=== PATIENT | female | born 1955 | race Caucasian/White ===

== ENCOUNTER → 2017-04-18 13:26 | Outpatient (CLI) | payer OTHER, SELFPAY ==
[2017-04-18 15:29] LABS: Absolute Lymphocyte Count 1.12 X10^3/ul (0.83-4.51); Absolute Neutrophil Count 2.8 X10^3/uL (2.0-7.7); Basophil# 0.03 X10^3/uL; Basophil% 0.6 % (0-1); Eosinophils% 2.1 % (0-5); Hemoglobin 12.8 g/dl (12.0-15.0); Lymphocyte # 1.12 X10^3/ul (4.0); Lymphocyte % 23.8 % (19-41); Mean Corp Hgb Conc 32.8 g/gl (32-36); Mean Corpuscular Hgb 31.9 pg (27.0-32.0); Mean Corpuscular Volume 97.3 fL (81-99); Mean Platelet Vol. 11.3 fl (6.2-12.0); Monocyte# 0.62 X10^3/uL; Monocyte% 13.2 % (0-10); Neutrophil # 2.83 X10^3/uL (2.7-7.7); Neutrophil % 60.3 % (47-70); Platelet Count 248 K/mm3 (150-450); RBC Distribution Width SD 47.1 fl (35.1-43.9); Red Blood Count 4.01 M/mm3 (4.2-5.4); White Blood Count 4.7 K/mm3 (4.4-11.0)
[2017-04-18 15:33] LABS: POSITIVE COUNT NO; POSITIVE DIFFERENTIAL NO; POSITIVE MORPHOLOGY NO
[2017-04-18 15:44] LABS: ALB/GLOB Ratio 1.2 RATIO (0.9-2.4); AST(SGOT) 26 U/L (15-37); Alanine Aminotransfer ALT/SGPT 39 U/L (13-56); Albumin, Serum 3.5 g/dL (3.2-5.0); Alkaline Phosphatase 62 U/L (45-117); Anion Gap 7 (5-15); BUN 19 mg/dL (7-18); BUN/Creat Ratio 22.4 RATIO (10-20); Calcium,Total 8.4 mg/dL (8.5-10.1); Chloride 105 mmol/L (98-107); Creatinine, Serum 0.85 mg/dL (0.55-1.02); EST Glomerular Filtration Rate 72 mL/min (>60); Est Glom Filt Rate - Afr Amer 87 mL/min (>60); Glucose 81 mg/dL (74-106); Potassium 3.8 mmol/L (3.5-5.1); Protein, Total 6.5 g/dL (6.4-8.2); Sodium Level 141 mmol/L (136-145)
== END ==
PROVIDERS: Family Provider Family Medicine; PCP Family Medicine; Visit Provider Internal Medicine Rheumatology
DX: M06.4 Inflammatory polyarthropathy (principal); M79.7 Fibromyalgia; M35.00 Sjogren syndrome, unspecified; K58.9 Irritable bowel syndrome, unspecified; I34.1 Nonrheumatic mitral (valve) prolapse; E78.5 Hyperlipidemia, unspecified; F32.89 Other specified depressive episodes; Z79.899 Other long term (current) drug therapy
CPT/HCPCS: 36415; 80053; 85025

== ENCOUNTER → 2017-07-11 11:00 | Outpatient (CLI) | payer OTHER, SELFPAY ==
[2017-07-11 12:54] LABS: ALB/GLOB Ratio 1.2 RATIO (0.9-2.4); AST(SGOT) 31 U/L (15-37); Alanine Aminotransfer ALT/SGPT 36 U/L (13-56); Alkaline Phosphatase 66 U/L (45-117); Anion Gap 7 (5-15); BUN 19 mg/dL (7-18); BUN/Creat Ratio 19.7 RATIO (10-20); Calcium,Total 9.3 mg/dL (8.5-10.1); Chloride 103 mmol/L (98-107); Creatinine, Serum 0.96 mg/dL (0.55-1.02); EST Glomerular Filtration Rate 62 mL/min (>60); Est Glom Filt Rate - Afr Amer 75 mL/min (>60); Globulin 3.3 g/dL (2.2-4.2); Glucose 88 mg/dL (74-106); Potassium 4.8 mmol/L (3.5-5.1); Protein, Total 7.3 g/dL (6.4-8.2); Sodium Level 138 mmol/L (136-145)
[2017-07-11 13:06] LABS: Absolute Lymphocyte Count 1.02 X10^3/ul (0.83-4.51); Basophil# 0.02 X10^3/uL; Basophil% 0.4 % (0-1); Eosinophil# 0.29 X10^3/uL; Eosinophils% 6.3 % (0-5); Hematocrit 46.5 % (37-47); Hemoglobin 15.7 g/dl (12.0-15.0); Lymphocyte # 1.02 X10^3/ul (4.0); Mean Corp Hgb Conc 33.8 g/gl (32-36); Mean Corpuscular Hgb 30.7 pg (27.0-32.0); Mean Corpuscular Volume 90.8 fL (81-99); Mean Platelet Vol. 10.7 fl (6.2-12.0); Monocyte# 0.34 X10^3/uL; Monocyte% 7.3 % (0-10); Neutrophil # 2.96 X10^3/uL (2.7-7.7); Neutrophil % 63.8 % (47-70); Platelet Count 178 K/mm3 (150-450); RBC Distribution Width CV 12.9 % (11.6-14.6); RBC Distribution Width SD 42.9 fl (35.1-43.9); Red Blood Count 5.12 M/mm3 (4.2-5.4); White Blood Count 4.6 K/mm3 (4.4-11.0)
[2017-07-11 13:16] LABS: POSITIVE COUNT NO; POSITIVE DIFFERENTIAL NO; POSITIVE MORPHOLOGY NO
== END ==
PROVIDERS: Family Provider Family Medicine; PCP Family Medicine; Visit Provider Internal Medicine Rheumatology
DX: M06.4 Inflammatory polyarthropathy (principal); M79.7 Fibromyalgia; M35.00 Sjogren syndrome, unspecified; K58.9 Irritable bowel syndrome, unspecified; F32.89 Other specified depressive episodes; I34.1 Nonrheumatic mitral (valve) prolapse; E78.5 Hyperlipidemia, unspecified; Z79.899 Other long term (current) drug therapy
CPT/HCPCS: 36415; 80053; 85025

== ENCOUNTER → 2017-09-20 13:44 | Outpatient (CLI) | payer OTHER, SELFPAY ==
[2017-09-20 15:28] LABS: Absolute Lymphocyte Count 1.16 X10^3/ul (0.83-4.51); Absolute Neutrophil Count 3.7 X10^3/uL (2.0-7.7); Basophil# 0.02 X10^3/uL; Basophil% 0.4 % (0-1); Eosinophil# 0.11 X10^3/uL; Eosinophils% 1.9 % (0-5); Hematocrit 41.1 % (37-47); Hemoglobin 13.3 g/dl (12.0-15.0); Lymphocyte # 1.16 X10^3/ul (4.0); Lymphocyte % 20.5 % (19-41); Mean Corp Hgb Conc 32.4 g/gl (32-36); Mean Corpuscular Hgb 31.8 pg (27.0-32.0); Mean Corpuscular Volume 98.3 fL (81-99); Mean Platelet Vol. 10.8 fl (6.2-12.0); Monocyte# 0.67 X10^3/uL; Monocyte% 11.9 % (0-10); Neutrophil # 3.69 X10^3/uL (2.7-7.7); Neutrophil % 65.3 % (47-70); Platelet Count 261 K/mm3 (150-450); RBC Distribution Width CV 14.6 % (11.6-14.6); RBC Distribution Width SD 50.4 fl (35.1-43.9); Red Blood Count 4.18 M/mm3 (4.2-5.4); White Blood Count 5.7 K/mm3 (4.4-11.0)
[2017-09-20 15:39] LABS: POSITIVE COUNT NO; POSITIVE DIFFERENTIAL NO; POSITIVE MORPHOLOGY NO
[2017-09-20 15:51] LABS: ALB/GLOB Ratio 1.3 RATIO (0.9-2.4); AST(SGOT) 31 U/L (15-37); Alanine Aminotransfer ALT/SGPT 40 U/L (13-56); Albumin, Serum 3.9 g/dL (3.2-5.0); Alkaline Phosphatase 60 U/L (45-117); Anion Gap 6 (5-15); BUN 19 mg/dL (7-18); BUN/Creat Ratio 18.4 RATIO (10-20); Calcium,Total 8.8 mg/dL (8.5-10.1); Chloride 105 mmol/L (98-107); Creatinine, Serum 1.03 mg/dL (0.55-1.02); EST Glomerular Filtration Rate 57 mL/min (>60); Est Glom Filt Rate - Afr Amer 69 mL/min (>60); Globulin 3.1 g/dL (2.2-4.2); Glucose 81 mg/dL (74-106); Potassium 4.1 mmol/L (3.5-5.1); Sodium Level 142 mmol/L (136-145)
== END ==
PROVIDERS: Family Provider Family Medicine; PCP Family Medicine; Visit Provider Internal Medicine Rheumatology
DX: M06.4 Inflammatory polyarthropathy (principal); M35.00 Sjogren syndrome, unspecified; K58.9 Irritable bowel syndrome, unspecified; M79.7 Fibromyalgia; I34.1 Nonrheumatic mitral (valve) prolapse; E78.5 Hyperlipidemia, unspecified; G47.33 Obstructive sleep apnea (adult) (pediatric); F32.89 Other specified depressive episodes; Z79.899 Other long term (current) drug therapy
CPT/HCPCS: 36415; 80053; 85025

== ENCOUNTER → 2017-12-14 15:24 | Outpatient (CLI) | payer OTHER, SELFPAY ==
[2017-12-14 17:48] LABS: ALB/GLOB Ratio 1.2 RATIO (0.9-2.4); AST(SGOT) 44 U/L (15-37); Alanine Aminotransfer ALT/SGPT 59 U/L (13-56); Albumin, Serum 3.8 g/dL (3.2-5.0); Alkaline Phosphatase 67 U/L (45-117); Anion Gap 7 (5-15); BUN 17 mg/dL (7-18); BUN/Creat Ratio 17.6 RATIO (10-20); Chloride 104 mmol/L (98-107); Creatinine, Serum 0.96 mg/dL (0.55-1.02); EST Glomerular Filtration Rate 62 mL/min (>60); Est Glom Filt Rate - Afr Amer 75 mL/min (>60); Globulin 3.1 g/dL (2.2-4.2); Glucose 129 mg/dL (74-106); Potassium 3.6 mmol/L (3.5-5.1); Protein, Total 6.9 g/dL (6.4-8.2); Sodium Level 139 mmol/L (136-145)
[2017-12-14 17:53] LABS: Absolute Lymphocyte Count 1.39 X10^3/ul (0.83-4.51); Absolute Neutrophil Count 3.8 X10^3/uL (2.0-7.7); Basophil# 0.03 X10^3/uL; Basophil% 0.5 % (0-1); Eosinophil# 0.06 X10^3/uL; Hematocrit 40.8 % (37-47); Hemoglobin 13.3 g/dl (12.0-15.0); Lymphocyte # 1.39 X10^3/ul (4.0); Mean Corp Hgb Conc 32.6 g/gl (32-36); Mean Corpuscular Hgb 31.2 pg (27.0-32.0); Mean Corpuscular Volume 95.8 fL (81-99); Mean Platelet Vol. 10.8 fl (6.2-12.0); Monocyte% 8.6 % (0-10); Neutrophil # 3.81 X10^3/uL (2.7-7.7); Neutrophil % 65.7 % (47-70); POSITIVE COUNT NO; POSITIVE DIFFERENTIAL NO; POSITIVE MORPHOLOGY NO; Platelet Count 290 K/mm3 (150-450); RBC Distribution Width CV 14.7 % (11.6-14.6); RBC Distribution Width SD 49.4 fl (35.1-43.9); Red Blood Count 4.26 M/mm3 (4.2-5.4); White Blood Count 5.8 K/mm3 (4.4-11.0)
== END ==
PROVIDERS: Family Provider Family Medicine; PCP Family Medicine; Visit Provider Internal Medicine Rheumatology
DX: M06.4 Inflammatory polyarthropathy (principal); M79.7 Fibromyalgia; M35.00 Sjogren syndrome, unspecified; K58.9 Irritable bowel syndrome, unspecified; I34.1 Nonrheumatic mitral (valve) prolapse; E78.5 Hyperlipidemia, unspecified; G47.33 Obstructive sleep apnea (adult) (pediatric); F32.89 Other specified depressive episodes; Z79.899 Other long term (current) drug therapy
CPT/HCPCS: 36415; 80053; 85025

== ENCOUNTER → 2018-03-20 16:36 | Outpatient (CLI) | payer OTHER, SELFPAY ==
[2018-03-20 18:01] LABS: ALB/GLOB Ratio 1.1 RATIO (0.9-2.4); AST(SGOT) 28 U/L (15-37); Alanine Aminotransfer ALT/SGPT 41 U/L (13-56); Albumin, Serum 3.9 g/dL (3.2-5.0); Alkaline Phosphatase 71 U/L (45-117); Anion Gap 10 (5-15); BUN 21 mg/dL (7-18); BUN/Creat Ratio 23.1 RATIO (10-20); Calcium,Total 9.5 mg/dL (8.5-10.1); Chloride 102 mmol/L (98-107); Creatinine, Serum 0.91 mg/dL (0.55-1.02); EST Glomerular Filtration Rate 66 mL/min (>60); Est Glom Filt Rate - Afr Amer 80 mL/min (>60); Globulin 3.4 g/dL (2.2-4.2); Glucose 73 mg/dL (74-106); Protein, Total 7.3 g/dL (6.4-8.2); Sodium Level 141 mmol/L (136-145)
[2018-03-20 18:02] LABS: Absolute Lymphocyte Count 1.25 X10^3/ul (0.83-4.51); Absolute Neutrophil Count 3.5 X10^3/uL (2.0-7.7); Basophil# 0.03 X10^3/uL; Basophil% 0.5 % (0-1); Eosinophil# 0.09 X10^3/uL; Eosinophils% 1.6 % (0-5); Hematocrit 42.4 % (37-47); Hemoglobin 14.1 g/dl (12.0-15.0); Lymphocyte # 1.25 X10^3/ul (4.0); Lymphocyte % 22.7 % (19-41); Mean Corp Hgb Conc 33.3 g/gl (32-36); Mean Corpuscular Hgb 31.9 pg (27.0-32.0); Mean Corpuscular Volume 95.9 fL (81-99); Monocyte# 0.62 X10^3/uL; Monocyte% 11.3 % (0-10); Neutrophil % 63.7 % (47-70); Platelet Count 352 K/mm3 (150-450); RBC Distribution Width CV 13.9 % (11.6-14.6); RBC Distribution Width SD 47.1 fl (35.1-43.9); Red Blood Count 4.42 M/mm3 (4.2-5.4); White Blood Count 5.5 K/mm3 (4.4-11.0)
[2018-03-20 18:21] LABS: POSITIVE COUNT NO; POSITIVE DIFFERENTIAL NO; POSITIVE MORPHOLOGY NO
== END ==
PROVIDERS: Family Provider Family Medicine; PCP Family Medicine; Referring Provider Internal Medicine Rheumatology; Visit Provider Internal Medicine Rheumatology
DX: M06.4 Inflammatory polyarthropathy (principal); M18.0 Bilateral primary osteoarthritis of first carpometacarpal joints; M79.7 Fibromyalgia; M35.00 Sjogren syndrome, unspecified; Z79.899 Other long term (current) drug therapy
CPT/HCPCS: 36415; 80053; 85025

== ENCOUNTER → 2018-06-19 13:40 | Outpatient (CLI) | payer OTHER, SELFPAY ==
[2018-06-19 15:44] LABS: Absolute Lymphocyte Count 1.24 X10^3/ul (0.83-4.51); Absolute Neutrophil Count 3.9 X10^3/uL (2.0-7.7); Basophil# 0.02 X10^3/uL; Basophil% 0.3 % (0-1); Eosinophil# 0.07 X10^3/uL; Eosinophils% 1.2 % (0-5); Hematocrit 40.5 % (37-47); Hemoglobin 13.3 g/dl (12.0-15.0); Lymphocyte # 1.24 X10^3/ul (4.0); Mean Corp Hgb Conc 32.8 g/gl (32-36); Mean Corpuscular Hgb 30.9 pg (27.0-32.0); Mean Platelet Vol. 11.5 fl (6.2-12.0); Monocyte# 0.64 X10^3/uL; Monocyte% 10.8 % (0-10); Neutrophil # 3.93 X10^3/uL (2.7-7.7); Neutrophil % 66.5 % (47-70); POSITIVE COUNT NO; POSITIVE DIFFERENTIAL NO; POSITIVE MORPHOLOGY NO; Platelet Count 236 K/mm3 (150-450); RBC Distribution Width CV 14.5 % (11.6-14.6); RBC Distribution Width SD 47.8 fl (35.1-43.9); Red Blood Count 4.31 M/mm3 (4.2-5.4); White Blood Count 5.9 K/mm3 (4.4-11.0)
[2018-06-19 15:51] LABS: ALB/GLOB Ratio 1.2 RATIO (0.9-2.4); AST(SGOT) 35 U/L (15-37); Alanine Aminotransfer ALT/SGPT 46 U/L (13-56); Albumin, Serum 3.7 g/dL (3.2-5.0); Alkaline Phosphatase 62 U/L (45-117); Anion Gap 5 (5-15); BUN 24 mg/dL (7-18); BUN/Creat Ratio 24.8 RATIO (10-20); Chloride 104 mmol/L (98-107); Creatinine, Serum 0.97 mg/dL (0.55-1.02); EST Glomerular Filtration Rate 62 mL/min (>60); Est Glom Filt Rate - Afr Amer 75 mL/min (>60); Globulin 3.1 g/dL (2.2-4.2); Glucose 84 mg/dL (74-106); Potassium 3.8 mmol/L (3.5-5.1); Protein, Total 6.8 g/dL (6.4-8.2); Sodium Level 140 mmol/L (136-145)
== END ==
PROVIDERS: Family Provider Family Medicine; PCP Family Medicine; Referring Provider Internal Medicine Rheumatology; Visit Provider Internal Medicine Rheumatology
DX: M06.4 Inflammatory polyarthropathy (principal); M18.0 Bilateral primary osteoarthritis of first carpometacarpal joints; M79.7 Fibromyalgia; M35.00 Sjogren syndrome, unspecified; Z79.899 Other long term (current) drug therapy
CPT/HCPCS: 36415; 80053; 85025

== ENCOUNTER → 2018-09-11 16:01 | Outpatient (CLI) | payer OTHER, SELFPAY ==
[2018-09-11 17:24] LABS: Absolute Lymphocyte Count 1.41 X10^3/ul (0.83-4.51); Absolute Neutrophil Count 3.2 X10^3/uL (2.0-7.7); Basophil# 0.03 X10^3/uL; Basophil% 0.6 % (0-1); Eosinophil# 0.09 X10^3/uL; Eosinophils% 1.7 % (0-5); Hematocrit 40.6 % (37-47); Hemoglobin 13.1 g/dl (12.0-15.0); Lymphocyte # 1.41 X10^3/ul (4.0); Lymphocyte % 26.8 % (19-41); Mean Corp Hgb Conc 32.3 g/gl (32-36); Mean Corpuscular Hgb 30.5 pg (27.0-32.0); Mean Corpuscular Volume 94.4 fL (81-99); Mean Platelet Vol. 11.6 fl (6.2-12.0); Monocyte# 0.57 X10^3/uL; Monocyte% 10.8 % (0-10); Neutrophil # 3.16 X10^3/uL (2.7-7.7); Neutrophil % 59.9 % (47-70); Platelet Count 257 K/mm3 (150-450); White Blood Count 5.3 K/mm3 (4.4-11.0)
[2018-09-11 17:32] LABS: POSITIVE COUNT NO; POSITIVE DIFFERENTIAL NO; POSITIVE MORPHOLOGY NO
[2018-09-11 17:35] LABS: ALB/GLOB Ratio 1.1 RATIO (0.9-2.4); AST(SGOT) 29 U/L (15-37); Alanine Aminotransfer ALT/SGPT 40 U/L (13-56); Albumin, Serum 3.6 g/dL (3.2-5.0); Alkaline Phosphatase 71 U/L (45-117); Anion Gap 7 (5-15); BUN 21 mg/dL (7-18); BUN/Creat Ratio 22.2 RATIO (10-20); Chloride 106 mmol/L (98-107); Creatinine, Serum 0.94 mg/dL (0.55-1.02); EST Glomerular Filtration Rate 63 mL/min (>60); Est Glom Filt Rate - Afr Amer 76 mL/min (>60); Globulin 3.3 g/dL (2.2-4.2); Glucose 72 mg/dL (74-106); Potassium 4.1 mmol/L (3.5-5.1); Protein, Total 6.9 g/dL (6.4-8.2); Sodium Level 143 mmol/L (136-145)
== END ==
PROVIDERS: Family Provider Family Medicine; PCP Family Medicine; Referring Provider Internal Medicine Rheumatology; Visit Provider Internal Medicine Rheumatology
DX: M06.4 Inflammatory polyarthropathy (principal); M79.7 Fibromyalgia; M35.00 Sjogren syndrome, unspecified; M18.0 Bilateral primary osteoarthritis of first carpometacarpal joints; K58.9 Irritable bowel syndrome, unspecified; F32.89 Other specified depressive episodes; I34.1 Nonrheumatic mitral (valve) prolapse; E78.5 Hyperlipidemia, unspecified; G47.33 Obstructive sleep apnea (adult) (pediatric); Z79.899 Other long term (current) drug therapy
CPT/HCPCS: 36415; 80053; 85025

== ENCOUNTER → 2018-12-04 11:39 | Outpatient (CLI) | payer MEDICARE, SELFPAY ==
[2018-12-04 13:58] LABS: Absolute Lymphocyte Count 0.94 X10^3/uL (0.83-4.51); Absolute Neutrophil Count 2.8 X10^3/uL (2.0-7.7); Basophil# 0.04 X10^3/uL; Basophil% 0.8 % (0-1); Eosinophils% 10.6 % (0-5); Hematocrit 42.4 % (37-47); Hemoglobin 13.7 g/dL (12.0-15.0); Lymphocyte # 0.94 X10^3/ul (4.0); Lymphocyte % 19.9 % (19-41); Mean Corp Hgb Conc 32.3 g/dL (32-36); Mean Corpuscular Hgb 31.4 pg (27.0-32.0); Mean Platelet Vol. 10.7 fl (6.2-12.0); Monocyte% 8.5 % (0-10); NRBC Flagged by Analyzer 0 % (0-5); Neutrophil # 2.84 X10^3/uL (2.7-7.7); Platelet Count 268 K/mm3 (150-450); RBC Distribution Width CV 14.2 % (11.6-14.6); RBC Distribution Width SD 50.3 fl (35.1-43.9); Red Blood Count 4.37 M/mm3 (4.2-5.4); White Blood Count 4.7 K/mm3 (4.4-11.0)
[2018-12-04 14:32] LABS: ALB/GLOB Ratio 1.1 RATIO (0.9-2.4); AST(SGOT) 26 U/L (15-37); Alanine Aminotransfer ALT/SGPT 35 U/L (13-56); Albumin, Serum 3.7 g/dL (3.2-5.0); Alkaline Phosphatase 74 U/L (45-117); Anion Gap 5 (5-15); BUN 17 mg/dL (7-18); BUN/Creat Ratio 18.4 RATIO (10-20); Calcium,Total 9.1 mg/dL (8.5-10.1); Chloride 104 mmol/L (98-107); Creatinine, Serum 0.92 mg/dL (0.55-1.02); EST Glomerular Filtration Rate 65 mL/min (>60); Est Glom Filt Rate - Afr Amer 79 mL/min (>60); Globulin 3.5 g/dL (2.2-4.2); Glucose 74 mg/dL (74-106); Potassium 4.1 mmol/L (3.5-5.1); Protein, Total 7.2 g/dL (6.4-8.2); Sodium Level 139 mmol/L (136-145)
== END ==
PROVIDERS: Family Provider Family Medicine; PCP Family Medicine; Referring Provider Internal Medicine Rheumatology; Visit Provider Internal Medicine Rheumatology
DX: M06.4 Inflammatory polyarthropathy (principal); M79.7 Fibromyalgia; M35.00 Sjogren syndrome, unspecified; M18.0 Bilateral primary osteoarthritis of first carpometacarpal joints; K58.9 Irritable bowel syndrome, unspecified; I34.1 Nonrheumatic mitral (valve) prolapse; E78.5 Hyperlipidemia, unspecified; G47.33 Obstructive sleep apnea (adult) (pediatric); F32.89 Other specified depressive episodes; Z79.899 Other long term (current) drug therapy
CPT/HCPCS: 36415; 80053; 85025

== ENCOUNTER → 2018-12-27 11:35 | Outpatient (CLI) | payer MEDICARE, SELFPAY ==
[2018-12-28 16:08] LABS: Red Blood Cell Count Test/G6PD 4.41 x10E6/uL (3.77-5.28)
[2018-12-28 16:47] LABS: G6PD Quant Test 325 (146-376)
== END ==
PROVIDERS: Family Provider Family Medicine; PCP Family Medicine; Referring Provider Internal Medicine Rheumatology; Visit Provider Internal Medicine Rheumatology
DX: M06.4 Inflammatory polyarthropathy (principal); M35.00 Sjogren syndrome, unspecified; M18.0 Bilateral primary osteoarthritis of first carpometacarpal joints; M79.7 Fibromyalgia; Z79.899 Other long term (current) drug therapy
CPT/HCPCS: 36415; 82955

== ENCOUNTER → 2019-02-14 13:53 | Outpatient (CLI) | payer MEDICARE, SELFPAY ==
[2019-02-14 16:15] LABS: Absolute Lymphocyte Count 1.24 X10^3/uL (0.83-4.51); Absolute Neutrophil Count 3.8 X10^3/uL (2.0-7.7); Basophil# 0.03 X10^3/uL; Basophil% 0.5 % (0-1); Eosinophil# 0.02 X10^3/uL; Eosinophils% 0.4 % (0-5); Hematocrit 44.6 % (37-47); Hemoglobin 14.5 g/dL (12.0-15.0); Lymphocyte # 1.24 X10^3/ul (4.0); Lymphocyte % 22.3 % (19-41); Mean Corp Hgb Conc 32.5 g/dL (32-36); Mean Corpuscular Hgb 31.5 pg (27.0-32.0); Mean Platelet Vol. 11.3 fl (6.2-12.0); Monocyte# 0.44 X10^3/uL; Monocyte% 7.9 % (0-10); NRBC Flagged by Analyzer 0 % (0-5); Neutrophil # 3.78 X10^3/uL (2.7-7.7); Neutrophil % 68.2 % (47-70); Platelet Count 319 K/mm3 (150-450); RBC Distribution Width CV 15.3 % (11.6-14.6); RBC Distribution Width SD 53.8 fl (35.1-43.9); White Blood Count 5.6 K/mm3 (4.4-11.0)
[2019-02-14 16:31] LABS: ALB/GLOB Ratio 1.1 RATIO (0.9-2.4); AST(SGOT) 27 U/L (15-37); Alanine Aminotransfer ALT/SGPT 38 U/L (13-56); Albumin, Serum 3.7 g/dL (3.2-5.0); Alkaline Phosphatase 67 U/L (45-117); Anion Gap 4 (5-15); BUN 19 mg/dL (7-18); BUN/Creat Ratio 21.7 RATIO (10-20); Calcium,Total 9.5 mg/dL (8.5-10.1); Chloride 104 mmol/L (98-107); Creatinine, Serum 0.87 mg/dL (0.55-1.02); EST Glomerular Filtration Rate 69 mL/min (>60); Est Glom Filt Rate - Afr Amer 84 mL/min (>60); Globulin 3.4 g/dL (2.2-4.2); Glucose 83 mg/dL (74-106); Potassium 3.6 mmol/L (3.5-5.1); Protein, Total 7.1 g/dL (6.4-8.2); Sodium Level 138 mmol/L (136-145)
== END ==
PROVIDERS: Family Provider Family Medicine; PCP Family Medicine; Referring Provider Internal Medicine Rheumatology; Visit Provider Internal Medicine Rheumatology
DX: M06.4 Inflammatory polyarthropathy (principal); M35.00 Sjogren syndrome, unspecified; M18.0 Bilateral primary osteoarthritis of first carpometacarpal joints; M79.7 Fibromyalgia; Z79.899 Other long term (current) drug therapy
CPT/HCPCS: 36415; 80053; 85025

== ENCOUNTER → 2019-05-21 07:05 | Outpatient (CLI) | payer MEDICARE, SELFPAY ==
[2019-05-21 10:10] LABS: Absolute Lymphocyte Count 1.33 X10^3/uL (0.83-4.51); Absolute Neutrophil Count 2.4 X10^3/uL (2.0-7.7); Basophil# 0.04 X10^3/uL; Basophil% 0.9 % (0-1); Eosinophil# 0.09 X10^3/uL; Hematocrit 42.2 % (37-47); Hemoglobin 13.6 g/dL (12.0-15.0); Lymphocyte # 1.33 X10^3/ul (4.0); Lymphocyte % 30.2 % (19-41); Mean Corp Hgb Conc 32.2 g/dL (32-36); Mean Corpuscular Hgb 31.3 pg (27.0-32.0); Mean Corpuscular Volume 97.2 fL (81-99); Mean Platelet Vol. 10.2 fl (6.2-12.0); Monocyte# 0.57 X10^3/uL; Monocyte% 12.9 % (0-10); NRBC Flagged by Analyzer 0 % (0-5); Neutrophil # 2.36 X10^3/uL (2.7-7.7); Neutrophil % 53.5 % (47-70); Platelet Count 241 K/mm3 (150-450); RBC Distribution Width CV 13.6 % (11.6-14.6); RBC Distribution Width SD 47.8 fl (35.1-43.9); Red Blood Count 4.34 M/mm3 (4.2-5.4); White Blood Count 4.4 K/mm3 (4.4-11.0)
[2019-05-21 10:22] LABS: ALB/GLOB Ratio 1.2 RATIO (0.9-2.4); AST(SGOT) 23 U/L (15-37); Alanine Aminotransfer ALT/SGPT 28 U/L (13-56); Albumin, Serum 3.6 g/dL (3.2-5.0); Alkaline Phosphatase 54 U/L (45-117); Anion Gap 4 (5-15); BUN 14 mg/dL (7-18); BUN/Creat Ratio 13.9 RATIO (10-20); Calcium,Total 9.1 mg/dL (8.5-10.1); Chloride 107 mmol/L (98-107); Creatinine, Serum 1.01 mg/dL (0.55-1.02); EST Glomerular Filtration Rate 58 mL/min (>60); Est Glom Filt Rate - Afr Amer 71 mL/min (>60); Glucose 72 mg/dL (74-106); Potassium 3.8 mmol/L (3.5-5.1); Protein, Total 6.6 g/dL (6.4-8.2); Sodium Level 140 mmol/L (136-145)
== END ==
PROVIDERS: PCP Family Medicine; Referring Provider Internal Medicine Rheumatology; Visit Provider Internal Medicine Rheumatology
DX: M06.4 Inflammatory polyarthropathy (principal); M18.0 Bilateral primary osteoarthritis of first carpometacarpal joints; M25.511 Pain in right shoulder; M79.7 Fibromyalgia; M35.00 Sjogren syndrome, unspecified; K58.9 Irritable bowel syndrome, unspecified; I34.1 Nonrheumatic mitral (valve) prolapse; E78.5 Hyperlipidemia, unspecified; G47.33 Obstructive sleep apnea (adult) (pediatric); F32.89 Other specified depressive episodes; Z79.899 Other long term (current) drug therapy
CPT/HCPCS: 36415; 80053; 85025

== ENCOUNTER → 2019-07-18 10:31 | Outpatient (CLI) | payer MEDICARE, SELFPAY ==
[2019-07-18 12:04] LABS: Absolute Lymphocyte Count 0.83 X10^3/uL (0.83-4.51); Absolute Neutrophil Count 2.4 X10^3/uL (2.0-7.7); Basophil# 0.03 X10^3/uL; Basophil% 0.8 % (0-1); Eosinophil# 0.03 X10^3/uL; Eosinophils% 0.8 % (0-5); Hematocrit 39.8 % (37-47); Lymphocyte # 0.83 X10^3/ul (4.0); Lymphocyte % 22.1 % (19-41); Mean Corp Hgb Conc 32.7 g/dL (32-36); Mean Corpuscular Hgb 32.3 pg (27.0-32.0); Mean Corpuscular Volume 98.8 fL (81-99); Mean Platelet Vol. 10.5 fl (6.2-12.0); Monocyte# 0.44 X10^3/uL; Monocyte% 11.7 % (0-10); NRBC Flagged by Analyzer 0 % (0-5); Neutrophil % 63.8 % (47-70); Platelet Count 263 K/mm3 (150-450); RBC Distribution Width CV 13.7 % (11.6-14.6); RBC Distribution Width SD 49.4 fl (35.1-43.9); Red Blood Count 4.03 M/mm3 (4.2-5.4); White Blood Count 3.8 K/mm3 (4.4-11.0)
[2019-07-18 12:20] LABS: ALB/GLOB Ratio 1.2 RATIO (0.9-2.4); AST(SGOT) 26 U/L (15-37); Alanine Aminotransfer ALT/SGPT 40 U/L (13-56); Albumin, Serum 3.7 g/dL (3.2-5.0); Alkaline Phosphatase 54 U/L (45-117); Anion Gap 5 (5-15); BUN 18 mg/dL (7-18); BUN/Creat Ratio 19.1 RATIO (10-20); Chloride 104 mmol/L (98-107); Creatinine, Serum 0.94 mg/dL (0.55-1.02); EST Glomerular Filtration Rate 63 mL/min (>60); Est Glom Filt Rate - Afr Amer 76 mL/min (>60); Globulin 3.2 g/dL (2.2-4.2); Glucose 52 mg/dL (74-106); Protein, Total 6.9 g/dL (6.4-8.2); Sodium Level 138 mmol/L (136-145)
== END ==
PROVIDERS: PCP Family Medicine; Referring Provider Internal Medicine Rheumatology; Visit Provider Internal Medicine Rheumatology
DX: M06.4 Inflammatory polyarthropathy (principal); M79.7 Fibromyalgia; M35.00 Sjogren syndrome, unspecified; M18.0 Bilateral primary osteoarthritis of first carpometacarpal joints; K58.9 Irritable bowel syndrome, unspecified; F32.89 Other specified depressive episodes; I34.1 Nonrheumatic mitral (valve) prolapse; E78.5 Hyperlipidemia, unspecified; G47.33 Obstructive sleep apnea (adult) (pediatric); Z79.899 Other long term (current) drug therapy
CPT/HCPCS: 36415; 80053; 85025

== ENCOUNTER → 2019-10-25 10:17 | Outpatient (CLI) | payer MEDICARE, SELFPAY ==
[2019-10-25 12:30] LABS: Absolute Lymphocyte Count 1.22 X10^3/uL (0.83-4.51); Absolute Neutrophil Count 1.9 X10^3/uL (2.0-7.7); Basophil# 0.06 X10^3/uL; Basophil% 1.5 % (0-1); Eosinophil# 0.41 X10^3/uL; Eosinophils% 10.1 % (0-5); Hematocrit 39.5 % (37-47); Hemoglobin 12.8 g/dL (12.0-15.0); Lymphocyte # 1.22 X10^3/ul (4.0); Lymphocyte % 30.1 % (19-41); Mean Corp Hgb Conc 32.4 g/dL (32-36); Mean Corpuscular Hgb 32.6 pg (27.0-32.0); Mean Corpuscular Volume 100.5 fL (81-99); Mean Platelet Vol. 10.5 fl (6.2-12.0); Monocyte# 0.45 X10^3/uL; Monocyte% 11.1 % (0-10); NRBC Flagged by Analyzer 0 % (0-5); Neutrophil # 1.91 X10^3/uL (2.7-7.7); Neutrophil % 47.2 % (47-70); Platelet Count 267 K/mm3 (150-450); RBC Distribution Width CV 13.7 % (11.6-14.6); RBC Distribution Width SD 50.4 fl (35.1-43.9); Red Blood Count 3.93 M/mm3 (4.2-5.4); White Blood Count 4.1 K/mm3 (4.4-11.0)
[2019-10-25 12:44] LABS: ALB/GLOB Ratio 1.2 RATIO (0.9-2.4); AST(SGOT) 24 U/L (15-37); Alanine Aminotransfer ALT/SGPT 34 U/L (13-56); Albumin, Serum 3.7 g/dL (3.2-5.0); Alkaline Phosphatase 55 U/L (45-117); Anion Gap 3 (5-15); BUN 17 mg/dL (7-18); BUN/Creat Ratio 17.5 RATIO (10-20); Calcium,Total 8.9 mg/dL (8.5-10.1); Chloride 102 mmol/L (98-107); Creatinine, Serum 0.97 mg/dL (0.55-1.02); EST Glomerular Filtration Rate 61 mL/min (>60); Est Glom Filt Rate - Afr Amer 74 mL/min (>60); Globulin 3.1 g/dL (2.2-4.2); Glucose 78 mg/dL (74-106); Potassium 4.1 mmol/L (3.5-5.1); Protein, Total 6.8 g/dL (6.4-8.2); Sodium Level 138 mmol/L (136-145)
== END ==
PROVIDERS: PCP Family Medicine; Referring Provider Internal Medicine Rheumatology; Visit Provider Internal Medicine Rheumatology
DX: M06.4 Inflammatory polyarthropathy (principal); M79.7 Fibromyalgia; M35.00 Sjogren syndrome, unspecified; M18.0 Bilateral primary osteoarthritis of first carpometacarpal joints; K58.9 Irritable bowel syndrome, unspecified; F32.89 Other specified depressive episodes; I34.1 Nonrheumatic mitral (valve) prolapse; E78.5 Hyperlipidemia, unspecified; G47.33 Obstructive sleep apnea (adult) (pediatric); Z79.899 Other long term (current) drug therapy
CPT/HCPCS: 36415; 80053; 85025

== ENCOUNTER → 2020-01-01 10:05 | Outpatient (CLI) | payer MEDICARE, SELFPAY ==
[2020-01-01 11:58] LABS: Absolute Lymphocyte Count 1.12 X10^3/uL (0.83-4.51); Absolute Neutrophil Count 1.5 X10^3/uL (2.0-7.7); Basophil# 0.06 X10^3/uL; Basophil% 1.8 % (0-1); Eosinophil# 0.34 X10^3/uL; Eosinophils% 10.1 % (0-5); Hematocrit 39.6 % (37-47); Hemoglobin 12.7 g/dL (12.0-15.0); Lymphocyte # 1.12 X10^3/ul (4.0); Lymphocyte % 33.2 % (19-41); Mean Corp Hgb Conc 32.1 g/dL (32-36); Mean Corpuscular Volume 99.7 fL (81-99); Mean Platelet Vol. 9.7 fl (6.2-12.0); Monocyte# 0.38 X10^3/uL; Monocyte% 11.3 % (0-10); NRBC Flagged by Analyzer 0 % (0-5); Neutrophil # 1.46 X10^3/uL (2.7-7.7); Neutrophil % 43.3 % (47-70); Platelet Count 257 K/mm3 (150-450); RBC Distribution Width CV 13.8 % (11.6-14.6); RBC Distribution Width SD 49.7 fl (35.1-43.9); Red Blood Count 3.97 M/mm3 (4.2-5.4); White Blood Count 3.4 K/mm3 (4.4-11.0)
[2020-01-01 12:19] LABS: ALB/GLOB Ratio 1.2 RATIO (0.9-2.4); AST(SGOT) 28 U/L (15-37); Alanine Aminotransfer ALT/SGPT 36 U/L (13-56); Albumin, Serum 3.8 g/dL (3.2-5.0); Alkaline Phosphatase 56 U/L (45-117); Anion Gap 4 (5-15); BUN 13 mg/dL (7-18); BUN/Creat Ratio 14.2 RATIO (10-20); Calcium,Total 8.9 mg/dL (8.5-10.1); Chloride 104 mmol/L (98-107); Cholesterol 192 mg/dL (200); Creatinine, Serum 0.92 mg/dL (0.55-1.02); EST Glomerular Filtration Rate 65 mL/min (>60); Est Glom Filt Rate - Afr Amer 79 mL/min (>60); Globulin 3.1 g/dL (2.2-4.2); Glucose 78 mg/dL (74-106); High Density Lipoprotein 72 mg/dL; Potassium 3.9 mmol/L (3.5-5.1); Protein, Total 6.9 g/dL (6.4-8.2); Sodium Level 139 mmol/L (136-145); Triglycerides 81 mg/dL; Very Low Density Lipoprotein 16 mg/dL (5-40)
== END ==
PROVIDERS: PCP Family Medicine; Referring Provider Internal Medicine Rheumatology; Visit Provider Internal Medicine Rheumatology
DX: M06.4 Inflammatory polyarthropathy (principal); M79.7 Fibromyalgia; M35.00 Sjogren syndrome, unspecified; E78.5 Hyperlipidemia, unspecified; M25.511 Pain in right shoulder; M18.0 Bilateral primary osteoarthritis of first carpometacarpal joints; K58.9 Irritable bowel syndrome, unspecified; F32.89 Other specified depressive episodes; I34.1 Nonrheumatic mitral (valve) prolapse; G47.33 Obstructive sleep apnea (adult) (pediatric); Z79.899 Other long term (current) drug therapy
CPT/HCPCS: 36415; 80053; 80061; 85025

== ENCOUNTER → 2020-02-26 12:46 | Outpatient (CLI) | payer MEDICARE, SELFPAY ==
[2020-02-26 15:26] LABS: Absolute Lymphocyte Count 1.11 X10^3/uL (0.83-4.51); Absolute Neutrophil Count 1.7 X10^3/uL (2.0-7.7); Basophil# 0.05 X10^3/uL; Basophil% 1.3 % (0-1); Eosinophil# 0.52 X10^3/uL; Eosinophils% 13.7 % (0-5); Hematocrit 40.4 % (37-47); Hemoglobin 13.2 g/dL (12.0-15.0); Lymphocyte # 1.11 X10^3/ul (4.0); Lymphocyte % 29.2 % (19-41); Mean Corp Hgb Conc 32.7 g/dL (32-36); Mean Corpuscular Volume 98.1 fL (81-99); Mean Platelet Vol. 10.2 fl (6.2-12.0); Monocyte# 0.42 X10^3/uL; Monocyte% 11.1 % (0-10); NRBC Flagged by Analyzer 0 % (0-5); Neutrophil # 1.69 X10^3/uL (2.7-7.7); Neutrophil % 44.4 % (47-70); Platelet Count 265 K/mm3 (150-450); RBC Distribution Width CV 13.2 % (11.6-14.6); RBC Distribution Width SD 47.8 fl (35.1-43.9); Red Blood Count 4.12 M/mm3 (4.2-5.4); White Blood Count 3.8 K/mm3 (4.4-11.0)
[2020-02-26 15:47] LABS: ALB/GLOB Ratio 1.3 RATIO (0.9-2.4); AST(SGOT) 25 U/L (15-37); Alanine Aminotransfer ALT/SGPT 32 U/L (13-56); Albumin, Serum 3.9 g/dL (3.2-5.0); Alkaline Phosphatase 58 U/L (45-117); Anion Gap 3 (5-15); BUN 12 mg/dL (7-18); BUN/Creat Ratio 14.3 RATIO (10-20); Calcium,Total 8.9 mg/dL (8.5-10.1); Chloride 102 mmol/L (98-107); Creatinine, Serum 0.84 mg/dL (0.55-1.02); EST Glomerular Filtration Rate 72 mL/min (>60); Est Glom Filt Rate - Afr Amer 87 mL/min (>60); Glucose 78 mg/dL (74-106); Potassium 4.1 mmol/L (3.5-5.1); Protein, Total 6.9 g/dL (6.4-8.2); Sodium Level 138 mmol/L (136-145)
== END ==
PROVIDERS: PCP Family Medicine; Referring Provider Internal Medicine Rheumatology; Visit Provider Internal Medicine Rheumatology
DX: M06.4 Inflammatory polyarthropathy (principal); M79.7 Fibromyalgia; M35.00 Sjogren syndrome, unspecified; M25.511 Pain in right shoulder; M18.0 Bilateral primary osteoarthritis of first carpometacarpal joints; K58.9 Irritable bowel syndrome, unspecified; F32.89 Other specified depressive episodes; I34.1 Nonrheumatic mitral (valve) prolapse; E78.5 Hyperlipidemia, unspecified; G47.33 Obstructive sleep apnea (adult) (pediatric); Z79.899 Other long term (current) drug therapy
CPT/HCPCS: 36415; 80053; 85025

== ENCOUNTER → 2020-03-04 15:42 | Outpatient (CLI) | payer MEDICARE, SELFPAY ==
--- NOTE | 2020-03-04 15:45 | RAD_ITS ---
STUDY: X-RAY CHEST REASON FOR EXAM: Female, 64 years old. Baseline study for starting new medication. No symptoms. TECHNIQUE: PA and lateral COMPARISON: CT chest 11/11/2016. FINDINGS: No apparent pneumothorax, pneumonia, pleural effusion, or edema. Cardiac silhouette, kenia and mediastinal contours are within normal limits. No acute osseous abnormality. Mild degenerative changes thoracic spine. No evidence of free air under the diaphragm. RAD/Chest PA and Lateral IMPRESSION: Negative chest radiograph. Electronically Signed: Erick Stewart, at 8:16 EST Tel , Service support ,
[2020-03-09 16:07] LABS: QNTFERON TB Mitogen Value > 10.00 IU/mL (.); QNTFERON TB Nil Value 0.04 IU/mL (.); QNTFERON TB1+ Ag Value 0.04 IU/mL (.); QNTFERON TB2+ Ag Value 0.05 IU/mL (.)
[2020-03-10 09:42] LABS: QNTIFERON TB Positive Criteria Negative (Negative)
== END ==
PROVIDERS: PCP Family Medicine; Referring Provider Internal Medicine Rheumatology; Visit Provider Internal Medicine Rheumatology
DX: M06.4 Inflammatory polyarthropathy (principal); M79.7 Fibromyalgia; M35.00 Sjogren syndrome, unspecified; M25.511 Pain in right shoulder; M18.0 Bilateral primary osteoarthritis of first carpometacarpal joints; K58.9 Irritable bowel syndrome, unspecified; F32.89 Other specified depressive episodes; I34.1 Nonrheumatic mitral (valve) prolapse; E78.5 Hyperlipidemia, unspecified; G47.33 Obstructive sleep apnea (adult) (pediatric); Z79.899 Other long term (current) drug therapy
CPT/HCPCS: 36415; 71046; 86480

== ENCOUNTER → 2020-04-08 10:09 | Outpatient (CLI) | payer MEDICARE, SELFPAY ==
[2020-04-08 12:10] LABS: Absolute Lymphocyte Count 1.15 X10^3/uL (0.83-4.51); Absolute Neutrophil Count 1.6 X10^3/uL (2.0-7.7); Basophil# 0.07 X10^3/uL; Basophil% 1.9 % (0-1); Eosinophils% 13.3 % (0-5); Hematocrit 40.8 % (37-47); Hemoglobin 13.2 g/dL (12.0-15.0); Lymphocyte # 1.15 X10^3/ul (4.0); Lymphocyte % 30.6 % (19-41); Mean Corp Hgb Conc 32.4 g/dL (32-36); Mean Corpuscular Hgb 31.6 pg (27.0-32.0); Mean Corpuscular Volume 97.6 fL (81-99); Mean Platelet Vol. 10.9 fl (6.2-12.0); Monocyte# 0.49 X10^3/uL; NRBC Flagged by Analyzer 0 % (0-5); Neutrophil # 1.55 X10^3/uL (2.7-7.7); Neutrophil % 41.2 % (47-70); Platelet Count 261 K/mm3 (150-450); RBC Distribution Width CV 13.5 % (11.6-14.6); RBC Distribution Width SD 48.5 fl (35.1-43.9); Red Blood Count 4.18 M/mm3 (4.2-5.4); White Blood Count 3.8 K/mm3 (4.4-11.0)
[2020-04-08 12:32] LABS: ALB/GLOB Ratio 1.3 RATIO (0.9-2.4); AST(SGOT) 25 U/L (15-37); Alanine Aminotransfer ALT/SGPT 31 U/L (13-56); Albumin, Serum 3.9 g/dL (3.2-5.0); Alkaline Phosphatase 59 U/L (45-117); Anion Gap 6 (5-15); BUN 10 mg/dL (7-18); BUN/Creat Ratio 11.7 RATIO (10-20); Calcium,Total 8.7 mg/dL (8.5-10.1); Chloride 101 mmol/L (98-107); Creatinine, Serum 0.86 mg/dL (0.55-1.02); EST Glomerular Filtration Rate 71 mL/min (>60); Est Glom Filt Rate - Afr Amer 85 mL/min (>60); Glucose 71 mg/dL (74-106); Protein, Total 6.9 g/dL (6.4-8.2); Sodium Level 137 mmol/L (136-145)
== END ==
PROVIDERS: PCP Family Medicine; Referring Provider Internal Medicine Rheumatology; Visit Provider Internal Medicine Rheumatology
DX: M06.4 Inflammatory polyarthropathy (principal); M79.7 Fibromyalgia; M35.00 Sjogren syndrome, unspecified; M25.511 Pain in right shoulder; M18.0 Bilateral primary osteoarthritis of first carpometacarpal joints; K58.9 Irritable bowel syndrome, unspecified; F32.89 Other specified depressive episodes; I34.1 Nonrheumatic mitral (valve) prolapse; E78.5 Hyperlipidemia, unspecified; G47.33 Obstructive sleep apnea (adult) (pediatric); Z79.899 Other long term (current) drug therapy
CPT/HCPCS: 36415; 80053; 85025

== ENCOUNTER → 2020-05-13 08:34 | Outpatient (CLI) | payer MEDICARE, SELFPAY ==
--- NOTE | 2020-05-13 08:39 | BD_ITS ---
STUDY: DUAL ENERGY X-RAY ABSORPTIOMETRY / DXA REASON FOR EXAM: Female, 64 years old. OSTEOPOROSIS TECHNIQUE: Bone Mineral Density (BMD) measurements of lumbar spine and bilateral hips were obtained. COMPARISON: Comparison is made with prior study dated 01/30/2014. FINDINGS: Lumbar Spine (L1-L4): g/cm2 (0.966) / T-score (-1.8) / Z-score (-0.2) Findings are suggestive of osteopenia with a moderate fracture risk. Left Femur Total: g/cm2 (0.899) / T-score (-0.9) / Z-score (0.4) Left Femoral Neck: g/cm2 (0.940) / T-score (-0.7) / Z-score (0.8) Right Femur Total: g/cm2 (0.787) / T-score (-1.8) / Z-score (-0.5) Right Femoral Neck: g/cm2 (0.794) / T-score (-1.8) / Z-score (-0.2) The T-Scores on the most recent prior examination were: Lumbar Spine (L1-L4): There has been improvement of bone density since the previous examination. Left Femur Total: which represents an improvement of 5.8%. Right Femur Total: which represents a worsening of 4.6%. BD/Dexa Bone Density Study IMPRESSION: The patient is considered osteopenic as outlined below according to World Angel Organization (WHO) criteria with a moderate fracture risk. There has been improvement of bone density since the previous examination. Reference Information: The T-score is the number of standard deviations above or below the standard which is normal for young adults at their peak bone mineral density. The World Health Organization (WHO) interprets the T-scores as follows: Above -1 Normal bone density Between -1 and -2.5 Osteopenia Equal to / or below -2.5 Osteoporosis As a practical clinical guideline, osteopenia may be graded as follows: Mild -1 through -1.5 Moderate -1.6 through -2.0 Severe -2.1 through -2.4 The Z-score is the number of standard deviations above or below age-matched controls. A Z-score of less than -1.5 would be considered abnormal. References: 1. NIH Osteoporosis and Related Bone Diseases www osteo.org 2. International Society for Clinical Densitometry www iscd.org 3. National Osteoporosis Foundation www nof.org Electronically Signed: Taiwo Guerrero MD at 10:08 EST , Service support ,
== END ==
PROVIDERS: PCP Internal Medicine; Referring Provider Internal Medicine; Visit Provider Internal Medicine
DX: M81.0 Age-related osteoporosis without current pathological fracture (principal)
CPT/HCPCS: 77080

== ENCOUNTER → 2020-07-11 11:50 | Outpatient (CLI) | payer MEDICARE, SELFPAY ==
[2020-07-11 15:28] LABS: Absolute Neutrophil Count 1.8 X10^3/uL (2.0-7.7); Basophil# 0.04 X10^3/uL; Basophil% 1.1 % (0-1); Eosinophil# 0.23 X10^3/uL; Eosinophils% 6.5 % (0-5); Hemoglobin 12.4 g/dL (12.0-15.0); Lymphocyte % 34.1 % (19-41); Mean Corpuscular Hgb 30.8 pg (27.0-32.0); Mean Corpuscular Volume 99.3 fL (81-99); Mean Platelet Vol. 10.6 fl (6.2-12.0); Monocyte# 0.24 X10^3/uL; Monocyte% 6.8 % (0-10); NRBC Flagged by Analyzer 0 % (0-5); Neutrophil % 51.2 % (47-70); Platelet Count 255 K/mm3 (150-450); RBC Distribution Width CV 13.4 % (11.6-14.6); RBC Distribution Width SD 48.6 fl (35.1-43.9); Red Blood Count 4.03 M/mm3 (4.2-5.4); White Blood Count 3.5 K/mm3 (4.4-11.0)
[2020-07-11 15:50] LABS: ALB/GLOB Ratio 1.3 RATIO (0.9-2.4); AST(SGOT) 22 U/L (15-37); Alanine Aminotransfer ALT/SGPT 31 U/L (13-56); Albumin, Serum 3.8 g/dL (3.2-5.0); Alkaline Phosphatase 55 U/L (45-117); Anion Gap 3 (5-15); BUN 17 mg/dL (7-18); BUN/Creat Ratio 19.7 RATIO (10-20); Calcium,Total 8.9 mg/dL (8.5-10.1); Chloride 104 mmol/L (98-107); Creatinine, Serum 0.86 mg/dL (0.55-1.02); EST Glomerular Filtration Rate 70 mL/min (>60); Est Glom Filt Rate - Afr Amer 85 mL/min (>60); Globulin 2.9 g/dL (2.2-4.2); Glucose 76 mg/dL (74-106); Potassium 4.3 mmol/L (3.5-5.1); Protein, Total 6.7 g/dL (6.4-8.2); Sodium Level 139 mmol/L (136-145)
== END ==
PROVIDERS: PCP Internal Medicine; Referring Provider Internal Medicine Rheumatology; Visit Provider Internal Medicine Rheumatology
DX: M06.09 Rheumatoid arthritis without rheumatoid factor, multiple sites (principal); M79.7 Fibromyalgia; M35.00 Sjogren syndrome, unspecified; M18.0 Bilateral primary osteoarthritis of first carpometacarpal joints; K58.9 Irritable bowel syndrome, unspecified; F32.89 Other specified depressive episodes; I34.1 Nonrheumatic mitral (valve) prolapse; E78.5 Hyperlipidemia, unspecified; G47.33 Obstructive sleep apnea (adult) (pediatric); Z79.899 Other long term (current) drug therapy
CPT/HCPCS: 36415; 80053; 85025

== ENCOUNTER → 2020-09-30 11:25 | Outpatient (CLI) | payer MEDICARE, SELFPAY ==
[2020-09-30 15:20] LABS: Absolute Lymphocyte Count 1.48 X10^3/uL (0.83-4.51); Absolute Neutrophil Count 1.6 X10^3/uL (2.0-7.7); Basophil# 0.05 X10^3/uL; Basophil% 1.3 % (0-1); Eosinophil# 0.23 X10^3/uL; Eosinophils% 5.9 % (0-5); Hematocrit 38.9 % (37-47); Hemoglobin 12.5 g/dL (12.0-15.0); Lymphocyte # 1.48 X10^3/ul (0.83-4.51); Lymphocyte % 37.9 % (19-41); Mean Corp Hgb Conc 32.1 g/dL (32-36); Mean Corpuscular Hgb 31.9 pg (27.0-32.0); Mean Corpuscular Volume 99.2 fL (81-99); Monocyte# 0.52 X10^3/uL; Monocyte% 13.3 % (0-10); NRBC Flagged by Analyzer 0 % (0-5); Neutrophil # 1.62 X10^3/uL (2.7-7.7); Neutrophil % 41.6 % (47-70); Platelet Count 243 K/mm3 (150-450); RBC Distribution Width CV 13.7 % (11.6-14.6); RBC Distribution Width SD 49.1 fl (35.1-43.9); Red Blood Count 3.92 M/mm3 (4.2-5.4); White Blood Count 3.9 K/mm3 (4.4-11.0)
[2020-09-30 15:37] LABS: ALB/GLOB Ratio 1.3 RATIO (0.9-2.4); AST(SGOT) 26 U/L (15-37); Alanine Aminotransfer ALT/SGPT 47 U/L (13-56); Albumin, Serum 3.7 g/dL (3.2-5.0); Alkaline Phosphatase 52 U/L (45-117); Anion Gap 5 (5-15); BUN 18 mg/dL (7-18); BUN/Creat Ratio 21.1 RATIO (10-20); Chloride 101 mmol/L (98-107); Creatinine, Serum 0.86 mg/dL (0.55-1.02); EST Glomerular Filtration Rate 70 mL/min (>60); Est Glom Filt Rate - Afr Amer 85 mL/min (>60); Globulin 2.9 g/dL (2.2-4.2); Glucose 66 mg/dL (74-106); Potassium 4.3 mmol/L (3.5-5.1); Protein, Total 6.6 g/dL (6.4-8.2); Sodium Level 138 mmol/L (136-145)
== END ==
PROVIDERS: PCP Internal Medicine; Referring Provider Internal Medicine Rheumatology; Visit Provider Internal Medicine Rheumatology
DX: M06.09 Rheumatoid arthritis without rheumatoid factor, multiple sites (principal); M79.7 Fibromyalgia; M35.00 Sjogren syndrome, unspecified; M18.0 Bilateral primary osteoarthritis of first carpometacarpal joints; K58.9 Irritable bowel syndrome, unspecified; I34.1 Nonrheumatic mitral (valve) prolapse; E78.5 Hyperlipidemia, unspecified; L40.9 Psoriasis, unspecified; G47.33 Obstructive sleep apnea (adult) (pediatric); F32.89 Other specified depressive episodes; Z79.899 Other long term (current) drug therapy
CPT/HCPCS: 36415; 80053; 85025

== ENCOUNTER 2020-11-03 12:38 | Day surgery (SDC) | payer MEDICARE, SELFPAY ==
--- NOTE | 2020-11-03 12:39 | PCM.OPRPT ---
Problems Associated Problem List Diagnoses (1) Other urethral stricture, female: (2) Urgency of urination: (3) Frequency of urination: Report of Operation Date of Procedure: 11/03/20 Pre-Operative Diagnosis: Urethral stricture female, urinary urgency, urinary frequency Post-Operative Diagnosis: Same Surgery/Procedure Performed:: Urethral dilation, cystoscopy Surgeon: Toshia Portillo Type of Anesthesia: MAC Description of Procedure: The patient is a 65-year-old female with urinary urgency and frequency who underwent urodynamics in the office and on evaluation with cystoscopy, a urethral stricture was identified. Informed consent was obtained and the patient now presents for urethral dilation and cystoscopy under anesthesia. The patient was taken to the operating room and placed on the operating room table. Anesthesia monitored the head, neck, airway, IV access and vital signs throughout the case. Once anesthesia was appropriate ministered the patient was placed into dorsal lithotomy position was prepped and draped in usual sterile fashion. At this time the 12 [place] urethral sound was inserted through the urethra. Subsequent sounds were then introduced in systematic fashion all the way to 26 [place]. The patient's urethral mucosa was mildly cracked. At this time the cystoscope was inserted through the urethra under direct visualization into the urinary bladder. The bladder mucosa was visualized in its entirety. The ureteral orifices were located in the correct anatomic position in the area of the trigone. There were no masses, lesions, areas of erythema, ulceration or foreign body identified. At this time the patient's bladder was emptied and the case was terminated. The patient was awakened and taken to the recovery room in good condition. There were no complications during this procedure. Grafts/Implants Used: None Complications None Admit VTE Documentation VTE Present on Admission: Yes VTE Mechan Device Prophylaxis: SCD's VTE Pharm Prophylaxis ordered?: No Reason prophylaxis not ordered:: Treatment Not Indicated
--- NOTE | 2020-11-03 12:42 | PCM.DC ---
Discharge Instructions Diet Discharge Diet: No restrictions Activity Discharge Activity: Return to Normal Activity May resume sexual activity in: 1 week Dressing / Incision Call your doctor if your incision/area has: Continuous Slow Oozing, Sudden Increased Bleeding and Increased Pain/ Swelling Call your doctor if you observe: Fever of 101 or Higher, Inability to urinate, Inability to have a bowel movement and Uncontrolled pain Follow Up Care Please Follow Up With: Toshia Portillo MD When: in the office in 2 weeks, call for appt Test Results: Test results from this visit will be discussed in further detail at your follow-up appointment, if applicable. Discharge Plan Admission Attending Provider: Toshia Portillo Primary Care Provider: Elizabet Ahn Discharge Orders/Prescriptions Prescriptions: New oxycodone-acetaminophen [oxycodone-acetaminophen] 1 TABLET tablet 2 tab PO Q8H PRN PRN (Reason: Pain) 7 Days Qty: 10 RF: 0 cephalexin [cephalexin] 500 MG capsule 500 mg PO Q12 3 Days Qty: 6 RF: 0 phenazopyridine [Pyridium] 200 MG tablet 200 mg PO TID PRN PRN (Reason: Bladder Spasms) 7 Days Qty: 30 RF: 0 Continued pravastatin 10 MG tablet 20 mg PO DAILY RF: 0 chlordiazepoxide-clidinium [Librax (with clidinium)] 1 EACH capsule 1 ea PO PRN PRN (Reason: IBS) RF: 0 bupropion HCl 150 MG tablet extended release 24 hr 450 mg PO DAILY RF: 0 multivitamin with folic acid [Thera] 1 TABLET tablet 1 tab PO DAILY RF: 0 Bio-Identical Hormones 1 dose OTHER .TWICE WEEKLY RF: 0 trazodone 50 mg tablet 50 mg PO QHS RF: 0 biotin 5 mg Capsule 5 mg PO DAILY RF: 0 methotrexate sodium 25 mg/mL solution 0.7 mg IM QWEEK RF: 0 zinc 15 mg Tablet 15 mg PO DAILY RF: 0 calcium 500 mg Tablet 500 mg PO DAILY RF: 0 leucovorin calcium 15 mg tablet 30 mg PO QWEEK RF: 0 folic acid 800 mcg Tablet 1.6 mg PO DAILY RF: 0 cholecalciferol (vitamin D3) [Vitamin D3] 25 mcg (1,000 unit) Tablet,Chewable 25 mcg PO DAILY RF: 0 vitamin K14-umjhx acid 1,000-400 mcg Tablet, Sublingual 2 tab sublingual DAILY RF: 0 Referrals / Follow Up: Elizabet Ahn DO [Primary Care Provider] - Disposition Disposition (needs filled in before D/C Order can be placed): Home, Self Care
[2020-11-03 13:11] VITALS: BP 105/71; PULSE 78; RESP 16; TEMP 36.1; O2SAT 100; BMI 20.5
[2020-11-03] MEDS: Lactated Ringers 1,000 ML 100 ML IV (13:16)
[2020-11-03 13:25] LABS: Hematocrit 39.3 % (37-47); Hemoglobin 13.1 g/dL (12.0-15.0); Mean Corp Hgb Conc 33.3 g/dL (32-36); Mean Corpuscular Volume 96.1 fL (81-99); Mean Platelet Vol. 9.5 fl (6.2-12.0); Platelet Count 256 K/mm3 (150-450); RBC Distribution Width CV 13.6 % (11.6-14.6); Red Blood Count 4.09 M/mm3 (4.2-5.4); White Blood Count 4.6 K/mm3 (4.4-11.0)
[2020-11-03 13:30] LABS: Anion Gap 3 (5-15); BUN 12 mg/dL (7-18); BUN/Creat Ratio 13.7 RATIO (10-20); Chloride 103 mmol/L (98-107); Creatinine, Serum 0.88 mg/dL (0.55-1.02); EST Glomerular Filtration Rate 68 mL/min (>60); Est Glom Filt Rate - Afr Amer 83 mL/min (>60); Estimated Creatinine Clearance 56.41 ml/min; Glucose 72 mg/dL (74-106); Potassium 3.9 mmol/L (3.5-5.1); Sodium Level 137 mmol/L (136-145)
[2020-11-03] MEDS: Cefazolin 2 GM in 0.9% Normal Saline 100 ML IV (13:39)
[2020-11-03] MEDS: Lubricating Jelly 60 GM Tube 30 GM TOPICAL (13:47)
[2020-11-03 14:00] VITALS: BP 105/71; BP 113/68; PULSE 81; RESP 16; TEMP 36.4; O2SAT 95
[2020-11-03 14:05] VITALS: BP 105/71; BP 111/74; PULSE 80; RESP 16; O2SAT 97
[2020-11-03 14:10] VITALS: BP 104/73; BP 105/71; PULSE 76; RESP 16; O2SAT 96
[2020-11-03 14:15] VITALS: BP 101/72; BP 105/71; PULSE 66; RESP 16; TEMP 36.6; O2SAT 96
[2020-11-03 15:03] VITALS: BP 103/71; BP 105/71; PULSE 72; RESP 16; TEMP 36.4; O2SAT 95
== END 2020-11-03 15:10 | disposition home or self-care (01) ==
LOC: SDC 12:39 → AC 12:41
PROVIDERS: PCP Internal Medicine; Referring Provider Urology; Visit Provider Urology
PROC: (CPT 52281; principal; 2020-11-03 14:00)
DX: N35.82 Other urethral stricture, female (principal); R39.15 Urgency of urination; R35.0 Frequency of micturition; R35.1 Nocturia; N95.2 Postmenopausal atrophic vaginitis; M06.9 Rheumatoid arthritis, unspecified; I34.1 Nonrheumatic mitral (valve) prolapse; M35.00 Sjogren syndrome, unspecified; E78.5 Hyperlipidemia, unspecified; K58.9 Irritable bowel syndrome, unspecified; G47.30 Sleep apnea, unspecified; M79.7 Fibromyalgia; L40.9 Psoriasis, unspecified; F32.89 Other specified depressive episodes; Z79.899 Other long term (current) drug therapy
CPT/HCPCS: 52281; 80048; 85027; J7120; J2405

== ENCOUNTER → 2021-01-09 15:41 | Outpatient (CLI) | payer MEDICARE, SELFPAY ==
[2021-01-09 17:33] LABS: Absolute Lymphocyte Count 2.03 X10^3/uL (0.83-4.51); Absolute Neutrophil Count 3.9 X10^3/uL (2.0-7.7); Basophil# 0.08 X10^3/uL; Basophil% 1.2 % (0-1); Eosinophils% 4.4 % (0-5); Hematocrit 41.6 % (37-47); Hemoglobin 13.3 g/dL (12.0-15.0); Lymphocyte # 2.03 X10^3/ul (0.83-4.51); Lymphocyte % 29.7 % (19-41); Mean Corpuscular Hgb 31.4 pg (27.0-32.0); Mean Corpuscular Volume 98.3 fL (81-99); Mean Platelet Vol. 10.3 fl (6.2-12.0); Monocyte# 0.52 X10^3/uL; Monocyte% 7.6 % (0-10); NRBC Flagged by Analyzer 0 % (0-5); Neutrophil # 3.89 X10^3/uL (2.7-7.7); Neutrophil % 56.8 % (47-70); Platelet Count 262 K/mm3 (150-450); RBC Distribution Width CV 13.6 % (11.6-14.6); Red Blood Count 4.23 M/mm3 (4.2-5.4); White Blood Count 6.8 K/mm3 (4.4-11.0)
[2021-01-09 18:05] LABS: ALB/GLOB Ratio 1.2 RATIO (0.9-2.4); AST(SGOT) 24 U/L (15-37); Alanine Aminotransfer ALT/SGPT 34 U/L (13-56); Albumin, Serum 3.7 g/dL (3.2-5.0); Alkaline Phosphatase 52 U/L (45-117); Anion Gap 4 (5-15); BUN 18 mg/dL (7-18); BUN/Creat Ratio 19.6 RATIO (10-20); Calcium,Total 9.4 mg/dL (8.5-10.1); Chloride 102 mmol/L (98-107); Creatinine, Serum 0.92 mg/dL (0.55-1.02); EST Glomerular Filtration Rate 65 mL/min (>60); Est Glom Filt Rate - Afr Amer 78 mL/min (>60); Globulin 3.2 g/dL (2.2-4.2); Glucose 78 mg/dL (74-106); Potassium 4.2 mmol/L (3.5-5.1); Protein, Total 6.9 g/dL (6.4-8.2); Sodium Level 138 mmol/L (136-145)
== END ==
PROVIDERS: PCP Internal Medicine; Referring Provider Internal Medicine Rheumatology; Visit Provider Internal Medicine Rheumatology
DX: M06.09 Rheumatoid arthritis without rheumatoid factor, multiple sites (principal); L40.9 Psoriasis, unspecified; M79.7 Fibromyalgia; M35.00 Sjogren syndrome, unspecified; M18.12 Unilateral primary osteoarthritis of first carpometacarpal joint, left hand; K58.9 Irritable bowel syndrome, unspecified; F32.89 Other specified depressive episodes; I34.1 Nonrheumatic mitral (valve) prolapse; E78.5 Hyperlipidemia, unspecified; G47.33 Obstructive sleep apnea (adult) (pediatric); Z79.899 Other long term (current) drug therapy
CPT/HCPCS: 36415; 80053; 85025

== ENCOUNTER 2021-03-17 11:36 | Outpatient (CLI) | payer MEDICARE, SELFPAY ==
[2021-03-17 11:57] VITALS: BP 108/67; PULSE 74; RESP 16; TEMP 36.9; O2SAT 100; BMI 21.7
[2021-03-17] MEDS: 0.9% Saline Lock 10 ML Syringe IV (11:58)
[2021-03-17 12:47] VITALS: BP 120/68; PULSE 72; RESP 16; TEMP 37.2; O2SAT 99
[2021-03-17 13:43] VITALS: BP 104/67; PULSE 75; RESP 18; TEMP 37.3; O2SAT 98
== END 2021-03-17 23:59 | disposition home or self-care (01) ==
LOC: MS3OUT 11:36 → MS3 11:37
PROVIDERS: PCP Internal Medicine; Referring Provider Nurse Practitioner Adult Health; Visit Provider Nurse Practitioner Adult Health
DX: Z23 Encounter for immunization (principal); U07.1 COVID-19
CPT/HCPCS: J7050; M0243; A4216; Q0240

== ENCOUNTER 2021-04-02 13:01 | Outpatient (CLI) | payer MEDICARE, SELFPAY ==
[2021-04-02 15:14] LABS: Absolute Lymphocyte Count 1.79 X10^3/uL (0.83-4.51); Absolute Neutrophil Count 2.4 X10^3/uL (2.0-7.7); Basophil# 0.09 X10^3/uL; Basophil% 1.9 % (0-1); Eosinophils% 4.2 % (0-5); Hematocrit 39.7 % (37-47); Hemoglobin 12.9 g/dL (12.0-15.0); Lymphocyte # 1.79 X10^3/ul (0.83-4.51); Lymphocyte % 37.4 % (19-41); Mean Corp Hgb Conc 32.5 g/dL (32-36); Mean Corpuscular Hgb 31.8 pg (27.0-32.0); Mean Corpuscular Volume 97.8 fL (81-99); Mean Platelet Vol. 10.4 fl (6.2-12.0); Monocyte% 6.3 % (0-10); NRBC Flagged by Analyzer 0 % (0-5); Neutrophil # 2.39 X10^3/uL (2.7-7.7); Platelet Count 263 K/mm3 (150-450); RBC Distribution Width CV 13.5 % (11.6-14.6); RBC Distribution Width SD 48.7 fl (35.1-43.9); Red Blood Count 4.06 M/mm3 (4.2-5.4); White Blood Count 4.8 K/mm3 (4.4-11.0)
[2021-04-02 15:57] LABS: ALB/GLOB Ratio 1.1 RATIO (0.9-2.4); AST(SGOT) 25 U/L (15-37); Alanine Aminotransfer ALT/SGPT 40 U/L (13-56); Albumin, Serum 3.5 g/dL (3.2-5.0); Alkaline Phosphatase 57 U/L (45-117); Anion Gap 4 (5-15); BUN 23 mg/dL (7-18); BUN/Creat Ratio 24.5 RATIO (10-20); Chloride 104 mmol/L (98-107); Creatinine, Serum 0.94 mg/dL (0.55-1.02); EST Glomerular Filtration Rate 63 mL/min (>60); Est Glom Filt Rate - Afr Amer 77 mL/min (>60); Globulin 3.3 g/dL (2.2-4.2); Glucose 64 mg/dL (74-106); Potassium 4.1 mmol/L (3.5-5.1); Protein, Total 6.8 g/dL (6.4-8.2); Sodium Level 140 mmol/L (136-145)
== END 2021-04-02 23:59 | disposition short-term general hospital (02) ==
LOC: MTLAB 13:03
PROVIDERS: PCP Internal Medicine; Referring Provider Internal Medicine Rheumatology; Visit Provider Internal Medicine Rheumatology
DX: M06.09 Rheumatoid arthritis without rheumatoid factor, multiple sites (principal); M35.00 Sjogren syndrome, unspecified; M79.7 Fibromyalgia; M18.12 Unilateral primary osteoarthritis of first carpometacarpal joint, left hand; K58.9 Irritable bowel syndrome, unspecified; F32.89 Other specified depressive episodes; I34.1 Nonrheumatic mitral (valve) prolapse; E78.5 Hyperlipidemia, unspecified; G47.33 Obstructive sleep apnea (adult) (pediatric); Z79.899 Other long term (current) drug therapy
CPT/HCPCS: 36415; 80053; 85025

== ENCOUNTER 2021-07-01 11:31 | Outpatient (CLI) | payer MEDICARE, SELFPAY ==
[2021-07-01 15:16] LABS: Absolute Lymphocyte Count 1.42 X10^3/uL (0.83-4.51); Absolute Neutrophil Count 2.3 X10^3/uL (2.0-7.7); Basophil# 0.05 X10^3/uL; Basophil% 1.1 % (0-1); Eosinophil# 0.18 X10^3/uL; Eosinophils% 4.1 % (0-5); Hemoglobin 13.3 g/dL (12.0-15.0); Lymphocyte # 1.42 X10^3/ul (0.83-4.51); Lymphocyte % 32.4 % (19-41); Mean Corp Hgb Conc 32.4 g/dL (32-36); Mean Corpuscular Volume 98.6 fL (81-99); Mean Platelet Vol. 10.4 fl (6.2-12.0); Monocyte# 0.41 X10^3/uL; Monocyte% 9.4 % (0-10); NRBC Flagged by Analyzer 0 % (0-5); Neutrophil # 2.31 X10^3/uL (2.7-7.7); Neutrophil % 52.8 % (47-70); Platelet Count 252 K/mm3 (150-450); RBC Distribution Width CV 13.2 % (11.6-14.6); RBC Distribution Width SD 47.5 fl (35.1-43.9); Red Blood Count 4.16 M/mm3 (4.2-5.4); White Blood Count 4.4 K/mm3 (4.4-11.0)
[2021-07-01 15:34] LABS: ALB/GLOB Ratio 1.2 RATIO (0.9-2.4); AST(SGOT) 28 U/L (15-37); Alanine Aminotransfer ALT/SGPT 41 U/L (13-56); Albumin, Serum 3.7 g/dL (3.2-5.0); Alkaline Phosphatase 51 U/L (45-117); Anion Gap 5 (5-15); BUN 21 mg/dL (7-18); BUN/Creat Ratio 25.2 RATIO (10-20); Calcium,Total 9.1 mg/dL (8.5-10.1); Chloride 104 mmol/L (98-107); Creatinine, Serum 0.83 mg/dL (0.55-1.02); EST Glomerular Filtration Rate 72 mL/min (>60); Est Glom Filt Rate - Afr Amer 88 mL/min (>60); Globulin 3.2 g/dL (2.2-4.2); Glucose 72 mg/dL (74-106); Potassium 4.1 mmol/L (3.5-5.1); Protein, Total 6.9 g/dL (6.4-8.2); Sodium Level 140 mmol/L (136-145)
== END 2021-07-01 23:59 | disposition home or self-care (01) ==
LOC: MTLAB 11:33
PROVIDERS: PCP Internal Medicine; Referring Provider Internal Medicine Rheumatology; Visit Provider Internal Medicine Rheumatology
DX: M06.00 Rheumatoid arthritis without rheumatoid factor, unspecified site (principal); M35.00 Sjogren syndrome, unspecified; M79.7 Fibromyalgia; M18.12 Unilateral primary osteoarthritis of first carpometacarpal joint, left hand; K58.9 Irritable bowel syndrome, unspecified; F32.89 Other specified depressive episodes; I34.1 Nonrheumatic mitral (valve) prolapse; E78.5 Hyperlipidemia, unspecified; G47.33 Obstructive sleep apnea (adult) (pediatric); Z79.899 Other long term (current) drug therapy
CPT/HCPCS: 36415; 80053; 85025

== ENCOUNTER → 2021-09-29 | Outpatient (CLI) | payer MEDICARE, SELFPAY ==
[2021-09-29 15:23] LABS: Absolute Lymphocyte Count 1.34 X10^3/uL (0.83-4.51); Absolute Neutrophil Count 1.8 X10^3/uL (2.0-7.7); Basophil# 0.05 X10^3/uL; Basophil% 1.3 % (0-1); Eosinophil# 0.08 X10^3/uL; Eosinophils% 2.1 % (0-5); Hematocrit 39.4 % (37-47); Hemoglobin 12.8 g/dL (12.0-15.0); Lymphocyte # 1.34 X10^3/ul (0.83-4.51); Lymphocyte % 34.4 % (19-41); Mean Corp Hgb Conc 32.5 g/dL (32-36); Mean Corpuscular Hgb 31.6 pg (27.0-32.0); Mean Corpuscular Volume 97.3 fL (81-99); Mean Platelet Vol. 10.5 fl (6.2-12.0); Monocyte# 0.59 X10^3/uL; Monocyte% 15.2 % (0-10); NRBC Flagged by Analyzer 0 % (0-5); Neutrophil # 1.83 X10^3/uL (2.7-7.7); Platelet Count 250 K/mm3 (150-450); RBC Distribution Width CV 13.6 % (11.6-14.6); RBC Distribution Width SD 48.6 fl (35.1-43.9); Red Blood Count 4.05 M/mm3 (4.2-5.4); White Blood Count 3.9 K/mm3 (4.4-11.0)
[2021-09-29 16:14] LABS: ALB/GLOB Ratio 1.1 RATIO (0.9-2.4); AST(SGOT) 38 U/L (15-37); Alanine Aminotransfer ALT/SGPT 48 U/L (13-56); Albumin, Serum 3.6 g/dL (3.2-5.0); Alkaline Phosphatase 48 U/L (45-117); Anion Gap 5 (5-15); BUN 19 mg/dL (7-18); BUN/Creat Ratio 20.6 RATIO (10-20); Calcium,Total 9.1 mg/dL (8.5-10.1); Chloride 104 mmol/L (98-107); Creatinine, Serum 0.92 mg/dL (0.55-1.02); EST Glomerular Filtration Rate 64 mL/min (>60); Est Glom Filt Rate - Afr Amer 78 mL/min (>60); Globulin 3.2 g/dL (2.2-4.2); Glucose 84 mg/dL (74-106); Potassium 4.2 mmol/L (3.5-5.1); Protein, Total 6.8 g/dL (6.4-8.2); Sodium Level 139 mmol/L (136-145)
== END | disposition home or self-care (01) ==
LOC: MTLAB 13:05
PROVIDERS: PCP Internal Medicine; Referring Provider Internal Medicine Rheumatology; Visit Provider Internal Medicine Rheumatology
DX: M06.00 Rheumatoid arthritis without rheumatoid factor, unspecified site (principal); M35.00 Sjogren syndrome, unspecified; M79.7 Fibromyalgia; M18.0 Bilateral primary osteoarthritis of first carpometacarpal joints; K58.9 Irritable bowel syndrome, unspecified; F32.89 Other specified depressive episodes; I34.1 Nonrheumatic mitral (valve) prolapse; E78.5 Hyperlipidemia, unspecified; G47.33 Obstructive sleep apnea (adult) (pediatric); Z79.899 Other long term (current) drug therapy
CPT/HCPCS: 36415; 80053; 85025

== ENCOUNTER → 2021-12-24 | Outpatient (CLI) | payer MEDICARE, SELFPAY ==
[2021-12-24 12:23] LABS: Absolute Lymphocyte Count 1.21 X10^3/uL (0.83-4.51); Absolute Neutrophil Count 2.9 X10^3/uL (2.0-7.7); Basophil# 0.04 X10^3/uL; Basophil% 0.8 % (0-1); Eosinophil# 0.12 X10^3/uL; Eosinophils% 2.5 % (0-5); Hematocrit 40.8 % (37-47); Hemoglobin 12.9 g/dL (12.0-15.0); Lymphocyte # 1.21 X10^3/ul (0.83-4.51); Lymphocyte % 25.6 % (19-41); Mean Corp Hgb Conc 31.6 g/dL (32-36); Mean Corpuscular Hgb 31.9 pg (27.0-32.0); Mean Corpuscular Volume 100.7 fL (81-99); Mean Platelet Vol. 11.2 fl (6.2-12.0); Monocyte# 0.46 X10^3/uL; Monocyte% 9.7 % (0-10); NRBC Flagged by Analyzer 0 % (0-5); Neutrophil # 2.89 X10^3/uL (2.7-7.7); Neutrophil % 61.2 % (47-70); Platelet Count 209 K/mm3 (150-450); RBC Distribution Width CV 14.3 % (11.6-14.6); RBC Distribution Width SD 51.4 fl (35.1-43.9); Red Blood Count 4.05 M/mm3 (4.2-5.4); White Blood Count 4.7 K/mm3 (4.4-11.0)
[2021-12-24 12:40] LABS: AST(SGOT) 30 U/L (15-37); Alanine Aminotransfer ALT/SGPT 40 U/L (13-56); Albumin, Serum 3.6 g/dL (3.2-5.0); Alkaline Phosphatase 59 U/L (45-117); Anion Gap 5 (5-15); BUN 16 mg/dL (7-18); BUN/Creat Ratio 15.8 RATIO (10-20); Calcium,Total 9.4 mg/dL (8.5-10.1); Chloride 104 mmol/L (98-107); Creatinine, Serum 1.01 mg/dL (0.55-1.02); EST Glomerular Filtration Rate 58 mL/min (>60); Est Glom Filt Rate - Afr Amer 70 mL/min (>60); Globulin 3.6 g/dL (2.2-4.2); Glucose 51 mg/dL (74-106); Potassium 3.9 mmol/L (3.5-5.1); Protein, Total 7.2 g/dL (6.4-8.2); Sodium Level 140 mmol/L (136-145)
== END | disposition home or self-care (01) ==
LOC: MTLAB 09:41
PROVIDERS: PCP Internal Medicine; Referring Provider Internal Medicine Rheumatology; Visit Provider Internal Medicine Rheumatology
DX: M06.00 Rheumatoid arthritis without rheumatoid factor, unspecified site (principal); M35.00 Sjogren syndrome, unspecified; M79.7 Fibromyalgia; M18.11 Unilateral primary osteoarthritis of first carpometacarpal joint, right hand; K58.9 Irritable bowel syndrome, unspecified; F32.89 Other specified depressive episodes; I34.1 Nonrheumatic mitral (valve) prolapse; E78.5 Hyperlipidemia, unspecified; G47.33 Obstructive sleep apnea (adult) (pediatric); Z79.899 Other long term (current) drug therapy
CPT/HCPCS: 36415; 80053; 85025

== ENCOUNTER → 2022-03-23 | Outpatient (CLI) | payer MEDICARE, SELFPAY ==
[2022-03-23 15:39] LABS: Absolute Lymphocyte Count 1.67 X10^3/uL (0.83-4.51); Absolute Neutrophil Count 2.6 X10^3/uL (2.0-7.7); Basophil# 0.04 X10^3/uL; Basophil% 0.8 % (0-1); Eosinophil# 0.09 X10^3/uL; Eosinophils% 1.8 % (0-5); Hematocrit 41.3 % (37-47); Hemoglobin 13.2 g/dL (12.0-15.0); Lymphocyte # 1.67 X10^3/ul (0.83-4.51); Lymphocyte % 33.2 % (19-41); Mean Corpuscular Hgb 31.2 pg (27.0-32.0); Mean Corpuscular Volume 97.6 fL (81-99); Mean Platelet Vol. 10.3 fl (6.2-12.0); Monocyte# 0.59 X10^3/uL; Monocyte% 11.7 % (0-10); NRBC Flagged by Analyzer 0 % (0-5); Neutrophil # 2.63 X10^3/uL (2.7-7.7); Neutrophil % 52.3 % (47-70); Platelet Count 282 K/mm3 (150-450); RBC Distribution Width CV 13.2 % (11.6-14.6); RBC Distribution Width SD 46.6 fl (35.1-43.9); Red Blood Count 4.23 M/mm3 (4.2-5.4)
[2022-03-23 15:55] LABS: ALB/GLOB Ratio 1.3 RATIO (0.9-2.4); AST(SGOT) 21 U/L (15-37); Alanine Aminotransfer ALT/SGPT 35 U/L (13-56); Albumin, Serum 3.8 g/dL (3.2-5.0); Alkaline Phosphatase 54 U/L (45-117); Anion Gap 6 (5-15); BUN 22 mg/dL (7-18); BUN/Creat Ratio 25.4 RATIO (10-20); Calcium,Total 9.3 mg/dL (8.5-10.1); Chloride 101 mmol/L (98-107); Creatinine, Serum 0.87 mg/dL (0.55-1.02); EST Glomerular Filtration Rate 69 mL/min (>60); Est Glom Filt Rate - Afr Amer 84 mL/min (>60); Globulin 2.9 g/dL (2.2-4.2); Glucose 76 mg/dL (74-106); Potassium 4.3 mmol/L (3.5-5.1); Protein, Total 6.7 g/dL (6.4-8.2); Sodium Level 140 mmol/L (136-145)
== END | disposition home or self-care (01) ==
LOC: MTLAB 14:34
PROVIDERS: PCP Internal Medicine; Referring Provider Internal Medicine Rheumatology; Visit Provider Internal Medicine Rheumatology
DX: M06.00 Rheumatoid arthritis without rheumatoid factor, unspecified site (principal); M35.00 Sjogren syndrome, unspecified; M79.7 Fibromyalgia; M18.11 Unilateral primary osteoarthritis of first carpometacarpal joint, right hand; K58.9 Irritable bowel syndrome, unspecified; F32.89 Other specified depressive episodes; I34.1 Nonrheumatic mitral (valve) prolapse; E78.5 Hyperlipidemia, unspecified; G47.33 Obstructive sleep apnea (adult) (pediatric); Z79.899 Other long term (current) drug therapy
CPT/HCPCS: 36415; 80053; 85025

== ENCOUNTER → 2022-06-11 | Outpatient (CLI) | payer MEDICARE, SELFPAY ==
[2022-06-11 15:15] LABS: Absolute Lymphocyte Count 1.38 X10^3/uL (0.83-4.51); Absolute Neutrophil Count 2.3 X10^3/uL (2.0-7.7); Basophil# 0.04 X10^3/uL; Eosinophil# 0.09 X10^3/uL; Eosinophils% 2.2 % (0-5); Hematocrit 41.1 % (37-47); Hemoglobin 13.4 g/dL (12.0-15.0); Lymphocyte # 1.38 X10^3/ul (0.83-4.51); Lymphocyte % 33.6 % (19-41); Mean Corp Hgb Conc 32.6 g/dL (32-36); Mean Corpuscular Hgb 32.1 pg (27.0-32.0); Mean Corpuscular Volume 98.3 fL (81-99); Mean Platelet Vol. 10.2 fl (6.2-12.0); Monocyte# 0.33 X10^3/uL; NRBC Flagged by Analyzer 0 % (0-5); Neutrophil # 2.26 X10^3/uL (2.7-7.7); Platelet Count 268 K/mm3 (150-450); RBC Distribution Width CV 13.6 % (11.6-14.6); RBC Distribution Width SD 49.4 fl (35.1-43.9); Red Blood Count 4.18 M/mm3 (4.2-5.4); White Blood Count 4.1 K/mm3 (4.4-11.0)
[2022-06-11 15:46] LABS: ALB/GLOB Ratio 1.1 RATIO (0.9-2.4); AST(SGOT) 25 U/L (15-37); Alanine Aminotransfer ALT/SGPT 26 U/L (13-56); Albumin, Serum 3.6 g/dL (3.2-5.0); Alkaline Phosphatase 53 U/L (45-117); Anion Gap 3 (5-15); BUN 13 mg/dL (7-18); BUN/Creat Ratio 14.3 RATIO (10-20); Calcium,Total 8.9 mg/dL (8.5-10.1); Chloride 103 mmol/L (98-107); Creatinine, Serum 0.91 mg/dL (0.55-1.02); EST Glomerular Filtration Rate 65 mL/min (>60); Est Glom Filt Rate - Afr Amer 79 mL/min (>60); Globulin 3.2 g/dL (2.2-4.2); Glucose 93 mg/dL (74-106); Potassium 3.7 mmol/L (3.5-5.1); Protein, Total 6.8 g/dL (6.4-8.2); Sodium Level 136 mmol/L (136-145); T4 Free Direct 0.86 ng/dL (0.76-1.46); Thyroid Stim Hormone (TSH) 0.91 uIU/mL (0.358-3.74)
== END | disposition home or self-care (01) ==
LOC: MTLAB 12:54
PROVIDERS: PCP Internal Medicine; Referring Provider Internal Medicine Rheumatology; Visit Provider Internal Medicine Rheumatology
DX: M06.00 Rheumatoid arthritis without rheumatoid factor, unspecified site (principal); M79.7 Fibromyalgia; Z79.899 Other long term (current) drug therapy
CPT/HCPCS: 36415; 80053; 84439; 84443; 85025

== ENCOUNTER → 2022-09-08 | Outpatient (CLI) | payer MEDICARE, SELFPAY ==
[2022-09-08 15:42] LABS: Absolute Lymphocyte Count 1.76 X10^3/uL (0.83-4.51); Absolute Neutrophil Count 3.5 X10^3/uL (2.0-7.7); Basophil# 0.04 X10^3/uL; Basophil% 0.7 % (0-1); Eosinophil# 0.13 X10^3/uL; Eosinophils% 2.1 % (0-5); Hematocrit 38.5 % (37-47); Hemoglobin 12.6 g/dL (12.0-15.0); Lymphocyte # 1.76 X10^3/ul (0.83-4.51); Mean Corp Hgb Conc 32.7 g/dL (32-36); Mean Corpuscular Hgb 32.1 pg (27.0-32.0); Mean Platelet Vol. 9.7 fl (6.2-12.0); Monocyte# 0.59 X10^3/uL; Monocyte% 9.7 % (0-10); NRBC Flagged by Analyzer 0 % (0-5); Neutrophil # 3.54 X10^3/uL (2.7-7.7); Neutrophil % 58.3 % (47-70); Platelet Count 335 K/mm3 (150-450); RBC Distribution Width CV 13.6 % (11.6-14.6); RBC Distribution Width SD 48.2 fl (35.1-43.9); Red Blood Count 3.93 M/mm3 (4.2-5.4); White Blood Count 6.1 K/mm3 (4.4-11.0)
[2022-09-08 16:47] LABS: ALB/GLOB Ratio 1.1 RATIO (0.9-2.4); AST(SGOT) 26 U/L (15-37); Alanine Aminotransfer ALT/SGPT 28 U/L (13-56); Albumin, Serum 3.4 g/dL (3.2-5.0); Alkaline Phosphatase 54 U/L (45-117); Anion Gap 4 (5-15); BUN 14 mg/dL (7-18); BUN/Creat Ratio 15.5 RATIO (10-20); Calcium,Total 8.8 mg/dL (8.5-10.1); Chloride 105 mmol/L (98-107); EST Glomerular Filtration Rate 66 mL/min (>60); Est Glom Filt Rate - Afr Amer 80 mL/min (>60); Globulin 3.2 g/dL (2.2-4.2); Glucose 87 mg/dL (74-106); Protein, Total 6.6 g/dL (6.4-8.2); Sodium Level 137 mmol/L (136-145); T4 Free Direct 0.94 ng/dL (0.76-1.46)
== END | disposition home or self-care (01) ==
LOC: MTLAB 13:07
PROVIDERS: PCP Internal Medicine; Referring Provider Internal Medicine Rheumatology; Visit Provider Internal Medicine Rheumatology
DX: M06.00 Rheumatoid arthritis without rheumatoid factor, unspecified site (principal); M79.7 Fibromyalgia; Z79.899 Other long term (current) drug therapy
CPT/HCPCS: 36415; 80053; 84439; 84443; 85025

== ENCOUNTER → 2022-12-14 | Outpatient (CLI) | payer MEDICARE, SELFPAY ==
[2022-12-14 15:34] LABS: Absolute Lymphocyte Count 1.39 X10^3/uL (0.83-4.51); Absolute Neutrophil Count 2.6 X10^3/uL (2.0-7.7); Basophil# 0.04 X10^3/uL; Basophil% 0.8 % (0-1); Eosinophil# 0.09 X10^3/uL; Eosinophils% 1.9 % (0-5); Hematocrit 38.7 % (37-47); Hemoglobin 12.4 g/dL (12.0-15.0); Lymphocyte # 1.39 X10^3/ul (0.83-4.51); Lymphocyte % 29.5 % (19-41); Mean Corpuscular Hgb 31.7 pg (27.0-32.0); Mean Platelet Vol. 10.6 fl (6.2-12.0); Monocyte# 0.57 X10^3/uL; Monocyte% 12.1 % (0-10); NRBC Flagged by Analyzer 0 % (0-5); Neutrophil % 55.3 % (47-70); Platelet Count 282 K/mm3 (150-450); RBC Distribution Width CV 14.5 % (11.6-14.6); Red Blood Count 3.91 M/mm3 (4.2-5.4); White Blood Count 4.7 K/mm3 (4.4-11.0)
[2022-12-14 15:59] LABS: ALB/GLOB Ratio 1.1 RATIO (0.9-2.4); AST(SGOT) 20 U/L (15-37); Alanine Aminotransfer ALT/SGPT 27 U/L (13-56); Albumin, Serum 3.6 g/dL (3.2-5.0); Alkaline Phosphatase 53 U/L (45-117); Anion Gap 5 (5-15); BUN 17 mg/dL (7-18); Calcium,Total 8.8 mg/dL (8.5-10.1); Chloride 107 mmol/L (98-107); EST Glomerular Filtration Rate 58 mL/min (>60); Est Glom Filt Rate - Afr Amer 71 mL/min (>60); Globulin 3.2 g/dL (2.2-4.2); Glucose 87 mg/dL (74-106); Potassium 3.9 mmol/L (3.5-5.1); Protein, Total 6.8 g/dL (6.4-8.2); Sodium Level 140 mmol/L (136-145); T4 Free Direct 0.93 ng/dL (0.76-1.46); Thyroid Stim Hormone (TSH) 0.64 uIU/mL (0.358-3.74)
== END | disposition home or self-care (01) ==
LOC: MTLAB 12:33
PROVIDERS: PCP Internal Medicine; Referring Provider Internal Medicine Rheumatology; Visit Provider Internal Medicine Rheumatology
DX: M06.00 Rheumatoid arthritis without rheumatoid factor, unspecified site (principal); M35.00 Sjogren syndrome, unspecified; K58.9 Irritable bowel syndrome, unspecified; Z79.899 Other long term (current) drug therapy
CPT/HCPCS: 36415; 80053; 84439; 84443; 85025

== ENCOUNTER 2023-01-01 10:54 | Emergency (ER) | payer MEDICARE, SELFPAY ==
[2023-01-01 10:54] VITALS: BP 119/65; PULSE 73; RESP 16; TEMP 35.9; O2SAT 100; BMI 22.6
--- NOTE | 2023-01-01 11:06 | RAD_ITS ---
EXAM: XR LEFT KNEE COMPLETE, 4 OR MORE VIEWS CLINICAL INDICATION: Fall injury. TECHNIQUE: Four or more views of the left knee. COMPARISON: No relevant prior studies available. FINDINGS: BONES/JOINTS: Unremarkable. No acute fracture. No subluxation. Normal alignment. Preservation of the joint space. No sclerotic or destructive changes observed. SOFT TISSUES: Unremarkable. No soft tissue swelling or gas. No radiopaque foreign body. RAD/Knee 4 or More Views IMPRESSION: Negative left knee x-rays. Electronically Signed: Ish York MD at 11:44 EDT ,
--- NOTE | 2023-01-01 11:08 | EDS_ITS ---
<Statement entered by Michele Shanks MD - 01/01/23 13:39> I have personally performed a face to face assessment of the patient and have reviewed the CAMACHO Note. HPI History of Present Illness Chief Complaint: Fall Narrative Narrative: Presenting today due to a mechanical fall that occurred yesterday afternoon. She reports that she was going down the steps when she missed the second to last step and fell onto her bottom with the medial portion of her left knee hitting the ground. She did not hit her head, there was no loss of consciousness, she is not on any blood thinners. She also reports pain to her buttocks. She denies any other injury. She is able to ambulate. [facility] Medical History Anxiety Arthritis Cancer CPAP (continuous positive airway pressure) dependence Depression Former smoker Frequency of urination High cholesterol History of echocardiogram History of IBS History of irregular heartbeat History of steroid therapy History of stress test Leg cramps Other urethral stricture, female Rheumatoid arthritis Sleep apnea Stress headache Urgency of urination Wears glasses Home Medications Bio-Identical Hormones 1 dose OTHER .TWICE WEEKLY 09/19/13 [History Last Taken Unknown] bupropion HCl 150 mg 24 hr tablet, extended release 450 mg PO DAILY 09/19/13 [History Last Taken Unknown] chlordiazepoxide-clidinium 5 mg-2.5 mg capsule (Librax (with clidinium)) 1 ea PO PRN PRN IBS 09/19/13 [History Last Taken Unknown] multivitamin with folic acid 400 mcg tablet (Thera) 1 tab PO DAILY 09/19/13 [History Last Taken Unknown] pravastatin 10 mg tablet 20 mg PO DAILY 09/19/13 [History Last Taken Unknown] biotin 5 mg capsule 5 mg PO DAILY 10/31/20 [History Last Taken Unknown] calcium 500 mg tablet 500 mg PO DAILY 10/31/20 [History Last Taken Unknown] cholecalciferol (vitamin D3) 25 mcg (1,000 unit) chewable tablet (Vitamin D3) 25 mcg PO DAILY 10/31/20 [History Last Taken Unknown] folic acid 800 mcg tablet 1.6 mg PO DAILY 10/31/20 [History Last Taken Unknown] leucovorin calcium 15 mg tablet 30 mg PO QWEEK 10/31/20 [History Last Taken Unknown] methotrexate sodium 25 mg/mL injection solution 0.7 mg IM SA RA 10/31/20 [History Last Taken Unknown] trazodone 50 mg tablet 50 mg PO QHS 10/31/20 [History Last Taken Unknown] vitamin B12 1,000 mcg-folic acid 400 mcg sublingual tablet 2 tab sublingual DAILY 10/31/20 [History Last Taken Unknown] zinc 15 mg tablet 15 mg PO DAILY 10/31/20 [History Last Taken Unknown] gabapentin 600 mg tablet 600 mg PO BID 03/17/21 [History Last Taken Unknown] tramadol 50 mg tablet 50 mg PO TID PRN Pain 03/17/21 [History Last Taken Unknown] Allergy/AdvReac Type Severity Reaction Status Date / Time No Known Allergies Allergy Verified 01/01/23 10:54 Surgical History History of cardiac catheterization Hx of breast biopsy Hx of foot surgery Hx of hysterectomy Hx of tonsillectomy Social History Smoking Status: Former smoker ROS ROS ED Constitutional Constitutional ED: Denies chills or fever(s) Cardiovascular Cardiovascular: Denies chest pain Respiratory/Chest Respiratory/Chest: Denies cough or dyspnea Gastrointestinal Gastrointestinal: Denies abdominal pain, nausea or vomiting Musculoskeletal Musculoskeletal: Reports arthralgias and myalgias; Denies back pain or neck pain Integumentary Denies Abrasions Neurologic Neurologic: Denies paresthesias or weakness EXAM Physical Exam Const Vital Signs: 01/01/23 10:54 Temperature 96.7 F L Temperature Source Temporal Pulse Rate 73 Respiratory Rate 16 Blood Pressure 119/65 Blood Pressure Mean 83 Pulse Ox 100 Oxygen Delivery Method Room Air Positive well nourished, well developed and no apparent distress General Appearance ED: well developed HEENT Reports normocephalic and head/scalp atraumatic Mouth ED: Yes moist mucous membranes normal Eyes PERRL and EOMs intact bilaterally Neck full ROM and supple Chest Wall inspection of chest normal Resp normal respiratory effort and clear to auscultation bilaterally Cardio regular rate and regular rhythm GI soft to palpation, non-tender, non-distended and no masses Back/Spine normal ROM and normal to inspection Back/Spine Narrative: No thoracic, lumbar, or sacral midline tenderness. Extremity normal to inspection and full ROM Extremity Narrative: Full range of motion to the left knee, pain palpation to the medial aspect of the left knee, no laxity or pain with varus/valgus stress, negative anterior and posterior drawer test. Neuro oriented x3, CN's II-XII intact bilaterally, moves all extremities, no focal motor deficits and no sensory deficits noted Sensorium / Orientation: awake and alert Psych mental status grossly normal and thought process normal Skin no rashes or lesions noted and no wounds MDM MDM MDM Narrative Medical decision making narrative: Patient presenting today due to a mechanical fall that occurred yesterday afternoon. She did not hit her head. She reports pain to her left knee and bilateral buttocks. She does not have any bruising to her buttocks, no midline back tenderness to her lumbar or sacral spine. No pain to her hips. Left knee has full range of motion, negative anterior and posterior drawer test, no laxity or pain with varus/valgus stress. X-ray of the left knee will be obtained and patient will be given Tylenol for pain. X-ray is unremarkable. Although she is able to ambulate, she does report a lot of pain with this. She will be given crutches and an orthopedic referral. She has been given RICE instructions and is to take Tylenol at home for pain as needed. She will be discharged home in stable condition and is comfortable with plan Radiography X-Ray: Read by ED Physician and Read by Radiologist Diagnostic Testing: Clinical Impression(s) from Imaging Studies Knee X-Ray 01/01/23 11:06 IMPRESSION: Negative left knee x-rays. Electronically Signed: Ish York MD at 11:44 EDT Reading Location ID and State: [address] [place] [address] , Service support , Discharge Plan Triage Chief Complaint: Fall ED Midlevel Provider: Carmen Moses ED Provider: Michele Shanks Dx/Rx/DC Orders Clinical Impression: Left knee sprain, Contusion, buttock, Fall Instructions: ED Knee Sprain Prescriptions: No Action pravastatin 10 MG tablet 20 mg PO DAILY chlordiazepoxide-clidinium [Librax (with clidinium)] 1 EACH capsule 1 ea PO PRN PRN (Reason: IBS) bupropion HCl 150 MG tablet extended release 24 hr 450 mg PO DAILY multivitamin with folic acid [Thera] 1 TABLET tablet 1 tab PO DAILY Bio-Identical Hormones 1 dose OTHER .TWICE WEEKLY Patient Comments: VAGINALLY trazodone 50 mg tablet 50 mg PO QHS Patient Comments: TAKE 1 TABLET BY MOUTH EVERYDAY AT BEDTIME biotin 5 mg Capsule 5 mg PO DAILY methotrexate sodium 25 mg/mL solution 0.7 mg IM SA zinc 15 mg Tablet 15 mg PO DAILY calcium 500 mg Tablet 500 mg PO DAILY leucovorin calcium 15 mg tablet 30 mg PO QWEEK folic acid 800 mcg Tablet 1.6 mg PO DAILY cholecalciferol (vitamin D3) [Vitamin D3] 25 mcg (1,000 unit) Tablet,Chewable 25 mcg PO DAILY vitamin [id number] acid 1,000-400 mcg Tablet, Sublingual 2 tab sublingual DAILY gabapentin 600 mg tablet 600 mg PO BID tramadol 50 mg tablet 50 mg PO TID PRN (Reason: Pain) Patient Comments: TAKE 1 TAB BY MOUTH 3 TIMES DAILY NEEDED Primary Care Provider: Elizabet Ahn Referrals: Elizabet Ahn DO [Primary Care Provider] - 5-7 Days Meliton Lee DO [Med Staff - Active Staff] - 1 Week if not improving Activity Restrictions/Additional Instructions: Ice your knee several times a day for the next few days, take Tylenol for your pain, and follow-up with your PCP. Disposition Disposition: Home, Self Care
[2023-01-01] MEDS: Acetaminophen 500 MG Tablet 1000 MG PO (11:11)
== END 2023-01-01 12:28 | disposition home or self-care (01) ==
PROVIDERS: Emergency Provider Emergency Medicine; PCP Internal Medicine; Visit Provider Emergency Medicine
DX: S83.92XA Sprain of unspecified site of left knee, initial encounter (principal); S30.0XXA Contusion of lower back and pelvis, initial encounter; W10.9XXA Fall (on) (from) unspecified stairs and steps, initial encounter; E78.00 Pure hypercholesterolemia, unspecified; Z87.891 Personal history of nicotine dependence
CPT/HCPCS: 73564; 99283

== ENCOUNTER → 2023-01-27 | Outpatient (CLI) | payer MEDICARE, SELFPAY ==
--- NOTE | 2023-01-27 10:57 | BD_ITS ---
STUDY: DUAL ENERGY X-RAY ABSORPTIOMETRY / DXA REASON FOR EXAM: Female, 67 years old. 733.00OsteoporosisBONE DENSITY REASON FOR EXAM TECHNIQUE: Bone Mineral Density (BMD) measurements of lumbar spine and bilateral hips were obtained. COMPARISON: Comparison is made with prior study May 13, 2020. FINDINGS: Lumbar Spine (L1-L4): g/cm2 (0.859) / T-score (-1.7) / Z-score (0.3) Findings are suggestive of osteopenia with a moderate fracture risk. Left Femur Total: g/cm2 (0.747) / T-score (-1.6) / Z-score (-0.1) Left Femoral Neck: g/cm2 (0.656) / T-score (-1.7) / Z-score (0.0) Right Femur Total: g/cm2 (0.756) / T-score (-1.5) / Z-score (-0.1) Right Femoral Neck: g/cm2 (0.853) / T-score (0.0) / Z-score (1.8) The T-Scores on the most recent prior examination were: Lumbar Spine (L1-L4): There has been improvement of bone density since the previous examination. Left Femur Total: which represents a worsening of 10.7%. Right Femur Total: which represents an improvement of 4%. BD/Dexa Bone Density Study IMPRESSION: The patient is considered osteopenic as outlined below according to World Angel Organization (WHO) criteria with a moderate fracture risk. There has been improvement of bone density since the previous examination. Reference Information: The T-score is the number of standard deviations above or below the standard which is normal for young adults at their peak bone mineral density. The World Health Organization (WHO) interprets the T-scores as follows: Above -1 Normal bone density Between -1 and -2.5 Osteopenia Equal to / or below -2.5 Osteoporosis As a practical clinical guideline, osteopenia may be graded as follows: Mild -1 through -1.5 Moderate -1.6 through -2.0 Severe -2.1 through -2.4 The Z-score is the number of standard deviations above or below age-matched controls. A Z-score of less than -1.5 would be considered abnormal. References: 1. NIH Osteoporosis and Related Bone Diseases www osteo.org 2. International Society for Clinical Densitometry www iscd.org 3. National Osteoporosis Foundation www nof.org Electronically Signed: Taiwo Guerrero MD at 13:59 EST ,
== END | disposition home or self-care (01) ==
LOC: OPBD 10:51
PROVIDERS: PCP Internal Medicine; Referring Provider Internal Medicine; Visit Provider Internal Medicine
DX: M81.0 Age-related osteoporosis without current pathological fracture (principal)
CPT/HCPCS: 77080

== ENCOUNTER → 2023-03-01 | Outpatient (CLI) | payer MEDICARE, SELFPAY ==
[2023-03-01 15:13] LABS: Absolute Neutrophil Count 2.9 X10^3/uL (2.0-7.7); Basophil# 0.04 X10^3/uL; Basophil% 0.8 % (0-1); Eosinophils% 1.9 % (0-5); Hematocrit 39.9 % (37-47); Hemoglobin 12.9 g/dL (12.0-15.0); Lymphocyte % 34.1 % (19-41); Mean Corp Hgb Conc 32.3 g/dL (32-36); Mean Corpuscular Hgb 32.2 pg (27.0-32.0); Mean Corpuscular Volume 99.5 fL (81-99); Monocyte# 0.42 X10^3/uL; NRBC Flagged by Analyzer 0 % (0-5); Neutrophil # 2.91 X10^3/uL (2.7-7.7); Platelet Count 303 K/mm3 (150-450); RBC Distribution Width SD 50.7 fl (35.1-43.9); Red Blood Count 4.01 M/mm3 (4.2-5.4); White Blood Count 5.3 K/mm3 (4.4-11.0)
[2023-03-01 15:47] LABS: ALB/GLOB Ratio 1.2 RATIO (0.9-2.4); AST(SGOT) 25 U/L (15-37); Alanine Aminotransfer ALT/SGPT 33 U/L (13-56); Albumin, Serum 3.7 g/dL (3.2-5.0); Alkaline Phosphatase 58 U/L (45-117); Anion Gap 4 (5-15); BUN 15 mg/dL (7-18); BUN/Creat Ratio 16.7 RATIO (10-20); Calcium,Total 8.9 mg/dL (8.5-10.1); Chloride 106 mmol/L (98-107); EST Glomerular Filtration Rate 66 mL/min (>60); Est Glom Filt Rate - Afr Amer 80 mL/min (>60); Globulin 3.1 g/dL (2.2-4.2); Glucose 90 mg/dL (74-106); Potassium 4.1 mmol/L (3.5-5.1); Protein, Total 6.8 g/dL (6.4-8.2); Sodium Level 142 mmol/L (136-145)
== END | disposition home or self-care (01) ==
LOC: MTLAB 13:21
PROVIDERS: PCP Internal Medicine; Referring Provider Internal Medicine Rheumatology; Visit Provider Internal Medicine Rheumatology
DX: M06.00 Rheumatoid arthritis without rheumatoid factor, unspecified site (principal); M79.7 Fibromyalgia; Z79.899 Other long term (current) drug therapy
CPT/HCPCS: 36415; 80053; 85025

== ENCOUNTER → 2023-06-07 | Outpatient (CLI) | payer MEDICARE, SELFPAY ==
[2023-06-07 12:32] LABS: Absolute Neutrophil Count 2.2 X10^3/uL (2.0-7.7); Basophil# 0.04 X10^3/uL; Eosinophil# 0.09 X10^3/uL; Eosinophils% 2.2 % (0-5); Hematocrit 40.9 % (37-47); Lymphocyte % 33.9 % (19-41); Mean Corp Hgb Conc 31.8 g/dL (32-36); Mean Corpuscular Volume 97.6 fL (81-99); Mean Platelet Vol. 10.2 fl (6.2-12.0); Monocyte# 0.43 X10^3/uL; Monocyte% 10.4 % (0-10); NRBC Flagged by Analyzer 0 % (0-5); Neutrophil # 2.16 X10^3/uL (2.7-7.7); Neutrophil % 52.3 % (47-70); Platelet Count 269 K/mm3 (150-450); RBC Distribution Width CV 13.2 % (11.6-14.6); RBC Distribution Width SD 46.7 fl (35.1-43.9); Red Blood Count 4.19 M/mm3 (4.2-5.4); White Blood Count 4.1 K/mm3 (4.4-11.0)
[2023-06-07 13:06] LABS: ALB/GLOB Ratio 1.2 RATIO (0.9-2.4); AST(SGOT) 19 U/L (15-37); Alanine Aminotransfer ALT/SGPT 22 U/L (13-56); Albumin, Serum 3.7 g/dL (3.2-5.0); Alkaline Phosphatase 56 U/L (45-117); Anion Gap 6 (5-15); BUN 9 mg/dL (7-18); BUN/Creat Ratio 9.6 RATIO (10-20); Calcium,Total 9.5 mg/dL (8.5-10.1); Chloride 104 mmol/L (98-107); Creatinine, Serum 0.94 mg/dL (0.55-1.02); EST Glomerular Filtration Rate 63 mL/min (>60); Est Glom Filt Rate - Afr Amer 76 mL/min (>60); Globulin 3.2 g/dL (2.2-4.2); Glucose 75 mg/dL (74-106); Protein, Total 6.9 g/dL (6.4-8.2); Sodium Level 139 mmol/L (136-145)
== END | disposition home or self-care (01) ==
LOC: MTLAB 09:34
PROVIDERS: PCP Internal Medicine; Referring Provider Internal Medicine Rheumatology; Visit Provider Internal Medicine Rheumatology
DX: M06.00 Rheumatoid arthritis without rheumatoid factor, unspecified site (principal); Z79.899 Other long term (current) drug therapy; M79.7 Fibromyalgia; M35.00 Sjogren syndrome, unspecified; M18.11 Unilateral primary osteoarthritis of first carpometacarpal joint, right hand; K58.9 Irritable bowel syndrome, unspecified; F32.89 Other specified depressive episodes; I34.1 Nonrheumatic mitral (valve) prolapse; E78.5 Hyperlipidemia, unspecified; G47.33 Obstructive sleep apnea (adult) (pediatric)
CPT/HCPCS: 36415; 80053; 85025

== ENCOUNTER 2023-06-20 09:30 | Outpatient (RCR) | payer MEDICARE, SELFPAY ==
--- NOTE | 2023-05-06 10:48 | HP.OTEVAL ---
Patient's Visit Information Visit Information Visit Information: ROSI CASTELLON is a 67 year old F, referred to Occupational Therapy by DIANA BROWN, with a diagnosis of left unilateral primary osteoarthritis of 1st carpometacarpal joint. Date of Evaluation: 05/03/23 Occupational Therapist: Monse Gibbons, NOEL/Zainab, CHT Subjective Subjective: This 67 year old female was seen for OT eval with dx left unilateral primary osteoarthritis of first carpometacarpal joint. Pt states she has had pain for years in her thumb. States pain was limiting her with her daily tasks. Pt opted to have sx. DOS: 04/13/22 pt arrives 1 week and 6 days following a left Carpometacarpal interpositional arthroplasty with ligament reconstruction and flexor carpi radialis tendon transfer left thumb- with Partial trapezoid resection. pt arrives with left thumb orthosis on- denies need for adj. pt states achy at times but feeling good. pt states she is ready to use her left hand some as her right hand is starting to hurt more that she is mainly using it for ADLs. ADLs Dressing: Pants, Socks and Shoes Fasteners: Buttons, Zippers and Snaps Comments: pt reports is helping her with all daily tasks that require bilateral hands- Pain left hand: Current Pain Intensity: 2 Pain Intensity Range: 5 ROM Forearm: right/left WNL Wrist: right 65/55 left 15/40 CMC: right 20 left 15 MP: right 50 left 30 IP: right 45 left 25 Radial Abduction: right 40 left NT Opposition: Kapandji opposition scale right 10 left 3 Strength River Expedition Guide: right 40# left NT Lateral Pinch: right 8# left NT Tripod Pinch: right 8# left NT Strength Comments: will test left strength at later date Sensation Sensation Comments: denies Quick DASH-Disab of Arm,Shoulder& Hand Quick DASH Score: 37.5000 Goals Goal:100% adherence to protocol: Yes Comment: Dr. JAMES Taylor Goal:Daily scar massage when approriate: Yes Goal:ROM equal to unaffected hand: Yes Goal:[place] Expedition Guide/Pinch strength at least 75% of unaffected hand: Yes Goal:No pain with affected hand use: Yes Goal:Full use of affected hand in daily activities including work: Yes Other Goal: demo understanding of orthosis use and precautions by end of 1st session Rehabilitation General Assessment: pt arrives 1 week and 6 days s/p from a left CMC interpositional arthroplasty with ligament reconstruction of the FCR tendon transfer left thumb- and partial trapezoid resection. DOS: 04/13/23. pt demo with newly healing structures that limits pts ind. with ADLs and IADls. pt would benefit from OT services 1-2x week for 8 weeks to return pt to a PLOF. Today therapist ed. pt on Dr. Brown's CMC arthroplasty Protocol. reviewed tendon glides, scar mtg, edema control as well as ed. on orthosis use and skin care. Therapist ed, pt on short arch wrist ROM and supported CMC IP and MP ROM. Pt was given handouts and demo understanding. pt demo understanding of POC and agree to POC. Rehabilitation Potential: Good Anticipated Interventions Anticipated Interventions: A/AAROM/PROM, Strengthening, Scar Care, Triggerpoint Release, Modalities, Orthoses, Joint Protection/Energy Conservation, Ergonomic Education, Education re Diagnosis and Home Program Visit Plan Frequency: 1-2x /Week Duration: 2 Months TEXT: Thank you for the opportunity to evaluate your patient. For Medicare and Medicare HMO plans, please review the plan of care and approve it. It will need to be FAXED BACK to us at [phone] for Medicare purposes. Please let me know if there are questions or concerns regarding this plan of care. Physician Signature: Date:
--- NOTE | 2023-05-23 09:49 | HP.OTREVAL ---
Re-Evaluation Intro: DIANA BROWN, It has been my pleasure to treat ROSI CASTELLON over the last 4 visits for left unilateral primary osteoarthritis of 1st carpometacarpal joint. Please see the progress note below for an update on the occupational therapy plan of care! Subjective Subjective: Pt arrives to session. pt is 5 weeks s/p from a cmc arthroplasty. pt states she is very happy with her results at this time. Objective Objective/Function: left wrist ROM 65/60 increase from 60/35 (pt continues to have wrist stiffness with flexion, but after ex. she does gain ROM. left MP 40 left IP 55 increase from 45 pt demo opposition to LF pt is demo ROM WFL following her CMC arthroplasty pain min 0/10 pt states she is doing well with her ROM and using her hand for light activities with bathing/dressing tasks. Pt is driving. will hold progress with strengthening until further guidance from . Plan Plan Frequency: 1-2x /Week Duration: 2 Months Plan: cont with Dr. Taylor's protocol. Goals Goals Patient Goals: Decrease Pain, Use Hand/Wrist/Arm Normally Again and Be More Independent in ADLS Goal:100% adherence to protocol: Yes Goal:Daily scar massage when approriate: Yes Goal:ROM equal to unaffected hand: Yes Goal:Chemical Dependency Attendant/Pinch strength at least 75% of unaffected hand: Yes Goal:No pain with affected hand use: Yes Goal:Full use of affected hand in daily activities including work: Yes Other Goal: demo understanding of orthosis use and precautions by end of 1st session Anticipated Interventions Anticipated Interventions Anticipated Interventions: A/AAROM/PROM, Strengthening, Scar Care, Triggerpoint Release, Modalities, Orthoses, Joint Protection/Energy Conservation, Ergonomic Education, Education re Diagnosis and Home Program Re-Evaluation Ending Re-evaluation ending: Please do not hesitate to contact me at [phone] by phone or if you have questions or concerns regarding this new plan of care! Sincerely, Monse Gibbons OTR/L, CHT
--- NOTE | 2023-06-20 15:36 | HP.OTDCSUM ---
Discharge Summary D/C Summary: It has been my pleasure to treat ROSI CASTELLON under orders from DIANA BROWN, for the diagnosis of left unilateral primary osteoarthritis of 1st carpometacarpal joint for a total of 6 visit(s). Please see the following information for a summary of their discharge status. Overall Improvement % Improvement: 85 Objective Objective/Function: left carbon accountant strength 47# increase from 35# left lateral pinch 6# left tripod pinch 4# Goals Patient Goals: Decrease Pain, Use Hand/Wrist/Arm Normally Again and Be More Independent in ADLS Goal:100% adherence to protocol: Yes Goal:Daily scar massage when approriate: Yes Goal:ROM equal to unaffected hand: Yes Goal:Cafeteria Helper/Pinch strength at least 75% of unaffected hand: Yes Goal:No pain with affected hand use: Yes Goal:Full use of affected hand in daily activities including work: Yes Other Goal: demo understanding of orthosis use and precautions by end of 1st session Plan Plan: DC D/C Information Discharge Comments: pt has been seen 6 OT sessions following a left CMC arthroplasty- pt has made great gains and has returned to her Bathing/dressing tasks without pain. Pt is very happy with her sx. pt has met OT goals Therapist advised her in cont. to perform her thumb stabilization ex. and to avoid thumb mp hyper ext. pt demo understanding pt agrees with D/C at this time. d/c sentence: If there are questions or concerns regarding this patient's occupational therapy, please fell free to call me at [phone]. Thank you for the referral of this patient. Sincerely, Monse Gibbons, OTR/L, CHT
== END 2023-06-20 19:00 | disposition home or self-care (01) ==
LOC: OT 09:30
PROVIDERS: PCP Internal Medicine
DX: M18.12 Unilateral primary osteoarthritis of first carpometacarpal joint, left hand (principal)
CPT/HCPCS: 97110; 97140; 97166; 97530

== ENCOUNTER 2023-07-21 10:28 | Day surgery (SDC) | payer MEDICARE, SELFPAY ==
--- NOTE | 2023-07-21 10:32 | H&P.OPEN ---
HPI - General General Date of Service: 07/21/23 HPI Narrative ROSI CASTELLON, is a 67 F who presents for screening colonoscopy. Pt did take extra dulcolax x 2 but is still having brown liquid and states she feels constipated. Patient had a colonoscopy by Dr. Montoya about 3 years ago had a polyp at that time-recommended to f/u in 3 years-pt states she has a tortuous colon. Patient has bowel movements about every 4 days denies any blood. Patient denies any chronic abdominal pain/nausea/vomiting/reflux. Patient denies any family history of colon cancer. FORMERLY [facility], [facility] Medical History (Updated 07/21/23 @ 10:[address] Lexie Eli MD) Anxiety Arthritis Bipolar disorder Cancer CPAP (continuous positive airway pressure) dependence Depression Former smoker Frequency of urination Heartburn High cholesterol History of echocardiogram History of IBS History of irregular heartbeat History of steroid therapy History of stress test Leg cramps Mitral valve prolapse Other urethral stricture, female Rheumatoid arthritis Sleep apnea Stress headache Urgency of urination Wears glasses Home Medications bupropion HCl 150 mg 24 hr tablet, extended release 450 mg PO DAILY 09/19/13 [History Last Taken Unknown] multivitamin with folic acid 400 mcg tablet (Thera) 1 tab PO DAILY 09/19/13 [History Last Taken Unknown] pravastatin 10 mg tablet 20 mg PO DAILY 09/19/13 [History Last Taken Unknown] biotin 5 mg capsule 5 mg PO DAILY 10/31/20 [History Last Taken Unknown] calcium 500 mg tablet 500 mg PO DAILY 10/31/20 [History Last Taken Unknown] cholecalciferol (vitamin D3) 25 mcg (1,000 unit) chewable tablet (Vitamin D3) 25 mcg PO DAILY 10/31/20 [History Last Taken Unknown] folic acid 800 mcg tablet 1.6 mg PO DAILY 10/31/20 [History Last Taken Unknown] leucovorin calcium 15 mg tablet 30 mg PO QWEEK 10/31/20 [History Last Taken Unknown] methotrexate sodium 25 mg/mL injection solution 0.7 mg IM SA RA 10/31/20 [History Last Taken Unknown] trazodone 50 mg tablet 50 mg PO QHS 10/31/20 [History Last Taken Unknown] vitamin B12 1,000 mcg-folic acid 400 mcg sublingual tablet 2 tab sublingual DAILY 10/31/20 [History Last Taken Unknown] gabapentin 600 mg tablet 600 mg PO BID 03/17/21 [History Last Taken Unknown] tramadol 50 mg tablet 50 mg PO TID PRN Pain 03/17/21 [History Last Taken Unknown] fluticasone propionate 50 mcg/actuation nasal spray,suspension (Allergy Relief (fluticasone)) 1 spray intranasal DAILY 03/23/23 [History Last Taken Unknown] golimumab 50 mg/0.5 mL subcutaneous pen injector (Simponi) 50 mg subcut Q8W 03/23/23 [History Last Taken Unknown] lurasidone 20 mg tablet (Latuda) 20 mg PO DAILY 03/23/23 [History Last Taken Unknown] hyoscyamine sulfate 0.125 mg tablet 0.125 mg PO BID-QID PRN IBS 06/24/23 [History Last Taken Unknown] Allergy/AdvReac Type Severity Reaction Status Date / Time No Known Allergies Allergy Verified 07/20/23 11:39 Surgical History (Updated 07/20/23 @ 11:49 by Cherie King) History of cardiac catheterization History of thumb surgery Hx of breast biopsy Hx of colonoscopy with polypectomy Hx of foot surgery Hx of hysterectomy Hx of tonsillectomy Social History (Updated 03/23/23 @ 12:15 by Caitlyn Piedra) household members: spouse current occupational status: employed current occupation: Teacher Smoking Status: Former smoker alcohol intake: former substance use type: does not use Past Medical/Surgical History Planned Operation Planned Operative Procedure/s: CSCOPE Previous Hospitalizations/Surgeries HX Hospitalizations: No HX of Surgeries: RA hysterectomy foot surgery Any Problems With Anesthesia: Yes (NAUSEA) You/Your Family Experience Fever (Hyperthermia) With Anes: No Cholinesterase deficiency: No Cardiovascular Hx Heart Attack: No Hx Hypertension: No Respiratory Hx Chronic Obstructive Pulmonary Disease (COPD): No Hx Asthma: No Hx Emphysema: No Hx Sleep Apnea: Yes CPAP: Yes BIPAP: No Hx Respiratory Tract Infection/Cold (presently): No Result (for STOP score): Positive Smoking Status: Former smoker Neurological Hx Seizures: No Does patient have nerve stimulator: No Genitourinary Hx Renal Disease: No Endocrine Hx Diabetes: No Miscellaneous Hx Cancer: Yes (skin cancer) Recent Exposure to Contagious Disease: No Allergies No Known Allergies Allergy (Verified 07/20/23 11:39) Discharge Is Pt Admitted From a [facility], or a Penitentiary: No After D/C, Where Do you Plan to Go: Return Home From the PAT History Number of Risk Factors: 1 Physical Exam Const alert, oriented x3 and no apparent distress HEENT normocephalic and head/scalp atraumatic Resp normal respiratory effort Cardio regular rate GI soft to palpation and non-tender; Negative for non-distended Palpation: Negative for guarding Extremity no clubbing, cyanosis or edema Skin no rashes or lesions noted Neuro CN's II-XII intact bilaterally Psych mental status grossly normal Assessment & Plan Assessment/Plan (1) Hx of colonic polyp: PLAN: Plan will give tap water enema in AC. Pt will need 2 day prep next time if she doesn't have BM every 2 days or less. Surgery Risks - Colonoscopy I discussed with the patient the risks of the procedure: Yes Risks Include but are not Limited To: Risks include but are not limited to: Bleeding, perforation requiring further surgery, inability to complete colonoscopy requiring barium enema.
[2023-07-21] MEDS: Lactated Ringers 1,000 ML 15 ML IV (10:45)
[2023-07-21 11:32] VITALS: BP 119/79; PULSE 66; RESP 16; TEMP 36.2; O2SAT 100; BMI 23.1
--- NOTE | 2023-07-21 12:15 | COLBX_PTH ---
PATIENT: ROSI CASTELLON LOC: EN U#:[id number] AGE/SX: 67/F ROOM: RE07/21/[address]: Dr. Lexie Eli MD : 1955 BED: DIS: 07/21/2023 SPEC #: [id number] RECD: 07/21/23 14:59 STATUS: KENNA HUBERTAbdiaziz #: [id number] JAMES: 07/21/23 12:[address]: Lexie Eli DEPT: SURGICAL PATHOLOGY RECD BY: Malvin Cook ENTERED: 07/22/23 07:08 SP TYPE: COLON BX EDISON DR: Dr. Elizabet Ahn, DO Tissues: Rectum, NOS Procedures: Surgery Specimen Level IV HEADER OPERATION: Colonoscopy biopsy PRE-OP DIAGNOSIS: History of colonic polyp TISSUE SUBMITTED: Rectal polyp biopsy MICROSCOPIC DIAGNOSIS Rectal polyp, biopsy: Fragments of hyperplastic polyp. AM/mr 07/25/23 MICROSCOPIC DESCRIPTION Slides are reviewed. GROSS DESCRIPTION Received in fixative is one container labeled with the patient's name and designated rectal polyp biopsy. The specimen consists of one irregular fragment of light montoya soft tissue that measures 0.4 x 0.3 x 0.1 cm. The specimen is totally submitted in one cassette. ZACHERY/ 07/22/2023 TC:5 CPT:18329
[2023-07-21 12:58] VITALS: BP 101/67; BP 119/79; PULSE 68; RESP 16; TEMP 36.4; O2SAT 97
[2023-07-21 13:00] VITALS: BP 113/100; BP 119/79; PULSE 70; RESP 16; O2SAT 100
--- NOTE | 2023-07-21 13:03 | OP.COLON_ITS ---
Patient Name: Dahiana Bartlett Procedure Date: 07/21/2023 12:28 PM Date of : 1955 Age: 67 Procedure: Colonoscopy Indications: High risk colon cancer surveillance: Personal history of colonic polyps Providers: Lexie Eli MD Referring MD: Elizabet Ahn Medicines: Monitored Anesthesia Care Patient Profile: This is a 67 year old female. Last Colonoscopy: 3 years ago. Complications: No immediate complications. Procedure: Pre-Anesthesia Assessment: - Prior to the procedure, a History and Physical was performed, and patient medications and allergies were reviewed. The patient's tolerance of previous anesthesia was also reviewed. The risks and benefits of the procedure and the sedation options and risks were discussed with the patient. All questions were answered, and informed consent was obtained. Prior Anticoagulants: The patient has taken no anticoagulant or antiplatelet agents. ASA Grade Assessment: Per anesthesia. After reviewing the risks and benefits, the patient was deemed in satisfactory condition to undergo the procedure. After I obtained informed consent, the scope was passed under direct vision. Throughout the procedure, the patient's blood pressure, pulse, and oxygen saturations were monitored continuously. The Colonoscope was introduced through the anus and advanced to the cecum, identified by the appendiceal orifice, ileocecal valve and palpation. The colonoscopy was somewhat difficult due to a tortuous colon. The patient tolerated the procedure well. The quality of the bowel preparation was good. Scope In: 12:35:03 PM Scope Withdrawal Time 0 hours 9 minutes 53 seconds Scope Out: 12:53:45 PM Total Procedure Duration Time 0 hours 18 minutes 42 seconds Findings: The perianal and digital rectal examinations were normal. A less than 5 mm polyp was found in the rectum. The polyp was sessile. The polyp was removed with a cold biopsy forceps. Resection and retrieval were complete. The exam was otherwise without abnormality. Impression: - One less than 5 mm polyp in the rectum, removed with a cold biopsy forceps. Resected and retrieved. - The examination was otherwise normal. Recommendation: - Discharge patient to home. - Resume previous diet. - Continue present medications. - Await pathology results. - Repeat colonoscopy in 5-10 years for surveillance based on pathology results. Procedure Code(s): --- Professional --- 13917, PT, Colonoscopy, flexible; with biopsy, single or multiple Diagnosis Code(s): --- Professional --- Z86.010, Personal history of colonic polyps D12.8, Benign neoplasm of rectum CPT copyright 2021 [employer]. All rights reserved. The codes documented in this report are preliminary and upon learning and development director review may be revised to meet current compliance requirements. MD Lexie Mcpherson MD 07/21/2023 1:02:48 PM This report has been signed electronically. Number of Addenda: 0 Note Initiated On: 07/21/2023 12:28 PM
--- NOTE | 2023-07-21 13:03 | OP.CCLET_ITS ---
07/21/2023 Elizabet Ahn [address] [place] [address] Re : Colonoscopy procedure for Dahiana Bartlett Dear Dr. Ahn This procedure was performed on July. My impressions and recommendations are as follows: Impressions : - One less than 5 mm polyp in the rectum, removed with a cold biopsy forceps. Resected and retrieved. - The examination was otherwise normal. Recommendations : - Discharge patient to home. - Resume previous diet. - Continue present medications. - Await pathology results. - Repeat colonoscopy in 5-10 years for surveillance based on pathology results. My findings are described in the full procedure note, which is enclosed. If I can be of further assistance, please feel free to contact me at Doctor phone number(s): , Work: . Sincerely, MD Lexie Mcpherson MD 07/21/2023 1:02:48 PM This report has been signed electronically.
[2023-07-21 13:05] VITALS: BP 108/72; BP 119/79; PULSE 70; RESP 16; O2SAT 96
[2023-07-21 13:09] VITALS: BP 112/66; BP 119/79; PULSE 70; RESP 16; TEMP 36.3; O2SAT 99
[2023-07-21 13:15] VITALS: BP 119/79
== END 2023-07-21 13:47 | disposition home or self-care (01) ==
LOC: EN 10:28 → AC 10:29
PROVIDERS: PCP Internal Medicine; Referring Provider Internal Medicine; Visit Provider Surgery
PROC: 0DJD8ZZ Inspection of Lower Intestinal Tract, Via Natural or Artificial Opening Endoscopic (ICD-10-PCS; CPT 45378; principal; 2023-07-21 12:10)
DX: Z12.11 Encounter for screening for malignant neoplasm of colon (principal); F31.9 Bipolar disorder, unspecified; Z86.010 Personal history of colon polyps; K62.1 Rectal polyp; Z87.891 Personal history of nicotine dependence; E78.00 Pure hypercholesterolemia, unspecified; Z79.899 Other long term (current) drug therapy; Z87.19 Personal history of other diseases of the digestive system; K21.9 Gastro-esophageal reflux disease without esophagitis
CPT/HCPCS: 45380; 88305; J7120; J2405

== ENCOUNTER → 2023-08-31 | Outpatient (CLI) | payer MEDICARE, SELFPAY ==
[2023-08-31 12:22] LABS: Absolute Lymphocyte Count 1.57 X10^3/uL (0.83-4.51); Absolute Neutrophil Count 4.5 X10^3/uL (2.0-7.7); Basophil# 0.02 X10^3/uL; Basophil% 0.3 % (0-1); Eosinophil# 0.08 X10^3/uL; Eosinophils% 1.1 % (0-5); Hematocrit 39.7 % (37-47); Hemoglobin 12.8 g/dL (12.0-15.0); Lymphocyte # 1.57 X10^3/ul (0.83-4.51); Lymphocyte % 22.2 % (19-41); Mean Corp Hgb Conc 32.2 g/dL (32-36); Mean Corpuscular Hgb 31.1 pg (27.0-32.0); Mean Corpuscular Volume 96.4 fL (81-99); Mean Platelet Vol. 9.8 fl (6.2-12.0); Monocyte# 0.85 X10^3/uL; NRBC Flagged by Analyzer 0 % (0-5); Neutrophil # 4.52 X10^3/uL (2.7-7.7); Neutrophil % 63.8 % (47-70); Platelet Count 348 K/mm3 (150-450); RBC Distribution Width CV 14.5 % (11.6-14.6); RBC Distribution Width SD 50.2 fl (35.1-43.9); Red Blood Count 4.12 M/mm3 (4.2-5.4); White Blood Count 7.1 K/mm3 (4.4-11.0)
[2023-08-31 13:08] LABS: ALB/GLOB Ratio 1.2 RATIO (0.9-2.4); AST(SGOT) 19 U/L (15-37); Alanine Aminotransfer ALT/SGPT 27 U/L (13-56); Albumin, Serum 3.8 g/dL (3.2-5.0); Alkaline Phosphatase 49 U/L (45-117); Anion Gap 6 (5-15); BUN 21 mg/dL (7-18); BUN/Creat Ratio 21.8 RATIO (10-20); Calcium,Total 9.3 mg/dL (8.5-10.1); Chloride 103 mmol/L (98-107); Creatinine, Serum 0.96 mg/dL (0.55-1.02); EST Glomerular Filtration Rate 61 mL/min (>60); Est Glom Filt Rate - Afr Amer 74 mL/min (>60); Globulin 3.2 g/dL (2.2-4.2); Glucose 91 mg/dL (74-106); Potassium 3.9 mmol/L (3.5-5.1); Sodium Level 137 mmol/L (136-145)
== END | disposition home or self-care (01) ==
LOC: MTLAB 10:22
PROVIDERS: PCP Internal Medicine; Referring Provider Internal Medicine Rheumatology; Visit Provider Internal Medicine Rheumatology
DX: M06.00 Rheumatoid arthritis without rheumatoid factor, unspecified site (principal); Z79.899 Other long term (current) drug therapy; M79.7 Fibromyalgia; M35.00 Sjogren syndrome, unspecified; M18.11 Unilateral primary osteoarthritis of first carpometacarpal joint, right hand; K58.9 Irritable bowel syndrome, unspecified; F32.89 Other specified depressive episodes; I34.1 Nonrheumatic mitral (valve) prolapse; E78.5 Hyperlipidemia, unspecified; G47.33 Obstructive sleep apnea (adult) (pediatric)
CPT/HCPCS: 36415; 80053; 85025

== ENCOUNTER → 2023-11-24 | Outpatient (CLI) | payer MEDICARE, SELFPAY ==
[2023-11-24 15:25] LABS: Absolute Lymphocyte Count 1.72 X10^3/uL (0.83-4.51); Absolute Neutrophil Count 2.8 X10^3/uL (2.0-7.7); Basophil# 0.03 X10^3/uL; Basophil% 0.6 % (0-1); Eosinophil# 0.16 X10^3/uL; Eosinophils% 3.1 % (0-5); Hematocrit 39.1 % (37-47); Hemoglobin 12.3 g/dL (12.0-15.0); Lymphocyte # 1.72 X10^3/ul (0.83-4.51); Lymphocyte % 33.1 % (19-41); Mean Corp Hgb Conc 31.5 g/dL (32-36); Mean Corpuscular Hgb 30.8 pg (27.0-32.0); Mean Corpuscular Volume 97.8 fL (81-99); Mean Platelet Vol. 10.8 fl (6.2-12.0); Monocyte# 0.46 X10^3/uL; Monocyte% 8.8 % (0-10); NRBC Flagged by Analyzer 0 % (0-5); Neutrophil % 53.8 % (47-70); Platelet Count 306 K/mm3 (150-450); RBC Distribution Width CV 13.6 % (11.6-14.6); RBC Distribution Width SD 48.2 fl (35.1-43.9); White Blood Count 5.2 K/mm3 (4.4-11.0)
[2023-11-24 16:02] LABS: ALB/GLOB Ratio 1.1 RATIO (0.9-2.4); AST(SGOT) 25 U/L (15-37); Alanine Aminotransfer ALT/SGPT 35 U/L (13-56); Albumin, Serum 3.6 g/dL (3.2-5.0); Alkaline Phosphatase 61 U/L (45-117); Anion Gap 7 (5-15); BUN 20 mg/dL (7-18); BUN/Creat Ratio 22.8 RATIO (10-20); Calcium,Total 9.6 mg/dL (8.5-10.1); Chloride 103 mmol/L (98-107); Creatinine, Serum 0.88 mg/dL (0.55-1.02); EST Glomerular Filtration Rate 68 mL/min (>60); Est Glom Filt Rate - Afr Amer 82 mL/min (>60); Globulin 3.2 g/dL (2.2-4.2); Glucose 83 mg/dL (74-106); Potassium 3.9 mmol/L (3.5-5.1); Protein, Total 6.8 g/dL (6.4-8.2); Sodium Level 138 mmol/L (136-145)
== END | disposition home or self-care (01) ==
PROVIDERS: PCP Internal Medicine; Referring Provider Internal Medicine Rheumatology; Visit Provider Internal Medicine Rheumatology
DX: M06.00 Rheumatoid arthritis without rheumatoid factor, unspecified site (principal); M79.7 Fibromyalgia; Z79.899 Other long term (current) drug therapy
CPT/HCPCS: 36415; 80053; 85025

== ENCOUNTER → 2024-01-06 | Outpatient (CLI) | payer MEDICARE, SELFPAY ==
--- NOTE | 2024-01-06 10:50 | ECHOD_ITS ---
Reason For Study: NON-RHEUMATIC MVP Procedure This was a 2D Doppler, Color Flow transthoracic echocardiogram. Exam performed in department. Left Ventricle Normal LV size. The left ventricular ejection fraction is 55 %. Stage 1 diastolic dysfunction. No regional wall motion abnormalities noted. Right Ventricle Normal RV size. Normal systolic function. Atria Normal left atrium. Normal right atrium. Mitral Valve Normal mitral valve. Mild (1+) mitral valve insufficiency. Tricuspid Valve Normal tricuspid valve. Mild tricuspid valve insufficiency. Aortic Valve Trisinus/trileaflet aortic valve. Trivial aortic valve insufficiency. Pulmonic Valve Normal pulmonic valve. Mild (1+) pulmonic valve insufficiency. Great Vessels Normal aortic root. The pulmonary artery is normal size. Inferior vena cava collapse with respiration. Pericardium/Pleural No pericardial effusion. MMode/2D Measurements & Calculations LVIDd: 4.4 cm IVSd: 0.85 cm Ao root diam: 3.2 cm LVIDs: 3.0 cm LVPWd: 0.87 cm RVDd: 2.7 cm FS: 32.8 % LAV(MOD-bp): 32.8 ml LVAd ap4: 23.0 cm2 LVAd ap2: 21.5 cm2 LAV(MOD-bp) Indexed: 19.2 ml/m2 LVLd ap4: 7.8 cm LVLd ap2: 7.9 cm LAV(MOD-sp2): 31.2 ml EDV(MOD-sp4): 55.4 ml EDV(MOD-sp2): 47.9 ml LAV(MOD-sp4): 30.6 ml EDV(sp4-el): 57.2 ml EDV(sp2-el): 49.8 ml LVAs ap4: 14.1 cm2 LVAs ap2: 12.6 cm2 LVLs ap4: 6.9 cm LVLs ap2: 6.6 cm ESV(MOD-sp4): 24.8 ml ESV(MOD-sp2): 21.2 ml ESV(sp4-el): 24.4 ml ESV(sp2-el): 20.4 ml EF(MOD-sp4): 55.3 % EF(MOD-sp2): 55.7 % EF(sp4-el): 57.3 % SV(MOD-sp4): 30.6 ml SV(MOD-sp2): 26.7 ml SV(sp4-el): 32.8 ml LA dimension(2D): 3.1 cm LA A4 area: 12.3 cm2 RA A4 area: 11.7 cm2 TAPSE: 1.8 cm Time Measurements MV dec time: 0.16 sec Doppler Measurements & Calculations MV E max edilberto: 58.7 cm/sec Lat Peak E' Edilberto: 9.0 cm/sec Med Peak E' Edilberto: 7.0 cm/sec MV A max edilberto: 81.0 cm/sec E/E' lat: 6.6 E/E' med: 8.4 MV E/A: 0.72 MV V2 max: 86.7 cm/sec MV P1/2t max edilberto: 68.9 cm/sec Ao V2 max: 125.3 cm/sec MV max P.0 mmHg MV P1/2t: 68.2 msec Ao max P.3 mmHg MV V2 mean: 56.0 cm/sec MV dec slope: 295.6 cm/sec2 Ao V2 mean: 95.5 cm/sec MV mean P.3 mmHg Ao mean P.9 mmHg MV V2 VTI: 20.0 cm MVA(P1/2t): 3.2 cm2 Ao V2 VTI: 24.7 cm AV (velocity ratio): 0.65 AI max edilberto: 367.3 cm/sec LV V1 max: 87.5 cm/sec PA V2 max: 88.3 cm/sec AI max P.0 mmHg LV V1 max P.1 mmHg PA V2 mean: 61.7 cm/sec AI dec slope: 234.9 cm/sec2 LV V1 mean P.6 mmHg AI P1/2t: 457.9 msec LV V1 mean: 60.4 cm/sec LV V1 VTI: 16.0 cm PI dec slope: 187.7 cm/sec2 TR max edilberto: 216.4 cm/sec TR max P.7 mmHg ECHO/Echo Complete Interpretation Summary Normal LV size. The left ventricular ejection fraction is 55 %. Stage 1 diastolic dysfunction. Hepatic cyst noted. Ordering Physician: Elizabet Ahn Referring Physician: Elizabet Ahn Performed By: Azeb Coyne, KAROLINE, RVT
== END | disposition home or self-care (01) ==
LOC: CVS 10:47
PROVIDERS: PCP Internal Medicine; Referring Provider Internal Medicine; Visit Provider Internal Medicine
DX: I34.1 Nonrheumatic mitral (valve) prolapse (principal)
CPT/HCPCS: 93306

== ENCOUNTER 2024-01-31 10:30 | Outpatient (RCR) | payer MEDICARE, SELFPAY ==
--- NOTE | 2023-12-26 15:12 | HP.OTEVAL ---
Patient's Visit Information Visit Information Visit Information: ROSI CASTELLON is a 68 year old F, referred to Occupational Therapy by DIANA BROWN, with a diagnosis of right 1st carpometacapral OA.. Date of Evaluation: 12/26/23 Occupational Therapist: Monse Gibbons, OTR/Zainab, CHT Subjective Subjective: This 68 year old female was seen for OT eval with dx of right cmc OA. Pt has struggled for years with pain of right thumb and IF DIP. conservative methods were not helpful. Pt states she was bone on bone and was difficulty to perform daily tasks. sx was on 12/06/24 for a right CMC arthroplasty and IF DIP fusion. 2 weeks and 5 days s/p from a right cmc arthroplasty and DIP of IF fusion. pt arrives with orthosis on- denies need for any adj. states she was out of her orthosis today and felt more discomfort. pt states she then put it back on. pt has not taken off to shower- states she is sleeping in it. pt states she is limited with all ADLS and IADLs at this time. Pain right hand: Current Pain Intensity: 3 Pain Intensity Range: 2 and 4 ROM Wrist: right 50/30 left 65/50 CMC: right 10 left 15 MP: right 50 left 50 IP: right 35 left 55 ROM Comments: pt demo with limited right ROM Strength Electro Tech: right NT left 40# Lateral Pinch: right NT left 6# Quick DASH-Disab of Arm,Shoulder& Hand Quick DASH Score: 45.4525 Goals Comment: Dr. Interiano CMC Arthropathy guidelines Goal:Daily scar massage when approriate: Yes Goal:ROM equal to unaffected hand: Yes Goal:Electro Tech/Pinch strength at least 75% of unaffected hand: Yes Goal:No pain with affected hand use: Yes Goal:Full use of affected hand in daily activities including work: Yes Goal:Decrease scar hypersensitivity: Yes Rehabilitation General Assessment: Pt arrives 2 weeks and 5 days s/p from a right CMC arthroplasty and IF DIP fusion. Pt demo with newly healing structures, limited ROM and weakness following her reconstruction. Pt demo need for skilled OT services 1x week for 6-8 weeks to return pt to her PLOF. Today therapist reviewed with pt Dr. Brown's CMC arthroplasty guidelines. Pt demo understanding and agree to POC. Rehabilitation Potential: Good Anticipated Interventions Anticipated Interventions: A/AAROM/PROM, Strengthening, Scar Care, Triggerpoint Release, Modalities, Orthoses, Joint Protection/Energy Conservation, Ergonomic Education, Education re assistive Equipment, Education re Diagnosis and Home Program Visit Plan Frequency: 1-2x /Week Duration: 6 Weeks General Plan: 10-12 days s/p Thermoplastic thumb spica orthosis with CMC ext, MP flex, IP free Wrist ROM MP flexion of thumb with the CMC supported 5-6 weeks s/p ROM CMC JT 6 weeks s/p Jason Pee orthosis 10 weeks Strengthening unless approves otherwise TJR states that he may vary protocol as he sees fit TEXT: Thank you for the opportunity to evaluate your patient. For Medicare and Medicare HMO plans, please review the plan of care and approve it. It will need to be FAXED BACK to us at [phone] for Medicare purposes. Please let me know if there are questions or concerns regarding this plan of care. Physician Signature: Date:
--- NOTE | 2024-05-23 13:23 | HP.OTDCSUM_ITS ---
Discharge Summary D/C Summary: It has been my pleasure to treat ROSI CASTELLON under orders from DIANA BROWN, for the diagnosis of right 1st carpometacapral OA. for a total of 6 visit(s). Please see the following information for a summary of their discharge status. Overall Improvement % Improvement: 80 Objective Objective/Function: wrist ROM 40/30 IP flexion 30 cmc ROM 10 Goals Patient Goals: Regain Mobility, Use Hand/Wrist/Arm Normally Again and Be More Independent in ADLS Goal:Daily scar massage when approriate: Yes Goal Progress: Progressing Goal:ROM equal to unaffected hand: Yes Goal Progress: Progressing Goal:Pesticide Chemist/Pinch strength at least 75% of unaffected hand: Yes Goal Progress: Progressing Goal:No pain with affected hand use: Yes Goal Progress: Progressing Goal:Full use of affected hand in daily activities including work: Yes Goal Progress: Goal Met Goal:Decrease scar hypersensitivity: Yes Goal Progress: Goal Met Plan Plan: cont Dr. Interiano's guidelines for CMC arthroplasty D/C Information Discharge Comments: pt was seen for 6 OT sessions. pt progressed well. pt has met goals and no further apts are scheduled. Pt d/c with HEP d/c sentence: If there are questions or concerns regarding this patient's occupational therapy, please fell free to call me at [phone]. Thank you for the referral of this patient. Sincerely, Monse Gibbons, OTR/L, CHT
== END 2024-01-31 19:00 | disposition home or self-care (01) ==
LOC: OT 10:30
PROVIDERS: PCP Internal Medicine
DX: M18.11 Unilateral primary osteoarthritis of first carpometacarpal joint, right hand (principal)
CPT/HCPCS: 97035; 97110; 97140; 97166

== ENCOUNTER → 2024-02-14 | Outpatient (CLI) | payer MEDICARE, SELFPAY ==
[2024-02-14 18:06] LABS: Absolute Lymphocyte Count 1.98 X10^3/uL (0.83-4.51); Absolute Neutrophil Count 2.3 X10^3/uL (2.0-7.7); Basophil# 0.06 X10^3/uL; Basophil% 1.2 % (0-1); Eosinophil# 0.22 X10^3/uL; Eosinophils% 4.4 % (0-5); Hematocrit 41.8 % (37-47); Hemoglobin 13.3 g/dL (12.0-15.0); Lymphocyte # 1.98 X10^3/ul (0.83-4.51); Lymphocyte % 39.9 % (19-41); Mean Corp Hgb Conc 31.8 g/dL (32-36); Mean Corpuscular Hgb 30.9 pg (27.0-32.0); Mean Platelet Vol. 10.2 fl (6.2-12.0); Monocyte# 0.41 X10^3/uL; Monocyte% 8.3 % (0-10); NRBC Flagged by Analyzer 0 % (0-5); Neutrophil # 2.28 X10^3/uL (2.7-7.7); Platelet Count 314 K/mm3 (150-450); RBC Distribution Width CV 13.8 % (11.6-14.6); RBC Distribution Width SD 49.5 fl (35.1-43.9); Red Blood Count 4.31 M/mm3 (4.2-5.4)
[2024-02-14 18:44] LABS: ALB/GLOB Ratio 1.2 RATIO (0.9-2.4); AST(SGOT) 28 U/L (15-37); Alanine Aminotransfer ALT/SGPT 35 U/L (13-56); Albumin, Serum 3.9 g/dL (3.2-5.0); Alkaline Phosphatase 54 U/L (45-117); Anion Gap 5 (5-15); BUN 17 mg/dL (7-18); BUN/Creat Ratio 19.5 RATIO (10-20); Calcium,Total 9.3 mg/dL (8.5-10.1); Chloride 103 mmol/L (98-107); Creatinine, Serum 0.87 mg/dL (0.55-1.02); EST Glomerular Filtration Rate 68 mL/min (>60); Est Glom Filt Rate - Afr Amer 83 mL/min (>60); Globulin 3.3 g/dL (2.2-4.2); Glucose 82 mg/dL (74-106); Potassium 4.2 mmol/L (3.5-5.1); Protein, Total 7.2 g/dL (6.4-8.2); Sodium Level 137 mmol/L (136-145)
== END | disposition home or self-care (01) ==
LOC: MTLAB 15:35
PROVIDERS: PCP Internal Medicine; Referring Provider Internal Medicine Rheumatology; Visit Provider Internal Medicine Rheumatology
DX: M06.00 Rheumatoid arthritis without rheumatoid factor, unspecified site (principal); M35.00 Sjogren syndrome, unspecified
CPT/HCPCS: 36415; 80053; 85025

== ENCOUNTER → 2024-05-14 | Outpatient (CLI) | payer MEDICARE, SELFPAY ==
[2024-05-14 15:42] LABS: Absolute Lymphocyte Count 2.22 X10^3/uL (0.83-4.51); Absolute Neutrophil Count 2.2 X10^3/uL (2.0-7.7); Basophil# 0.06 X10^3/uL; Basophil% 1.1 % (0-1); Eosinophil# 0.18 X10^3/uL; Eosinophils% 3.4 % (0-5); Hematocrit 39.9 % (37-47); Hemoglobin 13.3 g/dL (12.0-15.0); Lymphocyte # 2.22 X10^3/ul (0.83-4.51); Mean Corp Hgb Conc 33.3 g/dL (32-36); Mean Corpuscular Hgb 31.8 pg (27.0-32.0); Mean Corpuscular Volume 95.5 fL (81-99); Mean Platelet Vol. 10.4 fl (6.2-12.0); Monocyte% 11.3 % (0-10); NRBC Flagged by Analyzer 0 % (0-5); Neutrophil # 2.22 X10^3/uL (2.7-7.7); Platelet Count 272 K/mm3 (150-450); RBC Distribution Width CV 13.6 % (11.6-14.6); RBC Distribution Width SD 47.4 fl (35.1-43.9); Red Blood Count 4.18 M/mm3 (4.2-5.4); White Blood Count 5.3 K/mm3 (4.4-11.0)
[2024-05-14 21:24] LABS: ALB/GLOB Ratio 1.6 RATIO (0.9-2.4); AST(SGOT) 27 U/L (<=31); Alanine Aminotransfer ALT/SGPT 20 U/L (<=34); Albumin, Serum 4.3 g/dL (3.4-4.8); Alkaline Phosphatase 60 U/L (35-104); Anion Gap 11 (5-15); BUN 15 mg/dL (4-19); BUN/Creat Ratio 15.1 RATIO (10-20); Calcium 9.7 mg/dL (7.6-11.0); Carbon Dioxide 24.9 mmol/L (22.0-29.0); Chloride 103 mmol/L (96-108); Creatinine, Serum 1.01 mg/dL (0.70-1.20); EST Glomerular Filtration Rate 60 (>60); Globulin 2.7 g/dL (2.2-4.2); Glucose 94 mg/dL (70-99); Potassium 3.9 mmol/L (3.3-5.1); Sodium Level 139 mmol/L (133-145); Total Bilirubin 0.26 mg/dL (0.00-1.30)
== END | disposition home or self-care (01) ==
LOC: MTLAB 13:23
PROVIDERS: PCP Internal Medicine; Referring Provider Internal Medicine Rheumatology; Visit Provider Internal Medicine Rheumatology
DX: M06.00 Rheumatoid arthritis without rheumatoid factor, unspecified site (principal); M79.7 Fibromyalgia; M35.00 Sjogren syndrome, unspecified; Z79.899 Other long term (current) drug therapy
CPT/HCPCS: 36415; 80053; 85025

== ENCOUNTER → 2024-08-03 | Outpatient (CLI) | payer MEDICARE, SELFPAY | END | disposition home or self-care (01) | LOC: PSN 08:40 | PROVIDERS: PCP Internal Medicine; Referring Provider Internal Medicine; Visit Provider Internal Medicine | DX: E78.00 Pure hypercholesterolemia, unspecified (principal); R00.0 Tachycardia, unspecified | CPT/HCPCS: 93225; 93226 ==

== ENCOUNTER → 2024-08-20 | Outpatient (CLI) | payer MEDICARE, SELFPAY ==
--- NOTE | 2024-08-20 14:40 | RAD_ITS ---
PROCEDURE: L/S SPINE BENDING FLEX/EXT 08/20/2024 REASON FOR EXAM: BACK PAIN TECHNIQUE: 6 view(s) of the thoracic and lumbar spine. COMPARISON: None. FINDINGS: Grade 1 anterolisthesis of L5 on S1. No evidence of instability on flexion/extension images. Mild reverse S shaped scoliosis. There are diffuse spondylotic changes. Findings are demonstrated to by diffuse disc space narrowing, osteophyte formation and degenerative endplate sclerosis. There is diffuse facet joint arthropathy with secondary bilateral neural foramina narrowing. No fracture or dislocation is seen. No aggressive lytic or blastic bony lesion is noted. RAD/L/S Spine Bending Flex/Ext IMPRESSION: Spondylosis. Reading Location: [facility]
[2024-08-20 18:03] LABS: Absolute Lymphocyte Count 1.77 X10^3/uL (0.83-4.51); Absolute Neutrophil Count 2.9 X10^3/uL (2.0-7.7); Basophil# 0.06 X10^3/uL; Basophil% 1.1 % (0-1); Eosinophil# 0.26 X10^3/uL; Eosinophils% 4.8 % (0-5); Hematocrit 38.9 % (37-47); Lymphocyte # 1.77 X10^3/ul (0.83-4.51); Lymphocyte % 32.4 % (19-41); Mean Corp Hgb Conc 33.4 g/dL (32-36); Mean Corpuscular Hgb 32.1 pg (27.0-32.0); Mean Platelet Vol. 10.6 fl (6.2-12.0); Monocyte# 0.47 X10^3/uL; Monocyte% 8.6 % (0-10); NRBC Flagged by Analyzer 0 % (0-5); Neutrophil % 52.9 % (47-70); POSITIVE MORPHOLOGY YES; Platelet Count 288 K/mm3 (150-450); RBC Distribution Width SD 48.2 fl (35.1-43.9); Red Blood Count 4.05 M/mm3 (4.2-5.4); White Blood Count 5.5 K/mm3 (4.4-11.0)
[2024-08-20 18:59] LABS: ALB/GLOB Ratio 1.7 RATIO (0.9-2.4); AST(SGOT) 35 U/L (<=31); Alanine Aminotransfer ALT/SGPT 22 U/L (<=34); Albumin, Serum 4.3 g/dL (3.4-4.8); Alkaline Phosphatase 60 U/L (35-104); Anion Gap 13 (5-15); BUN 19 mg/dL (4-19); BUN/Creat Ratio 20.8 RATIO (10-20); Calcium,Total 9.7 mg/dL (7.6-11.0); Carbon Dioxide 24.3 mmol/L (21.0-32.0); Chloride 102 mmol/L (98-108); Creatinine, Serum 0.92 mg/dL (0.70-1.20); EST Glomerular Filtration Rate 67 (>60); Globulin 2.5 g/dL (2.2-4.2); Glucose 84 mg/dL (70-99); Potassium 4.2 mmol/L (3.3-5.1); Protein, Total 6.8 g/dL (5.9-8.4); Sodium Level 140 mmol/L (133-145); Total Bilirubin 0.29 mg/dL (0.00-1.30)
[2024-08-20 19:26] LABS: Differential Indicated SCAN CRITERIA MET
[2024-08-20 19:27] LABS: Differential Comment SCANNED; Platelet Estimate ADEQUATE (ADEQ)
--- OUTSIDE RECORDS SUMMARY | 2024-08-20 23:47 | XMS RPT_ITS | CCD ---
Author Organization [facility] Care Team Providers Care Stretch Machine Operator Name Role Phone Jj Mariano Primary Care Provider Elizabet Walden Unavailable Gravius, Catina Unavailable Unavailable Ally Rodriguez Unavailable Unavailable Unavailable Unavailable Jj Mariano Primary Care Provider Jj Mariano Primary Care Provider PROVIDER, UNKNOWN Attending Unavailable PROVIDER, UNKNOWN Admitting Unavailable PATTI HOPPER Referring Unavailable Elizabet Walden DO Unavailable Eliane Herzog LPN Unavailable Unavailable Ally Rodriguez RN Unavailable Unavailable Unavailable Unavailable Gloria Decker MA Unavailable Unavailable Gravius BUSINESS SOLUTIONS CONSULTANT, Catina Unavailable Unavailable Unavailable Primary Care Provider Unavailbria Mariano MD, Jj Gray Primary Care Provider Jay Estrella Unavailable [phone] Yoanna DRISCOLL, [place] Unavailable Elizabet Walden DO Primary Care Provider Anabelle MARR Elizabet Unavailable Elizabet Walden Primary Care Provider [phone] Adelia Wolf Attending Unavailable Anabelle Elizabet Primary Care Unavailable Anabelle Elizabet Referring Unavailable LucianoTiffanyur Attending Unavailable Anabelle Elizabet Primary Care Unavailable Anabelle Elizabet Referring Unavailable Luciano Adelia Attending Unavailable Anabelle Elizabet Primary Care Unavailable Anabelle Elizabet Referring Unavailable Unavailable Primary Care Provider UnavailCHYNA Rowe LPN Unavailable Unavailable RobotLexie negrete Unavailable Malathi SOUZA, Adithya Unavailable Unavailable Aleshia Knox MA Unavailable Unavailable Unavailable Unavailable ELIZABET WALDEN Primary Care Unavailab ELIZABET Garcia Primary Care Unavailab Elizabet Garcia DO Primary Care Provider Dr. Elizabet Walden Primary Care Provider Caitlyn Piedra Attending Provider Unavailable Dr. Elizabet Walden Referring Provider Dr. Lexie Eli Attending Provider Dr. Lexie Eli Other Provider MARINA MEAD DO Admitting Unavailable MARINA MEAD DO Attending Unavailable MARINA MEAD DO Primary Care Unavailable ELIZABET WALDEN DO Consulting Unavailable ELIZABET WALDEN DO Referring Unavailable PROVIDER, UNKNOWN Consulting Unavailable JANETTE, AZAEL PAC Admitting Unavailable JANETTE, AZAEL PAC Attending Unavailable JANETTE, AZAEL PAC Primary Care Unavailable JJ NAJERA DDS Consulting Unavailable PROVIDER, UNKNOWN Consulting Unavailable JANETTE, AZAEL PAC Admitting Unavailable JANETTE, AZAEL PAC Attending Unavailable JANETTE, AZAEL PAC Primary Care Unavailable JJ NAJERA DDS Consulting Unavailable PROVIDER, UNKNOWN Consulting Unavailable Sameer DRISCOLL, Jay Bautista Unavailable [place] L[place] MD Unavailable Elizabet Walden DO Primary Care Provider Elizabet Walden Primary Care Provider Dr. Elizabet Walden DO Primary Care Provider DIANA CARTER Attending Provider DIANA CARTER Referring Provider Marissa DRISCOLL, Dr. [place] Attending Provider Dr. Mitzi Ann MD Referring Provider ADELIA WOLF Attending Unavaila ADELIA Blood Referring Unavaila ELIZABET Fish Primary Care Unavailable Dr. Elizabet Walden DO Primary Care Provider [phone] Dr. Mitzi Ann MD Attending Provider Marissa DRISCOLL, Dr. [place] Referring Provider Anabelle MARR, Dr. Mcneal Attending Provider [phone] Anabelle MARR, Dr. Mcneal Referring Provider [phone] Vellanki, Mitzi Attending Unavailable Vellanki, Mitzi Referring Unavailable Anabelle, Elizabet Primary Care Unavailable Anabelle, Elizabet Primary Care Unavailable Vellanki, Mitzi Attending Unavailable Vellanki, Mitzi Referring Unavailable KALLASH, M1 Attending Unavailable KALLASH, M1 Referring Unavailable Anabelle, Elizabet Primary Care Unavailable Anabelle, Elizabet Primary Care Unavailable Anabelle, Elizabet Attending Unavailable Anabelle, Elizabet Referring Unavailable Vellanki, Mitzi Attending Unavailable Anabelle, Elizabet Primary Care Unavailable Vellanki, Mitzi Referring Unavailable Anabelle, Elizabet Primary Care Unavailable Vellanki, Mitzi Attending Unavailable Vellanki, Mitzi Referring Unavailable Anabelle, Elizabet Primary Care Unavailable Vellanki, Mitzi Referring Unavailable Vellanki, Mitzi Attending Unavailable Anabelle, Elizabet Primary Care Unavailable Anabelle, Elizabet Attending Unavailable Zachary, Kalpana Attending Unavailable Anabelle, Elizabet Referring Unavailable Anabelle, Elizabet Primary Care Unavailable Dar, [place] Attending Unavailable Anabelle, Elizabet Primary Care Unavailable Anabelle, Elizabet Primary Care Unavailable Anabelle, Elizabet Attending Unavailable Anabelle, Elizabet Referring Unavailable Allergies Allergy Classification Reported Allergen(s) Allergy Type Date of Onset Reaction(s) Facility (5 sources) PNEUMOCOCCAL POLYSACCHARIDES; Translations: [PNEUMOCOCCAL POLYSACCHARIDES] Propensity to adverse reactions to drug (disorder) [facility] Hyoscyamine; Translations: [HYOSCYAMINE SULFATE] Drug Allergy 7 Other: See Comments [facility] Medications Current Medications Medication Drug Class(es) Dates Sig (Normalized) Sig (Original) acetaminophen 325 mg / butalbital 50 mg / caffeine 40 mg oral tablet (20 sources) Barbiturate, Central Nervous System Stimulant, Methylxanthine Start: 10-27-2015 take 1 tablet by mouth every four hours as needed for headache, then take 6 tablets by mouth once daily as needed for headache butalbital-aceta minophen-caffein e (FIORICET, ESGIC) 50-325-40 MG per tablet Take 1 Tablet by mouth every 4 hours as needed for Headaches. Not to exceed 6 capsules daily 30 Tablet 0 10/27/2015 Active Start: 12-09-2014 End: 05-05-2020 Fioricet 50-300-40 MG Oral C apsule 1 (one) Capsule Capsule uad for 0 days Quantity: 30 {Capsule} Refills: 3 Ordered: 05-May-2020 Catina Rees CMA Start : 09-Dec-2014 End : 05-May-2020 Inactive Comments: Rheum manages Start: 12-05-2014 butalbital-rik taminophen-caffeine (FIORICET, ESGIC) 50-325-40 MG per tablet as needed 0 12/05/2014 Active Comment on above: Rheum manages 200 actuat albuterol 0.09 mg/actuat dry powder inhaler (20 sources) beta2-Adrenergic Agonist Start: 02-06-2019 take 2 puff(s) by inhalation every four hours as needed albuterol sulfate (PROAIR RESPICLICK) 90 mcg/actuation aepb Inhale 2 Puffs as instructed every 4 hours as needed. 1 Inhaler 02/06/2019 Active Start: 03-05-2014 End: 12-16-2022 take 2 puff(s) by inhalation three times daily ProAir HFA 90 mcg/actuation inhalation HFA Aerosol with Adapter 2 (two) Puff Puff tid for 0 days Quantity: 1 {Inhaler} Refills: 0 Ordered: 16-Dec-2022 CHYNA Salazar LPN Start : 05-Mar-2014 End : 16-Dec-2022 Inactive Start: 03-05-2014 take 2 puff(s) by in halation three times daily PROAIR HFA, 108 (90 Base)MCG/ACT (Inhalation Aerosol Solution) 2 (two) Puff Puff tid for 0 days Quantity: 1 {Inhaler} Refills: 0 Ordered: 05-Mar-2014 Ally Rodriguez RN Start : 05-Mar-2014 Active Comment on above: Inhale 2 Puffs as in structed every 4 hours as needed. ARIPiprazole 2 mg oral tablet (3 sources) Atypical Antipsychotic Start: 08-13-19 20 take 0.5 tablet by mouth once daily ARIPiprazole (ABILIFY) 2 MG tablet TAKE 1/2 TABLET BY MOUTH ONCE A DAY 0 08/13/2019 Active ascorbic acid 500 mg oral capsule (9 sources) Vitamin C ascorbic acid, vitamin C, 500 mg cap Take by mouth. Active Comment on above: Take by mouth. benzonatate 100 mg oral capsule (5 sources) Non-narcotic Antitussive Start: 02-05-20 19 take 2 capsules by mouth three times daily as needed benzonatate (TESSALON PERLE) 100 mg capsule Indications: Viral URI with cough Take 2 capsules by mouth three times daily as needed. 42 capsule 02/04/2019 Active Comment on above: Take 2 capsules by out three times daily as needed. Bio-Identical Hormones (15 sources) Start: 09-20-19 14 Bio-Identical Hormones Active 1 DOSE OTHER .TWICE WEEKLY September 19, 2013 11:13am Start: 09-19-2013 End: 07-20-2023 Bio-Identical Hormones Disco ntinued 1 NMA OTHER .TWICE WEEKLY September 19, 2013 12:00am July 20, 2023 11:40am Start: 09-19-2013 End: 07-20-2023 Bio-Identical Hormones Disco ntinued 1 DOSE OTHER .TWICE WEEKLY September 19, 2013 12:00am July 20, 2023 11:40am Start: 09-19-2013 Bio-Identical Hormones Active 1 DOSE OTHER .TWICE WEEKLY September 18, 2013 11:00pm Start: 09-19-2013 Bio-Identical Hormones Active 1 DOSE OTHER .TWICE WEEKLY September 19, 2013 12:00am biotin 5 mg oral capsule (20 sources) Start: 10-31-2020 take 1 capsule by mouth once daily Biotin 5 mg Capsule Active 5 mg PO DAILY October 31, 2020 12:00am take 1 tablet by mouth once maxim y biotin tab Take 5,000 mcg by mouth once daily. Active Comment on above: Take 5,000 mcg by mo [facility] once daily. Calcium (20 sources) Phosphate Binder, Calcium Start: 10-31-2020 take 500 mg by mouth once daily Calcium Active 500 MG PO DAILY October 31, 2020 9:25am Start: 10-31-2020 take 1 tablet by jw once daily Calcium 500 mg Tablet Active 500 mg PO DAILY October 31, 2020 12:00am Start: 10-31-2020 take 500 mg by mouth once maxim y Calcium Active 500 MG PO DAILY October 30, 2020 11:00pm Start: 10-31-2020 take 500 mg by mouth once maxim y Calcium Active 500 MG PO DAILY October 31, 2020 12:00am End: 04-14-2012 calcium Inject intravenously . 04/14/2012 Discontinued (Error) CALCIUM PO Take by mouth 0 Active calcium carbonate 1500 mg / cholecalciferol 200 unt oral tablet (5 sources) Vitamin D Start: 02-22-2005 NIMESH-600 WITH V ITAMIN D 600 MG-200 UNIT TAB Take one(1) tablet daily. 0 02/22/2005 Active Comment on above: Take one(1) tablet d aily. Calcium Carbonate / Vitamin D (4 sources) Calcium Carbonate-Vitamin D (CALCIUM + D ORAL) Take by mouth. Active Calcium Carbonat e-Vitamin D (CALCIUM + D ORAL) Take by mouth. 0 Active celecoxib 200 mg oral capsule (20 sources) Nonsteroidal Anti-inflammatory Drug Start: 03-24-2012 End: 05-05-2020 take 1 capsule by mouth twice daily celecoxib (CELEBREX) 200 MG capsule TAKE ONE CAPSULE BY MOUTH TWICE A DAY 60 Capsule 4 06/14/2016 Active Comment on above: sixty chlordiazePOXIDE hydrochloride 5 mg / clidinium bromide 2.5 mg oral capsule (20 sources) Anticholinergic, Benzodiazepine Start: 06-09-2016 take 1 capsule by mouth twice daily as needed, then take 5 capsules by mouth once as needed chlordiazePOXI DE-clidinium (LIBRAX) 5-2.5 mg per capsule TAKE 1 CAPSULE BY MOUTH TWICE A DAY NEEDED 60 capsule 1 06/09/2016 Active Start: 04-14-2012 End: 07-20-2023 Chlordiazepoxide-Clidinium ( Librax (With Clidinium)) 1 EACH capsule Discontinued 1 NMA PO NEEDED as needed for IBS September 19, 2013 12:00am July 20, 2023 11:41am Start: 01-15-2008 chlordiazepoxi de-clidinium 5-2.5 mg oral capsule 1 (one) Capsule QID prn for 0 days Quantity: 180 {Capsule} Refills: 3 Ordered: 16-Dec-2022 Elizabet Walden DO, DO, Kathleen Start : 16-Dec-2022 Active Comment on above: TAKE 1 CAPSULE BY [facility] TWICE A DAY NEEDED Mail order. cholecalciferol 0.025 mg chewable tablet (20 sources) Vitamin D Start: 11-01-19 21 take 1 tablet by mouth once daily Cholecalciferol (Vitamin D3) (Vitamin D3) 25 mcg (1,000 unit) Tablet,Chewable Active 25 ug PO DAILY October 31, 2020 12:00am Start: 04-14-2012 take 1 tablet by [facility] once daily Vitamin D, Cholecalciferol, 400 UNITS CHEW Take 5,000 Units by mouth daily. 30 Tab 0 04/14/2012 Active Cholecalciferol (VITAMIN D3) 5000 UNITS TABS Take by mouth 0 Active CYANOCOBALAMIN, VITAMIN B-12 , (VITAMIN B-12 ORAL) (5 sources) CYANOCOBALAMIN, VITAMIN B-12, (VITAMIN B-12 ORAL) Take by mouth once daily. Active CYANOCOBALAMIN, VITAMIN B-12, (VITAMIN B-12 ORAL) Take by mouth once daily. 0 Active Comment on above: Take by mouth once d aily. d-biotin 2.5 mg oral tablet (4 sources) Biotin 2.5 MG TA BS Take by mouth 0 Active desonide 0.5 mg/ml topical cream (5 sources) Corticosteroid Start: 05-31-19 desonide (TRIDESILON) 0.05 % cream Apply to affected area twice daily. 05/30/2020 Active Comment on above: Apply to affected ar ea twice daily. doxycycline monohydrate 100 mg oral tablet (3 sources) Tetracycline-class Drug Start: 10-09-19 22 End: 10-14-19 22 take 1 tablet by mouth twice daily doxycycline monohydrate 100 mg tablet Take 1 tablet by mouth twice daily for 5 days. 10 tablet 0 10/08/2021 10/13/2021 Active Comment on above: Take 1 tablet by [facility] twice daily for 5 days. DULoxetine 30 mg delayed release oral capsule (4 sources) Serotonin and Norepinephrine Reuptake Inhibitor take 1 capsule by mouth twice daily duloxetine (CYMBALTA) 30 MG capsule Indications: Systemic lupus erythematosus (HCC) Take 30 mg by mouth 2 times daily. Active fluticasone propionate 0.05 mg/actuat metered dose nasal spray (20 sources) Corticosteroid Start: 03-23-19 24 take 50 ug nasal route once daily Fluticasone Propionate (Allergy Relief (Fluticasone)) 50 mcg/actuation spray,suspension Active 1 NMA INTRANASAL DAILY March 23, 2023 1:00am administer into each nostril Start: 03-23-2023 take 1 spray(s) nasa l route once daily Fluticasone Propionate (Allergy Relief (Fluticasone)) 50 mcg/actuation spray,suspension Active 1 SPRAY INTRANASAL DAILY March 23, 2023 1:00am administer into each nostril Start: 07-20-2022 take 1 spray(s) nasa l route once daily fluticasone propionate 50 mcg/actuation intranasal spray, suspension 1 (one) [place] daily for 30 days Quantity: 1 {Unspecified} Refills: 2 Ordered: 20-Jul-2022 Elizabet aWlden DO, DO, Kathleen Start : 20-Jul-2022 Active Comments: 1 spray in each nostril daily Start: 07-22-2021 take 1 spray(s) nasa l route once daily Fluticasone Propionate 50 MCG/ACT Nasal Suspension 1 (one) [place] daily for 30 days Quantity: 1 {Unspecified} Refills: 2 Ordered: 22-Jul-2021 Eliane Herzog LPN Start : 22-Jul-2021 Active Comments: 1 spray in each nostril daily Start: 03-12-2020 take 2 spray(s) nasa l route once daily fluticasone (FLONASE) 50 mcg/actuation nasal spray Use 2 Sprays in each nostril once daily. 03/12/2020 Active Comment on above: Use 2 Sprays in each nostril once daily. 1 spray in each nost ril daily folic acid 0.8 mg oral tablet (20 sources) Start: 10-31-2020 take 1.6 mg by mouth once daily Folic Acid 800 mcg Tablet Active 1.6 mg PO DAILY October 31, 2020 12:00am Start: 10-31-2020 take 1.6 mg by mouth once maxim y Folic Acid Active 1.6 MG PO DAILY October 31, 2020 12:00am Start: 12-30-2017 folic acid (FO LVITE) 1 MG tablet take 2 tablets by mouth once memo ly Folic Acid 1 MG Oral Tablet two po qd (1 MG) Active Comment on above: Take 1 tablet by jw th once daily. gabapentin 600 mg oral tablet (20 sources) Anti-epileptic Agent Start: 03-17-2021 take 1 tablet by mouth twice daily Gabapentin 600 mg tablet Active 600 mg PO TWICE A DAY March 17, 2021 1:00am take 2 capsules by mouth twice d aily gabapentin (NEURONTIN) 100 MG capsule Indications: Systemic lupus erythematosus (HCC) Take 200 mg by mouth 2 times daily. Active take 3 capsules by mouth twice d aily gabapentin (NEURONTIN) 100 mg capsule Take 300 mg by mouth twice daily. Active Comment on above: Take 300 mg by mouth twice daily. Take 1 tablet by jw th twice daily. 0.5 ml golimumab 100 mg/ml auto-injector (20 sources) Tumor Necrosis Factor Tess Start: 03-23-2023 Golimumab (Simponi) 50 mg/0.5 mL pen injector Active 50 mg SC every 8 weeks March 23, 2023 1:00am PER IV golimumab (SIMPO NI ARIA) infusion Inject intravenously. Active Simponi Aria 50 MG/4ML Intravenous Solution (50 MG/4ML) Active Comments: every 8 wks Comment on above: every [address]vella curtis Inject intravenously . hydroxychloroquine sulfate 200 mg oral tablet (20 sources) Antimalarial, Antirheumatic Agent Start: 2013 take 1 tablet by mouth once daily hydroxychloroquine (PLAQUENIL) 200 MG tablet TAKE 1 TABLET BY MOUTH EVERY DAY 30 Tablet 5 11/18/2016 Active Start: 12-16-2011 End: 05-05-2020 take 1 tablet by mouth twice daily Plaquenil 200 MG Oral Tablet 1 Tablet BID for 0 days Quantity: 60 {Tablet} Refills: 0 Ordered: 05-May-2020 Catina Rees CMA Start : 16-Dec-2011 End : 05-May-2020 Inactive Comments: sixty take 2 tablets by mo ut once daily hydroxychloroquine (PLAQUENIL) 200 MG tablet Take 400 mg by mouth daily. Active Comment on above: sixty hyoscyamine sulfate 0.125 mg oral tablet (9 sources) Start: 06-24-2023 Hyoscyamine [place] lfate 0.125 mg tablet Active 0.125 mg PO 2 to 4 times per day as needed for IBS June 24, 2023 12:00am Start: 12-21-2022 hyoscyamine [place] lfate 0.125 mg oral Tablet,disintegrating 1 (one) tablet as needed for 0 days Quantity: 30 {Tablet} Refills: 0 Ordered: 21-Dec-2022 Elizabet Walden DO, DO, Kathleen Start : 21-Dec-2022 Active Comments: Medication taken as needed. Comment on above: Medication taken as needed. leucovorin 15 mg oral tablet (20 sources) Folate Analog Start: 10-31-2020 take 2 tablets by mouth every week Leucovorin Calcium 15 mg tablet Active 30 mg PO EVERY WEEK October 31, 2020 12:00am Start: 10-31-2020 take 30 mg by mouth every week Leucovorin Calcium Active 30 MG PO EVERY WEEK October 31, 2020 12:00am leucovorin (LEUC OVORIN) 25 mg tablet Take by mouth. Active Comment on above: [id number]---pl Take by mouth. loratadine 10 mg oral tablet (5 sources) Start: 019 take 1 tablet by mouth once daily loratadine (CLARITIN) 10 mg tablet Indications: Viral URI with cough Take 1 tablet by mouth once daily. 30 tablet 02/04/2019 Active Comment on above: Take 1 tablet by jw once daily. lurasidone hydrochloride 20 mg oral tablet (20 sources) Atypical Antipsychotic Start: 024 Lurasidone (Latuda) 20 mg tablet Active 20 mg PO DAILY March 23, 2023 1:00am must administer with food (at least 350 calories) Start: 12-16-2022 take 1 tablet by jw th once daily Latuda 20 mg oral tablet 1 (one) tablet qd for 0 days Quantity: 30 {Tablet} Refills: 0 Ordered: 16-Dec-2022 Elizabet Walden DO, DO, Kathleen Start : 16-Dec-2022 Active Comments: Dr Aguilar take 1 tablet by jw th once daily lurasidone (LATUDA) 20 MG TABS tablet Take 20 mg by mouth daily 0 Active Comment on above: Dr Aguilar lutein 20 mg oral tablet (5 sources) take 1 tablet by mouth once daily lutein 20 mg tab Take 20 mg by mouth once daily. Active Comment on above: Take 20 mg by mouth once daily. melatonin 10 mg oral tablet (5 sources) take 1 tablet by mouth once daily at bedtime melatonin 10 mg tab Take 10 mg by mouth daily at bedtime. Active Comment on above: Take 10 mg by mouth daily at bedtime. methotrexate 25 mg/ml injectable solution (20 sources) Folate Analog Metabolic Inhibitor Start: Methotrexate Sodium 25 mg/mL solution Active 0.7 mg IM SA October 31, 2020 12:00am Start: 10-31-2020 Methotrexate S odium Active 0.7 MG IM SA October 31, 2020 12:00am Start: 12-30-2017 methotrexate s odium 25 mg/mL soln 09/26/2018 Active Methotrexate 7.5 MG/0.3ML Subcutaneous Solution Prefilled Syringe one injection weekly (7.5 MG/0.3ML) Active Comments: Comment on above: Multiple Vitamins-Minerals (MULTIVITAMIN & MINERAL ORAL) (4 sources) Multiple Vitamin s-Minerals (MULTIVITAMIN & MINERAL ORAL) Take by mouth. Active Multiple Vitamin s-Minerals (MULTIVITAMIN & MINERAL ORAL) Take by mouth. 0 Active Multiple Vitamins-Minerals (MULTIVITAMIN PO) (4 sources) Multiple Vitamins-Minerals (MULTIVITAMIN PO) Take by mouth 0 Active MULTIVITAMIN TAB (5 sources) Start: 02-23-20 05 MULTIVITAMIN TAB Take one(1) tablet daily. 0 02/22/2005 Active Comment on above: Take one(1) tablet d aily. Multivitamin With Folic Acid (Thera) 1 TABLET tablet (15 sources) Start: 09-20-19 14 take 1 tablet by mouth once daily Multivitamin With Folic Acid (Thera) 1 TABLET tablet Active 1 TABLET PO DAILY September 19, 2013 11:13am Start: 09-19-2013 take 1 tablet by wj th once daily Multivitamin With Folic Acid (Thera) 1 TABLET tablet Active 1 {tbl} PO DAILY September 19, 2013 12:00am Start: 09-19-2013 take 1 tablet by jw th once daily Multivitamin With Folic Acid (Thera) 1 TABLET tablet Active 1 TABLET PO DAILY September 18, 2013 11:00pm Start: 09-19-2013 take 1 tablet by jw th once daily Multivitamin With Folic Acid (Thera) 1 TABLET tablet Active 1 TABLET PO DAILY September 19, 2013 12:00am pravastatin sodium 10 mg oral tablet (20 sources) HMG-CoA Reductase Inhibitor Start: 09-19-2013 take 2 tablets by mouth once daily Pravastatin 10 MG tablet Active 20 mg PO DAILY September 19, 2013 12:00am Start: 09-19-2013 take 20 mg by mouth once daily Pravastatin Active 20 MG PO DAILY September 19, 2013 12:00am Start: 04-14-2012 End: 10-31-2013 take 1 tablet by mouth once daily pravastatin (PRAVACHOL) 20 MG tablet Take 1 Tab by mouth daily. 30 Tab 3 04/14/2012 Active Progesterone (4 sources) Progesterone PROGESTERONE Act nataliya PROGESTERONE sulfaSALAzine 500 mg delayed release oral tablet (20 sources) Aminosalicylate Start: 10-31-2019 sulfaSALAzine (AZULFIDINE) 500 MG EC tablet take 1 mg by mouth twice daily s ulfaSALAzine 500 MG Oral Tablet po bid (500 MG) Inactive Comments: dr ann Comment on above: dr ann traMADol hydrochloride 50 mg oral tablet (20 sources) Opioid Agonist Start: 10-31-2019 take 1 tablet by mouth three times daily as needed for pain Tramadol 50 mg tablet Active 50 mg PO THREE TIMES A DAY as needed for Pain March 17, 2021 1:00am take 1 tablet by mouth twice memo ly tramadol (ULTRAM) 50 MG tablet Indications: Systemic lupus erythematosus (HCC) Take 50 mg by mouth 2 times daily. Active take 1 tablet by jw th every eight hours as needed traMADol (ULTRAM) 50 mg tablet Take 50 m g by mouth every 8 hours as needed. Active Comment on above: Take 50 mg by mouth every 8 hours as needed. traZODone hydrochloride 50 mg oral tablet (20 sources) Serotonin Reuptake Inhibitor Start: take 1 tablet by mouth at bedtime Trazodone 50 mg tablet Active 50 mg PO AT BEDTIME October 31, 2020 12:00am Start: 05-05-2020 take 1 tablet by jw th once daily at bedtime traZODone HCl 50 MG Oral Tablet 1 Tablet qhs for 0 days Quantity: 30 {Tablet} Refills: 3 Ordered: 05-May-2020 Elizabet Walden DO, DO, Kathleen Start : 05-May-2020 Active Comment on above: Take 1-2 tablets by mouth daily at bedtime. vitamin b12 0.1 mg oral tablet (3 sources) Vitamin B12 vitamin B-12 (CYANOCOBALAMIN) 100 MCG tablet Take by mouth daily 0 Active Vitamin B Complex (5 sources) VITAMIN B COMPLE X (B COMPLEX ORAL) Take by mouth once daily. Active VITAMIN B COMPLE X (B COMPLEX ORAL) Take by mouth once daily. 0 Active Comment on above: Take by mouth once d aily. Vitamin M27-Vjubj Acid (12 sources) Start: 10-31-2020 Vitamin R05-Sbyuy Acid Active 2 TABLET SL DAILY October 31, 2020 9:25am Start: 10-31-2020 Vitamin B12-Fo lic Acid Active 2 TABLET SL DAILY October 30, 2020 11:00pm Start: 10-31-2020 Vitamin B12-Fo lic Acid Active 2 TABLET SL DAILY October 31, 2020 12:00am Vitamin O11-Fsqec Acid 1,000-400 mcg Tablet, Sublingual (3 sources) Start: 10-31-2020 Vitamin B12-Fo lic Acid 1,000-400 mcg Tablet, Sublingual Active 2 {tbl} SL DAILY October 31, 2020 12:00am Zinc (15 sources) Start: 10-31-2020 take 15 mg by mouth once daily Zinc Active 15 MG PO DAILY October 31, 2020 9:25am Start: 10-31-2020 End: 07-20-2023 take 1 tablet by mouth once daily Zinc 15 mg Tablet Discontinued 15 mg PO DAILY October 31, 2020 12:00am July 20, 2023 11:42am Start: 10-31-2020 End: 07-20-2023 take 15 mg by mouth once daily Zinc Discontinued 15 MG PO DAILY October 31, 2020 12:00am July 20, 2023 11:42am Start: 10-31-2020 take 15 mg by mouth once daily Zinc Active 15 MG PO DAILY October 30, 2020 11:00pm Start: 10-31-2020 take 15 mg by mouth once daily Zinc Active 15 MG PO DAILY October 31, 2020 12:00am zolpidem tartrate 10 mg oral tablet (20 sources) gamma-Aminobutyric Acid-ergic Agonist Start: 04-14-2012 End: 05-05-2020 take 1 tablet by mouth at bedtime as needed for sleep zolpidem (AMBIEN) 10 MG tablet Take 1 Tab by mouth at bedtime as needed for Sleep. 30 Tab 0 04/14/2012 Active Start: 02-22-2005 AMBIEN 5 MG TA B Take one(1) tablet daily at bedtime as needed for sleep. 0 02/22/2005 Active Comment on above: thirty Take one(1) tablet d aily at bedtime as needed for sleep. Completed/Discontinued Medications Medication Drug Class(es) Dates Sig (Normalized) Sig (Original) acetaminophen 650 mg / propoxyphene napsylate 100 mg oral tablet (2 sources) Opioid Agonist Start: 01-23-2007 End: 12-21-2011 take 1-2 tablets by mouth four times daily as needed DARVOCET-N 100, 100-650MG (Oral Tablet) 1-2 Tablet QID/PRN for 0 days Quantity: 90 {Tablet} Refills: 3 Ordered: 23-Jan-2007 Ally Rodriguez RN Start : 23-Jan-2007 End : 21-Dec-2011 Discontinued Comments: This order discontinued per [facility]. Comment on above: This order discontin ued per [facility]. acetaminophen 650 mg / propoxyphene napsylate 100 mg oral tablet (20 sources) Opioid Agonist Start: 01-23-2007 End: 12-21-2011 take 1-2 tablets by mouth four times daily as needed DARVOCET-N 100, 100-650MG (Oral Tablet) 1-2 Tablet QID/PRN for 0 days Quantity: 90 {Tablet} Refills: 3 Ordered: 23-Jan-2007 Ally Rodriguez RN Start : 23-Jan-2007 End : 21-Dec-2011 Discontinued Comments: This order discontinued per [facility]. Comment on above: This order discontin ued per [facility]. alendronic acid 70 mg oral tablet (20 sources) Bisphosphonate Start: 07-26-2007 End: 12-21-2011 take 1 tablet by mouth every week FOSAMAX, 70MG (Oral Tablet) 1 Tablet Q Week for 0 days Quantity: 12 {Tablet} Refills: 3 Ordered: 21-Dec-2011 Ally Rodriguez RN Start : 26-Jul-2007 End : 21-Dec-2011 Inactive aspirin 81 mg oral tablet (20 sources) Platelet Aggregation Inhibitor, Nonsteroidal Anti-inflammatory Drug End: 12-21-2011 take 1 tablet by mouth once daily ASPIRIN LOW DOSE, 81MG (Oral Tablet) 1 QD for 0 days Refills: 0 Ordered: 21-Dec-2011 Ally Rodriguez RN End : 21-Dec-2011 Inactive atorvastatin 20 mg oral tablet (20 sources) HMG-CoA Reductase Inhibitor Start: 07-20-2022 take 1 tablet by mouth once daily Lipitor 20 mg oral tablet 1 (one) Tablet qd for 90 days Quantity: 90 {Tablet} Refills: 3 Ordered: 16-Dec-2022 Elizabet Walden DO, DO, Kathleen Start : 16-Dec-2022 Active Start: 01-28-2015 take 1 tablet by jw th once daily Lipitor 20 MG Oral Tablet 1 (one) Tablet qd for 0 days Quantity: 30 {Tablet} Refills: 4 Ordered: 20-Jan-2016 Elizabet Walden DO, DO, Kathleen Start : 20-Jan-2016 Active Comment on above: Take 20 mg by mouth once daily. azithromycin 250 mg oral tablet (20 sources) Macrolide Antimicrobial Start: 2 End: 2 take 1 tablet by mouth once daily Zithromax Z-Mayco 250 MG Oral Tablet tad Tablet qd for 0 days Quantity: 1 {Unspecified} Refills: 0 Ordered: 22-Jul-2021 Eliane Herzog LPN Start : 16-Mar-2021 End : 22-Jul-2021 Inactive Comments: dispense one pack Comment on above: dispense one pack 24 hr buPROPion hydrochloride 300 mg extended release oral tablet (20 sources) Aminoketone Start: 3 take 1 tablet by mouth once daily Wellbutrin SR 150 mg oral tablet, sustained-release 12 hr 1 tablet qd for 0 days Quantity: 30 {Tablet} Refills: 0 Ordered: 16-Dec-2022 Elizabet Walden DO, DO, Kathleen Start : 16-Dec-2022 Active Start: 06-03-2020 take 1 tablet by jw th once daily in the morning buPROPion XL (WELLBUTRIN XL) 150 mg 24 hr tablet Take 150 mg by mouth every morning. 06/03/2020 Active Start: 06-03-2020 End: 03-23-2023 take 1 tablet by mouth once daily Bupropion Hcl (Wellbutrin Xl) 300 mg tablet extended release 24 hr Discontinued 300 mg PO DAILY March 23, 2023 1:00am March 23, 2023 1:17pm Start: 09-19-2013 Bupropion Hcl 150 MG tablet extended release 24 hr Active 450 mg PO DAILY September 19, 2013 12:00am Start: 09-19-2013 take 450 mg by mouth once maxim y Bupropion Hcl Active 450 MG PO DAILY September 19, 2013 12:00am Start: 02-22-2005 WELLBUTRIN SR 200 MG TAB 100 MG once daily 0 02/22/2005 Active take 1 tablet by jw th every twelve hours Wellbutrin SR 150 MG Oral Tablet Extended Release 12 Hour 1 daily (150 MG) Inactive Comments: take 1 tablet by jw th every twenty-four hours Wellbutrin XL 300 MG Oral Tablet Extended Release 24 Hour 1 daily (300 MG) Active take 1 tablet by jw th twice daily WELLBUTRIN SR, 150MG (Oral Tablet Extended Release 12 Hour) 1 BID for 0 days Refills: 0 Ordered: 15-Jan-2008 Ally Rodriguez RN Active take 1 tablet by jw th twice daily buPROPion (WELLBUTRIN SR) 200 MG SR tablet Take 200 mg by mouth 2 times daily 0 Active Comment on above: 100 MG once daily Take 300 mg by mouth every morning. Take 150 mg by mouth every morning. codeine phosphate 2 mg/ml / guaiFENesin 20 mg/ml oral solution (20 sources) Opioid Agonist Start: 4 End: 5 take 1 [tsp_us] by mouth once daily at bedtime as needed CHERATUSSIN AC, 100-10MG/5ML (Oral Syrup) 1 (one) Teaspoon Teaspoon qhs prn for 0 days Quantity: 6 {Ounce} Refills: 0 Ordered: 15-May-2014 Ally Rodriguez RN Start : 05-Mar-2014 End : 15-May-2014 Inactive 1 ml denosumab 60 mg/ml prefilled syringe (20 sources) RANK Ligand Inhibitor Start: 6 End: 6 PROLIA, 60MG/ML (Subcutaneous Solution) 1 (one) Solution q 6months for 0 days Quantity: 1 {Vial} Refills: 1 Ordered: 22-Apr-2015 Nila Cisneros LPN Start : 24-Mar-2015 End : 22-Apr-2015 Discontinued Start: 03-24-2015 End: 04-22-2015 PROLIA, 60MG/ML (Subcutaneou s Solution) 1 (one) Solution q 6months for 0 days Quantity: 1 {Vial} Refills: 1 Ordered: 22-Apr-2015 Blayne HARLEYNila Start : 24-Mar-2015 End : 22-Apr-2015 Discontinued eszopiclone 3 mg oral tablet (20 sources) Start: 08-15-2009 End: 12-21-2011 LUNESTA, 3MG (Oral Tablet) 1 tab Tablet q hs for 0 days Quantity: 90 {Tablet} Refills: 3 Ordered: 21-Dec-2011 Ally Rodriguez RN Start : 15-Aug-2009 End : 21-Dec-2011 Inactive ezetimibe 10 mg / simvastatin 10 mg oral tablet (20 sources) HMG-CoA Reductase Inhibitor, Dietary Cholesterol Absorption Inhibitor Start: 01-23-2007 End: 12-21-2011 take 1 tablet by mouth once daily VYTORIN, 10-10MG (Oral Tablet) 1 (one) Tablet Daily for 0 days Quantity: 90 {Tablet} Refills: 3 Ordered: 21-Dec-2011 Ally Rodriguez RN Start : 23-Jan-2007 End : 21-Dec-2011 Inactive gadobutrol (GADAVIST) injection 6.5 mL (1 source) Start: 08-05-2020 End: 08-05-2020 gadobutrol (GADAVIST) injection 6.5 mL ibandronic acid 150 mg oral tablet (20 sources) Bisphosphonate Start: 09-04-2015 End: 05-05-2020 take 1 tablet by mouth every month Boniva 150 MG Oral Tablet 1 (one) Tablet monthly for 0 days Quantity: 3 {Tablet} Refills: 0 Ordered: 05-May-2020 Catina Rees CMA Start : 04-Sep-2015 End : 05-May-2020 Inactive lansoprazole 30 mg delayed release oral capsule (20 sources) Proton Pump Inhibitor Start: 08-18-2007 End: 12-21-2011 PREVACID, 30MG (Oral Capsule Delayed Release) 1 (one) Capsule DR prn for 0 days Quantity: 30 {Capsule_DR} Refills: 1 Ordered: 21-Dec-2011 Ally Rodriguez RN Start : 18-Aug-2007 End : 21-Dec-2011 Inactive liothyronine sodium 0.025 mg oral tablet (20 sources) l-Triiodothyronine Start: 12-21-2011 End: 10-31-2013 take 1 tablet by mouth once daily LIOTHYRONINE SODIUM, 25MCG (Oral Tablet) 1 Tablet QD for 30 days Refills: 0 Ordered: 31-Oct-2013 Ally Rodriguez RN Start : 21-Dec-2011 End : 31-Oct-2013 Inactive LORazepam 0.5 mg oral tablet (20 sources) Benzodiazepine Start: 08-08-2014 End: 05-05-2020 take 1 tablet by mouth once daily as needed Ativan 0.5 MG Oral Tablet 1 (one) Tablet Tablet qd prn for 0 days Quantity: 30 {Tablet} Refills: 0 Ordered: 05-May-2020 Catina Rees CMA Start : 08-Aug-2014 End : 05-May-2020 Inactive Comments: thirty Comment on above: thirty metaxalone 800 mg oral tablet (20 sources) Start: 12-09-2014 End: 05-05-2020 take 1 tablet by mouth every eight hours as needed Metaxalone 800 MG Oral Tablet 1 (one) Tablet Tablet q 8 hr prn for 0 days Quantity: 30 {Tablet} Refills: 0 Ordered: 05-May-2020 Renansuraj LANDERS Catina Start : 09-Dec-2014 End : 05-May-2020 Inactive Methotrexate 7.5 MG/0.3ML Subcutaneous Solution Prefilled Syringe (2 sources) Methotrexate 7.5 MG/0.3ML Subcutaneous Solution Prefilled Syringe one injection weekly (7.5 MG/0.3ML) Active Comments: Comment on above: Multi Vitamin 9 mg iron/15 mL oral liquid (15 sources) End: 12-16-2022 Multi Vitamin 9 mg iron/15 mL oral liquid 1 QD for 0 days Refills: 0 Ordered: 16-Dec-2022 CHYNA Salazar LPN End : 16-Dec-2022 Inactive Multivitamin preparation (16 sources) MULTIVITAMIN (Or al Liquid) 1 QD for 0 days Refills: 0 Ordered: 16-Mar-2021 Eliane Herzog LPN Active MULTIVITAMIN (Or al Liquid) 1 QD for 0 days Refills: 0 Ordered: 24-Mar-2015 Ally Rodriguez RN Active ondansetron 4 mg oral tablet (20 sources) Serotonin-3 Receptor Antagonist Start: 03-20-2021 End: 12-16-2022 take 1 tablet by mouth every six hours as needed for nausea Zofran 4 mg oral tablet 1 (one) Tablet q 6hr prn nausea for 0 days Quantity: 10 {Tablet} Refills: 0 Ordered: 16-Dec-2022 CHYNA Salazar LPN Start : 20-Mar-2021 End : 16-Dec-2022 Discontinued oseltamivir 75 mg oral capsule (20 sources) Neuraminidase Inhibitor Start: 03-05-2014 End: 03-10-2014 take 1 capsule by mouth twice daily TAMIFLU, 75MG (Oral Capsule) 1 (one) Capsule bid for 5 days Quantity: 10 {Capsule} Refills: 0 Ordered: 05-Mar-2014 Desiree Betts Start : 05-Mar-2014 End : 10-Mar-2014 Inactive Problems Active Problems Problem Classification Problem Date Documented Da te Episodic/Chronic Abdominal pain (20 sources) Generalized abdominal pain; Translations: [Generalized abdominal pain] 02-22-2005 Episodic Administrative/social admission (20 sources) Stress; Translations: [Situational stress] 05-05-2020 Chronic Anxiety disorders (5 sources) Mixed anxiety and depressive disorder; Translations: [Anxiety disorder, unspecified] 08-01-2015 Chronic Attention-deficit conduct and disruptive behavior disorders (20 sources) Attention deficit hyperactivity disorder, predominantly inattentive type; Translations: [ADD (attention deficit disorder)] 05-05-2020 Chronic Comment on above: stable Complications of surgical procedures or medical care (20 sources) Transfusion reaction due to serum protein reaction; Translations: [Other serum reaction, not elsewhere classified] Resolved: 08-21-2008 10-31-2013 Episodic Comment on above: serum sicknesstold s regan effects of meds--call with update tomorrw RESOLVED Disorders of lipid metabolism (20 sources) Hypercholesterolemi a; Translations: [Hypercholesterolem ia] Onset: 08-01-2015 05-05-2020 Chronic E Codes: Cut/pierceb (1 source) Contact with knife, initial encounter; Translations: [Contact with knife, initial encounter] Onset: 10-27-2023 Episodic E Codes: Fall (9 sources) Fall; Translations: [Unspecified fall, initial encounter] 01-01-2023 Episodic Genitourinary symptoms and ill-defined conditions (20 sources) Increased frequency of urination; Translations: [Urinary frequency] Resolved: 10-31-2013 12-17-2014 Episodic Headache; including migraine (20 sources) Headache; Translations: [Headache] 05-05-2020 Episodic Comment on above: prob muscle tension but may have rebound component complicating it now after weeks of daily med to abort-- or related to lupus?? Heart valve disorders (20 sources) Mitral valve prolapse; Translations: [Mitral valve prolapse] Onset: 01-26-2024 05-05-2020 Chronic Hemorrhoids (20 sources) Hemorrhoids; Translations: [Hemorrhoids] Resolved: 08-21-2008 12-24-2014 Episodic Comment on above: Internal Immunity disorders (20 sources) Immunosuppression; Translations: [Immunosuppression] 03-18-2021 Chronic Immunizations and screening for infectious disease (20 sources) Contact with and (suspected) exposure to other viral communicable diseases; Translations: [Patient encounter status] 05-05-2020 Episodic Malaise and fatigue (20 sources) Fatigue; Translations: [Fatigue] 05-05-2020 Episodic Mood disorders (20 sources) Depressive disorder; Translations: [Depression] 05-05-2020 Chronic Comment on above: stable Nausea and vomiting (20 sources) Nausea; Translations: [Nausea] Resolved: 12-16-2022 03-20-2021 Episodic Nonmalignant breast conditions (1 source) Fibrocystic disease of breast; Translations: [Diffuse cystic mastopathy of left breast] Chronic Nonmalignant breast conditions (20 sources) Benign mammary dysplasia; Translations: [Other benign mammary dysplasias of right breast] Onset: 09-08-2021 Episodic Nonspecific chest pain (20 sources) Chest pain; Translations: [Chest pain] Resolved: 09-24-2008 10-31-2013 Episodic Comment on above: combo heartburn? anx iety definitly plays a role Open wounds of extremities (3 sources) Unspecified open wound of left index finger without damage to nail, initial encounter; Translations: [Unspecified open wound of left index finger without damage to nail, initial encounter] Onset: 10-27-2023 Episodic Osteoarthritis (6 sources) Arthritis; Translations: [Unspecified osteoarthritis, unspecified site] Onset: 12-18-2018 12-18-2018 Chronic Osteoporosis (20 sources) Osteoporosis; Translations: [Osteoporosis] 05-05-2020 Chronic Other aftercare (1 source) Other intermediate (current) drug therapy; Translations: [Other intermediate (current) drug therapy] Onset: 07-10-2024 Episodic Other and unspecified benign neoplasm (20 sources) Benign neoplasm of muscle; 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] 05-05-2020 Episodic Comment on above: dx from dr ann Other and unspecified benign neoplasm (4 sources) History of polyp of colon; Translations: [Personal history of colonic polyps] 07-21-2023 Episodic Other and unspecified benign neoplasm (1 source) Personal history of colonic polyps; Translations: [Personal history of colonic polyps] 07-21-2023 Episodic Other connective tissue disease (1 source) Bursitis of right shoulder; Translations: [Bursitis of right shoulder] Onset: 09-27-2023 Episodic Other connective tissue disease (1 source) Fibromyalgia; Translations: [Fibromyalgia] Onset: 07-10-2024 Episodic Other diseases of bladder and urethra (15 sources) Urethral stricture; Translations: [Other urethral stricture, female] 11-03-2020 Episodic Other endocrine disorders (20 sources) Hypoglycemia; Translations: [Hypoglycemia] 05-05-2020 Chronic Comment on above: reminded to eat prot min 2 times a day , avoid sugar and white starches Other gastrointestinal disorders (20 sources) Irritable bowel syndrome; Translations: [Irritable bowel syndrome] 05-05-2020 Chronic Comment on above: stable Other gastrointestinal disorders (20 sources) Heartburn; Translations: [HEARTBURN] Resolved: 08-21-2008 10-31-2013 Episodic Other gastrointestinal disorders (7 sources) Heartburn Episodic Other liver diseases (1 source) Liver mass; Translations: [Hepatomegaly, not elsewhere classified] Episodic Other liver diseases (2 sources) Hepatomegaly, not elsewhere classified; Translations: [Hepatomegaly, not elsewhere classified] Onset: 01-06-2022 Episodic Other lower respiratory disease (20 sources) Cough; Translations: [Cough] Resolved: 12-16-2022 08-08-2014 Episodic Other lower respiratory disease (20 sources) Wheezing; Translations: [Wheeze] Resolved: 08-08-2014 08-08-2014 Episodic Other lower respiratory disease (1 source) Cough; Translations: [Acute cough] 10-08-2021 Episodic Other screening for suspected conditions (not mental disorders or infectious disease) (20 sources) Blood chemistry abnormal; Translations: [Mammography abnormal] Onset: 02-10-2021 Resolved: 10-31-2013 12-17-2014 Episodic Comment on above: ELEVATED CRP-- WILL REPEAT us / different views work up negative breast specialist - Dr Adelia Wolf orders it in [place] Other upper respiratory infections (3 sources) Viral upper respiratory tract infection; Translations: [Acute upper respiratory infection, unspecified] Episodic Residual codes; unclassified (20 sources) Insomnia, unspecified; Translations: [Insomnia] Episodic Residual codes; unclassified (20 sources) Insomnia; Translations: [Insomnia, unspecified] 05-05-2020 Episodic Residual codes; unclassified (20 sources) Body mass index 20-24 - normal; Translations: [BMI 21.0-21.9, adult] Resolved: 12-16-2022 03-18-2021 Episodic Residual codes; unclassified (20 sources) Non-smoker; Translations: [Non-smoker] 12-16-2022 Episodic Residual codes; unclassified (1 source) Acquired absence of other genital organ(s); Translations: [Acquired absence of other genital organ(s)] Onset: 10-27-2023 Episodic Rheumatoid arthritis and related disease (20 sources) Inflammatory polyarthropathy; Translations: [Other specified inflammatory polyarthropathy] Onset: 05-25-2024 05-05-2020 Chronic Comment on above: dr ann dx Spondylosis; intervertebral disc disorders; other back problems (20 sources) Low back pain; Translations: [Low Back Pain (Renamed from LBP (low back pain))] 05-05-2020 Episodic Comment on above: seing chiropractor Sprains and strains (15 sources) Sprain of knee; Translations: [Sprain of unspecified site of left knee, initial encounter] Onset: 03-24-2023 01-01-2023 Episodic Superficial injury; contusion (10 sources) Contusion of buttock; Translations: [Contusion of lower back and pelvis, initial encounter] Onset: 03-24-2023 01-01-2023 Episodic Systemic lupus erythematosus and connective tissue disorders (20 sources) Systemic lupus erythematosus; Translations: [Sjogren's syndrome] Onset: 04-14-2012 Resolved: 05-05-2020 05-05-2020 Chronic Comment on above: dx dr ann Unclassified (20 sources) ADD (attention deficit disorder) Unclassified (20 sources) Unclassified (20 sources) Breast screening (V76.10) Unclassified (14 sources) Situational stress Unclassified (20 sources) Abnormal mammogram (793.80) Unclassified (7 sources) Left breast lump Unclassified (15 sources) Age more than 65 years; Translations: [Over 65 years old] 03-17-2021 Viral infection (20 sources) Severe acute respiratory syndrome; Translations: [SARS (severe acute respiratory syndrome)] Resolved: 12-16-2022 03-18-2021 Episodic Past or Other Problems Problem Classification Problem Date Documented Da te Episodic/Chronic Influenza (9 sources) Influenza 05-05-2020 Neoplasms of unspecified nature or uncertain behavior (2 sources) Neoplasm of unspecified behavior of breast; Translations: [Neoplasm of unspecified behavior of breast] Onset: 09-08-2021 Episodic Nonmalignant breast conditions (2 sources) Lump in left breast; Translations: [Left breast lump] 05-05-2020 Other connective tissue disease (5 sources) Fibromyalgia; Translations: [Fibromyalgia] Onset: 08-01-2015 08-01-2015 Episodic Other gastrointestinal disorders (1 source) Altered bowel function; Translations: [Change in bowel habit] Onset: 08-20-2015 Resolved: 08-20-2015 08-20-2015 Episodic Other liver diseases (1 source) Large liver; Translations: [Hepatomegaly, not elsewhere classified] Episodic Unclassified (7 sources) Fibroleiomyoma Unclassified (7 sources) Other serum reaction, not elsewhere classified (999.5) Unclassified (20 sources) Deliveries (Parity); Translations: [Deliveries (Parity)] 05-05-2020 Comment on above: 2 Unclassified (9 sources) Patient encounter status; Translations: [Encounter for hepatitis C virus screening test for high risk patient] 05-05-2020 Unclassified (20 sources) BIOPSY INCISION 05-05-2020 Comment on above: Breast X 3 Unclassified (7 sources) SERUM SICKNESS (999.5) Unclassified (20 sources) Total hysterectomy; Translations: [Hysterectomy, Total] 05-05-2020 Comment on above: Endometriosis Unclassified (7 sources) Abnormal blood chemistry (790.6) Unclassified (20 sources) Pregnancies (); Translations: [Pregnancies ()] 05-05-2020 Comment on above: 2 Unclassified (20 sources) Unspecified Diagnosis 05-05-2020 Unclassified (20 sources) Body mass index 20-24 - normal; Translations: [BMI 21.0-21.9, adult] 05-05-2020 Unclassified (7 sources) Sjogren's disease Unclassified (7 sources) Other specified inflammatory polyarthropathy Unclassified (7 sources) Wheeze Unclassified (7 sources) Low Back Pain (Renamed from LBP (low back pain)) Unclassified (20 sources) Bulging of lumbar discs - MRI at [facility] 03-18-2021 Results Test Name Value Interpretation Reference Range Facility DBT Breast - bilateral henrietta parada 07-31-2024 No mammographic evidence of malignancy. ASSESSMENT: Category 1 Negative RECOMMENDATION: Routine screening mammogram in 1 year. Bilateral CANCER RISK ASSESSMENT: This risk assessment is based on patient provided information collected in a risk survey taken at the time of this examination. LIFETIME BREAST CANCER RISK: [place] 8: 18.59% - If greater than or equal to 20%, consider annual mammogram and annual screening Breast MRI or follow up in high risk clinic. Is the patient at elevated risk based on the HBOC criteria? No (Hereditary Breast and Ovarian Cancer) - If Yes, consider genetic counseling and testing with high risk follow up Is the patient at elevated risk based on the Ahmadi Syndrome criteria? No - If Yes, consider genetic counseling and testing with high risk follow up. Report Dictated on Electronically Signed By: Davis Whiting MD Electronically Signed Date/Time: 07/31/2024 11:02 AM [facility] Patient Name: DAHIANA CASTELLON : 1955 Exam Date/Time: 07/31/2024 10:26 Procedure: BI MAMMOGRAM SCREENING TOMOSYNTHESIS BILATERAL Ordering Provider: WOLF ARTHUR Reason For Exam: This exam was performed at [facility] [address] [place] [id number] PATIENT CANCER HISTORY: No Personal History of Cancer FAMILY CANCER HISTORY: Paternal Aunt Breast Cancer age 60 Paternal Cousin Breast Cancer age 50 Image views: 2D Bilateral CC and MLO views were acquired. 3D Bilateral CC and MLO views were acquired. Images were reviewed with CAD. Markings on images: BB's = Nipples; skin lesions Open [place] = Palpable Line = Scar COMPARISON: 05/25/2023, 04/07/2023, 02/12/2022 TISSUE DENSITY: BIRADS B - There are scattered areas of fibroglandular density. FINDINGS: No suspicious masses, architectural distortions or suspiciously clustered microcalcifications are identified. There is no evidence of skin thickening or nipple retraction. There are no significant changes when compared with prior studies. [facility] Cecy Whiting MD - 07/31/2024 Patient Name: DAHIANA CASTELLON : 1955 Exam Date/Time: 07/31/2024 10:26 Procedure: BI MAMMOGRAM SCREENING TOMOSYNTHESIS BILATERAL Ordering Provider: WOLF ARTHUR Reason For Exam: This exam was performed at [facility] [address] [place] [address] PATIENT CANCER HISTORY: No Personal History of Cancer FAMILY CANCER HISTORY: Paternal Aunt Breast Cancer age 60 Paternal Cousin Breast Cancer age 50 Image views: 2D Bilateral CC and MLO views were acquired. 3D Bilateral CC and MLO views were acquired. Images were reviewed with CAD. Markings on images: BB's = Nipples; skin lesions Open [place] = Palpable Line = Scar COMPARISON: 05/25/2023, 04/07/2023, 02/12/2022 TISSUE DENSITY: BIRADS B - There are scattered areas of fibroglandular density. FINDINGS: No suspicious masses, architectural distortions or suspiciously clustered microcalcifications are identified. There is no evidence of skin thickening or nipple retraction. There are no significant changes when compared with prior studies. IMPRESSION: No mammographic evidence of malignancy. ASSESSMENT: Category 1 Negative RECOMMENDATION: Routine screening mammogram in 1 year. Bilateral CANCER RISK ASSESSMENT: This risk assessment is based on patient provided information collected in a risk survey taken at the time of this examination. LIFETIME BREAST CANCER RISK: [place] 8: 18.59% - If greater than or equal to 20%, consider annual mammogram and annual screening Breast MRI or follow up in high risk clinic. Is the patient at elevated risk based on the HBOC criteria? No (Hereditary Breast and Ovarian Cancer) - If Yes, consider genetic counseling and testing with high risk follow up Is the patient at elevated risk based on the Ahmadi Syndrome criteria? No - If Yes, consider genetic counseling and testing with high risk follow up. Report Dictated on Electronically Signed By: Davis Whiting MD Electronically Signed Date/Time: 07/31/2024 11:02 AM EDT [facility] Radiology Study observation (narrative) [facility] DBT Breast - bilateral scree ningOrdered By: Cecy Whiting on 07-31-2024 [facility] [facility] Work Phone: OT D/C Summaryon 05-23-2024 OT D/C Summary [facility] [place] [address] / REHABILITATION SERVICES DISCHARGE SUMMARY MR#: [id number] Acct: [id number] Name: DAHIANA CASTELLON Rep #: [id number] : 1955 68 From: Monse COHEN/Zainab, CHT Referring DrRoni: OUT OF TOWN DOCTOR Status: REG R CR Eval Date: Discharge Date: Discharge Summary D/C Summary: It has been my pleasure to treat DAHIANA CASTELLON under orders from DIANA CARTER, for the diagnosis of right 1st carpometacapral OA. for a total of 6 visit(s). Please see the following information for a summary of their discharge status. Overall Improvement % Improvement: 80 Objective Objective/Function: wrist ROM 40/30 IP flexion 30 cmc ROM 10 Goals Patient Goals: Regain Mobility, Use Hand/Wrist/Arm Normally Again and Be More Independent in ADLS Goal:Daily scar massage when approriate: Yes Goal Progress: Progressing Goal:ROM equal to unaffected hand: Yes Goal Progress: Progressing Goal:Copyholder/Pinch strength at least 75% of unaffected hand: Yes Goal Progress: Progressing Goal:No pain with affected hand use: Yes Goal Progress: Progressing Goal:Full use of affected hand in daily activities including work: Yes Goal Progress: Goal Met Goal:Decrease scar hypersensitivity: Yes Goal Progress: Goal Met Plan Plan: cont Dr. Interiano's guidelines for CMC arthroplasty D/C Information Discharge Comments: pt was seen for 6 OT sessions. pt progressed well. pt has met goals and no further apts are scheduled. Pt d/c with HEP d/c sentence: If there are questions or concerns regarding this patient's occupational therapy, please fell free to call me at [phone]. Thank you for the referral of this patient. Sincerely, Monse Gibbons, OTR/L, CHT 05/23/24 9154 CC: Dr. Elizabet Walden, DO; DIANA CARTER MK Signed Normal [facility] Absolute lymphocyte countOrd ered By: [facility] Marissa on 05-14-2024 Lymphocytes Auto (Unsp spec) [#/Vol] 2.22 10*3/uL 0.83-4.51 [facility] Absolute neutrophil countOrd ered By: [facility] Marissa on 05-14-2024 Neutrophils (Bld) [#/Vol] 2.2 10*3/uL 2.0-7.7 [facility] Automated lymphocyte count a s percentage of total leukocytesOrdered By: [facility] on 05-14-2024 Lymphocytes/100 WBC Auto (Unsp spec) 42.0 % High 19-41 [facility] BUN/creatinine ratioOrdered By: [facility] Marissa on 05-14-2024 Urea nitrogen/Creatinine [Mass ratio] 15.1 mg/mg 10-20 [facility] Basophil percentageOrdered B y: [facility] 05-14-2024 Basophils/100 WBC (Bld) 1.1 % High 0-1 [facility] Bilirubin, totalOrdered By: Mitzikay Ann on 05-14-2024 Bilirubin [Mass/Vol] 0.26 mg/dL 0.00-1.30 [facility] CBC W/Diff, Automatedon Absolute Lymph 2.22 X10 3/uL Normal 0.83-4.51 [facility] Comment on above: Performed By: #### L 500.4050, L100.0100 #### [facility] [address] [place], [address] Absolute Neut 2.2 X10 3/uL Normal 2.0-7.7 [facility] Comment on above: Performed By: #### L 500.4050, L100.0100 #### [facility] [address] [place], [address] Basophils/100 WBC (Bld) 1.1 % High 0-1 [facility] Comment on above: Performed By: #### L 500.4050, L100.0100 #### [facility] [address] [place], [address] Eosinophils/100 WBC (Bld) 3.4 % Normal 0-5 [facility] Comment on above: Performed By: #### L 500.4050, L100.0100 #### [facility] [address] [place], [address] Erythrocyte distribution width (RBC) [Ratio] 13.6 % Normal 11.6-14.6 [facility] Comment on above: Performed By: #### L 500.4050, L100.0100 #### [facility] [address] [place], [address] Hematocrit (Bld) [Volume fraction] 39.9 % Normal 37-47 [facility] Comment on above: Performed By: #### L 500.4050, L100.0100 #### [facility] [address] [place], [address] Hemoglobin (Bld) [Mass/Vol] 13.3 g/dL Normal 12.0-15.0 [facility] Comment on above: Performed By: #### L 500.4050, L100.0100 #### [facility] [address] [place], [address] IG% 0.200 Normal 0.0-0.9 [facility] Comment on above: Result Comment: IG% - Immature Granulocytes (promyelocytes, myelocytes and metamyelocytes) > 1% indicates that a LEFT SHIFT is Present. Performed By: #### L 500.4050, L100.0100 #### [facility] [address] [place], [address] Lymphocytes/100 WBC (Bld) 42.0 % High 19-41 [facility] Comment on above: Performed By: #### L 500.4050, L100.0100 #### [facility] [address] [place], [address] MCH (RBC) [Entitic mass] 31.8 pg Normal 27.0-32.0 [facility] Comment on above: Performed By: #### L 500.4050, L100.0100 #### [facility] [address] [place], [address] MCHC (RBC) [Mass/Vol] 33.3 g/dL Normal 32-36 [facility] Comment on above: Performed By: #### L 500.4050, L100.0100 #### [facility] [address] [place], [address] MCV (RBC) [Entitic vol] 95.5 fL Normal 81-99 [facility] Comment on above: Performed By: #### L 500.4050, L100.0100 #### [facility] [address] [place], [address] Monocytes/100 WBC (Bld) 11.3 % High 0-10 [facility] Comment on above: Performed By: #### L 500.4050, L100.0100 #### [facility] [address] [place], [address] Neutrophils/100 WBC (Bld) 42.0 % Low 47-70 [facility] Comment on above: Performed By: #### L 500.4050, L100.0100 #### [facility] [address] [place], [address] Nucleated RBC (Bld) [#/Vol] 0 10*3/uL Normal 0-5 [facility] Comment on above: Performed By: #### L 500.4050, L100.0100 #### [facility] [address] [place], [address] Platelet mean volume (Bld) [Entitic vol] 10.4 fL Normal 6.2-12.0 [facility] Comment on above: Performed By: #### L 500.4050, L100.0100 #### [facility] [address] [place], [address] Platelets (Bld) [#/Vol] 272 10*3/uL Normal 150-450 [facility] Comment on above: Performed By: #### L 500.4050, L100.0100 #### [facility] [address] [place], [address] RBC (Bld) [#/Vol] 4.18 10*6/uL Low 4.2-5.4 [facility] Comment on above: Performed By: #### L 500.4050, L100.0100 #### [facility] [address] [place], [address] RDW SD 47.4 fl High 35.1-43.9 [facility] Comment on above: Performed By: #### L 500.4050, L100.0100 #### [facility] [address] [place], [address] WBC (Bld) [#/Vol] 5.3 10*3/uL Normal 4.4-11.0 [facility] Comment on above: Performed By: #### L 500.4050, L100.0100 #### [facility] [address] [place], [address] Carbon dioxide measurementOr dered By: Mitzi Ann on 05-14-2024 CO2 [Moles/Vol] 24.9 mmol/L 22.0-29.0 [facility] Chloride measurementOrdered By: Mitzi Ann on 05-14-2024 Chloride [Moles/Vol] 103 mmol/L 96-108 [facility] Comprehensive Metabolic Prof ilon 05-14-2024 Albumin [Mass/Vol] 4.3 g/dL Normal 3.4-4.8 [facility] Comment on above: Performed By: #### L 500.4050, L100.0100 #### [facility] [address] [place], [address] Albumin/Globulin [Mass ratio] 1.6 {ratio} Normal 0.9-2.4 [facility] Comment on above: Performed By: #### L 500.4050, L100.0100 #### [facility] [address] [place], [address] ALK PHOS 60 U/L Normal 35-104 [facility] Comment on above: Performed By: #### L 500.4050, L100.0100 #### [facility] [address] [place], [address] ALT [Catalytic activity/Vol] 20 U/L Normal <=34 [facility] Comment on above: Performed By: #### L 500.4050, L100.0100 #### [facility] [address] [place], [address] Anion gap [Moles/Vol] 11 mmol/L Normal 5-15 [facility] Comment on above: Performed By: #### L 500.4050, L100.0100 #### [facility] [address] [place], [address] AST [Catalytic activity/Vol] 27 U/L Normal <=31 [facility] Comment on above: Performed By: #### L 500.4050, L100.0100 #### [facility] [address] [place], [address] Bilirubin [Mass/Vol] 0.26 mg/dL Normal 0.00-1.30 [facility] Comment on above: Performed By: #### L 500.4050, L100.0100 #### [facility] [address] [place], [address] BUN/CRE 15.1 RATIO Normal 10-20 [facility] Comment on above: Performed By: #### L 500.4050, L100.0100 #### [facility] [address] [place], [address] Calcium [Mass/Vol] 9.7 mg/dL Normal 7.6-11.0 [facility] Comment on above: Performed By: #### L 500.4050, L100.0100 #### [facility] [address] [place], [address] Chloride [Moles/Vol] 103 mmol/L Normal 96-108 [facility] Comment on above: Performed By: #### L 500.4050, L100.0100 #### [facility] [address] [place], [address] CO2 [Moles/Vol] 24.9 mmol/L Normal 22.0-29.0 [facility] Comment on above: Performed By: #### L 500.4050, L100.0100 #### [facility] [address] [place], [address] Creatinine [Mass/Vol] 1.01 mg/dL Normal 0.70-1.20 [facility] Comment on above: Performed By: #### L 500.4050, L100.0100 #### [facility] [address] [place], [address] GFR/1.73 sq M.predicted among non-blacks MDRD (S/P/Bld) [Vol rate/Area] 60 mL/min/{1.73_m2} Normal >60 [facility] Comment on above: Result Comment: mL/m in/1.73m2 CKD-EPI Creatinine Equation (2020) Performed By: #### L 500.4050, L100.0100 #### [facility] [address] [place], [address] Globulin (S) [Mass/Vol] 2.7 g/dL Normal 2.2-4.2 [facility] Comment on above: Performed By: #### L 500.4050, L100.0100 #### [facility] [address] [place], [address] Glucose [Mass/Vol] 94 mg/dL Normal 70-99 [facility] Comment on above: Performed By: #### L 500.4050, L100.0100 #### [facility] [address] [place], [address] Potassium [Moles/Vol] 3.9 mmol/L Normal 3.3-5.1 [facility] Comment on above: Performed By: #### L 500.4050, L100.0100 #### [facility] [address] [place], [address] Sodium [Moles/Vol] 139 mmol/L Normal 133-145 [facility] Comment on above: Performed By: #### L 500.4050, L100.0100 #### [facility] [address] [place], [address] T PROT 7.0 g/dL Normal 5.9-8.4 [facility] Comment on above: Performed By: #### L 500.4050, L100.0100 #### [facility] [address] [place], [place], [address] Urea nitrogen [Mass/Vol] 15 mg/dL Normal 4-19 [facility] Comment on above: Performed By: #### L 500.4050, L100.0100 #### [facility] [address] [place], [address] Eosinophil percentageOrdered By: Mitzi Ann on 05-14-2024 Eosinophils/100 WBC (Bld) 3.4 % 0-5 [facility] Erythrocyte distribution wid th ratioOrdered By: Mitzi Ann on 05-14-2024 Erythrocyte distribution width (RBC) [Ratio] 13.6 % 11.6-14.6 [facility] Erythrocyte distribution wid th standard deviationOrdered By: Mitzi Ann on 05-14-2024 Erythrocyte distribution width (RBC) [Entitic vol] 47.4 fL High 35.1-43.9 [facility] Erythrocyte distribution width (RBC) [Ratio] 47.4 fl High 35.1-43.9 [facility] GFR/1.73 sq M.predicted nadeem g non-blacks MDRD (S/P/Bld) [Vol rate/Area]Ordered By: Mitzi Ann on 05-14-2024 Estimated GFR (MDRD) Non-Af Amer 60 >60 [facility] Comment on above: mL/min/1.73m2 CKD-EP I Creatinine Equation (2020) Glomerular filtration rate ( GFR) estimation/1.73 sq m using serum, plasma, or whole bOrdered By: Mitzi Ann on 05-14-2024 GFR/1.73 sq M.predicted among non-blacks MDRD (S/P/Bld) [Vol rate/Area] 60 mL/min/{1.73_m2} >60 [facility] Comment on above: mL/min/1.73m2 CKD-EP I Creatinine Equation (2020) Hematocrit Auto (Bld) [Volum e fraction]Ordered By: Mitzi Ann on 05-14-2024 Hematocrit (Bld) [Volume fraction] 39.9 % 37-47 [facility] Hemoglobin measurementOrdere d By: Mitzi Ann on 05-14-2024 Hemoglobin (Bld) [Mass/Vol] 13.3 g/dL 12.0-15.0 [facility] Immature granulocytes/100 WB C Auto (Bld)Ordered By: Mitzi Ann on 05-14-2024 Immature granulocytes/100 WBC (Bld) 0.200 % 0.0-0.9 [facility] Comment on above: IG% - Immature Granu locytes (promyelocytes, myelocytes and metamyelocytes) > 1% indicates that a LEFT SHIFT is Present. Laboratory - Chemistry and C hemistry - challengeOrdered By: Mitzi Ann on 05-14-2024 AST [Catalytic activity/Vol] 27 U/L <32 [facility] Lymphocytes Auto (Unsp spec) [#/Vol]Ordered By: Mitzikay Ann on 05-14-2024 Lymphocytes (Bld) [#/Vol] 2.22 10*3/uL 0.83-4.51 [facility] Lymphocytes/100 WBC Auto (Un sp spec)Ordered By: Mitzi Ann on 05-14-2024 Lymphocytes/100 WBC (Bld) 42.0 % High 19-41 [facility] MCV (mean corpuscular volume ) determinationOrdered By: Mitzi Ann on 05-14-2024 MCV (RBC) [Entitic vol] 95.5 fL 81-99 [facility] Mean corpuscular hemoglobin (MCH) determinationOrdered By: Mitzi Ann on 05-14-2024 MCH (RBC) [Entitic mass] 31.8 pg 27.0-32.0 [facility] Mean corpuscular hemoglobin concentration (MCHC) determinationOrdered By: Mitzi Ann on 05-14-2024 MCHC (RBC) [Mass/Vol] 33.3 g/dL 32-36 [facility] Mean platelet volume determi nationOrdered By: Mitzi Ann on 05-14-2024 Platelet mean volume (Bld) [Entitic vol] 10.4 fL 6.2-12.0 [facility] Monocyte percentageOrdered B y: Mitzi Ann on 05-14-2024 Monocytes/100 WBC (Bld) 11.3 % High 0-10 [facility] Neutrophil percentageOrdered By: Mitzi Ann on 05-14-2024 Neutrophils/100 WBC (Bld) 42.0 % Low 47-70 [facility] Nucleated red blood cell per centageOrdered By: Mitzi Ann on 05-14-2024 Nucleated RBC/100 WBC (Bld) [Ratio] 0 % 0-5 [facility] Platelet countOrdered By: Marisel Ann on 05-14-2024 Platelets (Bld) [#/Vol] 272 10*3/uL 150-450 [facility] RBC Auto (Bld) [#/Vol]Ordere d By: Mitzi Ann on 05-14-2024 RBC (Bld) [#/Vol] 4.18 10*6/uL Low 4.2-5.4 [facility] Serum creatinine measurement (mass/volume)Ordered By: Mitzi Ann on 05-14-2024 Creatinine [Mass/Vol] 1.01 mg/dL 0.70-1.20 [facility] Serum globulin measurementOr dered By: Mitzi Ann on 05-14-2024 Globulin (S) [Mass/Vol] 2.7 g/dL 2.2-4.2 [facility] Serum glucose measurement (m ass/volume)Ordered By: Mitzi Ann on 05-14-2024 Glucose [Mass/Vol] 94 mg/dL 70-99 [facility] Serum or plasma alanine alvarado otransferase (ALT) measurementOrdered By: Mitzi Ann on 05-14-2024 ALT [Catalytic activity/Vol] 20 U/L <35 [facility] Serum or plasma albumin gold urement (mass/volume)Ordered By: Mitzi Ann on 05-14-2024 Albumin [Mass/Vol] 4.3 g/dL 3.4-4.8 [facility] Serum or plasma albumin/glob ulin mass ratioOrdered By: Mitzi Ann on 05-14-2024 Albumin/Globulin [Mass ratio] 1.6 {ratio} 0.9-2.4 [facility] Serum or plasma alkaline he sphatase measurementOrdered By: Mitzi Ann on 05-14-2024 ALP [Catalytic activity/Vol] 60 U/L 35-104 [facility] Serum or plasma anion gap de termination (moles/volume)Ordered By: Mitzi Ann on 05-14-2024 Anion gap [Moles/Vol] 11 mmol/L 5-15 [facility] Serum or plasma calcium gold urement (mass/volume)Ordered By: Mitzi Ann on 05-14-2024 Calcium [Mass/Vol] 9.7 mg/dL 7.6-11.0 [facility] Serum or plasma potassium me asurementOrdered By: Mitzi Ann on 05-14-2024 Potassium [Moles/Vol] 3.9 mmol/L 3.3-5.1 [facility] Serum or plasma sodium measu rement (moles/volume)Ordered By: Mitzi Ann on 05-14-2024 Sodium [Moles/Vol] 139 mmol/L 133-145 [facility] Serum or plasma urea nitroge n measurement (mass/volume)Ordered By: Mitzi Ann on 05-14-2024 Urea nitrogen [Mass/Vol] 15 mg/dL 4-19 [facility] Total proteinOrdered By: Edvin Ann on 05-14-2024 Protein [Mass/Vol] 7.0 g/dL 5.9-8.4 [facility] White blood cell (WBC) count Ordered By: Mitzi Ann on 05-14-2024 WBC (Bld) [#/Vol] 5.3 10*3/uL 4.4-11.0 [facility] Absolute neutrophil countOrd ered By: Mitzi Ann on 02-14-2024 Neutrophils (Bld) [#/Vol] 2.3 10*3/uL 2.0-7.7 [facility] Albumin to globulin ratioOrd ered By: Mitzi Ann on 02-14-2024 Albumin/Globulin [Mass ratio] 1.2 {ratio} 0.9-2.4 [facility] Basophil percentageOrdered B y: Mitzi Ann on 02-14-2024 Basophils/100 WBC (Bld) 1.2 % High 0-1 [facility] Bilirubin, totalOrdered By: Mitzi Ann on 02-14-2024 Bilirubin [Mass/Vol] 0.40 mg/dL 0.20-1.00 [facility] Comment on above: For patients on eltr ombopag therapy, use of Dimension [place] TBIL is not recommended. Blood urea nitrogen (BUN)/cr eatinine ratioOrdered By: Mitzi Ann on 02-14-2024 Urea nitrogen/Creatinine [Mass ratio] 19.5 mg/mg 10-20 [facility] CBC W/Diff, Automatedon Absolute Lymph 1.98 X10 3/uL Normal 0.83-4.51 [facility] Comment on above: Performed By: #### L 500.4050, L100.0100 #### [facility] [address] [place], [address] Absolute Neut 2.3 X10 3/uL Normal 2.0-7.7 [facility] Comment on above: Performed By: #### L 500.4050, L100.0100 #### [facility] [address] [place], [address] Basophils/100 WBC (Bld) 1.2 % High 0-1 [facility] Comment on above: Performed By: #### L 500.4050, L100.0100 #### [facility] [address] [place], [address] Eosinophils/100 WBC (Bld) 4.4 % Normal 0-5 [facility] Comment on above: Performed By: #### L 500.4050, L100.0100 #### [facility] [address] [place], [address] Erythrocyte distribution width (RBC) [Ratio] 13.8 % Normal 11.6-14.6 [facility] Comment on above: Performed By: #### L 500.4050, L100.0100 #### [facility] [address] [place], [address] Hematocrit (Bld) [Volume fraction] 41.8 % Normal 37-47 [facility] Comment on above: Performed By: #### L 500.4050, L100.0100 #### [facility] [address] [place], [address] Hemoglobin (Bld) [Mass/Vol] 13.3 g/dL Normal 12.0-15.0 [facility] Comment on above: Performed By: #### L 500.4050, L100.0100 #### [facility] [address] [place], [address] IG% 0.200 Normal 0.0-0.9 [facility] Comment on above: Result Comment: IG% - Immature Granulocytes (promyelocytes, myelocytes and metamyelocytes) > 1% indicates that a LEFT SHIFT is Present. Performed By: #### L 500.4050, L100.0100 #### [facility] [address] [place], [address] Lymphocytes/100 WBC (Bld) 39.9 % Normal 19-41 [facility] Comment on above: Performed By: #### L 500.4050, L100.0100 #### [facility] [address] [place], [address] MCH (RBC) [Entitic mass] 30.9 pg Normal 27.0-32.0 [facility] Comment on above: Performed By: #### L 500.4050, L100.0100 #### [facility] [address] [place], [address] MCHC (RBC) [Mass/Vol] 31.8 g/dL Low 32-36 [facility] Comment on above: Performed By: #### L 500.4050, L100.0100 #### [facility] [address] [place], [address] MCV (RBC) [Entitic vol] 97.0 fL Normal 81-99 [facility] Comment on above: Performed By: #### L 500.4050, L100.0100 #### [facility] [address] [place], [address] Monocytes/100 WBC (Bld) 8.3 % Normal 0-10 [facility] Comment on above: Performed By: #### L 500.4050, L100.0100 #### [facility] [address] [place], [address] Neutrophils/100 WBC (Bld) 46.0 % Low 47-70 [facility] Comment on above: Performed By: #### L 500.4050, L100.0100 #### [facility] [address] [place], [address] Nucleated RBC (Bld) [#/Vol] 0 10*3/uL Normal 0-5 [facility] Comment on above: Performed By: #### L 500.4050, L100.0100 #### [facility] [address] [place], [address] Platelet mean volume (Bld) [Entitic vol] 10.2 fL Normal 6.2-12.0 [facility] Comment on above: Performed By: #### L 500.4050, L100.0100 #### [facility] [address] [place], [address] Platelets (Bld) [#/Vol] 314 10*3/uL Normal 150-450 [facility] Comment on above: Performed By: #### L 500.4050, L100.0100 #### [facility] [address] [place], [address] RBC (Bld) [#/Vol] 4.31 10*6/uL Normal 4.2-5.4 [facility] Comment on above: Performed By: #### L 500.4050, L100.0100 #### [facility] [address] [place], [address] RDW SD 49.5 fl High 35.1-43.9 [facility] Comment on above: Performed By: #### L 500.4050, L100.0100 #### [facility] [address] [place], [address] WBC (Bld) [#/Vol] 5.0 10*3/uL Normal 4.4-11.0 [facility] Comment on above: Performed By: #### L 500.4050, L100.0100 #### [facility] [address] [place], [address] Carbon dioxide measurementOr dered By: Mitzi Ann on 02-14-2024 CO2 [Moles/Vol] 29.0 mmol/L 21.0-32.0 [facility] Chloride measurementOrdered By: Mitzi Ann on 02-14-2024 Chloride [Moles/Vol] 103 mmol/L 98-107 [facility] Comprehensive Metabolic Prof ilon 02-14-2024 Albumin [Mass/Vol] 3.9 g/dL Normal 3.2-5.0 [facility] Comment on above: Performed By: #### L 500.4050, L100.0100 #### [facility] [address] [place], [address] Albumin/Globulin [Mass ratio] 1.2 {ratio} Normal 0.9-2.4 [facility] Comment on above: Performed By: #### L 500.4050, L100.0100 #### [facility] [address] [place], [address] ALK P 54 U/L Normal 45-117 [facility] Comment on above: Performed By: #### L 500.4050, L100.0100 #### [facility] [address] [place], [address] ALT [Catalytic activity/Vol] 35 U/L Normal 13-56 [facility] Comment on above: Performed By: #### L 500.4050, L100.0100 #### [facility] [address] [place], [address] AST [Catalytic activity/Vol] 28 U/L Normal 15-37 [facility] Comment on above: Performed By: #### L 500.4050, L100.0100 #### [facility] [address] [place], [address] Bilirubin [Mass/Vol] 0.40 mg/dL Normal 0.20-1.00 [facility] Comment on above: Result Comment: For patients on eltrombopag therapy, use of Dimension [place] TBIL is not recommended. Performed By: #### L 500.4050, L100.0100 #### [facility] [address] [place], [address] BUN/CRE 19.5 RATIO Normal 10-20 [facility] Comment on above: Performed By: #### L 500.4050, L100.0100 #### [facility] [address] [place], [address] CA,Total 9.3 mg/dL Normal 8.5-10.1 [facility] Comment on above: Performed By: #### L 500.4050, L100.0100 #### [facility] [address] [place], [address] Chloride [Moles/Vol] 103 mmol/L Normal 98-107 [facility] Comment on above: Performed By: #### L 500.4050, L100.0100 #### [facility] [address] [place], [address] CO2 [Moles/Vol] 29.0 mmol/L Normal 21.0-32.0 [facility] Comment on above: Performed By: #### L 500.4050, L100.0100 #### [facility] [address] [place], [address] Creatinine [Mass/Vol] 0.87 mg/dL Normal 0.55-1.02 [facility] Comment on above: Result Comment: The validity of the calculated GFR GFRAA in patients over 70 years has not been determined. Clinical correlation is essential. Performed By: #### L 500.4050, L100.0100 #### [facility] [address] [place], [address] EST GFR - AA 83 mL/min Normal >60 [facility] Comment on above: Result Comment: Afri can [place] GFR Calc Performed By: #### L 500.4050, L100.0100 #### [facility] [address] [place], [address] GAP 5 Normal 5-15 [facility] Comment on above: Performed By: #### L 500.4050, L100.0100 #### [facility] [address] [place], [address] GFR/1.73 sq M.predicted among non-blacks MDRD (S/P/Bld) [Vol rate/Area] 68 mL/min/{1.73_m2} Normal >60 [facility] Comment on above: Result Comment: Non- GFR Calc Performed By: #### L 500.4050, L100.0100 #### [facility] [address] [place], [address] Globulin (S) [Mass/Vol] 3.3 g/dL Normal 2.2-4.2 [facility] Comment on above: Performed By: #### L 500.4050, L100.0100 #### [facility] [address] [place], [address] Glucose [Mass/Vol] 82 mg/dL Normal 74-106 [facility] Comment on above: Performed By: #### L 500.4050, L100.0100 #### [facility] [address] [place], [address] Potassium [Moles/Vol] 4.2 mmol/L Normal 3.5-5.1 [facility] Comment on above: Performed By: #### L 500.4050, L100.0100 #### [facility] [address] [place], [address] Sodium [Moles/Vol] 137 mmol/L Normal 136-145 [facility] Comment on above: Performed By: #### L 500.4050, L100.0100 #### [facility] [address] [place], [address] T PROT 7.2 g/dL Normal 6.4-8.2 [facility] Comment on above: Performed By: #### L 500.4050, L100.0100 #### [facility] [address] [place], [address] Urea nitrogen [Mass/Vol] 17 mg/dL Normal 7-18 [facility] Comment on above: Performed By: #### L 500.4050, L100.0100 #### [facility] [address] [place], [address] Eosinophil percentageOrdered By: Mitzi Ann on 02-14-2024 Eosinophils/100 WBC (Bld) 4.4 % 0-5 [facility] Erythrocyte distribution wid th ratioOrdered By: Mitzi Ann on 02-14-2024 Erythrocyte distribution width (RBC) [Ratio] 13.8 % 11.6-14.6 [facility] Erythrocyte distribution wid th standard deviationOrdered By: Mitzi Ann on 02-14-2024 Erythrocyte distribution width (RBC) [Entitic vol] 49.5 fL High 35.1-43.9 [facility] Estimated glomerular filtrat ion rate (GFR) AmericanOrdered By: Mitzi Ann on 02-14-2024 Estimated GFR (MDRD) Amer 83 mL/min >60 [facility] Comment on above: GFR Calc Glomerular filtration rate ( GFR) estimationOrdered By: Mitzi Ann on 02-14-2024 Estimated GFR (MDRD) Non-Af Amer 68 mL/min >60 [facility] Comment on above: Non- GFR Calc Glucose measurementOrdered B y: Mitzi Ann on 02-14-2024 Glucose [Mass/Vol] 82 mg/dL 74-106 [facility] Hematocrit Auto (Bld) [Volum e fraction]Ordered By: Mitzikay Ann on 02-14-2024 Hematocrit (Bld) [Volume fraction] 41.8 % 37-47 [facility] Hemoglobin measurementOrdere d By: Mitzi Ann on 02-14-2024 Hemoglobin (Bld) [Mass/Vol] 13.3 g/dL 12.0-15.0 [facility] Immature granulocytes/100 WB C Auto (Bld)Ordered By: Mitzikay Ann on 02-14-2024 Immature granulocytes/100 WBC (Bld) 0.200 % 0.0-0.9 [facility] Comment on above: IG% - Immature Granu locytes (promyelocytes, myelocytes and metamyelocytes) > 1% indicates that a LEFT SHIFT is Present. Laboratory - Chemistry and C hemistry - challengeOrdered By: Mitzi Ann on 02-14-2024 AST [Catalytic activity/Vol] 28 U/L 15-37 [facility] Lymphocytes Auto (Unsp spec) [#/Vol]Ordered By: Mitzi Ann on 02-14-2024 Lymphocytes (Bld) [#/Vol] 1.98 10*3/uL 0.83-4.51 [facility] Lymphocytes/100 WBC Auto (Un sp spec)Ordered By: Mitzi Ann on 02-14-2024 Lymphocytes/100 WBC (Bld) 39.9 % 19-41 [facility] MCV (mean corpuscular volume ) determinationOrdered By: Mitzi Ann on 02-14-2024 MCV (RBC) [Entitic vol] 97.0 fL 81-99 [facility] Mean corpuscular hemoglobin (MCH) determinationOrdered By: Mitzi Ann on 02-14-2024 MCH (RBC) [Entitic mass] 30.9 pg 27.0-32.0 [facility] Mean corpuscular hemoglobin concentration (MCHC) determinationOrdered By: Mitzi Ann on 02-14-2024 MCHC (RBC) [Mass/Vol] 31.8 g/dL Low 32-36 [facility] Mean platelet volume determi nationOrdered By: Mitzi Ann on 02-14-2024 Platelet mean volume (Bld) [Entitic vol] 10.2 fL 6.2-12.0 [facility] Monocyte percentageOrdered B y: Mitzi Ann on 02-14-2024 Monocytes/100 WBC (Bld) 8.3 % 0-10 [facility] Neutrophil percentageOrdered By: Mitzi Ann on 02-14-2024 Neutrophils/100 WBC (Bld) 46.0 % Low 47-70 [facility] Nucleated red blood cell per centageOrdered By: Mitzi Ann on 02-14-2024 Nucleated RBC/100 WBC (Bld) [Ratio] 0 % 0-5 [facility] Platelet countOrdered By: Marisel Ann on 02-14-2024 Platelets (Bld) [#/Vol] 314 10*3/uL 150-450 [facility] Potassium measurementOrdered By: Mitzi Ann on 02-14-2024 Potassium [Moles/Vol] 4.2 mmol/L 3.5-5.1 [facility] RBC Auto (Bld) [#/Vol]Ordere d By: Mitzi Ann on 02-14-2024 RBC (Bld) [#/Vol] 4.31 10*6/uL 4.2-5.4 [facility] Serum anion gap measurementO rdered By: Mitzi Ann on 02-14-2024 Anion gap [Moles/Vol] 5 mmol/L 5-15 [facility] Serum globulin measurementOr dered By: Mitzi Ann on 02-14-2024 Globulin (S) [Mass/Vol] 3.3 g/dL 2.2-4.2 [facility] Serum or plasma alanine alvarado otransferase (ALT) measurementOrdered By: Mitzi Ann on 02-14-2024 ALT [Catalytic activity/Vol] 35 U/L 13-56 [facility] Serum or plasma albumin gold urement (mass/volume)Ordered By: Mitzi Ann on 02-14-2024 Albumin [Mass/Vol] 3.9 g/dL 3.2-5.0 [facility] Serum or plasma alkaline he sphatase measurementOrdered By: Mitzi Ann on 02-14-2024 ALP [Catalytic activity/Vol] 54 U/L 45-117 [facility] Serum or plasma calcium gold urement (mass/volume)Ordered By: Mitzi Ann on 02-14-2024 Calcium [Mass/Vol] 9.3 mg/dL 8.5-10.1 [facility] Serum or plasma creatinine m easurement (mass/volume)Ordered By: Mitzi Ann on 02-14-2024 Creatinine [Mass/Vol] 0.87 mg/dL 0.55-1.02 [facility] Comment on above: The validity of the calculated GFR & GFRAA in patients over 70 years has not been determined. Clinical correlation is essential. Serum or plasma urea nitroge n measurement (mass/volume)Ordered By: Mitzi Ann on 02-14-2024 Urea nitrogen [Mass/Vol] 17 mg/dL 7-18 [facility] Sodium levelOrdered By: Ignacio Ann on 02-14-2024 Sodium [Moles/Vol] 137 mmol/L 136-145 [facility] Total proteinOrdered By: Edvin Ann on 02-14-2024 Protein [Mass/Vol] 7.2 g/dL 6.4-8.2 [facility] White blood cell (WBC) count Ordered By: Mitzi Ann on 02-14-2024 WBC (Bld) [#/Vol] 5.0 10*3/uL 4.4-11.0 [facility] Echo Completeon 01-06-2024 Echo Complete [facility] [address] [place] [address] Echo Complete 01/06/24 1055 MR#: [id number] Acct: [id number] Name: CANDEDAHIANA K Rep #: [id number] : 1955 68 From: Shola Dodge MD Attending Dr: Dr. Elizabet Walden DO Status: R EG CLI Ordering Dr: Elizabet Walden DO Date: 01/06/24 Location: [facility] Sex: F C Admitted: Reason For Study: NON-RHEUMATIC MVP Procedure This was a 2D Doppler, Color Flow transthoracic echocardiogram. Exam performed in department. Left Ventricle Normal LV size. The left ventricular ejection fraction is 55 %. Stage 1 diastolic dysfunction. No regional wall motion abnormalities noted. Right Ventricle Normal RV size. Normal systolic function. Atria Normal left atrium. Normal right atrium. Mitral Valve Normal mitral valve. Mild (1+) mitral valve insufficiency. Tricuspid Valve Normal tricuspid valve. Mild tricuspid valve insufficiency. Aortic Valve Trisinus/trileaflet aortic valve. Trivial aortic valve insufficiency. Pulmonic Valve Normal pulmonic valve. Mild (1+) pulmonic valve insufficiency. Great Vessels Normal aortic root. The pulmonary artery is normal size. Inferior vena cava collapse with respiration. Pericardium/Pleural No pericardial effusion. MMode/2D Measurements Calculations LVIDd: 4.4 cm IVSd: 0.85 cm Ao root diam: 3.2 cm LVIDs: 3.0 cm LVPWd: 0.87 cm RVDd: 2.7 cm FS: 32.8 % LAV(MOD-bp): 32.8 ml LVAd ap4: 23.0 cm2 LVAd ap2: 21.5 cm2 LAV(MOD-bp) Indexed: 19.2 ml/m2 LVLd ap4: 7.8 cm LVLd ap2: 7.9 cm LAV(MOD-sp2): 31.2 ml EDV(MOD-sp4): 55.4 ml EDV(MOD-sp2): 47.9 ml LAV(MOD-sp4): 30.6 ml EDV(sp4-el): 57.2 ml EDV(sp2-el): 49.8 ml LVAs ap4: 14.1 cm2 LVAs ap2: 12.6 cm2 LVLs ap4: 6.9 cm LVLs ap2: 6.6 cm ESV(MOD-sp4): 24.8 ml ESV(MOD-sp2): 21.2 ml ESV(sp4-el): 24.4 ml ESV(sp2-el): 20.4 ml EF(MOD-sp4): 55.3 % EF(MOD-sp2): 55.7 % EF(sp4-el): 57.3 % SV(MOD-sp4): 30.6 ml SV(MOD-sp2): 26.7 ml SV(sp4-el): 32.8 ml LA dimension(2D): 3.1 cm LA A4 area: 12.3 cm2 RA A4 area: 11.7 cm2 TAPSE: 1.8 cm Time Measurements MV dec time: 0.16 sec Doppler Measurements Calculations MV E max ambreen: 58.7 cm/sec Lat Peak E' Ambreen: 9.0 cm/sec Med Peak E' Ambreen: 7.0 cm/sec MV A max ambreen: 81.0 cm/sec E/E' lat: 6.6 E/E' med: 8.4 MV E/A: 0.72 MV V2 max: 86.7 cm/sec MV P1/2t max ambreen: 68.9 cm/sec Ao V2 max: 125.3 cm/sec MV max P.0 mmHg MV P1/2t: 68.2 msec Ao max P.3 mmHg MV V2 mean: 56.0 cm/sec MV dec slope: 295.6 cm/sec2 Ao V2 mean: 95.5 cm/sec MV mean P.3 mmHg Ao mean P.9 mmHg MV V2 VTI: 20.0 cm MVA(P1/2t): 3.2 cm2 Ao V2 VTI: 24.7 cm AV (velocity ratio): 0.65 AI max ambreen: 367.3 cm/sec LV V1 max: 87.5 cm/sec PA V2 max: 88.3 cm/sec AI max P.0 mmHg LV V1 max P.1 mmHg PA V2 mean: 61.7 cm/sec AI dec slope: 234.9 cm/sec2 LV V1 mean P.6 mmHg AI P1/2t: 457.9 msec LV V1 mean: 60.4 cm/sec LV V1 VTI: 16.0 cm PI dec slope: 187.7 cm/sec2 TR max ambreen: 216.4 cm/sec TR max P.7 mmHg ECHO/Echo Complete Interpretation Summary Normal LV size. The left ventricular ejection fraction is 55 %. Stage 1 diastolic dysfunction. Hepatic cyst noted. Ordering Physician: Elizabet Walden Referring Physician: Elizabet Walden Performed By: Azeb Coyne, KAROLINE, RVT 01/06/24 1224 Date Shola Dodge MD CC: Dr. Elizabet Walden, DO Date Dictated: 01/06/24 1055 Date Transcribed: 01/06/24 1224 Front End Web Developer: Signed Normal [facility] OT General Evaluation 12-12 OT General Evaluation [facility] Occupational Therapy [address] [place] [id number] / REHABILITATION SERVICES INITIAL EVALUATION MR#: [id number] Acct: [id number] Name: DAHIANA CASTELLON Rep #: [id number] : 1955 68 From: Monse COHEN/RAGHU Lamb Referring DrRoni: OUT OF TOWN DOCTOR Status: REG R CR Insurance: [facility] Rola Date: SELF PAY INSURANCE Patient's Visit Information Visit Information Visit Information: DAHIANA CASTELLON is a 68 year old F, referred to Occupational Therapy by DIANA CARTER, with a diagnosis of right 1st carpometacapral OA.. Date of Evaluation: 12/26/23 Occupational Therapist: Monse [place], OTR/L, CHT Subjective Subjective: This 68 year old female was seen for OT eval with dx of right cmc OA. Pt has struggled for years with pain of right thumb and IF DIP. conservative methods were not helpful. Pt states she was bone on bone and was difficulty to perform daily tasks. sx was on 12/06/24 for a right CMC arthroplasty and IF DIP fusion. 2 weeks and 5 days s/p from a right cmc arthroplasty and DIP of IF fusion. pt arrives with orthosis on- denies need for any adj. states she was out of her orthosis today and felt more discomfort. pt states she then put it back on. pt has not taken off to shower- states she is sleeping in it. pt states she is limited with all ADLS and IADLs at this time. Pain right hand: Current Pain Intensity: 3 Pain Intensity Range: 2 and 4 ROM Wrist: right 50/30 left 65/50 CMC: right 10 left 15 MP: right 50 left 50 IP: right 35 left 55 ROM Comments: pt demo with limited right ROM Strength Copyholder: right NT left 40# Lateral Pinch: right NT left 6# Quick DASH-Disab of Arm,Shoulder Hand Quick DASH Score: 45.4525 Goals Comment: Dr. Interiano CMC Arthropathy guidelines Goal:Daily scar massage when approriate: Yes Goal:ROM equal to unaffected hand: Yes Goal:Copyholder/Pinch strength at least 75% of unaffected hand: Yes Goal:No pain with affected hand use: Yes Goal:Full use of affected hand in daily activities including work: Yes Goal:Decrease scar hypersensitivity: Yes Rehabilitation General Assessment: Pt arrives 2 weeks and 5 days s/p from a right CMC arthroplasty and IF DIP fusion. Pt demo with newly healing structures, limited ROM and weakness following her reconstruction. Pt demo need for skilled OT services 1x week for 6-8 weeks to return pt to her PLOF. Today therapist reviewed with pt Dr. Carter's CMC arthroplasty guidelines. Pt demo understanding and agree to POC. Rehabilitation Potential: Good Anticipated Interventions Anticipated Interventions: A/AAROM/PROM, Strengthening, Scar Care, Triggerpoint Release, Modalities, Orthoses, Joint Protection/Energy Conservation, Ergonomic Education, Education re assistive Equipment, Education re Diagnosis and Home Program Visit Plan Frequency: 1-2x /Week Duration: 6 Weeks General Plan: 10-12 days s/p Thermoplastic thumb spica orthosis with CMC ext, MP flex, IP free Wrist ROM MP flexion of thumb with the CMC supported 5-6 weeks s/p ROM CMC JT 6 weeks s/p Jason Pee orthosis 10 weeks Strengthening unless approves otherwise TJR states that he may vary protocol as he sees fit TEXT: Thank you for the opportunity to evaluate your patient. For Medicare and Medicare HMO plans, please review the plan of care and approve it. It will need to be FAXED BACK to us at [phone] for Medicare purposes. Please let me know if there are questions or concerns regarding this plan of care. Physician Signature: Date:__ 12/26/23 1512 CC: Dr. Elizabet Walden, DO; DIANA CARTER LAUREL Signed For Medicare only, by signing this I certify the plan of care. Physicians Signature Date Normal [facility] CBC W/Diff, Automatedon 09- Absolute Lymph 1.72 X10 3/uL Normal 0.83-4.51 [facility] Comment on above: Performed By: #### L 500.4050, L100.0100 #### [facility] [address] [place], [address] Absolute Neut 2.8 X10 3/uL Normal 2.0-7.7 [facility] Comment on above: Performed By: #### L 500.4050, L100.0100 #### [facility] [address] [place], [address] Basophils/100 WBC (Bld) 0.6 % Normal 0-1 [facility] Comment on above: Performed By: #### L 500.4050, L100.0100 #### [facility] [address] [place], [address] Eosinophils/100 WBC (Bld) 3.1 % Normal 0-5 [facility] Comment on above: Performed By: #### L 500.4050, L100.0100 #### [facility] [address] [place], [address] Erythrocyte distribution width (RBC) [Ratio] 13.6 % Normal 11.6-14.6 [facility] Comment on above: Performed By: #### L 500.4050, L100.0100 #### [facility] [address] [place], [address] Hematocrit (Bld) [Volume fraction] 39.1 % Normal 37-47 [facility] Comment on above: Performed By: #### L 500.4050, L100.0100 #### [facility] [address] [place], [address] Hemoglobin (Bld) [Mass/Vol] 12.3 g/dL Normal 12.0-15.0 [facility] Comment on above: Performed By: #### L 500.4050, L100.0100 #### [facility] [address] [place], [address] IG% 0.600 Normal 0.0-0.9 [facility] Comment on above: Result Comment: IG% - Immature Granulocytes (promyelocytes, myelocytes and metamyelocytes) > 1% indicates that a LEFT SHIFT is Present. Performed By: #### L 500.4050, L100.0100 #### [facility] [address] [place], [address] Lymphocytes/100 WBC (Bld) 33.1 % Normal 19-41 [facility] Comment on above: Performed By: #### L 500.4050, L100.0100 #### [facility] [address] [place], [address] MCH (RBC) [Entitic mass] 30.8 pg Normal 27.0-32.0 [facility] Comment on above: Performed By: #### L 500.4050, L100.0100 #### [facility] [address] [place], [address] MCHC (RBC) [Mass/Vol] 31.5 g/dL Low 32-36 [facility] Comment on above: Performed By: #### L 500.4050, L100.0100 #### [facility] [address] [place], [address] MCV (RBC) [Entitic vol] 97.8 fL Normal 81-99 [facility] Comment on above: Performed By: #### L 500.4050, L100.0100 #### [facility] [address] [place], [address] Monocytes/100 WBC (Bld) 8.8 % Normal 0-10 [facility] Comment on above: Performed By: #### L 500.4050, L100.0100 #### [facility] [address] [place], [address] Neutrophils/100 WBC (Bld) 53.8 % Normal 47-70 [facility] Comment on above: Performed By: #### L 500.4050, L100.0100 #### [facility] [address] [place], [address] Nucleated RBC (Bld) [#/Vol] 0 10*3/uL Normal 0-5 [facility] Comment on above: Performed By: #### L 500.4050, L100.0100 #### [facility] [address] [place], [address] Platelet mean volume (Bld) [Entitic vol] 10.8 fL Normal 6.2-12.0 [facility] Comment on above: Performed By: #### L 500.4050, L100.0100 #### [facility] [address] [place], [address] Platelets (Bld) [#/Vol] 306 10*3/uL Normal 150-450 [facility] Comment on above: Performed By: #### L 500.4050, L100.0100 #### [facility] [address] [place], [address] RBC (Bld) [#/Vol] 4.00 10*6/uL Low 4.2-5.4 [facility] Comment on above: Performed By: #### L 500.4050, L100.0100 #### [facility] [address] [place], [address] RDW SD 48.2 fl High 35.1-43.9 [facility] Comment on above: Performed By: #### L 500.4050, L100.0100 #### [facility] [address] [place], [address] WBC (Bld) [#/Vol] 5.2 10*3/uL Normal 4.4-11.0 [facility] Comment on above: Performed By: #### L 500.4050, L100.0100 #### [facility] [address] [place], [address] Comprehensive Metabolic Prof ilon 11-24-2023 Albumin [Mass/Vol] 3.6 g/dL Normal 3.2-5.0 [facility] Comment on above: Performed By: #### L 500.4050, L100.0100 #### [facility] [address] [place], [address] Albumin/Globulin [Mass ratio] 1.1 {ratio} Normal 0.9-2.4 [facility] Comment on above: Performed By: #### L 500.4050, L100.0100 #### [facility] [address] [place], [address] ALK P 61 U/L Normal 45-117 [facility] Comment on above: Performed By: #### L 500.4050, L100.0100 #### [facility] [address] [place], [address] ALT [Catalytic activity/Vol] 35 U/L Normal 13-56 [facility] Comment on above: Performed By: #### L 500.4050, L100.0100 #### [facility] [address] [place], [address] AST [Catalytic activity/Vol] 25 U/L Normal 15-37 [facility] Comment on above: Performed By: #### L 500.4050, L100.0100 #### [facility] [address] [place], [address] Bilirubin [Mass/Vol] 0.60 mg/dL Normal 0.20-1.00 [facility] Comment on above: Result Comment: For patients on eltrombopag therapy, use of Dimension [place] TBIL is not recommended. Performed By: #### L 500.4050, L100.0100 #### [facility] [address] [place], [address] BUN/CRE 22.8 RATIO High 10-20 [facility] Comment on above: Performed By: #### L 500.4050, L100.0100 #### [facility] [address] [place], [address] CA,Total 9.6 mg/dL Normal 8.5-10.1 [facility] Comment on above: Performed By: #### L 500.4050, L100.0100 #### [facility] [address] [place], [address] Chloride [Moles/Vol] 103 mmol/L Normal 98-107 [facility] Comment on above: Performed By: #### L 500.4050, L100.0100 #### [facility] [address] [place], [address] CO2 [Moles/Vol] 28.0 mmol/L Normal 21.0-32.0 [facility] Comment on above: Performed By: #### L 500.4050, L100.0100 #### [facility] [address] [place], [address] Creatinine [Mass/Vol] 0.88 mg/dL Normal 0.55-1.02 [facility] Comment on above: Result Comment: The validity of the calculated GFR GFRAA in patients over 70 years has not been determined. Clinical correlation is essential. Performed By: #### L 500.4050, L100.0100 #### [facility] [address] [place], [address] EST GFR - AA 82 mL/min Normal >60 [facility] Comment on above: Result Comment: Afri can [place] GFR Calc Performed By: #### L 500.4050, L100.0100 #### [facility] [address] [place], [address] GAP 7 Normal 5-15 [facility] Comment on above: Performed By: #### L 500.4050, L100.0100 #### [facility] [address] [place], [address] GFR/1.73 sq M.predicted among non-blacks MDRD (S/P/Bld) [Vol rate/Area] 68 mL/min/{1.73_m2} Normal >60 [facility] Comment on above: Result Comment: Non- GFR Calc Performed By: #### L 500.4050, L100.0100 #### [facility] [address] [place], [address] Globulin (S) [Mass/Vol] 3.2 g/dL Normal 2.2-4.2 [facility] Comment on above: Performed By: #### L 500.4050, L100.0100 #### [facility] [address] [place], [address] Glucose [Mass/Vol] 83 mg/dL Normal 74-106 [facility] Comment on above: Performed By: #### L 500.4050, L100.0100 #### [facility] [address] [place], [address] Potassium [Moles/Vol] 3.9 mmol/L Normal 3.5-5.1 [facility] Comment on above: Performed By: #### L 500.4050, L100.0100 #### [facility] [address] [place], [address] Sodium [Moles/Vol] 138 mmol/L Normal 136-145 [facility] Comment on above: Performed By: #### L 500.4050, L100.0100 #### [facility] [address] [place], [address] T PROT 6.8 g/dL Normal 6.4-8.2 [facility] Comment on above: Performed By: #### L 500.4050, L100.0100 #### [facility] [address] [place], [address] Urea nitrogen [Mass/Vol] 20 mg/dL High 7-18 [facility] Comment on above: Performed By: #### L 500.4050, L100.0100 #### [facility] [address] [place], [address] EMERGENCY REPORTon 4 EMERGENCY REPORT [facility] EMERGENCY ROOM REPORT NAME ACCOUNT SEX AGE ADMIT DISCHARGE PT MED. RECORD# NUMBER DATE DATE TYPE DAHIANA CASTELLON [id number] F 68 10/27/23 10/27/23 3 [id number] ROOM: ER DATE OF : 1955 DICTATING PHYSICIAN: Torsten Reina NO DICTATION Dictated By: Torsten Reina MD 10/29/23 17:35 JOB #: [id number] Transcribed By: am 10/30/23 10:06 Electronically signed by: CARMEN Reina M.D. 11/01/23 07:10 Page 1 of 1 DAHIANA CASTELLON Emergency Room Report Normal [facility] CBC W/Diff, Automatedon - Absolute Lymph 1.57 X10 3/uL Normal 0.83-4.51 [facility] Comment on above: Performed By: #### L 100.0100, L500.4050 #### [facility] [address] [place], [address] Absolute Neut 4.5 X10 3/uL Normal 2.0-7.7 [facility] Comment on above: Performed By: #### L 100.0100, L500.4050 #### [facility] [address] [place], [address] Basophils/100 WBC (Bld) 0.3 % Normal 0-1 [facility] Comment on above: Performed By: #### L 100.0100, L500.4050 #### [facility] [address] [place], [address] Eosinophils/100 WBC (Bld) 1.1 % Normal 0-5 [facility] Comment on above: Performed By: #### L 100.0100, L500.4050 #### [facility] [address] [place], [address] Erythrocyte distribution width (RBC) [Ratio] 14.5 % Normal 11.6-14.6 [facility] Comment on above: Performed By: #### L 100.0100, L500.4050 #### [facility] [address] [place], [address] Hematocrit (Bld) [Volume fraction] 39.7 % Normal 37-47 [facility] Comment on above: Performed By: #### L 100.0100, L500.4050 #### [facility] [address] [place], [address] Hemoglobin (Bld) [Mass/Vol] 12.8 g/dL Normal 12.0-15.0 [facility] Comment on above: Performed By: #### L 100.0100, L500.4050 #### [facility] [facility] [address] [place], [address] IG% 0.600 Normal 0.0-0.9 [facility] Comment on above: Result Comment: IG% - Immature Granulocytes (promyelocytes, myelocytes and metamyelocytes) > 1% indicates that a LEFT SHIFT is Present. Performed By: #### L 100.0100, L500.4050 #### [facility] [address] [place], [address] Lymphocytes/100 WBC (Bld) 22.2 % Normal 19-41 [facility] Comment on above: Performed By: #### L 100.0100, L500.4050 #### [facility] [address] [place], [address] MCH (RBC) [Entitic mass] 31.1 pg Normal 27.0-32.0 [facility] Comment on above: Performed By: #### L 100.0100, L500.4050 #### [facility] [address] [place], [address] MCHC (RBC) [Mass/Vol] 32.2 g/dL Normal 32-36 [facility] Comment on above: Performed By: #### L 100.0100, L500.4050 #### [facility] [address] [place], [address] MCV (RBC) [Entitic vol] 96.4 fL Normal 81-99 [facility] Comment on above: Performed By: #### L 100.0100, L500.4050 #### [facility] [address] [place], [address] Monocytes/100 WBC (Bld) 12.0 % High 0-10 [facility] Comment on above: Performed By: #### L 100.0100, L500.4050 #### [facility] [address] [place], [address] Neutrophils/100 WBC (Bld) 63.8 % Normal 47-70 [facility] Comment on above: Performed By: #### L 100.0100, L500.4050 #### [facility] [address] [place], [address] Nucleated RBC (Bld) [#/Vol] 0 10*3/uL Normal 0-5 [facility] Comment on above: Performed By: #### L 100.0100, L500.4050 #### [facility] [address] [place], [address] Platelet mean volume (Bld) [Entitic vol] 9.8 fL Normal 6.2-12.0 [facility] Comment on above: Performed By: #### L 100.0100, L500.4050 #### [facility] [address] [place], [address] Platelets (Bld) [#/Vol] 348 10*3/uL Normal 150-450 [facility] Comment on above: Performed By: #### L 100.0100, L500.4050 #### [facility] [address] [place], [address] RBC (Bld) [#/Vol] 4.12 10*6/uL Low 4.2-5.4 [facility] Comment on above: Performed By: #### L 100.0100, L500.4050 #### [facility] [address] [place], [address] RDW SD 50.2 fl High 35.1-43.9 [facility] Comment on above: Performed By: #### L 100.0100, L500.4050 #### [facility] [address] [place], [address] WBC (Bld) [#/Vol] 7.1 10*3/uL Normal 4.4-11.0 [facility] Comment on above: Performed By: #### L 100.0100, L500.4050 #### [facility] [address] [place], [address] Comprehensive Metabolic Prof sdon 08-31-2023 Albumin [Mass/Vol] 3.8 g/dL Normal 3.2-5.0 [facility] Comment on above: Performed By: #### L 100.0100, L500.4050 ####[facility] [address] [place], [address] Albumin/Globulin [Mass ratio] 1.2 {ratio} Normal 0.9-2.4 [facility] Comment on above: Performed By: #### L 100.0100, L500.4050 ####[facility] [address] [place], [address] ALK P 49 U/L Normal 45-117 [facility] Comment on above: Performed By: #### L 100.0100, L500.4050 ####[facility] [address] [place], [address] ALT [Catalytic activity/Vol] 27 U/L Normal 13-56 [facility] Comment on above: Performed By: #### L 100.0100, L500.4050 ####[facility] [address] [place], [address] AST [Catalytic activity/Vol] 19 U/L Normal 15-37 [facility] Comment on above: Performed By: #### L 100.0100, L500.4050 ####[facility] [address] [place], [address] Bilirubin [Mass/Vol] 0.50 mg/dL Normal 0.20-1.00 [facility] Comment on above: Result Comment: For patients on eltrombopag therapy, use of Dimension [place] TBIL is not recommended. Performed By: #### L 100.0100, L500.4050 ####[facility] [address] [place], [address] BUN/CRE 21.8 RATIO High 10-20 [facility] Comment on above: Performed By: #### L 100.0100, L500.4050 ####[facility] [address] [place], [address] CA,Total 9.3 mg/dL Normal 8.5-10.1 [facility] Comment on above: Performed By: #### L 100.0100, L500.4050 ####[facility] [address] [place], [address] Chloride [Moles/Vol] 103 mmol/L Normal 98-107 [facility] Comment on above: Performed By: #### L 100.0100, L500.4050 ####[facility] [address] [place], [address] CO2 [Moles/Vol] 28.0 mmol/L Normal 21.0-32.0 [facility] Comment on above: Performed By: #### L 100.0100, L500.4050 ####[facility] [address] [place], [address] Creatinine [Mass/Vol] 0.96 mg/dL Normal 0.55-1.02 [facility] Comment on above: Result Comment: The validity of the calculated GFR GFRAA in patients over 70 years has not been determined. Clinical correlation is essential. Performed By: #### L 100.0100, L500.4050 ####[facility] [address] [place], [address] EST GFR - AA 74 mL/min Normal >60 [facility] Comment on above: Result Comment: Afri can [place] GFR Calc Performed By: #### L 100.0100, L500.4050 ####[facility] [address] [place], [address] GAP 6 Normal 5-15 [facility] Comment on above: Performed By: #### L 100.0100, L500.4050 ####[facility] [address] [place], [address] GFR/1.73 sq M.predicted among non-blacks MDRD (S/P/Bld) [Vol rate/Area] 61 mL/min/{1.73_m2} Normal >60 [facility] Comment on above: Result Comment: Non- GFR Calc Performed By: #### L 100.0100, L500.4050 ####[facility] [address] [place], [address] Globulin (S) [Mass/Vol] 3.2 g/dL Normal 2.2-4.2 [facility] Comment on above: Performed By: #### L 100.0100, L500.4050 ####[facility] [address] [place], [address] Glucose [Mass/Vol] 91 mg/dL Normal 74-106 [facility] Comment on above: Performed By: #### L 100.0100, L500.4050 ####[facility] [address] [place], [address] Potassium [Moles/Vol] 3.9 mmol/L Normal 3.5-5.1 [facility] Comment on above: Performed By: #### L 100.0100, L500.4050 ####[facility] [address] [place], [address] Sodium [Moles/Vol] 137 mmol/L Normal 136-145 [facility] Comment on above: Performed By: #### L 100.0100, L500.4050 ####[facility] [address] [place], [address] T PROT 7.0 g/dL Normal 6.4-8.2 [facility] Comment on above: Performed By: #### L 100.0100, L500.4050 ####[facility] [address] [place], [address] Urea nitrogen [Mass/Vol] 21 mg/dL High 7-18 [facility] Comment on above: Performed By: #### L 100.0100, L500.4050 ####[facility] [address] [place], [address] Absolute lymphocyte countOrd ered By: Mitzi Ann on 06-07-2023 Lymphocytes Auto (Unsp spec) [#/Vol] 1.40 10*3/uL 0.83-4.51 [facility] Automated lymphocyte count a s percentage of total leukocytesOrdered By: Mitzi Ann on 06-07-2023 Lymphocytes/100 WBC Auto (Unsp spec) 33.9 % 19-41 [facility] Basophil percentageOrdered B y: Mitzi Ann on 06-07-2023 Basophils/100 WBC (Bld) 1.0 % 0-1 [facility] Bilirubin [Mass/Vol] 0.40 mg/dL 0.20-1.00 [facility] Comment on above: For patients on eltr ombopag therapy, use of Dimension [place] TBIL is not recommended. Chloride [Moles/Vol] 104 mmol/L 98-107 [facility] Eosinophils/100 WBC (Bld) 2.2 % 0-5 [facility] Glucose [Mass/Vol] 75 mg/dL 74-106 [facility] Hemoglobin (Bld) [Mass/Vol] 13.0 g/dL 12.0-15.0 [facility] Monocytes/100 WBC (Bld) 10.4 % 0-10 [facility] Neutrophils (Bld) [#/Vol] 2.2 10*3/uL 2.0-7.7 [facility] Neutrophils/100 WBC (Bld) 52.3 % 47-70 [facility] Potassium [Moles/Vol] 4.0 mmol/L 3.5-5.1 [facility] Protein [Mass/Vol] 6.9 g/dL 6.4-8.2 [facility] Sodium [Moles/Vol] 139 mmol/L 136-145 [facility] WBC (Bld) [#/Vol] 4.1 10*3/uL 4.4-11.0 [facility] Determination of erythrocyte mean corpuscular volume (MCV)Ordered By: Mitzi Ann on 06-07-2023 MCV (RBC) [Entitic vol] 97.6 fL 81-99 [facility] Erythrocyte distribution wid th ratioOrdered By: [facility] Marissa on 06-07-2023 Erythrocyte distribution width (RBC) [Ratio] 13.2 % 11.6-14.6 [facility] Erythrocyte distribution wid th standard deviationOrdered By: Mitzi Ann on 06-07-2023 Erythrocyte distribution width (RBC) [Entitic vol] 46.7 fL 35.1-43.9 [facility] Hematocrit Auto (Bld) [Volum e fraction]Ordered By: Mitzi Ann on 06-07-2023 Hematocrit (Bld) [Volume fraction] 40.9 % 37-47 [facility] Immature granulocytes/100 WB C Auto (Bld)Ordered By: Mitzi Ann on 06-07-2023 Immature granulocytes/100 WBC (Bld) 0.200 % 0.0-0.9 [facility] Comment on above: IG% - Immature Granu locytes (promyelocytes, myelocytes and metamyelocytes) > 1% indicates that a LEFT SHIFT is Present. Laboratory - Chemistry and C hemistry - challengeOrdered By: Mitzi Ann on 03-26-2024 Albumin/Globulin [Mass ratio] 1.2 {ratio} 0.9-2.4 [facility] ALP [Catalytic activity/Vol] 56 U/L 45-117 [facility] ALT [Catalytic activity/Vol] 22 U/L 13-56 [facility] CO2 [Moles/Vol] 29.0 mmol/L 21.0-32.0 [facility] Globulin (S) [Mass/Vol] 3.2 g/dL 2.2-4.2 [facility] Urea nitrogen/Creatinine [Mass ratio] 9.6 mg/mg 10-20 [facility] Laboratory - Hematology and Cell countsOrdered By: Mitzi Ann on 06-07-2023 MCH (RBC) [Entitic mass] 31.0 pg 27.0-32.0 [facility] MCHC (RBC) [Mass/Vol] 31.8 g/dL 32-36 [facility] Nucleated RBC/100 WBC (Bld) [Ratio] 0 % 0-5 [facility] Platelet mean volume (Bld) [Entitic vol] 10.2 fL 6.2-12.0 [facility] Platelets (Bld) [#/Vol] 269 10*3/uL 150-450 [facility] No Panel InformationOrdered By: Mitzi Ann on 06-07-2023 Estimated GFR (MDRD) Amer 76 mL/min >60 [facility] Comment on above: GFR Calc Estimated GFR (MDRD) Non-Af Amer 63 mL/min >60 [facility] Comment on above: Non- GFR Calc RBC Auto (Bld) [#/Vol]Ordere d By: Mitzi Ann on 06-07-2023 RBC (Bld) [#/Vol] 4.19 10*6/uL 4.2-5.4 [facility] [place] or plasma calcium gold urement (mass/volume)Ordered By: Mitzi Ann on 06-07-2023 Calcium [Mass/Vol] 9.5 mg/dL 8.5-10.1 [facility] Serum or plasma creatinine m easurement (mass/volume)Ordered By: Mitzi Ann on 06-07-2023 Creatinine [Mass/Vol] 0.94 mg/dL 0.55-1.02 [facility] Comment on above: The validity of the calculated GFR & GFRAA in patients over 70 years has not been determined. Clinical correlation is essential. Serum or plasma urea nitroge n measurement (mass/volume)Ordered By: Mitzi Ann on 06-07-2023 Urea nitrogen [Mass/Vol] 9 mg/dL 7-18 [facility] Thin prep Papanicolaou smear with manual screeningOrdered By: Mitzi Ann on 06-07-2023 Thin prep Papanicolaou smear with manual screening 3.7 g/dL 3.2-5.0 [facility] Thin prep Papanicolaou smear with manual screening 19 U/L 15-37 [facility] Thin prep Papanicolaou smear with manual screening 6 5-15 [facility] DBT Breast - right diagnosti con 05-25-2023 Addendum by Yajaira Shipley MD on 05/25/2023 3:32 PM EDT [facility] 1955 [id number] Exam Date/Time: 05/25/2023 10:27 Procedure: BI MAMMOGRAM DIAGNOSTIC TOMOSYNTHESIS RIGHT Ordering Provider: WOLF ARTHUR Reason For Exam: ? mass --------ADDENDUM #1 -------- ASSESSMENT: Category 2 Benign Report Dictated on Electronically Signed By: Yajaira Shipley MD Electronically Signed Date/Time: 05/25/2023 3:32 PM EDT --------ORIGINAL REPORT -------- Prior study Comparisons: 04/07/2019 for, 02/12/2022, 02/10/2021, 02/04/2020 Image views: 2D ML and MLO and SMLO views were acquired. 3D ML and MLO and SMLO views were acquired. Tissue Density: BIRADS B - There are scattered fibroglandular densities. Images were reviewed with CAD. Findings: Callback. 67-year-old. A screening mammogram 04/07/2023 demonstrated a right breast asymmetry. The asymmetry, for which the patient was called back, in the central aspect at middle depth does not persist on today's additional views. Imaging today appears similar to 02/10/2021 MLO view. IMPRESSION: No mammographic evidence of malignancy in the right breast. Markings on images: BB's = Nipples; skin lesions Open [place] = Palpable Line = Scar ASSESSMENT: RECOMMENDATION: Return to normal screening Bilateral CANCER RISK ASSESSMENT: This risk assessment is based on patient provided information collected in a risk survey taken at the time of this examination. LIFETIME BREAST CANCER RISK: [place]: 4.35% - If greater than or equal to 20%, consider annual mammogram and annual screening Breast MRI or follow up in high risk clinic. Is the patient at elevated risk based on the HBOC criteria? No (Hereditary Breast and Ovarian Cancer) - If Yes, consider genetic counseling and testing with high risk follow up. Is the patient at elevated risk based on the Ahmadi Syndrome criteria? No - If Yes, consider genetic counseling and testing with high risk follow up. Report Dictated on Electronically Signed By: Yajaira Shipley MD Electronically Signed Date/Time: 05/25/2023 10:35 AM EDT Neg b Benign b Bilat [facility] No mammographic evidence of malignancy in the right breast. Markings on images: BB's = Nipples; skin lesions Open [place] = Palpable Line = Scar ASSESSMENT: RECOMMENDATION: Return to normal screening Bilateral CANCER RISK ASSESSMENT: This risk assessment is based on patient provided information collected in a risk survey taken at the time of this examination. LIFETIME BREAST CANCER RISK: [place]: 4.35% - If greater than or equal to 20%, consider annual mammogram and annual screening Breast MRI or follow up in high risk clinic. Is the patient at elevated risk based on the HBOC criteria? No (Hereditary Breast and Ovarian Cancer) - If Yes, consider genetic counseling and testing with high risk follow up. Is the patient at elevated risk based on the Ahmadi Syndrome criteria? No - If Yes, consider genetic counseling and testing with high risk follow up. Report Dictated on Electronically Signed By: Yajaira Shipley MD Electronically Signed Date/Time: 05/25/2023 10:35 AM EDT [employer] Patient Name: DAHIANA CASTELLON : 1955 Exam Date/Time: 05/25/2023 10:27 Procedure: BI MAMMOGRAM DIAGNOSTIC TOMOSYNTHESIS RIGHT Ordering Provider: WOLF ARTHUR Reason For Exam: ? mass Prior study Comparisons: 04/07/2019 for, 02/12/2022, 02/10/2021, 02/04/2020 Image views: 2D ML and MLO and SMLO views were acquired. 3D ML and MLO and SMLO views were acquired. Tissue Density: BIRADS B - There are scattered fibroglandular densities. Images were reviewed with CAD. Findings: Callback. 67-year-old. A screening mammogram 04/07/2023 demonstrated a right breast asymmetry. The asymmetry, for which the patient was called back, in the central aspect at middle depth does not persist on today's additional views. Imaging today appears similar to 02/10/2021 MLO view. [facility] Yajaira Shipley MD - 05/25/2023 Patient Name: DAHIANA CASTELLON : 1955 Exam Date/Time: 05/25/2023 10:27 Procedure: BI MAMMOGRAM DIAGNOSTIC TOMOSYNTHESIS RIGHT Ordering Provider: WOLF ARTHUR Reason For Exam: ? mass Prior study Comparisons: 04/07/2019 for, 02/12/2022, 02/10/2021, 02/04/2020 Image views: 2D ML and MLO and SMLO views were acquired. 3D ML and MLO and SMLO views were acquired. Tissue Density: BIRADS B - There are scattered fibroglandular densities. Images were reviewed with CAD. Findings: Callback. 67-year-old. A screening mammogram 04/07/2023 demonstrated a right breast asymmetry. The asymmetry, for which the patient was called back, in the central aspect at middle depth does not persist on today's additional views. Imaging today appears similar to 02/10/2021 MLO view. IMPRESSION: No mammographic evidence of malignancy in the right breast. Markings on images: BB's = Nipples; skin lesions [place] = Palpable Line = Scar ASSESSMENT: RECOMMENDATION: Return to normal screening Bilateral CANCER RISK ASSESSMENT: This risk assessment is based on patient provided information collected in a risk survey taken at the time of this examination. LIFETIME BREAST CANCER RISK: [place]rer-[place]ick: 4.35% - If greater than or equal to 20%, consider annual mammogram and annual screening Breast MRI or follow up in high risk clinic. Is the patient at elevated risk based on the HBOC criteria? No (Hereditary Breast and Ovarian Cancer) - If Yes, consider genetic counseling and testing with high risk follow up. Is the patient at elevated risk based on the Ahmadi Syndrome criteria? No - If Yes, consider genetic counseling and testing with high risk follow up. Report Dictated on Electronically Signed By: Yajaira Shipley MD Electronically Signed Date/Time: 05/25/2023 10:35 AM EDT [employer] Radiology Study observation (narrative) [employer] DBT Breast - right diagnosti cOrdered By: Yajaira Shipley on 05-25-2023 [employer] Work Phone: DBT Breast - bilateral scree ningOrdered By: Tariq Pack on 04-07-2023 Interpretation and review of laboratory results Abnormal [employer] Work Phone: [employer] Phone: DBT Breast - bilateral scree ningon 04-07-2023 Right breast asymmetry. Diagnostic mammogram and possible ultrasound imaging is recommended. No mammographic evidence of malignancy in the left breast. ASSESSMENT: Category 0 Incomplete: need additional imaging evaluation RECOMMENDATION: Follow-up diagnostic mammogram Right Possible ultrasound imaging. CANCER RISK ASSESSMENT: This risk assessment is based on patient provided information collected in a risk survey taken at the time of this examination. LIFETIME BREAST CANCER RISK: Tyrer-Cuzick: 4.35% - If greater than or equal to 20%, consider annual mammogram and annual screening Breast MRI or follow up in high risk clinic. Is the patient at elevated risk based on the HBOC criteria? No (Hereditary Breast and Ovarian Cancer) - If Yes, consider genetic counseling and testing with high risk follow up. Is the patient at elevated risk based on the Ahmadi Syndrome criteria? No - If Yes, consider genetic counseling and testing with high risk follow up. Report Dictated on Electronically Signed By: Tariq Pack MD Electronically Signed Date/Time: 04/07/2023 2:04 PM EST [facility] Patient Name: DAHIANA CASTELLON : 1955 Exam Date/Time: 04/07/2023 13:50 Procedure: BI MAMMOGRAM SCREENING TOMOSYNTHESIS BILATERAL Ordering Provider: WOLF ARTHUR Reason For Exam: z12.31 Image views: 2D Bilateral CC and MLO views were acquired. 3D Bilateral CC and MLO views were acquired. Images were reviewed with CAD. Markings on images: BB's = Nipples; skin lesions Open [place] = Palpable Line = Scar COMPARISON: 02/12/2022 and 02/10/2021 TISSUE DENSITY: BIRADS B - There are scattered fibroglandular densities. FINDINGS: An asymmetry seen in the central right breast on the MLO view at middle depth. No suspicious masses, calcifications or distortion is seen in the left breast. [facility] Tariq Pack MD - 04/07/2023 Patient Name: DAHIANA CASTELLON : 1955 Exam Date/Time: 04/07/2023 13:50 Procedure: BI MAMMOGRAM SCREENING TOMOSYNTHESIS BILATERAL Ordering Provider: WOLF ARTHUR Reason For Exam: [id number] Image views: 2D Bilateral CC and MLO views were acquired. 3D Bilateral CC and MLO views were acquired. Images were reviewed with CAD. Markings on images: BB's = Nipples; skin lesions Open [place] = Palpable Line = Scar COMPARISON: 02/12/2022 and 02/10/2021 TISSUE DENSITY: BIRADS B - There are scattered fibroglandular densities. FINDINGS: An asymmetry seen in the central right breast on the MLO view at middle depth. No suspicious masses, calcifications or distortion is seen in the left breast. IMPRESSION: Right breast asymmetry. Diagnostic mammogram and possible ultrasound imaging is recommended. No mammographic evidence of malignancy in the left breast. ASSESSMENT: Category 0 Incomplete: need additional imaging evaluation RECOMMENDATION: Follow-up diagnostic mammogram Right Possible ultrasound imaging. CANCER RISK ASSESSMENT: This risk assessment is based on patient provided information collected in a risk survey taken at the time of this examination. LIFETIME BREAST CANCER RISK: [place]: 4.35% - If greater than or equal to 20%, consider annual mammogram and annual screening Breast MRI or follow up in high risk clinic. Is the patient at elevated risk based on the HBOC criteria? No (Hereditary Breast and Ovarian Cancer) - If Yes, consider genetic counseling and testing with high risk follow up. Is the patient at elevated risk based on the Ahmadi Syndrome criteria? No - If Yes, consider genetic counseling and testing with high risk follow up. Report Dictated on Electronically Signed By: Tariq Pack MD Electronically Signed Date/Time: 04/07/2023 2:04 PM EST [employer] [facility] Radiology Study observation (narrative) [facility] CNOVon 04-02-2023 CNOV Office Visit (UCWSTR ) DAHIANA CASTELLON ([id number]) 1955 F Date Time Provider Department 04/02/23 10:15 AM JAYLYN CAPELLAN [facility] During your visit today, we recorded the following information about you: Temperature Pulse Respiration Blood pressure 97.4 degrees 85/minute 16/minute 110/82 Weight 63.9 kg Jaylyn Capellan PA 04/02/2023 10:32 AM Signed This note was created using NoteWriter. Subjective Dahiana Castellon is a 67 year old female. HPI 67-year-old female presents for headache, sore throat, cough x 5 days. Patient states on Tuesday she started getting sore throat, headache and some pressure in the left ear. She started getting cough yesterday. No history of COPD or asthma. No chest pain or shortness of breath. She denies sick contacts. Has not done a home COVID test. She denies any fevers. No vomiting or diarrhea. PAST MEDICAL HISTORY Diagnosis Date Abdominal pain, generalized Abdominal pain, left lower quadrant Chronic depressive personality disorder Chronic glomerulonephritis with other specified pathological lesion in kidney in diseases classified elsewhere Depressive disorder, not elsewhere classified Diarrhea Disorder of bone and cartilage, unspecified Fibromyalgia Hypoglycemia, unspecified Internal hemorrhoids without mention of complication Irritable bowel syndrome Mitral valve disorders(424.0) Other chest pain PMH - PAST MEDICAL HISTORY OF bulging of lumbar discs Pure hypercholesterolemia Systemic lupus erythematosus (HCC) Unspecified hemorrhoids with other complication PAST SURGICAL HISTORY Procedure Laterality Date COLONOSCOPY FLX DX W/COLLJ SPEC WHEN PFRMD 03/02/05 Colonoscopy COLONOSCOPY FLX DX W/COLLJ SPEC WHEN PFRMD 08/20/2015 Colonoscopy COLONOSCOPY FLX DX W/COLLJ SPEC WHEN PFRMD 01/01/2019 Colonoscopy PAST SURGICAL HISTORY OF abdominal hysterectomy PAST SURGICAL HISTORY OF breast bx x 3 PAST SURGICAL HISTORY OF left wrist surgery PAST SURGICAL HISTORY OF Bilateral 5th MT joint surgery PAST SURGICAL HISTORY OF tonsils age 18 ALLERGIES Levbid [Hyoscyamine Sulfate] MEDICATIONS lurasidone (LATUDA) 20 mg tablet Take 20 mg by mouth. desonide (TRIDESILON) 0.05 % cream Apply to affected area twice daily. fluticasone (FLONASE) 50 mcg/actuation nasal spray Use 2 Sprays in each nostril once daily. folic acid 1 mg tablet Take 1 tablet by mouth once daily. golimumab (SIMPONI ARIA) infusion Inject intravenously. leucovorin (LEUCOVORIN) 25 mg tablet Take by mouth. traZODone (DESYREL) 50 mg tablet Take 1-2 tablets by mouth daily at bedtime. buPROPion XL (WELLBUTRIN XL) 300 mg 24 hr tablet Take 300 mg by mouth every morning. buPROPion XL (WELLBUTRIN XL) 150 mg 24 hr tablet Take 150 mg by mouth every morning. loratadine (CLARITIN) 10 mg tablet Take 1 tablet by mouth once daily. methotrexate sodium 25 mg/mL soln ascorbic acid, vitamin C, 500 mg cap Take by mouth. chlordiazePOXIDE-clidi nium (LIBRAX) 5-2.5 mg per capsule TAKE 1 CAPSULE BY MOUTH TWICE A DAY NEEDED traMADol (ULTRAM) 50 mg tablet Take 50 mg by mouth every 8 hours as needed. atorvastatin (LIPITOR) 20 mg tablet Take 20 mg by mouth once daily. biotin tab Take 5,000 mcg by mouth once daily. lutein 20 mg tab Take 20 mg by mouth once daily. melatonin 10 mg tab Take 10 mg by mouth daily at bedtime. gabapentin (NEURONTIN) 100 mg capsule Take 300 mg by mouth twice daily. CYANOCOBALAMIN, VITAMIN B-12, (VITAMIN B-12 ORAL) Take by mouth once daily. MULTIVITAMIN TAB Take one(1) tablet daily. NIMESH-600 WITH VITAMIN D 600 MG-200 UNIT TAB Take one(1) tablet daily. gabapentin (NEURONTIN) 600 mg tablet Take 1 tablet by mouth twice daily. (Patient not taking: Reported on 04/02/2023) albuterol sulfate (PROAIR RESPICLICK) 90 mcg/actuation aepb Inhale 2 Puffs as instructed every 4 hours as needed. (Patient not taking: Reported on 06/16/2020) benzonatate (TESSALON PERLE) 100 mg capsule Take 2 capsules by mouth three times daily as needed. (Patient not taking: Reported on 06/16/2020) VITAMIN B COMPLEX (B COMPLEX ORAL) Take by mouth once daily. (Patient not taking: Reported on 06/16/2020) WELLBUTRIN SR 200 MG TAB 100 MG once daily (Patient not taking: No sig reported) AMBIEN 5 MG TAB Take one(1) tablet daily at bedtime as needed for sleep. (Patient not taking: No sig reported) FAMILY HISTORY Problem Relation Age of Onset None Father None Mother None Brother None Brother other (Rheuatoid arthritis) Sister undif connective tissue disease Social History Tobacco Use Smoking status: Never Smokeless tobacco: Never Substance Use Topics Alcohol use: No Drug use: No Review of Systems Constitutional: Negative for chills and fever. HENT: Positive for congestion, ear pain and sore throat. Respiratory: Positive for cough. Negative for shortness of breath. Cardiovascular: Negative (more content not included)... Normal [facility] COVID AND INFLUENZA A/B AND RSV NAAT, ROUTINEon 04-02-2023 SARS-CoV-2 (COVID-19) RNA ANOOP+probe Ql (Unsp spec) COVID 19 RESULT: Not detected The method used is RT-PCR or an equivalent NAAT method. Reference Range (the expected result in uninfected individuals): Not detected INFLUENZA A PCR: Not detected INFLUENZA B PCR: Not detected RSV PCR: Not detected Normal [facility] Comment on above: Performed By: #### C VFLRS #### [facility] CLIA [id number] [address] [place] [address] [place] Absolute lymphocyte countOrd ered By: Mitzi Ann on 03-01-2023 Lymphocytes Auto (Unsp spec) [#/Vol] 1.80 10*3/uL 0.83-4.51 [facility] Basophil percentageOrdered B y: Mitzi Ann on 03-01-2023 Basophils/100 WBC (Bld) 0.8 % 0-1 [facility] Bilirubin [Mass/Vol] 0.40 mg/dL 0.20-1.00 [facility] Comment on above: For patients on eltr ombopag therapy, use of Dimension [place] TBIL is not recommended. Chloride [Moles/Vol] 106 mmol/L 98-107 [facility] Eosinophils/100 WBC (Bld) 1.9 % 0-5 [facility] Glucose [Mass/Vol] 90 mg/dL 74-106 [facility] Neutrophils (Bld) [#/Vol] 2.9 10*3/uL 2.0-7.7 [facility] Neutrophils/100 WBC (Bld) 55.0 % 47-70 [facility] Potassium [Moles/Vol] 4.1 mmol/L 3.5-5.1 [facility] Protein [Mass/Vol] 6.8 g/dL 6.4-8.2 [facility] Sodium [Moles/Vol] 142 mmol/L 136-145 [facility] WBC (Bld) [#/Vol] 5.3 10*3/uL 4.4-11.0 [facility] Blood erythrocytes count (nu mber/volume)Ordered By: Mitzi Ann on 03-01-2023 RBC (Bld) [#/Vol] 4.01 10*6/uL 4.2-5.4 [facility] Blood hemoglobin measurement (mass/volume)Ordered By: Mitzi Ann on 03-01-2023 Hemoglobin (Bld) [Mass/Vol] 12.9 g/dL 12.0-15.0 [facility] Blood lymphocytes/100 leukoc ytesOrdered By: Mitzi Ann on 03-01-2023 Lymphocytes/100 WBC (Bld) 34.1 % 19-41 [facility] Blood monocytes/100 leukocyt esOrdered By: [facility] Marissa on 03-01-2023 Monocytes/100 WBC (Bld) 8.0 % 0-10 [facility] Blood platelet mean volumeOr dered By: Mitzi Ann on 03-01-2023 Platelet mean volume (Bld) [Entitic vol] 10.0 fL 6.2-12.0 [facility] Determination of erythrocyte mean corpuscular volume (MCV)Ordered By: [facility] Marissa on 03-01-2023 MCV (RBC) [Entitic vol] 99.5 fL 81-99 [facility] Hematocrit Auto (Bld) [Volum e fraction]Ordered By: [facility] Marissa on 03-01-2023 Hematocrit (Bld) [Volume fraction] 39.9 % 37-47 [facility] Laboratory - Chemistry and C hemistry - challengeOrdered By: [facility] Marissa on 03-01-2023 ALP [Catalytic activity/Vol] 58 U/L 45-117 [facility] ALT [Catalytic activity/Vol] 33 U/L 13-56 [facility] CO2 [Moles/Vol] 32.0 mmol/L 21.0-32.0 [facility] Globulin (S) [Mass/Vol] 3.1 g/dL 2.2-4.2 [facility] Urea nitrogen/Creatinine [Mass ratio] 16.7 mg/mg 10-20 [facility] Laboratory - Hematology and Cell countsOrdered By: [facility] Marissa on 03-01-2023 Erythrocyte distribution width (RBC) [Entitic vol] 50.7 fL 35.1-43.9 [facility] Erythrocyte distribution width (RBC) [Ratio] 14.0 % 11.6-14.6 [facility] Immature granulocytes/100 WBC (Bld) 0.200 % 0.0-0.9 [facility] Comment on above: IG% - Immature Granu locytes (promyelocytes, myelocytes and metamyelocytes) > 1% indicates that a LEFT SHIFT is Present. MCH (RBC) [Entitic mass] 32.2 pg 27.0-32.0 [facility] Nucleated RBC/100 WBC (Bld) [Ratio] 0 % 0-5 [facility] MCHC Auto (RBC) [Mass/Vol]Or dered By: Mitzi Ann on 03-01-2023 MCHC (RBC) [Mass/Vol] 32.3 g/dL 32-36 [facility] No Panel InformationOrdered By: Mitzi Ann on 03-01-2023 Estimated GFR (MDRD) Amer 80 mL/min >60 [facility] Comment on above: GFR Calc Estimated GFR (MDRD) Non-Af Amer 66 mL/min >60 [facility] Comment on above: Non- GFR Calc Platelets bldOrdered By: Edvin Ann on 03-01-2023 Platelets (Bld) [#/Vol] 303 10*3/uL 150-450 [facility] Serum or plasma albumin gold urement (mass/volume)Ordered By: Mitzi Ann on 03-01-2023 Albumin [Mass/Vol] 3.7 g/dL 3.2-5.0 [facility] Serum or plasma albumin/glob ulin mass ratioOrdered By: Mitzi Ann on 03-01-2023 Albumin/Globulin [Mass ratio] 1.2 {ratio} 0.9-2.4 [facility] Serum or plasma calcium gold urement (mass/volume)Ordered By: Mitzi Ann on 03-01-2023 Calcium [Mass/Vol] 8.9 mg/dL 8.5-10.1 [facility] Serum or plasma creatinine m easurement (mass/volume)Ordered By: Mitzi Ann on 03-01-2023 Creatinine [Mass/Vol] 0.90 mg/dL 0.55-1.02 [facility] Comment on above: The validity of the calculated GFR & GFRAA in patients over 70 years has not been determined. Clinical correlation is essential. Serum or plasma urea nitroge n measurement (mass/volume)Ordered By: Mitzi Ann on 03-01-2023 Urea nitrogen [Mass/Vol] 15 mg/dL 7-18 [facility] Thin prep Papanicolaou smear with manual screeningOrdered By: Mitzi Ann on 03-01-2023 Thin prep Papanicolaou smear with manual screening 25 U/L 15-37 [facility] Thin prep Papanicolaou smear with manual screening 4 5-15 [facility] CBC W/AUTO DIFF WBC (11564)O rdered By: [employer] on 12-16-2022 Basophils (Bld) [#/Vol] 0.1 10*3/uL Normal 0.0-0.2 [facility]; [facility] Work Phone: Comment on above: PATIENT WAS FASTINGP ERFORMED BY: CB [facility] [id number] RoadDublin [place] [id number] Basophils/100 WBC (Bld) 1 % Normal [facility]; [facility] Work Phone: Comment on above: PATIENT WAS FASTINGP ERFORMED BY: [facility] [id number] [address] RoadDublin [place] [id number] Eosinophils (Bld) [#/Vol] 0.1 10*3/uL Normal 0.0-0.4 [facility]; [facility] Work Phone: Comment on above: PATIENT WAS FASTINGP ERFORMED BY: CB [facility] [id number] [address] RoadDuin [place] [id number] Eosinophils/100 WBC (Bld) 2 % Normal [facility]; [facility] Work Phone: Comment on above: PATIENT WAS FASTINGP ERFORMED BY: [facility] [id number] [facility]in [place] [id number] Erythrocyte distribution width (RBC) [Ratio] 13.6 % Normal 11.7-15.4 [facility]; [facility] Work Phone: Comment on above: PATIENT WAS FASTINGP ERFORMED BY: CB [facility] [id number]Dublin [place] [id number] Hematocrit (Bld) [Volume fraction] 40.8 % Normal 34.0-46.6 [facility]; [facility] Work Phone: Comment on above: PATIENT WAS FASTINGP ERFORMED BY: CB [facility] [id number] [address]Dublin [place] [id number] Hemoglobin (Bld) [Mass/Vol] 13.8 g/dL Normal 11.1-15.9 [facility]; [facility] Work Phone: Comment on above: PATIENT WAS FASTINGP ERFORMED BY: MADELINE Viviana Heck[address] [facility] [place] [id number] Immature granulocytes (Bld) [#/Vol] 0.0 10*3/uL Normal 0.0-0.1 [facility]; [facility] Work Phone: Comment on above: PATIENT WAS FASTINGP ERFORMED BY: MADELINE [facility] Nadjzw[address]Formerly [facility]in [place] [id number] Immature granulocytes/100 WBC (Bld) 0 % Normal [facility]; [facility] Work Phone: Comment on above: PATIENT WAS FASTINGP ERFORMED BY: MADELINE [facility] [id number] [facility] [id number] Lymphocytes (Bld) [#/Vol] 1.7 10*3/uL Normal 0.7-3.1 [facility]; [facility] Work Phone: Comment on above: PATIENT WAS FASTINGP ERFORMED BY: MADELINE Labeddy NolandHwfapo[address] [facility]in [place] [id number] Lymphocytes/100 WBC (Bld) 36 % Normal [facility]; [facility] Work Phone: Comment on above: PATIENT WAS FASTINGP ERFORMED BY: MADELINE [facility] [id number] [facility] [id number] MCH (RBC) [Entitic mass] 31.7 pg Normal 26.6-33.0 [facility]; [facility] Work Phone: Comment on above: PATIENT WAS FASTINGP ERFORMED BY: MADELINE Labco [id number] [facility]in [place] [id number] MCHC (RBC) [Mass/Vol] 33.8 g/dL Normal 31.5-35.7 [facility] prehensive Internal Medicine; [facility] Work Phone: Comment on above: PATIENT WAS FASTINGP ERFORMED BY: MADELINE Viviana Heck6[address] Roadblin [place] [id number] MCV (RBC) [Entitic vol] 94 fL Normal 79-97 [facility]; [facility] Work Phone: Comment on above: PATIENT WAS FASTINGP ERFORMED BY: MADELINE Heck6[address] RoadDublin [place] [id number] Monocytes (Bld) [#/Vol] 0.4 10*3/uL Normal 0.1-0.9 [facility]; [facility] Work Phone: Comment on above: PATIENT WAS FASTINGP ERFORMED BY: MADELINE Heck[address] RoadDublin [place] [id number] Monocytes/100 WBC (Bld) 10 % Normal [facility]; [facility] Work Phone: Comment on above: PATIENT WAS FASTINGP ERFORMED BY: MADELINE Viviana Heck[address]Formerly [facility]in [place] [id number] Neutrophils (Bld) [#/Vol] 2.4 10*3/uL Normal 1.4-7.0 [facility]; [facility] Work Phone: Comment on above: PATIENT WAS FASTINGP ERFORMED BY: MADELINE Viviana Heck[address]bl[address] [place] [id number] Neutrophils/100 WBC (Bld) 51 % Normal [facility]; [facility] Work Phone: Comment on above: PATIENT WAS FASTINGP ERFORMED BY: MADELINE [address] [facility]in [place] [id number] Platelets (Bld) [#/Vol] 277 10*3/uL Normal 150-450 [facility]; [facility] Work Phone: Comment on above: PATIENT WAS FASTINGP ERFORMED BY: MADELINE Labsuzanne [id number] [address] RoadDublin [place] [id number] RBC (Bld) [#/Vol] 4.35 10*6/uL Normal 3.77-5.28 [facility]; [facility] Work Phone: Comment on above: PATIENT WAS FASTINGP ERFORMED BY: MADELINE [facility] [id number] Man [facility] [place] [id number] WBC (Bld) [#/Vol] 4.7 10*3/uL Normal 3.4-10.8 [facility]; [facility] Work Phone: Comment on above: PATIENT WAS FASTINGP ERFORMED BY: [facility] [id number] Man [facility]bl[facility] [place] [id number] LIPID PANEL ([id number])Ordered B y: [employer] on 12-16-2022 Cholesterol [Mass/Vol] 238 mg/dL Abnormal 100-199 [facility]erens[facility]; [facility] Work Phone: Comment on above: PATIENT WAS FASTINGP ERFORMED BY: [facility] [id number] [facility]in [place] [id number] Cholesterol in HDL [Mass/Vol] 83 mg/dL Normal [facility]; [facility] Work Phone: Comment on above: PATIENT WAS FASTINGP ERFORMED BY: [facility] [id number] [facility]in [place] [id number] Triglyceride [Mass/Vol] 68 mg/dL Normal 0-149 [facility]; [facility] Work Phone: Comment on above: PATIENT WAS FASTINGP ERFORMED BY: [facility] Uxcals[address] Man [facility] [place] [id number] LIPID PANEL ([id number]) 11 mg/dL Normal 5-40 [facility]; [facility] Work Phone: Comment on above: PATIENT WAS FASTINGP ERFORMED BY: [facility] [facility] [place] [id number] LIPID PANEL ([id number]) 144 mg/dL Abnormal 0-99 [facility]; [facility] Work Phone: Comment on above: PATIENT WAS FASTINGP ERFORMED BY: [facility] [id number] [facility] HospitalD[facility] [place] [id number] LIPID PANEL ([id number]) 1.7 {ratio} Normal 0.0-3.[address] [facility]erens[facility]; [facility] Work Phone: Comment on above: LDL/HDL Ratio Men Wo men 1/2 Avg.Risk 1.0 1.5 Avg.Risk 3.6 3.2 2X Avg.Risk 6.2 5.0 3X Avg.Risk 8.0 6.1 PATIENT WAS FASTINGP ERFORMED BY: CB [facility] Scqqti5882 [address] RoadDublin [place] [id number] METABOLIC PANEL, COMPREHENSI VE ([id number])Ordered By: [employer]imming Pool [employer]er on 12-16-2022 Albumin [Mass/Vol] 4.5 g/dL Normal 3.9-4.9 [facility]; [facility] Work Phone: Comment on above: PATIENT WAS FASTINGP ERFORMED BY: [facility] [id number] [address] RoadDublin [place] [id number] Albumin/Globulin [Mass ratio] 2.0 {ratio} Normal 1.2-2.2 [facility]; [facility] Work Phone: Comment on above: PATIENT WAS FASTINGP ERFORMED BY: [facility] [id number] [address] RoadDublin [place] [id number] ALP [Catalytic activity/Vol] 59 U/L Normal 44-121 [facility]; [facility] Work Phone: Comment on above: PATIENT WAS FASTINGP ERFORMED BY: [facility] Ccwpsh7281 [address] RoadDublin [place] [id number] ALT [Catalytic activity/Vol] 20 U/L Normal 0-32 [facility]; [facility] Work Phone: Comment on above: PATIENT WAS FASTINGP ERFORMED BY: [facility] [id number] [address] RoadDublin [place] [id number] AST [Catalytic activity/Vol] 21 U/L Normal 0-40 [facility]; [facility] Work Phone: Comment on above: PATIENT WAS FASTINGP ERFORMED BY: [facility] [id number] [address]Dublin [place] [id number] Bilirubin [Mass/Vol] 0.4 mg/dL Normal 0.0-1.2 [facility]; [facility] Work Phone: Comment on above: PATIENT WAS FASTINGP ERFORMED BY: [facility] Rtznps3315 [address] RoadDublin [place] [id number] Calcium [Mass/Vol] 9.8 mg/dL Normal 8.7-10.3 [facility]; [facility] Work Phone: Comment on above: PATIENT WAS FASTINGP ERFORMED BY: CB [facility] Etcskk7630 [address] RoadDublin [place] [id number] Chloride [Moles/Vol] 99 mmol/L Normal 96-106 Comp rehensive [facility]; [facility] Work Phone: Comment on above: PATIENT WAS FASTINGP ERFORMED BY: [facility] Ryaopc3894 [address]Dublin [place] [id number] CO2 [Moles/Vol] 28 mmol/L Normal 20-29 [facility]; [facility] Work Phone: Comment on above: PATIENT WAS FASTINGP ERFORMED BY: [facility] [id number]Dublin [place] [id number] Creatinine [Mass/Vol] 0.94 mg/dL Normal 0.57-1.00 [facility]; [facility] Work Phone: Comment on above: PATIENT WAS FASTINGP ERFORMED BY: [facility] [id number] RoadFormerly [facility]in [place] [id number] GFR/1.73 sq M.predicted among non-blacks MDRD (S/P/Bld) [Vol rate/Area] 66 mL/min/{1.73_m2} Normal Comprehensiv e [facility]; [facility] Work Phone: Comment on above: PATIENT WAS FASTINGP ERFORMED BY: [facility] Paalmo9479 [address] RoadDublin [place] [id number] Globulin (S) [Mass/Vol] 2.3 g/dL Normal 1.5-4.5 [facility]; [facility] Work Phone: Comment on above: PATIENT WAS FASTINGP ERFORMED BY: [facility] Mktyug2911 [address] RoadDublin [place] [id number] Glucose [Mass/Vol] 82 mg/dL Normal 70-99 [facility]; [facility] Work Phone: Comment on above: PATIENT WAS FASTINGP ERFORMED BY: MADELINE [facility] [id number] [address] Roadblin [place] [id number] Potassium [Moles/Vol] 4.5 mmol/L Normal 3.5-5.2 [facility]; [facility] Work Phone: Comment on above: PATIENT WAS FASTINGP ERFORMED BY: CB [facility] Yjtxyv7201 [address] Roadblin [place] [id number] Protein [Mass/Vol] 6.8 g/dL Normal 6.0-8.5 [facility]; [facility] Work Phone: Comment on above: PATIENT WAS FASTINGP ERFORMED BY: MADELINE [facility] [id number] [address] RoadDuin [place] [id number] Sodium [Moles/Vol] 139 mmol/L Normal 134-144 [facility]; [facility] Work Phone: Comment on above: PATIENT WAS FASTINGP ERFORMED BY: CB [facility] Qshiyv[address] Man [facility]bl[facility] [place] [id number] Urea nitrogen [Mass/Vol] 15 mg/dL Normal 8-27 [facility]; [facility] Work Phone: Comment on above: PATIENT WAS FASTINGP ERFORMED BY: CB [facility] [id number] [facility]in [place] [id number] Urea nitrogen/Creatinine [Mass ratio] 16 mg/mg Normal 12-28 [facility]; [facility] Work Phone: Comment on above: PATIENT WAS FASTINGP ERFORMED BY: CB [facility] [id number] Man [facility]bl[facility] [place] [id number] TSH ([id number])Ordered By: Fabiola Benitez on 12-16-2022 TSH Qn 1.010 {uIU/mL} Normal 0.450-4.500 [facility]; [facility] Work Phone: Comment on above: PATIENT WAS FASTINGP ERFORMED BY: [facility] [id number] [facility] [id number] Absolute lymphocyte countOrd ered By: Mitzi Ann on 12-14-2022 Lymphocytes Auto (Unsp spec) [#/Vol] 1.39 10*3/uL 0.83-4.51 [facility] Basophil percentageOrdered B y: Mitzi Ann on 12-14-2022 Basophils/100 WBC (Bld) 0.8 % 0-1 [facility] Bilirubin [Mass/Vol] 0.30 mg/dL 0.20-1.00 [facility] Comment on above: For patients on eltr ombopag therapy, use of Dimension [place] TBIL is not recommended. Chloride [Moles/Vol] 107 mmol/L 98-107 [facility] Eosinophils/100 WBC (Bld) 1.9 % 0-5 [facility] Glucose [Mass/Vol] 87 mg/dL 74-106 [facility] Neutrophils (Bld) [#/Vol] 2.6 10*3/uL 2.0-7.7 [facility] Neutrophils/100 WBC (Bld) 55.3 % 47-70 [facility] Potassium [Moles/Vol] 3.9 mmol/L 3.5-5.1 [facility] Protein [Mass/Vol] 6.8 g/dL 6.4-8.2 [facility] Sodium [Moles/Vol] 140 mmol/L 136-145 [facility] WBC (Bld) [#/Vol] 4.7 10*3/uL 4.4-11.0 [facility] Blood erythrocytes count (nu mber/volume)Ordered By: Mitzi Ann on 12-14-2022 RBC (Bld) [#/Vol] 3.91 10*6/uL 4.2-5.4 [facility] Blood hemoglobin measurement (mass/volume)Ordered By: Mitzi Ann on 12-14-2022 Hemoglobin (Bld) [Mass/Vol] 12.4 g/dL 12.0-15.0 [facility] Blood lymphocytes/100 leukoc ytesOrdered By: Mitzi Ann on 12-14-2022 Lymphocytes/100 WBC (Bld) 29.5 % 19-41 [facility] Blood monocytes/100 leukocyt esOrdered By: Mitzikay Ann on 12-14-2022 Monocytes/100 WBC (Bld) 12.1 % 0-10 [facility] Blood platelet mean volumeOr dered By: Mitzikay Ann on 12-14-2022 Platelet mean volume (Bld) [Entitic vol] 10.6 fL 6.2-12.0 [facility] Determination of erythrocyte mean corpuscular volume (MCV)Ordered By: [facility] Marissa on 12-14-2022 MCV (RBC) [Entitic vol] 99.0 fL 81-99 [facility] Hematocrit Auto (Bld) [Volum e fraction]Ordered By: [facility] Marissa on 12-14-2022 Hematocrit (Bld) [Volume fraction] 38.7 % 37-47 [facility] Laboratory - Chemistry and C hemistry - challengeOrdered By: [facility] Marissa on 12-14-2022 ALP [Catalytic activity/Vol] 53 U/L 45-117 [facility] ALT [Catalytic activity/Vol] 27 U/L 13-56 [facility] CO2 [Moles/Vol] 28.0 mmol/L 21.0-32.0 [facility] Free T4 [Mass/Vol] 0.93 ng/dL 0.76-1.46 [facility] Globulin (S) [Mass/Vol] 3.2 g/dL 2.2-4.2 [facility] Urea nitrogen/Creatinine [Mass ratio] 17.0 mg/mg 10-20 [facility] Laboratory - Hematology and Cell countsOrdered By: [facility] Marissa on 12-14-2022 Erythrocyte distribution width (RBC) [Entitic vol] 52.0 fL 35.1-43.9 [facility] Erythrocyte distribution width (RBC) [Ratio] 14.5 % 11.6-14.6 [facility] Immature granulocytes/100 WBC (Bld) 0.400 % 0.0-0.9 [facility] Comment on above: IG% - Immature Granu locytes (promyelocytes, myelocytes and metamyelocytes) > 1% indicates that a LEFT SHIFT is Present. MCH (RBC) [Entitic mass] 31.7 pg 27.0-32.0 [facility] Nucleated RBC/100 WBC (Bld) [Ratio] 0 % 0-5 [facility] MCHC Auto (RBC) [Mass/Vol]Or dered By: Mitzi Ann on 12-14-2022 MCHC (RBC) [Mass/Vol] 32.0 g/dL 32-36 [facility] No Panel InformationOrdered By: Mitzi Ann on 12-14-2022 Estimated GFR (MDRD) Amer 71 mL/min >60 [facility] Comment on above: GFR Calc Estimated GFR (MDRD) Non-Af Amer 58 mL/min >60 [facility] Comment on above: Non- GFR Calc Thyroid Stimulating Hormone (TSH) 0.64 uIU/mL 0.358-3.74 [facility] Platelets bldOrdered By: Edvin Ann on 12-14-2022 Platelets (Bld) [#/Vol] 282 10*3/uL 150-450 [facility] Serum or plasma albumin gold urement (mass/volume)Ordered By: Mitzi Ann on 12-14-2022 Albumin [Mass/Vol] 3.6 g/dL 3.2-5.0 [facility] Serum or plasma albumin/glob ulin mass ratioOrdered By: Mitzi Ann on 12-14-2022 Albumin/Globulin [Mass ratio] 1.1 {ratio} 0.9-2.4 [facility] Serum or plasma calcium gold urement (mass/volume)Ordered By: Mitzi Ann on 12-14-2022 Calcium [Mass/Vol] 8.8 mg/dL 8.5-10.1 [facility] Serum or plasma creatinine m easurement (mass/volume)Ordered By: Mitzi Ann on 12-14-2022 Creatinine [Mass/Vol] 1.00 mg/dL 0.55-1.02 [facility] Comment on above: The validity of the calculated GFR & GFRAA in patients over 70 years has not been determined. Clinical correlation is essential. Serum or plasma urea nitroge n measurement (mass/volume)Ordered By: Mitzi Ann on 12-14-2022 Urea nitrogen [Mass/Vol] 17 mg/dL 7-18 [facility] Thin prep Papanicolaou smear with manual screeningOrdered By: Mitzi Ann on 12-14-2022 Thin prep Papanicolaou smear with manual screening 20 U/L 15-37 [facility] Thin prep Papanicolaou smear with manual screening 5 5-15 [facility] CNOVon 12-08-2022 CNOV Office Visit (UCWSTR ) DAHIANA CASTELLON ([id number]) 1955 F Date Time Provider Department 12/08/22 4:15 PM YASEMIN RIVERO WSTR During your visit today, we recorded the following information about you: Temperature Pulse Respiration Blood pressure 97.6 degrees 83/minute 18/minute 102/60 Weight 64 kg Yasemin Rivero APRN.[facility] [employer] 12/08/2022 4:20 PM Signed CC: Patient presents with: Ear Pain: Left ear pain x 2 weeks HPI: Dahiana Castellon is a 67 year old female who presents to the office with complaint of head congestion and ear symptoms for 2 weeks. Symptoms are worsening Associated symptoms includes ear pain. Denies fever, nausea, vomiting , and diarrhea. Treatments tried include nothing so far. with no relief of symptoms. Sick contacts: unknown. History of asthma, frequent episodes of bronchitis, chronic bronchitis, bronchiectasis or COPD: No Smoker: No Seasonal/environmental allergies: No The ROS is otherwise negative. The patient's pmh, medications, allergies, and past visits are reviewed. PHYSICAL EXAM: BP 102/60 Pulse 83 Temp 36.4 ?C (97.6 ?F) (Tympanic) Resp 18 Wt 64 kg (141 lb) SpO2 99% BMI 22.76 kg/m? General appearance: alert, cooperative, pleasant, in no acute distress Head: Normocephalic Eyes: EOM's intact, conjunctiva pink and moist, no icterus, sclera white, non-injected Ears: Right ear: External ear/canal- Normal, TM - clear with good landmarks. Left ear: External ear/canal- Normal, TM - erythematous Oropharynx:moist without lesions, No erythema, exudates or tonsillar hypertrophy. Heart: Negative. RRR without obvious murmur, gallop, or rubs. No ectopy. 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 in diseases classified elsewhere Depressive disorder, not elsewhere classified Diarrhea Disorder of bone and cartilage, unspecified Fibromyalgia Hypoglycemia, unspecified Internal hemorrhoids without mention of complication Irritable bowel syndrome Mitral valve disorders(424.0) Other chest pain PMH - PAST MEDICAL HISTORY OF bulging of lumbar discs Pure hypercholesterolemia Systemic lupus erythematosus (HCC) Unspecified hemorrhoids with other complication PAST SURGICAL HISTORY Procedure Laterality Date COLONOSCOPY FLX DX W/COLLJ SPEC WHEN PFRMD 03/02/05 Colonoscopy COLONOSCOPY FLX DX W/COLLJ SPEC WHEN PFRMD 08/20/2015 Colonoscopy COLONOSCOPY FLX DX W/COLLJ SPEC WHEN PFRMD 01/01/2019 Colonoscopy PAST SURGICAL HISTORY OF abdominal hysterectomy PAST SURGICAL HISTORY OF breast bx x 3 PAST SURGICAL HISTORY OF left wrist surgery PAST SURGICAL HISTORY OF Bilateral 5th MT joint surgery PAST SURGICAL HISTORY OF tonsils age 18 ALLERGIES Levbid [Hyoscyamine Sulfate] MEDICATIONS lurasidone (LATUDA) 20 mg tablet Take 20 mg by mouth. desonide (TRIDESILON) 0.05 % cream Apply to affected area twice daily. fluticasone (FLONASE) 50 mcg/actuation nasal spray Use 2 Sprays in each nostril once daily. folic acid 1 mg tablet Take 1 tablet by mouth once daily. golimumab (SIMPONI ARIA) infusion Inject intravenously. leucovorin (LEUCOVORIN) 25 mg tablet Take by mouth. traZODone (DESYREL) 50 mg tablet Take 1-2 tablets by mouth daily at bedtime. buPROPion XL (WELLBUTRIN XL) 300 mg 24 hr tablet Take 300 mg by mouth every morning. buPROPion XL (WELLBUTRIN XL) 150 mg 24 hr tablet Take 150 mg by mouth every morning. gabapentin (NEURONTIN) 600 mg tablet Take 1 tablet by mouth twice daily. loratadine (CLARITIN) 10 mg tablet Take 1 tablet by mouth once daily. methotrexate sodium 25 mg/mL soln ascorbic acid, vitamin C, 500 mg cap Take by mouth. chlordiazePOXIDE-clidi nium (LIBRAX) 5-2.5 mg per capsule TAKE 1 CAPSULE BY MOUTH TWICE A DAY NEEDED traMADol (ULTRAM) 50 mg tablet Take 50 mg by mouth every 8 hours as needed. atorvastatin (LIPITOR) 20 mg tablet Take 20 mg by mouth once daily. biotin tab Take 5,000 mcg by mouth once daily. lutein 20 mg tab Take 20 mg by mouth once daily. melatonin 10 mg tab Take 10 mg by mouth daily at bedtime. gabapentin (NEURONTIN) 100 mg capsule Take 300 mg by mouth twice daily. CYANOCOBALAMIN, VITAMIN B-12, (VITAMIN B-12 ORAL) Take by mouth once daily. MULTIVITAMIN TAB Take one(1) tablet daily. NIMESH-600 WITH VITAMIN D 600 MG-200 UNIT TAB Take one(1) tablet daily. albuterol sulfate (PROAIR RESPICLICK) 90 mcg/actuation aepb Inhale 2 Puffs as instructed every 4 hours as needed. (Patient not taking: Reported on 06/16/2020 ) benzonatate (TESSALON PERLE) 100 mg capsule Take 2 capsules by mouth three times daily as needed. (Patient not taking: Reported on 06/16/2020 ) VITAMIN (more content not included)... Normal [facility] Absolute lymphocyte countOrd ered By: Mitzi Ann on 09-08-2022 Lymphocytes Auto (Unsp spec) [#/Vol] 1.76 10*3/uL 0.83-4.51 [facility] Basophil percentageOrdered B y: Mitzi Ann on 09-08-2022 Basophils/100 WBC (Bld) 0.7 % 0-1 [facility] Bilirubin [Mass/Vol] 0.40 mg/dL 0.20-1.00 [facility] Comment on above: For patients on eltr ombopag therapy, use of Dimension [place] TBIL is not recommended. Chloride [Moles/Vol] 105 mmol/L 98-107 [facility] Eosinophils/100 WBC (Bld) 2.1 % 0-5 [facility] Glucose [Mass/Vol] 87 mg/dL 74-106 [facility] Neutrophils (Bld) [#/Vol] 3.5 10*3/uL 2.0-7.7 [facility] Neutrophils/100 WBC (Bld) 58.3 % 47-70 [facility] Potassium [Moles/Vol] 4.0 mmol/L 3.5-5.1 [facility] Protein [Mass/Vol] 6.6 g/dL 6.4-8.2 [facility] Sodium [Moles/Vol] 137 mmol/L 136-145 [facility] WBC (Bld) [#/Vol] 6.1 10*3/uL 4.4-11.0 [facility] Blood erythrocytes count (nu mber/volume)Ordered By: Mitzi Ann on 09-08-2022 RBC (Bld) [#/Vol] 3.93 10*6/uL 4.2-5.4 [facility] Blood hemoglobin measurement (mass/volume)Ordered By: Mitzi Ann on 09-08-2022 Hemoglobin (Bld) [Mass/Vol] 12.6 g/dL 12.0-15.0 [facility] Blood lymphocytes/100 leukoc ytesOrdered By: Mitzi Ann on 09-08-2022 Lymphocytes/100 WBC (Bld) 29.0 % 19-41 [facility] Blood monocytes/100 leukocyt esOrdered By: Mitzi Ann on 09-08-2022 Monocytes/100 WBC (Bld) 9.7 % 0-10 [facility] Blood platelet mean volumeOr dered By: Mitzi Ann on 09-08-2022 Platelet mean volume (Bld) [Entitic vol] 9.7 fL 6.2-12.0 [facility] Determination of erythrocyte mean corpuscular volume (MCV)Ordered By: Mitzi Ann on 09-08-2022 MCV (RBC) [Entitic vol] 98.0 fL 81-99 [facility] Hematocrit Auto (Bld) [Volum e fraction]Ordered By: Mitzi Ann on 09-08-2022 Hematocrit (Bld) [Volume fraction] 38.5 % 37-47 [facility] Laboratory - Chemistry and C hemistry - challengeOrdered By: Mitzi Ann on 09-08-2022 ALP [Catalytic activity/Vol] 54 U/L 45-117 [facility] ALT [Catalytic activity/Vol] 28 U/L 13-56 [facility] CO2 [Moles/Vol] 28.0 mmol/L 21.0-32.0 [facility] Free T4 [Mass/Vol] 0.94 ng/dL 0.76-1.46 [facility] Globulin (S) [Mass/Vol] 3.2 g/dL 2.2-4.2 [facility] Urea nitrogen/Creatinine [Mass ratio] 15.5 mg/mg 10-20 [facility] Laboratory - Hematology and Cell countsOrdered By: Mitzi Ann on 09-08-2022 Erythrocyte distribution width (RBC) [Entitic vol] 48.2 fL 35.1-43.9 [facility] Erythrocyte distribution width (RBC) [Ratio] 13.6 % 11.6-14.6 [facility] Immature granulocytes/100 WBC (Bld) 0.200 % 0.0-0.9 [facility] Comment on above: IG% - Immature Granu locytes (promyelocytes, myelocytes and metamyelocytes) > 1% indicates that a LEFT SHIFT is Present. MCH (RBC) [Entitic mass] 32.1 pg 27.0-32.0 [facility] Nucleated RBC/100 WBC (Bld) [Ratio] 0 % 0-5 [facility] MCHC Auto (RBC) [Mass/Vol]Or dered By: Mitzi Ann on 09-08-2022 MCHC (RBC) [Mass/Vol] 32.7 g/dL 32-36 [facility] No Panel InformationOrdered By: Mitzi Ann on 09-08-2022 Estimated GFR (MDRD) Amer 80 mL/min >60 [facility] Comment on above: GFR Calc Estimated GFR (MDRD) Non-Af Amer 66 mL/min >60 [facility] Comment on above: Non- GFR Calc Thyroid Stimulating Hormone (TSH) 0.60 uIU/mL 0.358-3.74 [facility] Platelets bldOrdered By: Edvin Ann on 09-08-2022 Platelets (Bld) [#/Vol] 335 10*3/uL 150-450 [facility] Serum or plasma albumin gold urement (mass/volume)Ordered By: Mitzi Ann on 09-08-2022 Albumin [Mass/Vol] 3.4 g/dL 3.2-5.0 [facility] Serum or plasma albumin/glob ulin mass ratioOrdered By: Mitzi Ann on 09-08-2022 Albumin/Globulin [Mass ratio] 1.1 {ratio} 0.9-2.4 [facility] Serum or plasma calcium gold urement (mass/volume)Ordered By: Mitzi Ann on 09-08-2022 Calcium [Mass/Vol] 8.8 mg/dL 8.5-10.1 [facility] Serum or plasma creatinine m easurement (mass/volume)Ordered By: Mitzi Ann on 09-08-2022 Creatinine [Mass/Vol] 0.90 mg/dL 0.55-1.02 [facility] Comment on above: The validity of the calculated GFR & GFRAA in patients over 70 years has not been determined. Clinical correlation is essential. Serum or plasma urea nitroge n measurement (mass/volume)Ordered By: Mitzi Ann on 09-08-2022 Urea nitrogen [Mass/Vol] 14 mg/dL 7-18 [facility] Thin prep Papanicolaou smear with manual screeningOrdered By: Mitzi Ann on 09-08-2022 Thin prep Papanicolaou smear with manual screening 26 U/L 15-37 [facility] Thin prep Papanicolaou smear with manual screening 4 5-15 [facility] Absolute lymphocyte countOrd ered By: Dr. Ann on 06-11-2022 Lymphocytes Auto (Unsp spec) [#/Vol] 1.38 10*3/uL 0.83-4.51 [facility] Basophil percentageOrdered B y: Dr. Ann on 06-11-2022 Basophils/100 WBC (Bld) 1.0 % 0-1 [facility] Bilirubin [Mass/Vol] 0.30 mg/dL 0.20-1.00 [facility] Comment on above: For patients on eltr ombopag therapy, use of Dimension [place] TBIL is not recommended. Chloride [Moles/Vol] 103 mmol/L 98-107 [facility] Eosinophils/100 WBC (Bld) 2.2 % 0-5 [facility] Glucose [Mass/Vol] 93 mg/dL 74-106 [facility] Neutrophils (Bld) [#/Vol] 2.3 10*3/uL 2.0-7.7 [facility] Neutrophils/100 WBC (Bld) 55.0 % 47-70 [facility] Potassium [Moles/Vol] 3.7 mmol/L 3.5-5.1 [facility] Protein [Mass/Vol] 6.8 g/dL 6.4-8.2 [facility] Sodium [Moles/Vol] 136 mmol/L 136-145 [facility] WBC (Bld) [#/Vol] 4.1 10*3/uL 4.4-11.0 [facility] Blood erythrocytes count (nu mber/volume)Ordered By: Dr. Ann on 06-11-2022 RBC (Bld) [#/Vol] 4.18 10*6/uL 4.2-5.4 [facility] Blood hemoglobin measurement (mass/volume)Ordered By: Dr. Ann on 06-11-2022 Hemoglobin (Bld) [Mass/Vol] 13.4 g/dL 12.0-15.0 [facility] Blood lymphocytes/100 leukoc ytesOrdered By: Dr. Ann on 06-11-2022 Lymphocytes/100 WBC (Bld) 33.6 % 19-41 [facility] Blood monocytes/100 leukocyt esOrdered By: Dr. Ann on 06-11-2022 Monocytes/100 WBC (Bld) 8.0 % 0-10 [facility] Blood platelet mean volumeOr dered By: Dr. Ann on 06-11-2022 Platelet mean volume (Bld) [Entitic vol] 10.2 fL 6.2-12.0 [facility] Determination of erythrocyte mean corpuscular volume (MCV)Ordered By: Dr. Ann on 06-11-2022 MCV (RBC) [Entitic vol] 98.3 fL 81-99 [facility] Hematocrit Auto (Bld) [Volum e fraction]Ordered By: Dr. Ann on 06-11-2022 Hematocrit (Bld) [Volume fraction] 41.1 % 37-47 [facility] Laboratory - Chemistry and C hemistry - challengeOrdered By: Dr. Ann on 06-11-2022 ALP [Catalytic activity/Vol] 53 U/L 45-117 [facility] ALT [Catalytic activity/Vol] 26 U/L 13-56 [facility] CO2 [Moles/Vol] 30.0 mmol/L 21.0-32.0 [facility] Free T4 [Mass/Vol] 0.86 ng/dL 0.76-1.46 [facility] Globulin (S) [Mass/Vol] 3.2 g/dL 2.2-4.2 [facility] Urea nitrogen/Creatinine [Mass ratio] 14.3 mg/mg 10-20 [facility] Laboratory - Hematology and Cell countsOrdered By: Dr. Ann on 06-11-2022 Erythrocyte distribution width (RBC) [Entitic vol] 49.4 fL 35.1-43.9 [facility] Erythrocyte distribution width (RBC) [Ratio] 13.6 % 11.6-14.6 [facility] Immature granulocytes/100 WBC (Bld) 0.200 % 0.0-0.9 [facility] Comment on above: IG% - Immature Granu locytes (promyelocytes, myelocytes and metamyelocytes) > 1% indicates that a LEFT SHIFT is Present. MCH (RBC) [Entitic mass] 32.1 pg 27.0-32.0 [facility] Nucleated RBC/100 WBC (Bld) [Ratio] 0 % 0-5 [facility] MCHC Auto (RBC) [Mass/Vol]Or dered By: Dr. Ann on 06-11-2022 MCHC (RBC) [Mass/Vol] 32.6 g/dL 32-36 [facility] No Panel InformationOrdered By: Dr. Ann on 06-11-2022 Estimated GFR (MDRD) Amer 79 mL/min >60 [facility] Comment on above: GFR Calc Estimated GFR (MDRD) Non-Af Amer 65 mL/min >60 [facility] Comment on above: Non- GFR Calc Thyroid Stimulating Hormone (TSH) 0.91 uIU/mL 0.358-3.74 [facility] Platelets bldOrdered By: Dr. Ann on 06-11-2022 Platelets (Bld) [#/Vol] 268 10*3/uL 150-450 [facility] Serum or plasma albumin gold urement (mass/volume)Ordered By: Dr. Ann on 06-11-2022 Albumin [Mass/Vol] 3.6 g/dL 3.2-5.0 [facility] Serum or plasma albumin/glob ulin mass ratioOrdered By: Dr. Ann on 06-11-2022 Albumin/Globulin [Mass ratio] 1.1 {ratio} 0.9-2.4 [facility] Serum or plasma calcium gold urement (mass/volume)Ordered By: Dr. Ann on 06-11-2022 Calcium [Mass/Vol] 8.9 mg/dL 8.5-10.1 [facility] Serum or plasma creatinine m easurement (mass/volume)Ordered By: Dr. Ann on 06-11-2022 Creatinine [Mass/Vol] 0.91 mg/dL 0.55-1.02 [facility] Comment on above: The validity of the calculated GFR & GFRAA in patients over 70 years has not been determined. Clinical correlation is essential. Serum or plasma urea nitroge n measurement (mass/volume)Ordered By: Dr. Ann on 06-11-2022 Urea nitrogen [Mass/Vol] 13 mg/dL 7-18 [facility] Thin prep Papanicolaou smear with manual screeningOrdered By: Dr. Ann on 06-11-2022 Thin prep Papanicolaou smear with manual screening 25 U/L 15-37 [facility] Thin prep Papanicolaou smear with manual screening 3 5-15 [facility] Absolute lymphocyte countOrd ered By: Dr. Ann on 03-23-2022 Lymphocytes Auto (Unsp spec) [#/Vol] 1.67 10*3/uL 0.83-4.51 [facility] Basophil percentageOrdered B y: Dr. Ann on 03-23-2022 Basophils/100 WBC (Bld) 0.8 % 0-1 [facility] Bilirubin [Mass/Vol] 0.30 mg/dL 0.20-1.00 [facility] Comment on above: For patients on eltr ombopag therapy, use of Dimension [place] TBIL is not recommended. Chloride [Moles/Vol] 101 mmol/L 98-107 [facility] Eosinophils/100 WBC (Bld) 1.8 % 0-5 [facility] Glucose [Mass/Vol] 76 mg/dL 74-106 [facility] Neutrophils (Bld) [#/Vol] 2.6 10*3/uL 2.0-7.7 [facility] Neutrophils/100 WBC (Bld) 52.3 % 47-70 [facility] Potassium [Moles/Vol] 4.3 mmol/L 3.5-5.1 [facility] Protein [Mass/Vol] 6.7 g/dL 6.4-8.2 [facility] Sodium [Moles/Vol] 140 mmol/L 136-145 [facility] WBC (Bld) [#/Vol] 5.0 10*3/uL 4.4-11.0 [facility] Blood erythrocytes count (nu mber/volume)Ordered By: Dr. Ann on 03-23-2022 RBC (Bld) [#/Vol] 4.23 10*6/uL 4.2-5.4 [facility] Blood hemoglobin measurement (mass/volume)Ordered By: Dr. Ann on 03-23-2022 Hemoglobin (Bld) [Mass/Vol] 13.2 g/dL 12.0-15.0 [facility] Blood lymphocytes/100 leukoc ytesOrdered By: Dr. Ann on 03-23-2022 Lymphocytes/100 WBC (Bld) 33.2 % 19-41 [facility] Blood monocytes/100 leukocyt esOrdered By: Dr. Ann on 03-23-2022 Monocytes/100 WBC (Bld) 11.7 % 0-10 [facility] Blood platelet mean volumeOr dered By: Dr. Ann on 03-23-2022 Platelet mean volume (Bld) [Entitic vol] 10.3 fL 6.2-12.0 [facility] Determination of erythrocyte mean corpuscular volume (MCV)Ordered By: Dr. Ann on 03-23-2022 MCV (RBC) [Entitic vol] 97.6 fL 81-99 [facility] Hematocrit Auto (Bld) [Volum e fraction]Ordered By: Dr. Ann on 03-23-2022 Hematocrit (Bld) [Volume fraction] 41.3 % 37-47 [facility] Laboratory - Chemistry and C hemistry - challengeOrdered By: Dr. Ann on 03-23-2022 ALP [Catalytic activity/Vol] 54 U/L 45-117 [facility] ALT [Catalytic activity/Vol] 35 U/L 13-56 [facility] CO2 [Moles/Vol] 33.0 mmol/L 21.0-32.0 [facility] Globulin (S) [Mass/Vol] 2.9 g/dL 2.2-4.2 [facility] Urea nitrogen/Creatinine [Mass ratio] 25.4 mg/mg 10-20 [facility] Laboratory - Hematology and Cell countsOrdered By: Dr. Ann on 03-23-2022 Erythrocyte distribution width (RBC) [Entitic vol] 46.6 fL 35.1-43.9 [facility] Erythrocyte distribution width (RBC) [Ratio] 13.2 % 11.6-14.6 [facility] Immature granulocytes/100 WBC (Bld) 0.200 % 0.0-0.9 [facility] Comment on above: IG% - Immature Granu locytes (promyelocytes, myelocytes and metamyelocytes) > 1% indicates that a LEFT SHIFT is Present. MCH (RBC) [Entitic mass] 31.2 pg 27.0-32.0 [facility] Nucleated RBC/100 WBC (Bld) [Ratio] 0 % 0-5 [facility] MCHC Auto (RBC) [Mass/Vol]Or dered By: Dr. Ann on 03-23-2022 MCHC (RBC) [Mass/Vol] 32.0 g/dL 32-36 [facility] No Panel InformationOrdered By: Dr. Ann on 03-23-2022 Estimated GFR (MDRD) Amer 84 mL/min >60 [facility] Comment on above: GFR Calc Estimated GFR (MDRD) Non-Af Amer 69 mL/min >60 [facility] Comment on above: Non- GFR Calc Platelets bldOrdered By: Dr. Ann on 03-23-2022 Platelets (Bld) [#/Vol] 282 10*3/uL 150-450 [facility] Serum or plasma albumin gold urement (mass/volume)Ordered By: Dr. Ann on 03-23-2022 Albumin [Mass/Vol] 3.8 g/dL 3.2-5.0 [facility] Serum or plasma albumin/glob ulin mass ratioOrdered By: Dr. Ann on 03-23-2022 Albumin/Globulin [Mass ratio] 1.3 {ratio} 0.9-2.4 [facility] Serum or plasma calcium gold urement (mass/volume)Ordered By: Dr. Ann on 03-23-2022 Calcium [Mass/Vol] 9.3 mg/dL 8.5-10.1 [facility] Serum or plasma creatinine m easurement (mass/volume)Ordered By: Dr. Ann on 03-23-2022 Creatinine [Mass/Vol] 0.87 mg/dL 0.55-1.02 [facility] Comment on above: The validity of the calculated GFR & GFRAA in patients over 70 years has not been determined. Clinical correlation is essential. Serum or plasma urea nitroge n measurement (mass/volume)Ordered By: Dr. Ann on 03-23-2022 Urea nitrogen [Mass/Vol] 22 mg/dL 7-18 [facility] Thin prep Papanicolaou smear with manual screeningOrdered By: Dr. Ann on 03-23-2022 Thin prep Papanicolaou smear with manual screening 21 U/L 15-37 [facility] Thin prep Papanicolaou smear with manual screening 6 5-15 [facility] DBT Breast - bilateral scree sylviayamila 02-15-2022 No mammographic evidence of malignancy. Markings on images: BB's = Nipples; skin lesions Open [place] = Palpable Line = Scar ASSESSMENT: Category 2 Benign RECOMMENDATION: Routine screening mammogram in 1 year. Bilateral Report Dictated on Electronically Signed By: Aleshia Trevino Electronically Signed Date/Time: 02/15/2022 8:15 AM [facility] [employer] Patient Name: DAHIANA CASTELLON Exam Date/Time: 02/12/2022 11:11 Procedure: BI MAMMOGRAM SCREENING TOMOSYNTHESIS BILATERAL Ordering Provider: WOLF ARTHUR Reason For Exam: Image views: 2D Bilateral CC and MLO views were acquired. 3D Bilateral CC and MLO views were acquired. Prior study Comparisons: 02/04/2020, 02/10/2021 Tissue Density: BIRADS B - There are scattered fibroglandular densities. Images were reviewed with CAD. Findings: Postsurgical changes are noted on the right. No suspicious masses, architectural distortions or suspiciously clustered microcalcifications are identified. There is no evidence of skin thickening or nipple retraction. There are no significant changes when compared with prior studies. [facility] Aleshia Trevino MD - 02/15/2022 Patient Name: DAHIANA CASTELLON Exam Date/Time: 02/12/2022 11:11 Procedure: BI MAMMOGRAM SCREENING TOMOSYNTHESIS BILATERAL Ordering Provider: WOLF ARTHUR Reason For Exam: Image views: 2D Bilateral CC and MLO views were acquired. 3D Bilateral CC and MLO views were acquired. Prior study Comparisons: 02/04/2020, 02/10/2021 Tissue Density: BIRADS B - There are scattered fibroglandular densities. Images were reviewed with CAD. Findings: Postsurgical changes are noted on the right. No suspicious masses, architectural distortions or suspiciously clustered microcalcifications are identified. There is no evidence of skin thickening or nipple retraction. There are no significant changes when compared with prior studies. IMPRESSION: No mammographic evidence of malignancy. Markings on images: BB's = Nipples; skin lesions [place] = Palpable Line = Scar ASSESSMENT: Category 2 Benign RECOMMENDATION: Routine screening mammogram in 1 year. Bilateral Report Dictated on Electronically Signed By: Aleshia Trevino Electronically Signed Date/Time: 02/15/2022 8:15 AM EST [employer] DBT Breast - bilateral scree ningOrdered By: Aleshia Trevino on 02-15-2022 [employer] Work Phone: DBT Breast - bilateral scree tal 02-12-2022 Radiology Study observation (narrative) [facility] US ABDOMEN LIMITED Specify o jamie Root 01-06-2022 Patient Name: DAHIANA CASTELLON Ultrasound ACCESSION EXAM DATE/TIME PROCEDURE ORDERING PROVIDER [id number] 01/06/2022 09:47 EDT US Abdomen Limited MD WOLF ARTHUR B CPT code 79655 Reason For Exam (US Abdomen Limited) see breast MRI Report CLINICAL INFORMATION: Liver lesions on breast MRI Sonogram of the right upper quadrant is performed. The liver is normal in echotexture. No hyper or hypo echoic masses are seen with multiple hepatic cysts largest 9.9 cm. There is no intrahepatic biliary ductal dilatation. The gallbladder is normally distended. There are no gallstones, internal echoes, wall thickening, or pericholecystic fluid collections. The common bile duct diameter of 4.9 mm is within normal limits. The pancreas is homogenous in echo texture, partially obscured by bowel gas. No obvious pancreatic mass or peripancreatic fluid collection is identified. Cursory examination of the right kidney is performed. The right renal length is 10.6 cm. There is no hydronephrosis. There is no ascites in the right upper quadrant. IMPRESSION: Unremarkable ultrasound of the right upper quadrant of the abdomen except for multiple hepatic cysts, largest 9.9 cm. Report Dictated on --- Final --- Dictated: 01/06/2022 12:46 pm Dictating Physician: MD RICK WILLIAM Signed Date and Time: 01/06/2022 12:48 pm Signed by: MD RICK WILLIAM Transcribed Date and Time: 01/06/2022 12:46 [facility] Aman Rick MD - 01/06/2022 Patient Name: DAHIANA CASTELLON Ultrasound ACCESSION EXAM DATE/TIME PROCEDURE ORDERING PROVIDER [id number] 01/06/2022 09:47 EDT US Abdomen Limited MD WOLF ARTHUR B CPT code 58406 Reason For Exam (US Abdomen Limited) see breast MRI Report CLINICAL INFORMATION: Liver lesions on breast MRI Sonogram of the right upper quadrant is performed. The liver is normal in echotexture. No hyper or hypo echoic masses are seen with multiple hepatic cysts largest 9.9 cm. There is no intrahepatic biliary ductal dilatation. The gallbladder is normally distended. There are no gallstones, internal echoes, wall thickening, or pericholecystic fluid collections. The common bile duct diameter of 4.9 mm is within normal limits. The pancreas is homogenous in echo texture, partially obscured by bowel gas. No obvious pancreatic mass or peripancreatic fluid collection is identified. Cursory examination of the right kidney is performed. The right renal length is 10.6 cm. There is no hydronephrosis. There is no ascites in the right upper quadrant. IMPRESSION: Unremarkable ultrasound of the right upper quadrant of the abdomen except for multiple hepatic cysts, largest 9.9 cm. Report Dictated on --- Final --- Dictated: 01/06/2022 12:46 pm Dictating Physician: MD RICK WILLIAM Signed Date and Time: 01/06/2022 12:48 pm Signed by: MD RICK WILLIAM Transcribed Date and Time: 01/06/2022 12:46 [facility] Work Phone: Radiology Study observation (narrative) [facility] Work Phone: US ABDOMEN LIMITED Specify o rgan? LIVEROrdered By: Aman Rick on 01-06-2022 [facility] Work Phone: US Abdomen Limitedon 022 US Abdomen Limited [facility]: [id number] ACCESSION EXAM DATE/TIME PROCEDURE ORDERING PROVIDER [id number] 01/06/2022 09:47 EDT US Abdomen Limited MD WOLF ARTHUR B CPT code 51335 Reason For Exam (US Abdomen Limited) see breast MRI Report CLINICAL INFORMATION: Liver lesions on breast MRI Sonogram of the right upper quadrant is performed. The liver is normal in echotexture. No hyper or hypo echoic masses are seen with multiple hepatic cysts largest 9.9 cm. There is no intrahepatic biliary ductal dilatation. The gallbladder is normally distended. There are no gallstones, internal echoes, wall thickening, or pericholecystic fluid collections. The common bile duct diameter of 4.9 mm is within normal limits. The pancreas is homogenous in echo texture, partially obscured by bowel gas. No obvious pancreatic mass or peripancreatic fluid collection is identified. Cursory examination of the right kidney is performed. The right renal length is 10.6 cm. There is no hydronephrosis. There is no ascites in the right upper quadrant. IMPRESSION: Unremarkable ultrasound of the right upper quadrant of the abdomen except for multiple hepatic cysts, largest 9.9 cm. Report Dictated on Final Dictated: 01/06/2022 12:46 pm Dictating Physician: MD RICK WILLIAM Signed Date and Time: 01/06/2022 12:48 pm Signed by: MD RICK WILLIAM Transcribed Date and Time: 01/06/2022 12:46 Normal [facility] Absolute lymphocyte countOrd ered By: Dr. Ann on 12-24-2021 Lymphocytes Auto (Unsp spec) [#/Vol] 1.21 10*3/uL 0.83-4.51 [facility] Basophil percentageOrdered B y: Dr. Ann on 12-24-2021 Basophils/100 WBC (Bld) 0.8 % 0-1 [facility] Bilirubin [Mass/Vol] 0.40 mg/dL 0.20-1.00 [facility] Comment on above: For patients on eltr ombopag therapy, use of Dim[place] TBIL is not recommended. Chloride [Moles/Vol] 104 mmol/L 98-107 [facility] Eosinophils/100 WBC (Bld) 2.5 % 0-5 [facility] Glucose [Mass/Vol] 51 mg/dL 74-106 [facility] Neutrophils (Bld) [#/Vol] 2.9 10*3/uL 2.0-7.7 [facility] Neutrophils/100 WBC (Bld) 61.2 % 47-70 [facility] Potassium [Moles/Vol] 3.9 mmol/L 3.5-5.1 [facility] Protein [Mass/Vol] 7.2 g/dL 6.4-8.2 [facility] Sodium [Moles/Vol] 140 mmol/L 136-145 [facility] WBC (Bld) [#/Vol] 4.7 10*3/uL 4.4-11.0 [facility] Blood erythrocytes count (nu mber/volume)Ordered By: Dr. Ann on 12-24-2021 RBC (Bld) [#/Vol] 4.05 10*6/uL 4.2-5.4 [facility] Blood hemoglobin measurement (mass/volume)Ordered By: Dr. Ann on 12-24-2021 Hemoglobin (Bld) [Mass/Vol] 12.9 g/dL 12.0-15.0 [facility] Blood lymphocytes/100 leukoc ytesOrdered By: Dr. Ann on 12-24-2021 Lymphocytes/100 WBC (Bld) 25.6 % 19-41 [facility] Blood monocytes/100 leukocyt esOrdered By: Dr. Ann on 12-24-2021 Monocytes/100 WBC (Bld) 9.7 % 0-10 [facility] Blood platelet mean volumeOr dered By: Dr. Ann on 12-24-2021 Platelet mean volume (Bld) [Entitic vol] 11.2 fL 6.2-12.0 [facility] Determination of erythrocyte mean corpuscular volume (MCV)Ordered By: Dr. Ann on 12-24-2021 MCV (RBC) [Entitic vol] 100.7 fL 81-99 [facility] Hematocrit Auto (Bld) [Volum e fraction]Ordered By: Dr. Ann on 12-24-2021 Hematocrit (Bld) [Volume fraction] 40.8 % 37-47 [facility] Laboratory - Chemistry and C hemistry - challengeOrdered By: Dr. Ann on 12-24-2021 ALP [Catalytic activity/Vol] 59 U/L 45-117 [facility] ALT [Catalytic activity/Vol] 40 U/L 13-56 [facility] CO2 [Moles/Vol] 31.0 mmol/L 21.0-32.0 [facility] Globulin (S) [Mass/Vol] 3.6 g/dL 2.2-4.2 [facility] Urea nitrogen/Creatinine [Mass ratio] 15.8 mg/mg 10-20 [facility] Laboratory - Hematology and Cell countsOrdered By: Dr. Ann on 12-24-2021 Erythrocyte distribution width (RBC) [Entitic vol] 51.4 fL 35.1-43.9 [facility] Erythrocyte distribution width (RBC) [Ratio] 14.3 % 11.6-14.6 [facility] Immature granulocytes/100 WBC (Bld) 0.200 % 0.0-0.9 [facility] Comment on above: IG% - Immature Granu locytes (promyelocytes, myelocytes and metamyelocytes) > 1% indicates that a LEFT SHIFT is Present. MCH (RBC) [Entitic mass] 31.9 pg 27.0-32.0 [facility] Nucleated RBC/100 WBC (Bld) [Ratio] 0 % 0-5 [facility] MCHC Auto (RBC) [Mass/Vol]Or dered By: Dr. Ann on 12-24-2021 MCHC (RBC) [Mass/Vol] 31.6 g/dL 32-36 [facility] No Panel InformationOrdered By: Dr. Ann on 12-24-2021 Estimated GFR (MDRD) Amer 70 mL/min >60 [facility] Comment on above: GFR Calc Estimated GFR (MDRD) Non-Af Amer 58 mL/min >60 [facility] Comment on above: Non- GFR Calc Platelets bldOrdered By: Dr. Ann on 12-24-2021 Platelets (Bld) [#/Vol] 209 10*3/uL 150-450 [facility] Serum or plasma albumin gold urement (mass/volume)Ordered By: Dr. Ann on 12-24-2021 Albumin [Mass/Vol] 3.6 g/dL 3.2-5.0 [facility] Serum or plasma albumin/glob ulin mass ratioOrdered By: Dr. Ann on 12-24-2021 Albumin/Globulin [Mass ratio] 1.0 {ratio} 0.9-2.4 [facility] Serum or plasma calcium gold urement (mass/volume)Ordered By: Dr. Ann on 12-24-2021 Calcium [Mass/Vol] 9.4 mg/dL 8.5-10.1 [facility] Serum or plasma creatinine m easurement (mass/volume)Ordered By: Dr. Ann on 12-24-2021 Creatinine [Mass/Vol] 1.01 mg/dL 0.55-1.02 [facility] Comment on above: The validity of the calculated GFR & GFRAA in patients over 70 years has not been determined. Clinical correlation is essential. Serum or plasma urea nitroge n measurement (mass/volume)Ordered By: Dr. Ann on 12-24-2021 Urea nitrogen [Mass/Vol] 16 mg/dL 7-18 [facility] Thin prep Papanicolaou smear with manual screeningOrdered By: Dr. Ann on 12-24-2021 Thin prep Papanicolaou smear with manual screening 30 U/L 15-37 [facility] Thin prep Papanicolaou smear with manual screening 5 5-15 [facility] XR CHEST 2V FRONTAL/LATon [facility] XR Chest PA and Lateralon IMPRESSION: No acute radiographic abnormality. Front End Web Developer: MARIALUISA Transcribe Date/Time: Oct 08 2021 4:13P Dictated by : KEYON CONNELLY MD This examination was interpreted and the report reviewed and electronically signed by: KEYON CONNELLY MD on Oct 08 2021 4:15PM EST [facility]_DO_NOT_USE_ DIVISION OF RADIOLOGY * * *Final Report* * * DATE OF EXAM: Oct 08 2021 4:10PM WOX [id number] - XR CHEST 2V FRONTAL/LAT / PROCEDURE REASON: multiple diagnoses * * * * Physician Interpretation * * * * EXAMINATION: CHEST RADIOGRAPH (2 VIEW FRONTAL & LATERAL) CLINICAL HISTORY: Acute cough Acute sinusitis, recurrence not specified, unspecified location MQ: XC2_6 EXAM DATE/TIME: 10/08/2021 4:10 PM COMPARISON: No relevant prior studies available. RESULT: Lines, tubes, and devices: None. Lungs and pleura: No consolidation. No lung mass. No pleural effusion. No pneumothorax. Cardiomediastinal silhouette: Normal cardiomediastinal silhouette. Bones and soft tissues: Degenerative disease of the thoracic spine [facility]_DO_NOT_USE_ DIVISION OF RADIOLOGY Provider, Sonia Guillory - 10/08/2021 * * *Final Report* * * DATE OF EXAM: Oct 08 2021 4:10PM WOX [id number] - XR CHEST 2V FRONTAL/LAT / PROCEDURE REASON: multiple diagnoses * * * * Physician Interpretation * * * * EXAMINATION: CHEST RADIOGRAPH (2 VIEW FRONTAL & LATERAL) CLINICAL HISTORY: Acute cough Acute sinusitis, recurrence not specified, unspecified location MQ: XC2_6 EXAM DATE/TIME: 10/08/2021 4:10 PM COMPARISON: No relevant prior studies available. RESULT: Lines, tubes, and devices: None. Lungs and pleura: No consolidation. No lung mass. No pleural effusion. No pneumothorax. Cardiomediastinal silhouette: Normal cardiomediastinal silhouette. Bones and soft tissues: Degenerative disease of the thoracic spine IMPRESSION IMPRESSION: No acute radiographic abnormality. Front End Web Developer: MARIALUISA Transcribe Date/Time: Oct 08 2021 4:13P Dictated by : KEYON CONNELLY MD This examination was interpreted and the report reviewed and electronically signed by: KEYON CONNELLY MD on Oct 08 2021 4:15PM EST [facility] Radiology Study observation (narrative) [facility] XR Chest PA and LateralOrder ed By: [facility] Provider on 10-08-2021 [facility] Absolute lymphocyte counton 09-29-2021 Lymphocytes Auto (Unsp spec) [#/Vol] 1.34 10*3/uL 0.83-4.51 [facility] Work Phone: Basophil percentageon 2021 Basophils/100 WBC (Bld) 1.3 % 0-1 [facility] Work Phone: Bilirubin [Mass/Vol] 0.30 mg/dL 0.20-1.00 [facility] Work Phone: Comment on above: For patients on eltr ombopag therapy, use of Dim[place] TBIL is not recommended. Chloride [Moles/Vol] 104 mmol/L 98-107 [facility] Work Phone: Eosinophils/100 WBC (Bld) 2.1 % 0-5 [facility] Work Phone: Glucose [Mass/Vol] 84 mg/dL 74-106 [facility] Work Phone: Neutrophils (Bld) [#/Vol] 1.8 10*3/uL 2.0-7.7 [facility] Work Phone: Neutrophils/100 WBC (Bld) 47.0 % 47-70 [facility] Work Phone: Potassium [Moles/Vol] 4.2 mmol/L 3.5-5.1 [facility] Work [place]: Protein [Mass/Vol] 6.8 g/dL 6.4-8.2 [facility] Phone: Sodium [Moles/Vol] 139 mmol/L 136-145 [facility] Work Phone: WBC (Bld) [#/Vol] 3.9 10*3/uL 4.4-11.0 [facility] Work Phone: Blood erythrocytes count (nu mber/volume)on 09-29-2021 RBC (Bld) [#/Vol] 4.05 10*6/uL 4.2-5.4 [facility]: Blood hemoglobin measurement (mass/volume)on 09-29-2021 Hemoglobin (Bld) [Mass/Vol] 12.8 g/dL 12.0-15.0 [facility] Work Phone: Blood lymphocytes/100 leukoc yteson 09-29-2021 Lymphocytes/100 WBC (Bld) 34.4 % 19-41 [facility] Work Phone: Blood monocytes/100 leukocyt eson 09-29-2021 Monocytes/100 WBC (Bld) 15.2 % 0-10 [facility] Work Phone: Blood platelet mean volumeon 09-29-2021 Platelet mean volume (Bld) [Entitic vol] 10.5 fL 6.2-12.0 [facility] Work Phone: Determination of erythrocyte mean corpuscular volume (MCV)on 09-29-2021 MCV (RBC) [Entitic vol] 97.3 fL 81-99 [facility] Work Phone: Hematocrit Auto (Bld) [Volum e fraction]on 09-29-2021 Hematocrit (Bld) [Volume fraction] 39.4 % 37-47 [facility] Work Phone: Laboratory - Chemistry and C hemistry - challengeon 09-29-2021 ALP [Catalytic activity/Vol] 48 U/L 45-117 [facility] Work Phone: ALT [Catalytic activity/Vol] 48 U/L 13-56 [facility] Work Phone: CO2 [Moles/Vol] 30.0 mmol/L 21.0-32.0 [facility] Work Phone: Globulin (S) [Mass/Vol] 3.2 g/dL 2.2-4.2 [facility] Work Phone: Urea nitrogen/Creatinine [Mass ratio] 20.6 mg/mg 10-20 [facility] Work Phone: Laboratory - Hematology and Cell countson 09-29-2021 Erythrocyte distribution width (RBC) [Entitic vol] 48.6 fL 35.1-43.9 [facility] Work Phone: Erythrocyte distribution width (RBC) [Ratio] 13.6 % 11.6-14.6 [facility] Work Phone: Immature granulocytes/100 WBC (Bld) 0.000 % 0.0-0.9 [facility] Work Phone: Comment on above: IG% - Immature Granu locytes (promyelocytes, myelocytes and metamyelocytes) > 1% indicates that a LEFT SHIFT is Present. MCH (RBC) [Entitic mass] 31.6 pg 27.0-32.0 [facility] Work Phone: Nucleated RBC/100 WBC (Bld) [Ratio] 0 % 0-5 [facility] Work Phone: MCHC Auto (RBC) [Mass/Vol]on 09-29-2021 MCHC (RBC) [Mass/Vol] 32.5 g/dL 32-36 [facility] Work Phone: No Panel Informationon 09-29 Estimated GFR (MDRD) Amer 78 mL/min >60 [facility] Work Phone: Comment on above: GFR Calc Estimated GFR (MDRD) Non-Af Amer 64 mL/min >60 [facility] Work Phone: Comment on above: Non- GFR Calc Platelets bldon 09-29-2021 Platelets (Bld) [#/Vol] 250 10*3/uL 150-450 [facility] Work Phone: Serum or plasma albumin gold urement (mass/volume)on 09-29-2021 Albumin [Mass/Vol] 3.6 g/dL 3.2-5.0 [facility] Work Phone: Serum or plasma albumin/glob ulin mass ratioon 09-29-2021 Albumin/Globulin [Mass ratio] 1.1 {ratio} 0.9-2.4 [facility] Work Phone: Serum or plasma calcium gold urement (mass/volume)on 09-29-2021 Calcium [Mass/Vol] 9.1 mg/dL 8.5-10.1 [facility] Work Phone: Serum or plasma creatinine m easurement (mass/volume)on 09-29-2021 Creatinine [Mass/Vol] 0.92 mg/dL 0.55-1.02 [facility] Work Phone: Comment on above: The validity of the calculated GFR & GFRAA in patients over 70 years has not been determined. Clinical correlation is essential. Serum or plasma urea nitroge n measurement (mass/volume)on 09-29-2021 Urea nitrogen [Mass/Vol] 19 mg/dL 7-18 [facility] Work Phone: Thin prep Papanicolaou smear with manual screeningon 09-29-2021 Thin prep Papanicolaou smear with manual screening 38 U/L 15-37 [facility] Work Phone: Thin prep Papanicolaou smear with manual screening 5 5-15 [facility] Work Phone: MRI Breast w/ + w/o Contrast Bilateral w/ CADon 09-06-2021 MRI Breast w/ + w/o Contrast Bilateral w/ CAD Patient Name: DAHIANA CASTELLON [facility] ACCESSION EXAM DATE/TIME PROCEDURE ORDERING PROVIDER [id number] 09/06/2021 08:15 EDT MRI Breast w/ + w/o MD LUCIANO, ADELIA Tovar Contrast Bilateral CPT code 24949 Reason For Exam (MRI Breast w/ + w/o Contrast Bilateral) HR- [facility] yearly mri Report PROCEDURE: MR BREAST W/+ W/O CONTRAST BILATERAL: SEPTEMBER 08, 2021 - Technique: Clinical Indication: Breast MRI Screening - High-risk annual. Contrast: Gadavist 5.5 mL IV. Bilateral breast MRI was performed with a dedicated breast coil. Fat saturated T2 weighted and T1 weighted axial images were obtained of both breasts. Dynamic pre-and post contrast axial image sets were obtained of both breasts after intravenous injection of gadolinium based contrast. Delayed post contrast sagittal images were also obtained. Subtraction images and MIP images were generated. Interpretation was made in conjunction with CAD. The patient's prior imaging was reviewed. Prior study comparison: February 10, 2021, bilateral MG breast tomosynthesis bl scr performed at [facility]. August 05, 2020, MR breast w/+ w/o contrast bilateral performed at [facility]. February 04, 2020, bilateral MG breast tomosynthesis bl scr performed at [facility]. February 01, 2019, bilateral MG breast tomosynthesis bl scr performed at [facility]. January 24, 2018, bilateral MG breast tomosynthesis bl scr performed at [facility]. . FINDINGS: There is mild bilateral background enhancement. Right Breast: There is no suspicious mass or non-mass enhancement in the right breast. Left Breast: There is no suspicious mass or non-mass enhancement in the left breast. Other: No axillary or internal mammary lymphadenopathy is appreciated. There are multiple large cystic masses Magnetic Resonance Imaging Report within the liver. IMPRESSION: No MRI evidence of malignancy in either breast. Multiple cystic liver masses. Correlate with prior imaging. If there is no prior hepatic imaging, consider liver ultrasound to start. Liver protocol CT or MRI can also be performed. ASSESSMENT: Category 1 Negative RECOMMENDATION: Breast MRI of both breasts in 1 year. Report Dictated on Final Signed Date and Time: 09/08/2021 9:51 am Signed by: MD ARELY, MAXIMILIAN Lamb [facility] Absolute lymphocyte counton 07-01-2021 Lymphocytes Auto (Unsp spec) [#/Vol] 1.42 10*3/uL 0.83-4.51 [facility] Work Phone: Basophil percentageon 2021 Basophils/100 WBC (Bld) 1.1 % 0-1 [facility] Work Phone: Bilirubin [Mass/Vol] 0.30 mg/dL 0.20-1.00 [facility] Work Phone: Comment on above: For patients on eltr ombopag therapy, use of Dim[place] TBIL is not recommended. Chloride [Moles/Vol] 104 mmol/L 98-107 [facility] Work Phone: Eosinophils/100 WBC (Bld) 4.1 % 0-5 [facility] Work Phone: Glucose [Mass/Vol] 72 mg/dL 74-106 [facility] Work Phone: Neutrophils (Bld) [#/Vol] 2.3 10*3/uL 2.0-7.7 [facility] Work Phone: Neutrophils/100 WBC (Bld) 52.8 % 47-70 [facility] Work Phone: Potassium [Moles/Vol] 4.1 mmol/L 3.5-5.1 [facility] Work Phone: Protein [Mass/Vol] 6.9 g/dL 6.4-8.2 [facility] Work Phone: Sodium [Moles/Vol] 140 mmol/L 136-145 [facility] Work Phone: WBC (Bld) [#/Vol] 4.4 10*3/uL 4.4-11.0 [facility] Work Phone: Blood erythrocytes count (nu mber/volume)on 07-01-2021 RBC (Bld) [#/Vol] 4.16 10*6/uL 4.2-5.4 [facility] Work Phone: Blood hemoglobin measurement (mass/volume)on 07-01-2021 Hemoglobin (Bld) [Mass/Vol] 13.3 g/dL 12.0-15.0 [facility] Work Phone: Blood lymphocytes/100 leukoc yteson 07-01-2021 Lymphocytes/100 WBC (Bld) 32.4 % 19-41 [facility] Work Phone: Blood monocytes/100 leukocyt eson 07-01-2021 Monocytes/100 WBC (Bld) 9.4 % 0-10 [facility] Work Phone: Blood platelet mean volumeon 07-01-2021 Platelet mean volume (Bld) [Entitic vol] 10.4 fL 6.2-12.0 [facility] Work Phone: Determination of erythrocyte mean corpuscular volume (MCV)on 07-01-2021 MCV (RBC) [Entitic vol] 98.6 fL 81-99 [facility] Work Phone: Hematocrit Auto (Bld) [Volum e fraction]on 07-01-2021 Hematocrit (Bld) [Volume fraction] 41.0 % 37-47 [facility] Work Phone: Laboratory - Chemistry and C hemistry - challengeon 07-01-2021 ALP [Catalytic activity/Vol] 51 U/L 45-117 [facility] Work Phone: ALT [Catalytic activity/Vol] 41 U/L 13-56 [facility] Work Phone: CO2 [Moles/Vol] 31.0 mmol/L 21.0-32.0 [facility] Work Phone: Globulin (S) [Mass/Vol] 3.2 g/dL 2.2-4.2 [facility] Work Phone: Urea nitrogen/Creatinine [Mass ratio] 25.2 mg/mg 10-20 [facility] Work Phone: Laboratory - Hematology and Cell countson 07-01-2021 Erythrocyte distribution width (RBC) [Entitic vol] 47.5 fL 35.1-43.9 [facility] Work Phone: Erythrocyte distribution width (RBC) [Ratio] 13.2 % 11.6-14.6 [facility] Work Phone: Immature granulocytes/100 WBC (Bld) 0.200 % 0.0-0.9 [facility] Work Phone: Comment on above: IG% - Immature Granu locytes (promyelocytes, myelocytes and metamyelocytes) > 1% indicates that a LEFT SHIFT is Present. MCH (RBC) [Entitic mass] 32.0 pg 27.0-32.0 [facility] Work Phone: Nucleated RBC/100 WBC (Bld) [Ratio] 0 % 0-5 [facility] Work Phone: MCHC Auto (RBC) [Mass/Vol]on 07-01-2021 MCHC (RBC) [Mass/Vol] 32.4 g/dL 32-36 [facility] Work Phone: No Panel Informationon 07-01 Estimated GFR (MDRD) Amer 88 mL/min >60 [facility] Work Phone: Comment on above: GFR Calc Estimated GFR (MDRD) Non-Af Amer 72 mL/min >60 [facility] Work Phone: Comment on above: Non- GFR Calc Platelets bldon 07-01-2021 Platelets (Bld) [#/Vol] 252 10*3/uL 150-450 [facility] Work Phone: Serum or plasma albumin gold urement (mass/volume)on 07-01-2021 Albumin [Mass/Vol] 3.7 g/dL 3.2-5.0 [facility] Work Phone: Serum or plasma albumin/glob ulin mass ratioon 07-01-2021 Albumin/Globulin [Mass ratio] 1.2 {ratio} 0.9-2.4 [facility] Work Phone: Serum or plasma calcium gold urement (mass/volume)on 07-01-2021 Calcium [Mass/Vol] 9.1 mg/dL 8.5-10.1 [facility] Work Phone: Serum or plasma creatinine m easurement (mass/volume)on 07-01-2021 Creatinine [Mass/Vol] 0.83 mg/dL 0.55-1.02 [facility] Work Phone: Comment on above: The validity of the calculated GFR & GFRAA in patients over 70 years has not been determined. Clinical correlation is essential. Serum or plasma urea nitroge n measurement (mass/volume)on 07-01-2021 Urea nitrogen [Mass/Vol] 21 mg/dL 7-18 [facility] Work Phone: Thin prep Papanicolaou smear with manual screeningon 07-01-2021 Thin prep Papanicolaou smear with manual screening 28 U/L 15-37 [facility] Work Phone: Thin prep Papanicolaou smear with manual screening 5 5-15 [facility] Work Phone: Absolute lymphocyte counton 04-02-2021 Lymphocytes Auto (Unsp spec) [#/Vol] 1.79 10*3/uL 0.83-4.51 [facility] Work Phone: Basophil percentageon 2021 Basophils/100 WBC (Bld) 1.9 % 0-1 [facility] Work Phone: Bilirubin [Mass/Vol] 0.30 mg/dL 0.20-1.00 [facility] Work Phone: Comment on above: For patients on eltr ombopag therapy, use of Dim[place] TBIL is not recommended. Chloride [Moles/Vol] 104 mmol/L 98-107 [facility] Work [facility]: Eosinophils/100 WBC (Bld) 4.2 % 0-5 [facility] Work Phone: Glucose [Mass/Vol] 64 mg/dL 74-106 [facility] Work Phone: Neutrophils (Bld) [#/Vol] 2.4 10*3/uL 2.0-7.7 [facility] Work Phone: Neutrophils/100 WBC (Bld) 50.0 % 47-70 [facility] Work Phone: Potassium [Moles/Vol] 4.1 mmol/L 3.5-5.1 [facility]: Protein [Mass/Vol] 6.8 g/dL 6.4-8.2 [facility] Work Phone: Sodium [Moles/Vol] 140 mmol/L 136-145 [facility] Work Phone: WBC (Bld) [#/Vol] 4.8 10*3/uL 4.4-11.0 [facility] Work Phone: Blood erythrocytes count (nu mber/volume)on 04-02-2021 RBC (Bld) [#/Vol] 4.06 10*6/uL 4.2-5.4 [facility] Work Phone: Blood hemoglobin measurement (mass/volume)on 04-02-2021 Hemoglobin (Bld) [Mass/Vol] 12.9 g/dL 12.0-15.0 [facility] Work Phone: Blood lymphocytes/100 leukoc yteson 04-02-2021 Lymphocytes/100 WBC (Bld) 37.4 % 19-41 [facility] Work Phone: Blood monocytes/100 leukocyt eson 04-02-2021 Monocytes/100 WBC (Bld) 6.3 % 0-10 [facility] Work Phone: Blood platelet mean volumeon 04-02-2021 Platelet mean volume (Bld) [Entitic vol] 10.4 fL 6.2-12.0 [facility] Work Phone: Determination of erythrocyte mean corpuscular volume (MCV)on 04-02-2021 MCV (RBC) [Entitic vol] 97.8 fL 81-99 [facility] Work Phone: Hematocrit Auto (Bld) [Volum e fraction]on 04-02-2021 Hematocrit (Bld) [Volume fraction] 39.7 % 37-47 [facility] Work Phone: Laboratory - Chemistry and C hemistry - challengeon 04-02-2021 ALP [Catalytic activity/Vol] 57 U/L 45-117 [facility] Work Phone: ALT [Catalytic activity/Vol] 40 U/L 13-56 [facility] Work Phone: CO2 [Moles/Vol] 32.0 mmol/L 21.0-32.0 [facility] Work Phone: Globulin (S) [Mass/Vol] 3.3 g/dL 2.2-4.2 [facility] Work Phone: Urea nitrogen/Creatinine [Mass ratio] 24.5 mg/mg 10- [facility] Work Phone: Laboratory - Hematology and Cell countson 04-02-2021 Erythrocyte distribution width (RBC) [Entitic vol] 48.7 fL 35.1-43.9 [facility] Work Phone: Erythrocyte distribution width (RBC) [Ratio] 13.5 % 11.6-14.6 [facility] Work Phone: Immature granulocytes/100 WBC (Bld) 0.200 % 0.0-0.9 [facility] Work Phone: Comment on above: IG% - Immature Granu locytes (promyelocytes, myelocytes and metamyelocytes) > 1% indicates that a LEFT SHIFT is Present. MCH (RBC) [Entitic mass] 31.8 pg 27.0-32.0 [facility] Work Phone: Nucleated RBC/100 WBC (Bld) [Ratio] 0 % 0-5 [facility] Work Phone: MCHC Auto (RBC) [Mass/Vol]on 04-02-2021 MCHC (RBC) [Mass/Vol] 32.5 g/dL 32-36 [facility] Work Phone: No Panel Informationon 04-02 Estimated GFR (MDRD) Amer 77 mL/min >60 [facility] Work Phone: Comment on above: GFR Calc Estimated GFR (MDRD) Non-Af Amer 63 mL/min >60 [facility] Work Phone: Comment on above: Non- GFR Calc Platelets bldon 04-02-2021 Platelets (Bld) [#/Vol] 263 10*3/uL 150-450 [facility] Work Phone: Serum or plasma albumin gold urement (mass/volume)on 04-02-2021 Albumin [Mass/Vol] 3.5 g/dL 3.2-5.0 [facility] Work Phone: Serum or plasma albumin/glob ulin mass ratioon 04-02-2021 Albumin/Globulin [Mass ratio] 1.1 {ratio} 0.9-2.4 [facility] Work Phone: Serum or plasma calcium gold urement (mass/volume)on 04-02-2021 Calcium [Mass/Vol] 9.0 mg/dL 8.5-10.1 [facility] Work Phone: Serum or plasma creatinine m easurement (mass/volume)on 04-02-2021 Creatinine [Mass/Vol] 0.94 mg/dL 0.55-1.02 [facility] Work Phone: Comment on above: The validity of the calculated GFR & GFRAA in patients over 70 years has not been determined. Clinical correlation is essential. Serum or plasma urea nitroge n measurement (mass/volume)on 04-02-2021 Urea nitrogen [Mass/Vol] 23 mg/dL 7-18 [facility] Work Phone: Thin prep Papanicolaou smear with manual screeningon 04-02-2021 Thin prep Papanicolaou smear with manual screening 25 U/L 15-37 [facility] Work Phone: Thin prep Papanicolaou smear with manual screening 4 5-15 [facility] Work Phone: INHOUSE Rapid Covid/ Flu A/ Flu BOrdered By: Eliane Herzog on 03-16-2021 SARS-CoV-2 (COVID-19) RNA ANOOP+probe Ql (Unsp spec) Positive Normal [facility]; [facility] Work Phone: Comment on above: Positive-COVID MG Breast Tomosynthesis Scr Blon 02-10-2021 MG Breast Tomosynthesis Scr Bl Patient Name: DAHIANA CASTELLON Mammography ACCESSION EXAM DATE/TIME PROCEDURE ORDERING PROVIDER [id number] 02/10/2021 10:22 EST MG Breast Tomosynthesis MD LUCIANO, ADELIA Tovar BI Scr CPT code 86843 24012 Reason For Exam (MG Breast Tomosynthesis BI Scr) screening Report TIME SINCE LAST MAMMOGRAM: Last mammogram was performed 1 year ago. REASON FOR EXAM: screening, asymptomatic. PROCEDURE: MG BREAST TOMOSYNTHESIS BL SCR: FEBRUARY 10, 2021 - 2D/3D Procedure 3D Bilateral CC and MLO view(s) were taken. 2D Bilateral CC and MLO view(s) were taken. Prior study comparison: August 05, 2020, MR breast w/+ w/o contrast bilateral performed at [facility]. February 04, 2020, bilateral MG breast tomosynthesis bl scr performed at [facility]. February 01, 2019, bilateral MG breast tomosynthesis bl scr performed at [facility]. January 24, 2018, bilateral MG breast tomosynthesis bl scr performed at [facility]. TISSUE DENSITY: BIRADS B - There are scattered fibroglandular densities. . RISK ALERT: The Cancer Risk Assessment scores below the recommendation of this report contain an outcome above the normal risk range. PATIENT CANCER HISTORY: Self Skin Cancer (Non-Melanoma) age 37 FAMILY CANCER HISTORY: Paternal Aunt Breast Cancer, Breast Cancer, Breast Cancer, Breast Cancer age 70 . FINDINGS: No suspicious masses, architectural distortions or suspiciously clustered microcalcifications are identified. There is no evidence of skin thickening or nipple retraction. There are no significant changes when compared with prior studies. No mammographic evidence of malignancy. Markings on images: BB's = Nipples; skin lesions Mammography Report [place] = Palpable Line = Scar 2D digital mammography and tomosynthesis imaging were performed and reviewed with CAD. ASSESSMENT: Category 1 Negative RECOMMENDATION: Routine screening mammogram of both breasts in 1 year. . Report Dictated on Cancer Risk Assessment: This risk assessment is based on patient provided information collected in a risk survey taken at the time of this examination. Lifetime breast cancer risk: Tyrer-Cuzick v7 27.44% - If greater than or equal to 20%, consider annual mammogram and annual screening Breast MRI or follow up in high risk clinic. A score of Average Risk indicates a score of less than 20%. Is the patient at elevated risk based on the HBOC criteria? No (Hereditary Breast and Ovarian Cancer) - If yes, consider genetic counseling and testing with high risk follow up. Is the patient at elevated risk based on the Ahmadi Syndrome criteria? No - If yes, consider genetic counseling and testing with high risk follow up. Final Signed Date and Time: 02/10/2021 12:06 pm Signed by: DO COTTO RACHEL [facility] KALPESH DIGITAL SCREEN PAT[facility]ICK [facility] Patient Name: DAHIANA CASTELLON ---Mammography--- Exam Date/Time 02/01/2019 11:58:18 EST Exam MG Breast Tomosynthesis BI Scr Ordering Physician MD ELLEN, JJ GRAY Accession Number [id number] CPT4 Codes 15301 (MG Breast Tomosynthesis Scr Bl), 82339 (MG MAMMO 2D SCREENING) Reason For Exam screening Report TIME SINCE LAST MAMMOGRAM: Last mammogram was performed 1 year ago. REASON FOR EXAM: screening, asymptomatic. PROCEDURE: MG BREAST TOMOSYNTHESIS BL SCR: FEBRUARY 01, 2019 - 2D/3D Procedure 3D Bilateral CC and MLO view(s) were taken. 2D Bilateral CC and MLO view(s) were taken. Prior study comparison: January 24, 2018, bilateral MG breast tomosynthesis bl scr performed at [facility]. December 23, 2016, bilateral MG breast tomosynthesis bl scr performed at [facility]. December 22, 2015, bilateral MG mammogram digital screening performed at [facility]. August 09, 2014, bilateral mammogram performed at [facility]. TISSUE DENSITY: The breast tissue is heterogeneously dense, which could obscure underlying abnormalities. FINDINGS: No suspicious masses, architectural distortions or suspiciously clustered microcalcifications are identified. There is no evidence of skin thickening or nipple retraction. There are no significant changes when compared with prior studies. Markings on images: BB's = Nipples; skin lesions [place] = Palpable Line = Scar 2D digital mammography and tomosynthesis imaging were performed and reviewed with CAD. ASSESSMENT: Category 1 Negative No mammographic evidence of malignancy. RECOMMENDATION: Routine screening mammogram of both breasts in 1 year. Per the cancer risk assessment below, this patient has an elevated lifetime risk of breast malignancy. Report Dictated on Cancer Risk Assessment: This risk assessment is based on patient provided information collected in a risk survey taken at the time of this examination. Lifetime breast cancer risk: 29.7% - If greater than or equal to 20%, consider annual mammogram and annual screening Breast MRI or follow up in high risk clinic. Is the patient at elevated risk based on the HBOC criteria? Yes (Hereditary Breast and Ovarian Cancer) - If yes, consider genetic counseling and testing with high risk follow up. HNPCC mutation risk (Ahmadi Syndrome): 1% - if greater than or equal to 5%, consider genetic counseling, testing and screening colonoscopy. --- Final --- Signed Date and Time: 02/01/2019 4:00 pm Signed by: MD KITA, [facility], [facility] Incoming Radiology Results From [facility] - 02/01/2019 10:21 PM EST Patient Name: DAHIANA CASTELLON ---Mammography--- Exam Date/Time 02/01/2019 11:58:18 EST Exam MG Breast Tomosynthesis BI Scr Ordering Physician MD MARIANO SCOTT ANDREW Accession Number [id number] CPT4 Codes 17263 (MG Breast Tomosynthesis Scr Bl), 59850 (MG MAMMO 2D SCREENING) Reason For Exam screening Report TIME SINCE LAST MAMMOGRAM: Last mammogram was performed 1 year ago. REASON FOR EXAM: screening, asymptomatic. PROCEDURE: MG BREAST TOMOSYNTHESIS BL SCR: FEBRUARY 01, 2019 - 2D/3D Procedure 3D Bilateral CC and MLO view(s) were taken. 2D Bilateral CC and MLO view(s) were taken. Prior study comparison: January 24, 2018, bilateral MG breast tomosynthesis bl scr performed at [facility]. December 23, 2016, bilateral MG breast tomosynthesis bl scr performed at [facility]. December 22, 2015, bilateral MG mammogram digital screening performed at [facility]. August 09, 2014, bilateral mammogram performed at [facility]. TISSUE DENSITY: The breast tissue is heterogeneously dense, which could obscure underlying abnormalities. FINDINGS: No suspicious masses, architectural distortions or suspiciously clustered microcalcifications are identified. There is no evidence of skin thickening or nipple retraction. There are no significant changes when compared with prior studies. Markings on images: BB's = Nipples; skin lesions [place] = Palpable Line = Scar 2D digital mammography and tomosynthesis imaging were performed and reviewed with CAD. ASSESSMENT: Category 1 Negative No mammographic evidence of malignancy. RECOMMENDATION: Routine screening mammogram of both breasts in 1 year. Per the cancer risk assessment below, this patient has an elevated lifetime risk of breast malignancy. Report Dictated on Cancer Risk Assessment: This risk assessment is based on patient provided information collected in a risk survey taken at the time of this examination. Lifetime breast cancer risk: 29.7% - If greater than or equal to 20%, consider annual mammogram and annual screening Breast MRI or follow up in high risk clinic. Is the patient at elevated risk based on the HBOC criteria? Yes (Hereditary Breast and Ovarian Cancer) - If yes, consider genetic counseling and testing with high risk follow up. HNPCC mutation risk (Ahmadi Syndrome): 1% - if greater than or equal to 5%, consider genetic counseling, testing and screening colonoscopy. --- Final --- Signed Date and Time: 02/01/2019 4:00 pm Signed by: MD KITA, [place], [place] ANE Berta 01-01-2019 ANES POST HNO ID: [id number] Author: Artie Mueller Service: Anesthesiology Author Type: Anesthesiologist Type: Anesthesia PostOp Filed: 01/01/2019 4:07 PM Note Text: POST ANESTHESIA EVALUATION NOTE SERVICE DATE: 01/01/2019 SERVICE TIME: 4:07 PM : 1955 Vitals: 01/01/19 1234 01/01/19 1550 Temp: 36.5 ?C (97.7 ?F) 36.6 ?C (97.9 ?F) 01/01/19 1234 01/01/19 1550 01/01/19 1600 BP: 123/68 119/73 119/73 01/01/19 1234 01/01/19 1550 01/01/19 1600 Pulse: 77 70 (!) 59 01/01/19 1234 01/01/19 1550 01/01/19 1600 Resp: 16 16 12 01/01/19 1234 01/01/19 1550 01/01/19 1600 SpO2: 97% 98% 98% Validated Vital Signs: Yes POST ANES STATUS: No apparent anesthetic complications. The patient is appropriately hydrated with stable respiratory and cardiovascular status. Patient has safe and adequate airway control. The patient has appropriate pain relief and no significant post operative nausea or vomiting. The patient has achieved baseline mental status. Further assessment by Anesthesia Service: None Other Remarks: SIGNATURE: Artie Mueller MD PATIENT NAME: Dahiana Castellon DATE: January 01, 2019 TIME: 4:07 PM PAGER/CONTACT #: [id number] [facility] PT EDon 01-01-2019 PT ED HNO ID: [id number] Author: Echo DelcidRn) WILLIAMS Dobbs Service: Nursing Author Type: Registered Nurse Type: Patient Education Filed: 01/01/2019 4:39 PM Note Text: POST OP LEARNING RESPONSE INSTRUCTION PROVIDED TO: Patient and Family member METHOD OF INSTRUCTION: Individual instruction Written instruction - handouts Verbal instruction PATIENT / FAMILY RESPONSE: Verbalizes understanding of: POST-PROCEDURE INSTRUCTIONS-Correct actions to take to reduce post procedure complications FOLLOW-UP PLAN: Recommend - Recommend continued instruction and follow up as directed SUPPLEMENTAL MATERIAL: None REFERRAL (RECOMMENDATION): None Electronically Signed By: Echo Dobbs RN In Department: [facility] ENDOSCOPY [facility] NURSING PROGon 12-25-2018 NURSING PROG HNO ID: [id number] Author: Azeb (Rn) WILLIAMS Rivas Service: ? Author Type: Registered Nurse Type: Nursing Progress Note Filed: 12/29/2018 8:34 AM Note Text: PACC Nurse Progress Note History AND Physical: PACC Visit Date: 12/18/18 Original HANDP Date: N/A ED visit Date: N/A Outside HANDP Scanned Date: N/A Labs Within Last 6 Months: CBC: Date see below narrative BMP/CMP: Date 12/04/18 - scanned results in chart Imaging Within Last 12 Months: N/A Cardiac Testing: N/A Last Menstrual Period: LMP Date: Not recorded Postmenopausal >1yr: Yes, S/P Hysterectomy: Yes BMI Percentile (PEDS): N/A Risk Assessment: N/A Anesthesia Review: N/A Narrative: No new testing ordered during PACC visit. Dr. Ann's office note and Cmp dated 12/04/18 scanned in chart. Called Dr. Ann's office and left message for office nurse requesting recent Cbc if completed. Pre-op Considerations: NAT Chart Check: IN PROGRESS - left message for Dr. Ann's office requesting recent Cbc if completed. Yajaira Gandhi RN December 25, 2018 2:59 PM Addendum:Cbc scanned in epic 12/22/09 done 12/04/18 left shift noted Chart check complete.Azeb Rivas RN [facility] HOSPon 12-06-2018 HOSP Patient:Dahiana Castellon MRN: Height:5' 6(1.676 m) Weight:166 lb (75.297 kg) Outpatient Medications as of 01/01/19: methotrexate sodium 25 mg/mL soln ascorbic acid, vitamin C, 500 mg cap chlordiazePOXIDE-clidi nium (LIBRAX) 5-2.5 mg per capsule traMADol (ULTRAM) 50 mg tablet atorvastatin (LIPITOR) 20 mg tablet biotin tab lutein 20 mg tab melatonin 10 mg tab VITAMIN B COMPLEX (B COMPLEX ORAL) gabapentin (NEURONTIN) 100 mg capsule CYANOCOBALAMIN, VITAMIN B-12, (VITAMIN B-12 ORAL) WELLBUTRIN SR 200 MG TAB AMBIEN 5 MG TAB MULTIVITAMIN TAB NIMESH-600 WITH VITAMIN D 600 MG-200 UNIT TAB Admission/Clinic Administered Medications as of 01/01/19: NaCl 0.9% iv infusion Problem List: Irritable bowel syndrome [K58.9] Abdominal pain, generalized [R10.84] Abdominal pain, left lower quadrant [R10.32] Internal hemorrhoids without mention of complication [K64.8] Anxiety and depression [F41.9, F32.9] Systemic lupus erythematosus (HCC) [M32.9] Fibromyalgia [M79.7] Pure hypercholesterolemia [E78.00] Inflammatory arthritis [M19.90] Allergies: Levbid [Hyoscyamine Sulfate] Date Verified: 01/01/19 Lab Values No results within the last 30 days for the following basenames: K,HCT No progress notes entered within the past 30 days Normal [facility] HEPATIC FUNCTION PANEL (8007 6)Ordered By: Swimming Pool Cleaner on 03-18-2015 Albumin [Mass/Vol] 4.4 g/dL Normal 3.6-4.8 [facility]; [facility] Work Phone: Comment on above: PATIENT WAS FASTINGP ERFORMED BY: [employer] [id number] ALP [Catalytic activity/Vol] 50 [iU]/L Normal 39-117 [facility]; [facility] Work Phone: Comment on above: PATIENT WAS FASTINGP ERFORMED BY: mPortallin[address] [id number] ALP [Catalytic activity/Vol] 50 U/L Normal 39-117 [facility]; [facility] Work Phone: Comment on above: PATIENT WAS FASTINGP ERFORMED BY: mPortallin[address] [id number] ALT [Catalytic activity/Vol] 17 [iU]/L Normal 0-32 [facility]; [facility] Work Phone: Comment on above: PATIENT WAS FASTINGP ERFORMED BY: MADELINE [facility] Jbkacw7356 [address] RoadDublin [place] [id number] ALT [Catalytic activity/Vol] 17 U/L Normal 0-32 [facility]; [facility] Work Phone: Comment on above: PATIENT WAS FASTINGP ERFORMED BY: [facility] Eqztyu7810 [address] RoadDublin [place] [id number] AST [Catalytic activity/Vol] 23 [iU]/L Normal 0-40 [facility]; [facility] Work Phone: Comment on above: PATIENT WAS FASTINGP ERFORMED BY: [facility] Jscuqe7720 [address] RoadDublin [place] [id number] AST [Catalytic activity/Vol] 23 U/L Normal 0-40 [facility]; [facility] Work Phone: Comment on above: PATIENT WAS FASTINGP ERFORMED BY: [facility] Tybacp5807 [address] RoadDublin [place] [id number] Bilirubin [Mass/Vol] 0.4 mg/dL Normal 0.0-1.2 [facility]; [facility] Work Phone: Comment on above: PATIENT WAS FASTINGP ERFORMED BY: [facility] Lbvksh1097 [address] RoadDublin [place] [id number] Bilirubin.direct [Mass/Vol] 0.11 mg/dL Normal 0.00-0.40 [facility]; [facility] Work Phone: Comment on above: PATIENT WAS FASTINGP ERFORMED BY: [facility] Pmlgfs27[address]Dublin [place] [id number] Protein [Mass/Vol] 6.5 g/dL Normal 6.0-8.5 [facility]; [facility] Work Phone: Comment on above: PATIENT WAS FASTINGP ERFORMED BY: [facility] Vcieka76[address]Dublin [place] [id number] LIPID PANEL ([id number])Ordered B y: Swimming Pool Cleaner on 03-18-2015 Cholesterol [Mass/Vol] 205 mg/dL Abnormal 100-199 [facility]; [facility] Work Phone: Comment on above: PATIENT WAS FASTINGP ERFORMED BY: MADELINE Cook Zhlehq[address] [id number] Information: [id number]; apt. 1-11-16 Cholesterol in HDL [Mass/Vol] 76 mg/dL Normal [facility]; [facility] Work Phone: Comment on above: According to ATP-III Guidelines, HDL-C >59 mg/dL is considered anegative risk factor for CHD. PATIENT WAS FASTINGP ERFORMED BY: LabCoHoly Name Medical CenterAattkr[address] [id number] Information: [id number]; apt. 1-16 Cholesterol in LDL [Mass/Vol] 118 mg/dL Abnormal 0-99 [facility]; [facility] Work Phone: Comment on above: PATIENT WAS FASTINGP ERFORMED BY: [facility] [id number] Information: [id number],[id number]; apt. 1-16 Cholesterol in LDL/Cholesterol in HDL [Mass ratio] 1.6 {ratio_units} Normal 0.0-3.2 [facility]; [facility] Work Phone: Comment on above: LDL/HDL Ratio Men Wo men 1/2 Avg.Risk 1.0 1.5 Avg.Risk 3.6 3.2 2X Avg.Risk 6.2 5.0 3X Avg.Risk 8.0 6.1 PATIENT WAS FASTINGP ERFORMED BY: [facility]University [facility] [id number] Information: [id number]; apt. 1--16 Cholesterol in VLDL [Mass/Vol] 11 mg/dL Normal 5-40 [facility]; [facility] Work Phone: Comment on above: PATIENT WAS FASTINGP ERFORMED BY: [facility] [id number] Information: [id number]; apt. 03-24-15 Triglyceride [Mass/Vol] 53 mg/dL Normal 0-149 [facility]; [facility] Work Phone: Comment on above: PATIENT WAS FASTINGP ERFORMED BY: MADELINE CenturyLinkHoly Name Medical CenterUuasqj[address] [id number] Information: [id number]; apt. 03-24-15 Rapid Flu (30908 x 2)Ordered By: Sofía Lo on 03-05-2014 FLUAV Ag IA Ql (Throat) Negative Normal [facility]; [facility] Work Phone: FLUAV Ag IA Ql (Throat) Negative Normal [facility]; [facility] Work Phone: Rapid Strep Test, Office ([phone])Ordered By: Sofía Lo on 03-05-2014 S. pyogenes Ag EIA Ql (Throat) Negative Normal [facility]; [facility] Work Phone: S. pyogenes Ag IA Ql (Unsp spec) Negative Normal [facility]; [facility] Work Phone: LIPID PANEL ([id number])Ordered B y: Swimming Pool Cleaner on 01-30-2014 Cholesterol [Mass/Vol] 260 mg/dL Abnormal 100-199 [facility]; [facility] Work Phone: Comment on above: PATIENT WAS FASTINGP ERFORMED BY: CenturyLinkHoly Name Medical CenterFltwaa[address] [id number] Information: [id number] Cholesterol in HDL [Mass/Vol] 68 mg/dL Normal [facility]; [facility] Work Phone: Comment on above: According to ATP-III Guidelines, HDL-C >59 mg/dL is considered anegative risk factor for CHD. PATIENT WAS FASTINGP ERFORMED BY: CenturyLinkHoly Name Medical CenterZzxfnn[address] [id number] Information: [id number] Cholesterol in LDL [Mass/Vol] 181 mg/dL Abnormal 0-99 [facility]; [facility] Work Phone: Comment on above: PATIENT WAS FASTINGP ERFORMED BY: LabUniversity [facility]West[address] [id number] Information: [id number] Cholesterol in LDL/Cholesterol in HDL [Mass ratio] 2.7 {ratio_units} Normal 0.0-3.2 [facility]; [facility] Work Phone: Comment on above: LDL/HDL Ratio Men Wo men 1/2 Avg.Risk 1.0 1.5 Avg.Risk 3.6 3.2 2X Avg.Risk 6.2 5.0 3X Avg.Risk 8.0 6.1 PATIENT WAS FASTINGP ERFORMED BY: LabCoHoly Name Medical CenterGoavck[address] [id number] Information: 601604,[id number] Cholesterol in VLDL [Mass/Vol] 11 mg/dL Normal 5-40 [facility]; [facility] Work Phone: Comment on above: PATIENT WAS FASTINGP ERFORMED BY: LabCoHoly Name Medical CenterOjnzpf[address] [id number] Information: [id number] Triglyceride [Mass/Vol] 54 mg/dL Normal 0-149 [facility]; [facility] Work Phone: Comment on above: PATIENT WAS FASTINGP ERFORMED BY: [facility] Rzagjj[address] [id number] Information: [id number] CALCIFEDIOL (33031)Ordered B y: Swimming Pool Cleaner on 10-25-2013 25-Hydroxyvitamin D2+25-Hydroxyvitamin D3 [Mass/Vol] 47.8 ng/mL Normal 30.0-100.0 [facility]; [facility] Work Phone: Comment on above: Vitamin D deficiency has been defined by the [place] and an Endocrine Society practice guideline as alevel of serum 25-OH vitamin D less than 20 ng/mL (1,2).The Endocrine Society went on to further define vitamin Dinsufficiency as a level between 21 and 29 ng/mL (2).1. IOM ([place] [employer]). 2010. Dietary reference intakes for calcium and D. [place]: The National Academies Press.2. Alireza MF, Xin NC, Oneal FONTANA, et al. Evaluation, treatment, and prevention of vitamin D deficiency: an Endocrine Society clinical practice guideline. JCEM. 2010; 96(7):1911-30. PATIENT WAS FASTINGP ERFORMED BY: [facility] Dxxrtp4392 [facility] Centerin [place] [id number] CBC, Platelets & Auto Diff ( 28985)Ordered By: Swimming Pool Cleaner on 10-25-2013 Basophils (Bld) [#/Vol] 0.0 {x10E3/uL} Normal 0.0-0.2 [facility]; [facility] Work Phone: Comment on above: PATIENT WAS FASTINGP ERFORMED BY: LabCameron Regional Medical CenterPtaqdt[address] [id number] Information: [id number] Basophils (Bld) [#/Vol] 0.0 10*3/uL Normal 0.0-0.2 [facility]; [facility] Work Phone: Comment on above: PATIENT WAS FASTINGP ERFORMED BY: [facility] Wcsuya[address] [id number] Information: [id number] Basophils/100 WBC (Bld) 1 % Normal 0-3 [facility]; [facility] Work Phone: Comment on above: PATIENT WAS FASTINGP ERFORMED BY: [facility] Msebby[address] [id number] Information: [id number] Eosinophils (Bld) [#/Vol] 0.1 {x10E3/uL} Normal 0.0-0.4 [facility]; [facility] Work Phone: Comment on above: PATIENT WAS FASTINGP ERFORMED BY: [facility] Zkdwcg[address] [facility] [id number] Information: 489292,[id number] Eosinophils (Bld) [#/Vol] 0.1 10*3/uL Normal 0.0-0.4 [facility]; [facility] Work Phone: Comment on above: PATIENT WAS FASTINGP ERFORMED BY: MADELINE Cook Cikfzf8[address] [facility] [id number] Information: [id number] Eosinophils/100 WBC (Bld) 3 % Normal 0-5 [facility]; [facility] Work Phone: Comment on above: PATIENT WAS FASTINGP ERFORMED BY: [address] [id number] Information: [id number] Erythrocyte distribution width (RBC) [Ratio] 13.8 % Normal 12.3-15.4 [facility]; [facility] Work Phone: Comment on above: PATIENT WAS FASTINGP ERFORMED BY: [address] [id number] Information: [id number] Hematocrit (Bld) [Volume fraction] 41.4 % Normal 34.0-46.6 [facility]; [facility] Work Phone: Comment on above: PATIENT WAS FASTINGP ERFORMED BY: MADELINE Phan[address] [id number] Information: [id number],S29318 Hemoglobin (Bld) [Mass/Vol] 13.7 g/dL Normal 11.1-15.9 [facility]; [facility] Work Phone: Comment on above: PATIENT WAS FASTINGP ERFORMED BY: [address] [id number] Information: 585842,[id number] Immature granulocytes (Bld) [#/Vol] 0.0 {x10E3/uL} Normal 0.0-0.1 [facility]; [facility] Work Phone: Comment on above: PATIENT WAS FASTINGP ERFORMED BY: [address] [id number] Information: [id number] Immature granulocytes (Bld) [#/Vol] 0.0 10*3/uL Normal 0.0-0.1 [facility]; [facility] Work Phone: Comment on above: PATIENT WAS FASTINGP ERFORMED BY: MADELINE [facility] Cxewci4[address] [facility] [address] [id number] Information: 370254,[id number] Immature granulocytes/100 WBC (Bld) 0 % Normal 0-2 [facility]; [facility] Work Phone: Comment on above: PATIENT WAS FASTINGP ERFORMED BY: [address] [id number] Information: [id number],[id number] Lymphocytes (Bld) [#/Vol] 1.2 {x10E3/uL} Normal 0.7-3.1 [facility]; [facility] Work Phone: Comment on above: PATIENT WAS FASTINGP ERFORMED BY: [place] [id number] [facility] [id number] Information: 554354,[id number] Lymphocytes (Bld) [#/Vol] 1.2 10*3/uL Normal 0.7-3.1 [facility]; [facility] Work Phone: Comment on above: PATIENT WAS FASTINGP ERFORMED BY: [address] [id number] Information: 775271,[id number] Lymphocytes/100 WBC (Bld) 28 % Normal 14-46 [facility]; [facility] Work Phone: Comment on above: PATIENT WAS FASTINGP ERFORMED BY: [facility] [id number] Information: 990855,[id number] MCH (RBC) [Entitic mass] 29.4 pg Normal 26.6-33.0 [facility]; [facility] Work Phone: Comment on above: PATIENT WAS FASTINGP ERFORMED BY: [address]ublin [place] [id number] Information: 526781,[id number] MCHC (RBC) [Mass/Vol] 33.1 g/dL Normal 31.5-35.7 [facility] prehensive Internal Medicine; [facility] Work Phone: Comment on above: PATIENT WAS FASTINGP ERFORMED BY: MADELINE [address] [id number] Information: [id number],[id number] MCV (RBC) [Entitic vol] 89 fL Normal 79-97 [facility]; [facility] Work Phone: Comment on above: PATIENT WAS FASTINGP ERFORMED BY: MADELINE Cook[address] [id number] Information: 184266,[id number] Monocytes (Bld) [#/Vol] 0.4 {x10E3/uL} Normal 0.1-0.9 [facility]; [facility] Work Phone: Comment on above: PATIENT WAS FASTINGP ERFORMED BY: MADELINE PhanCarlos Ville [id number] [facility] [id number] Information: [id number] Monocytes (Bld) [#/Vol] 0.4 10*3/uL Normal 0.1-0.9 [facility]; [facility] Work Phone: Comment on above: PATIENT WAS FASTINGP ERFORMED BY: MADELINE [facility] [id number] Information: [id number] Monocytes/100 WBC (Bld) 9 % Normal 4-12 [facility]; [facility] Work Phone: Comment on above: PATIENT WAS FASTINGP ERFORMED BY: MADELINE PhanUniversity [facility]6[address] [facility] [address] [id number] Information: [id number] Neutrophils (Bld) [#/Vol] 2.6 {x10E3/uL} Normal 1.4-7.0 [facility]; [facility] Work Phone: Comment on above: PATIENT WAS FASTINGP ERFORMED BY: MADELINE Heck[address] [facility] HospitalChristianoin [place] [id number] Information: 557236,[id number] Neutrophils (Bld) [#/Vol] 2.6 10*3/uL Normal 1.4-7.0 [facility]; [facility] Work Phone: Comment on above: PATIENT WAS FASTINGP ERFORMED BY: MADELINE Heck[address] [facility] [id number] Information: 071837,[id number] Neutrophils/100 WBC (Bld) 59 % Normal 40-74 [facility]; [facility] Work Phone: Comment on above: PATIENT WAS FASTINGP ERFORMED BY: MADELINE Heck[address] [facility] [address] [id number] Information: [id number],[id number] Platelets (Bld) [#/Vol] 272 {x10E3/uL} Normal 150-379 [facility]; [facility] Work Phone: Comment on above: PATIENT WAS FASTINGP ERFORMED BY: MADELINE Heck[address] [id number] Information: 457698,[id number] Platelets (Bld) [#/Vol] 272 10*3/uL Normal 150-379 [facility]; [facility] Work Phone: Comment on above: PATIENT WAS FASTINGP ERFORMED BY: MADELINE Heck[address] [facility] [address] [id number] Information: 989951,[id number] RBC (Bld) [#/Vol] 4.66 {x10E6/uL} Normal 3.77-5.28 [facility]; [facility] Work Phone: Comment on above: PATIENT WAS FASTINGP ERFORMED BY: MADELINE Nolandlin[address] [facility] [id number] Information: [id number],[id number] RBC (Bld) [#/Vol] 4.66 10*6/uL Normal 3.77-5.28 [facility]; [facility] Work Phone: Comment on above: PATIENT WAS FASTINGP ERFORMED BY: MADELINE Viviana Heck[address] [id number] Information: [id number],P30724 WBC (Bld) [#/Vol] 4.4 {x10E3/uL} Normal 3.4-10.8 [facility]; [facility] Work Phone: Comment on above: PATIENT WAS FASTINGP ERFORMED BY: MADELINE SylvesterC[facility]health Vjacox2[address] [id number] Information: 804043,[id number] WBC (Bld) [#/Vol] 4.4 10*3/uL Normal 3.4-10.8 [facility]; [facility] Work Phone: Comment on above: PATIENT WAS FASTINGP ERFORMED BY: MADELINE Joyce Xurqgu[address] [facility] [id number] Information: 126954,M75314 Lipid Panel (01408)Ordered B y: Swimming Pool Cleaner on 10-25-2013 Cholesterol [Mass/Vol] 236 mg/dL Abnormal 100-199 [facility]; [facility] Work Phone: Comment on above: PATIENT WAS FASTINGP ERFORMED BY: MADELINE [facility] Sqvihd[address] [id number] Cholesterol in HDL [Mass/Vol] 80 mg/dL Normal [facility]; [facility] Work Phone: Comment on above: According to ATP-III Guidelines, HDL-C >59 mg/dL is considered anegative risk factor for CHD. PATIENT WAS FASTINGP ERFORMED BY: MADELINE [facility] Iomcsc64[address] [id number] Cholesterol in LDL [Mass/Vol] 142 mg/dL Abnormal 0-99 [facility]; [facility] Work Phone: Comment on above: PATIENT WAS FASTINGP ERFORMED BY: MADELINE PhanCo Ftkvcb6[address] RoadDublin [place] [id number] Cholesterol in LDL/Cholesterol in HDL [Mass ratio] 1.8 {ratio_units} Normal 0.0-3.2 [facility]; [facility] Work Phone: Comment on above: PATIENT WAS FASTINGP ERFORMED BY: MADELINE [facility] Jreryr5[address] RoadDublin [place] [id number] Cholesterol in VLDL [Mass/Vol] 14 mg/dL Normal 5-40 [facility]; [facility] Work Phone: Comment on above: PATIENT WAS FASTINGP ERFORMED BY: MADELINE [facility] Flrxri3581 [address] RoadDublin [place] [id number] Triglyceride [Mass/Vol] 72 mg/dL Normal 0-149 [facility]; [facility] Work Phone: Comment on above: PATIENT WAS FASTINGP ERFORMED BY: MADELINE [facility] Gmbaxu1710 [address] RoadDublin [place] [id number] MICROALBUMINOrdered By: Syst em Motor Generator Set Operator on 10-25-2013 Albumin DL <= 20 mg/L (U) [Mass/Vol] 4.2 ug/mL Normal 0.0-17.0 [facility]; [facility] Work Phone: Comment on above: PATIENT WAS FASTINGP ERFORMED BY: MADELINE Lab[facility] Yytjtn4055 [address] RoadDublin [place] [id number] Albumin/Creatinine (U) [Mass ratio] 5.3 {mg/g_creat} Normal 0.0-30.0 [facility]; [facility] Work Phone: Comment on above: PATIENT WAS FASTINGP ERFORMED BY: [facility] Kdkoys0355 [address] RoadDublin [place] [id number] Creatinine (U) [Mass/Vol] 79.7 mg/dL Normal 15.0-278.0 [facility]; [facility] Work Phone: Comment on above: PATIENT WAS FASTINGP ERFORMED BY: MADELINE [facility] Mdpfle1867 [address] RoadDublin [place] [id number] Metabolic Panel, Comprehensi ve (54897)Ordered By: Swimming Pool Cleaner on 10-25-2013 Albumin [Mass/Vol] 4.2 g/dL Normal 3.6-4.8 [facility]; [facility] Work Phone: Comment on above: PATIENT WAS FASTINGP ERFORMED BY: CB [facility] Wavnts44[address] RoadDublin [place] [id number] Albumin/Globulin [Mass ratio] 2.0 {ratio} Normal 1.1-2.5 [facility]; [facility] Work Phone: Comment on above: PATIENT WAS FASTINGP ERFORMED BY: CB [facility] Htwlcd6072 [address] RoadDublin [place] [id number] ALP [Catalytic activity/Vol] 50 [iU]/L Normal 39-117 [facility]; [facility] Work Phone: Comment on above: PATIENT WAS FASTINGP ERFORMED BY: CB [facility] Egzawp9773 [address] RoadDublin [place] [id number] ALP [Catalytic activity/Vol] 50 U/L Normal 39-117 [facility]; [facility] Work Phone: Comment on above: PATIENT WAS FASTINGP ERFORMED BY: CB [facility] Bkrffm6224 [address] RoadDublin [place] [id number] ALT [Catalytic activity/Vol] 20 [iU]/L Normal 0-32 [facility]; [facility] Work Phone: Comment on above: PATIENT WAS FASTINGP ERFORMED BY: CB [facility] Zqwilv6063 [address] RoadDublin [place] [id number] ALT [Catalytic activity/Vol] 20 U/L Normal 0-32 [facility]; [facility] Work Phone: Comment on above: PATIENT WAS FASTINGP ERFORMED BY: CB [facility] Cwfolv4[address] RoadDublin [place] [id number] AST [Catalytic activity/Vol] 23 [iU]/L Normal 0-40 [facility]; [facility] Work Phone: Comment on above: PATIENT WAS FASTINGP ERFORMED BY: CB [facility] Mgzpwy3338 [address] RoadDublin [place] [id number] AST [Catalytic activity/Vol] 23 U/L Normal 0-40 [facility]; [facility] Work Phone: Comment on above: PATIENT WAS FASTINGP ERFORMED BY: Lab[facility] Yewcli0[address] Roadblin [place] [id number] Bilirubin [Mass/Vol] 0.3 mg/dL Normal 0.0-1.2 [facility] rehensive Internal Medicine; [facility] Work Phone: Comment on above: PATIENT WAS FASTINGP ERFORMED BY: Lab[facility] Gwsvow[address] RoadFormerly [facility] Hospitalin [place] [id number] Calcium [Mass/Vol] 9.5 mg/dL Normal 8.6-10.2 [facility]; [facility] Work Phone: Comment on above: PATIENT WAS FASTINGP ERFORMED BY: LabCo Kxplln4042 [address] RoadAtrium Health Providence [id number] Chloride [Moles/Vol] 101 mmol/L Normal 97-108 [facility] rehensive Internal Medicine; [facility] Work Phone: Comment on above: PATIENT WAS FASTINGP ERFORMED BY: LabCo Qxkppy[address] [facility] Centerin [place] [id number] CO2 [Moles/Vol] 25 mmol/L Normal 18-29 [facility] Internal Medicine; [facility] Work Phone: Comment on above: PATIENT WAS FASTINGP ERFORMED BY: Lab[facility] Vwlolu[address] RoadFormerly [facility] Hospitalin [place] [id number] Creatinine [Mass/Vol] 1.01 mg/dL Abnormal 0.57-1.00 [facility]erens[facility]; [facility] Work Phone: Comment on above: PATIENT WAS FASTINGP ERFORMED BY: LabCo Mhnprm[address] [facility] Hospitalblin [place] [id number] GFR/1.73 sq M predicted among blacks CKD-EPI (S/P/Bld) [Vol rate/Area] 70 mL/min/1.73 Normal [facility]; [facility] Work Phone: Comment on above: PATIENT WAS FASTINGP ERFORMED BY: MADELINE [facility] Tbctyr1404 [address] RoadDublin [place] [id number] GFR/1.73 sq M predicted among non-blacks CKD-EPI (S/P/Bld) [Vol rate/Area] 61 mL/min/1.73 Normal [facility]; [facility] Work Phone: Comment on above: PATIENT WAS FASTINGP ERFORMED BY: [facility] Vhndqu4[address] RoadDublin [place] [id number] Globulin (S) [Mass/Vol] 2.1 g/dL Normal 1.5-4.5 [facility]; [facility] Work Phone: Comment on above: PATIENT WAS FASTINGP ERFORMED BY: MADELINE [facility] Kspgtv9827 [address] RoadDublin [place] [id number] Glucose [Mass/Vol] 76 mg/dL Normal 65-99 [facility]; [facility] Work Phone: Comment on above: PATIENT WAS FASTINGP ERFORMED BY: MADELINE [facility] Phrvkd0403 [address] RoadDublin [place] [id number] Potassium [Moles/Vol] 4.9 mmol/L Normal 3.5-5.2 [facility] prehensive Internal Medicine; [facility] Work Phone: Comment on above: PATIENT WAS FASTINGP ERFORMED BY: LabCo Kkgknn0490 [address] RoadDublin [place] [id number] Protein [Mass/Vol] 6.3 g/dL Normal 6.0-8.5 [facility]; [facility] Work Phone: Comment on above: PATIENT WAS FASTINGP ERFORMED BY: [facility] Bgpawe1757 [address] RoadDublin [place] [id number] Sodium [Moles/Vol] 140 mmol/L Normal 134-144 [facility]; [facility] Work Phone: Comment on above: PATIENT WAS FASTINGP ERFORMED BY: [facility] Abcaya2827 [address] RoadDublin [place] [id number] Urea nitrogen [Mass/Vol] 20 mg/dL Normal 8-27 [facility]; [facility] Work Phone: Comment on above: PATIENT WAS FASTINGP ERFORMED BY: MADELINE Viviana Heck[address]blin [place] [id number] Urea nitrogen/Creatinine [Mass ratio] 20 mg/mg Normal 11-26 [facility]; [facility] Work Phone: Comment on above: PATIENT WAS FASTINGP ERFORMED BY: MADELINE Viviana Heck[address] [facility]in [place] [id number] TSH ([id number])Ordered By: Searchles m Motor Generator Set Operator on 10-25-2013 TSH Qn 1.810 {uIU/mL} Normal 0.450-4.500 Comprehen sive Internal Medicine; [facility] Work Phone: Comment on above: PATIENT WAS FASTINGP ERFORMED BY: MADELINE Joycepretty Yvrawd[address] [facility] [id number] URINALYSIS, W/ MICRO ([id number]) Ordered By: Swimming Pool Cleaner on 10-25-2013 Appearance (U) Clear Normal Comprehens nataliya Internal Medicine; [facility] Work Phone: Comment on above: PATIENT WAS FASTINGP ERFORMED BY: MADELINE Joycepretty Owexij67[address] RoadFormerly [facility]in [place] [id number] Bilirubin Ql (U) Negative Normal Comprehe nsive Internal Medicine; [facility] Work Phone: Comment on above: PATIENT WAS FASTINGP ERFORMED BY: MADELINE Joycepretty NolandCbqzpt4[address] RoadFormerly [facility]in [place] [id number] Bilirubin Ql (U) Negative Normal Comprehe nsive Internal Medicine; [facility] Work Phone: Comment on above: PATIENT WAS FASTINGP ERFORMED BY: MADELINE LabEddy NolandKblclk5621 [address] RoadDublin [place] [id number] Color (U) Yellow Normal [facility]; [facility] Work Phone: Comment on above: PATIENT WAS FASTINGP ERFORMED BY: MADELINE LabCopretty Nddxdc7[address] RoadDublin [place] [id number] Glucose Ql (U) Negative Normal Comprehens nataliya Internal Medicine; [facility] Work Phone: Comment on above: PATIENT WAS FASTINGP ERFORMED BY: MADELINE Heck[address] RoadDublin [place] [id number] Glucose Ql (U) Negative Normal Comprehens nataliya [facility] Medicine; [facility] Work Phone: Comment on above: PATIENT WAS FASTINGP ERFORMED BY: MADELINE Heck[address] Roadblin [place] [id number] Hemoglobin Ql (U) Negative Normal Compreh ensive Internal Medicine; [facility] Work Phone: Comment on above: PATIENT WAS FASTINGP ERFORMED BY: MADELINE Heck[address]Dublin [place] [id number] Hemoglobin Ql (U) Negative Normal Compreh ensive Internal Medicine; [facility] Work Phone: Comment on above: PATIENT WAS FASTINGP ERFORMED BY: MADELINE Heck[address] RoadDuin [place] [id number] Ketones Ql (U) Negative Normal Comprehens nataliya Internal Medicine; [facility] Work Phone: Comment on above: PATIENT WAS FASTINGP ERFORMED BY: MADELINE Heck[address]Dublin [place] [id number] Ketones Ql (U) Negative Normal Comprehens nataliya Internal Medicine; [facility] Work Phone: Comment on above: PATIENT WAS FASTINGP ERFORMED BY: MADELINE Heck[address]Formerly [facility]in [place] [id number] Leukocyte esterase Test strip Ql (U) Negative Normal [facility]; [facility] Work Phone: Comment on above: PATIENT WAS FASTINGP ERFORMED BY: MADELINE Heck[address]Dublin [place] [id number] Leukocyte esterase Test strip Ql (U) Negative Normal [facility]; [facility] Work Phone: Comment on above: PATIENT WAS FASTINGP ERFORMED BY: MADELINE Nolandlin[address] RoadDublin [place] [id number] Microscopic observation LM Nom (Urine sed) MICRON Normal [facility]; [facility] Work Phone: Comment on above: Microscopic follows if indicated. PATIENT WAS FASTINGP ERFORMED BY: MADELINE [facility] Nokqbt8393 [address] RoadDublin [place] [id number] Microscopic observation LM Nom (Urine sed) See below: Normal [facility]; [facility] Work Phone: Comment on above: Microscopic was abhilash cated and was performed. PATIENT WAS FASTINGP ERFORMED BY: MADELINE [facility] Vyhnkj5656 [address] RoadDublin [place] [id number] Nitrite Ql (U) Negative Normal Comprehens nataliya [facility] Medicine; [facility] Work Phone: Comment on above: PATIENT WAS FASTINGP ERFORMED BY: MADELINE [facility] Jylxqj8850 [address] RoadDublin [place] [id number] Nitrite Ql (U) Negative Normal Comprehens nataliya [facility] Medicine; [facility] Work Phone: Comment on above: PATIENT WAS FASTINGP ERFORMED BY: MADELINE [facility] Nxdzgg1066 [address] RoadDublin [place] [id number] pH (U) 6.5 [pH] Normal 5.0-7.5 [facility]; [facility] Work Phone: Comment on above: PATIENT WAS FASTINGP ERFORMED BY: MADELINE [facility] Zfdlto2638 [address] RoadDublin [place] [id number] Protein Ql (U) Negative Normal Comprehens nataliya [facility] Medicine; [facility] Work Phone: Comment on above: PATIENT WAS FASTINGP ERFORMED BY: MADELINE [facility] Msxzua4875 [address] RoadDublin [place] [id number] Protein Ql (U) Negative Normal Comprehens nataliya [facility] Medicine; [facility] Work Phone: Comment on above: PATIENT WAS FASTINGP ERFORMED BY: MADELINE [facility] Sclwxg0748 [address] RoadDublin [place] [id number] Specific gravity (U) [Rel density] 1.017 1 Normal 1.005-1.030 [facility]; [facility] Work Phone: Comment on above: PATIENT WAS FASTINGP ERFORMED BY: [facility] Hqtwuw1714 [address]blin [place] [id number] Urobilinogen (U) [Mass/Vol] 0.2 mg/dL Normal 0.0-1.9 [facility]; [facility] Work Phone: Comment on above: PATIENT WAS FASTINGP ERFORMED BY: Lab[facility] Jnikfq[address] RoadFormerly [facility]in [place] [id number] Urobilinogen Test strip (U) [Mass/Vol] 0.2 mg/dL Normal 0.0-1.9 Comprehensi Internal Medicine; [facility] Work Phone: Comment on above: PATIENT WAS FASTINGP ERFORMED BY: [facility] Hdqnqq4559 CenterPointe Hospitalblin [place] [id number] HEPATIC FUNCTION PANEL (8007 [id number])Ordered By: Swimming Pool Cleaner on 05-10-2012 Albumin [Mass/Vol] 4.7 g/dL Normal 3.5-5.5 [facility]; [facility] Work Phone: Comment on above: PATIENT WAS FASTINGP ERFORMED BY: [facility] Znefzu[address] [id number] Information: ADD [id number] AND DRAW FEE 99 6660 ALP [Catalytic activity/Vol] 47 [iU]/L Normal 25-150 [facility]; [facility] Work Phone: Comment on above: PATIENT WAS FASTINGP ERFORMED BY: [facility] Hzkacd[address] [id number] Information: ADD [id number] AND DRAW FEE 99 6660 ALP [Catalytic activity/Vol] 47 U/L Normal 25-150 [facility]; [facility] Work Phone: Comment on above: PATIENT WAS FASTINGP ERFORMED BY: LabCo Ashijc[address] [facility] [id number] Information: ADD [id number] AND DRAW FEE 99 6660 ALT [Catalytic activity/Vol] 16 [iU]/L Normal 0-32 [facility]; [facility] Work Phone: Comment on above: PATIENT WAS FASTINGP ERFORMED BY: MADELINE Newby [address] [id number] Information: ADD [id number] AND DRAW FEE 99 6660 ALT [Catalytic activity/Vol] 16 U/L Normal 0-32 [facility]; [facility] Work Phone: Comment on above: PATIENT WAS FASTINGP ERFORMED BY: MADELINE Heck[address] [id number] Information: ADD [id number] AND DRAW FEE 99 6660 AST [Catalytic activity/Vol] 22 [iU]/L Normal 0-40 [facility]; [facility] Work Phone: Comment on above: PATIENT WAS FASTINGP ERFORMED BY: MADELINE Nolandlin[address] [id number] Information: ADD [id number] AND DRAW FEE 99 6660 AST [Catalytic activity/Vol] 22 U/L Normal 0-40 [facility]; [facility] Work Phone: Comment on above: PATIENT WAS FASTINGP ERFORMED BY: MADELINE Heck[address] [id number] Information: ADD D80071 AND DRAW FEE 99 6660 Bilirubin [Mass/Vol] 0.4 mg/dL Normal 0.0-1.2 [facility]erens[facility]; [facility] Work Phone: Comment on above: PATIENT WAS FASTINGP ERFORMED BY: MADELINE CookClaudia Ville [id number] [id number] Information: ADD I22241 AND DRAW FEE 99 6660 Bilirubin.direct [Mass/Vol] 0.11 mg/dL Normal 0.00-0.40 [facility]; [facility] Work Phone: Comment on above: PATIENT WAS FASTINGP ERFORMED BY: MADELINE PhanCarlos Ville [id number] [address] [id number] Information: ADD E35012 AND DRAW FEE 99 6660 Protein [Mass/Vol] 6.8 g/dL Normal 6.0-8.5 [facility]; [facility] Work Phone: Comment on above: PATIENT WAS FASTINGP ERFORMED BY: CB [facility] Puvtgs7936 [address] RoadDublin [place] [id number] Information: ADD Q17060 AND DRAW FEE 99 6660 Lipid Panel (71878)Ordered B y: Swimming Pool Cleaner on 05-10-2012 Cholesterol [Mass/Vol] 210 mg/dL Abnormal 100-199 [facility]; [facility] Work Phone: Comment on above: PATIENT WAS FASTINGP ERFORMED BY: CB [facility] Rcvozf4025 [address] RoadDublin [place] [id number] Cholesterol in HDL [Mass/Vol] 69 mg/dL Normal [facility]; [facility] Work Phone: Comment on above: According to ATP-III Guidelines, HDL-C >59 mg/dL is considered anegative risk factor for CHD. PATIENT WAS FASTINGP ERFORMED BY: CB [facility] Odyfes1171 [address] RoadDublin [place] [id number] Cholesterol in LDL [Mass/Vol] 126 mg/dL Abnormal 0-99 [facility]; [facility] Work Phone: Comment on above: PATIENT WAS FASTINGP ERFORMED BY: CB [facility] Bzmeip8965 [address] RoadDublin [place] [id number] Cholesterol in LDL/Cholesterol in HDL [Mass ratio] 1.8 {ratio_units} Normal 0.0-3.2 [facility]; [facility] Work Phone: Comment on above: PATIENT WAS FASTINGP ERFORMED BY: CB [facility] Wfhznq7620 [address] RoadDublin [place] [id number] Cholesterol in VLDL [Mass/Vol] 15 mg/dL Normal 5-40 [facility]; [facility] Work Phone: Comment on above: PATIENT WAS FASTINGP ERFORMED BY: CB [facility] Vlzdzy1636 [address] RoadDublin [place] [id number] Triglyceride [Mass/Vol] 77 mg/dL Normal 0-149 [facility]; [facility] Work Phone: Comment on above: PATIENT WAS FASTINGP ERFORMED BY: MADELINE Heck[address] [id number] CBC WITH MANUAL DIFF (31416) Ordered By: Swimming Pool Cleaner on 12-21-2011 Basophils (Bld) [#/Vol] 0.0 {x10E3/uL} Normal 0.0-0.2 [facility]; [facility] Work Phone: Comment on above: PATIENT NOT FASTINGP ERFORMED BY: MADELINE Noland[address] [id number] Information: 002762,P17527 Basophils (Bld) [#/Vol] 0.0 10*3/uL Normal 0.0-0.2 [facility]; [facility] Work Phone: Comment on above: PATIENT NOT FASTINGP ERFORMED BY: MADELINE Noland[address] [id number] Information: 076376,L44600 Basophils/100 WBC (Bld) 1 % Normal 0-3 [facility]; [facility] Work Phone: Comment on above: PATIENT NOT FASTINGP ERFORMED BY: MADELINE Nolandlin6[address] [id number] Information: 879732,Y76305 Eosinophils (Bld) [#/Vol] 0.1 {x10E3/uL} Normal 0.0-0.4 [facility]; [facility] Work Phone: Comment on above: PATIENT NOT FASTINGP ERFORMED BY: MADELINE Cook Iphlqv[address] [id number] Information: 484504,R26257 Eosinophils (Bld) [#/Vol] 0.1 10*3/uL Normal 0.0-0.4 [facility]; [facility] Work Phone: Comment on above: PATIENT NOT FASTINGP ERFORMED BY: MADELINE Cook Yxdtgx8[address] [id number] Information: 255835,B30326 Eosinophils/100 WBC (Bld) 2 % Normal 0-7 [facility]; [facility] Work Phone: Comment on above: PATIENT NOT FASTINGP ERFORMED BY: MADELINE Nolandlin6[address] [id number] Information: 103725,Y35194 Erythrocyte distribution width (RBC) [Ratio] 13.5 % Normal 12.3-15.4 [facility]; [facility] Work Phone: Comment on above: PATIENT NOT FASTINGP ERFORMED BY: MADELINE [facility]anCoxhealth Ucfbem23[address] [id number] Information: 447555,C00193 Hematocrit (Bld) [Volume fraction] 41.6 % Normal 34.0-46.6 [facility]; [facility] Work Phone: Comment on above: PATIENT NOT FASTINGP ERFORMED BY: MADELINE Cook Nlsstj76[address] [id number] Information: 306998,M08111 Hemoglobin (Bld) [Mass/Vol] 13.9 g/dL Normal 11.1-15.9 [facility]; [facility] Work Phone: Comment on above: PATIENT NOT FASTINGP ERFORMED BY: MADELINE PhanCarlos Ville [id number] [facility] [id number] Information: 531172,X12971 Immature granulocytes (Bld) [#/Vol] 0.0 {x10E3/uL} Normal 0.0-0.1 [facility]; [facility] Work Phone: Comment on above: PATIENT NOT FASTINGP ERFORMED BY: MADELINE PhanCarlos Ville [id number] [facility] [address] [id number] Information: 665359,Y14479 Immature granulocytes (Bld) [#/Vol] 0.0 10*3/uL Normal 0.0-0.1 [facility]; [facility] Work Phone: Comment on above: PATIENT NOT FASTINGP ERFORMED BY: MADELINE Heck[address] [id number] Information: 403971,D97957 Immature granulocytes/100 WBC (Bld) 0 % Normal 0-2 [facility]; [facility] Work Phone: Comment on above: PATIENT NOT FASTINGP ERFORMED BY: MADELINE PhanCo Jiojvh[address] [id number] Information: 508278,K38666 Lymphocytes (Bld) [#/Vol] 1.6 {x10E3/uL} Normal 0.7-4.5 [facility]; [facility] Work Phone: Comment on above: PATIENT NOT FASTINGP ERFORMED BY: MADELINE Cook Cueqnu25[address] [id number] Information: 873322,O57651 Lymphocytes (Bld) [#/Vol] 1.6 10*3/uL Normal 0.7-4.5 [facility]; [facility] Work Phone: Comment on above: PATIENT NOT FASTINGP ERFORMED BY: MADELINE Cook Zswbci4530 [address] [id number] Information: 661209,L59489 Lymphocytes/100 WBC (Bld) 38 % Normal 14-46 [facility]; [facility] Work Phone: Comment on above: PATIENT NOT FASTINGP ERFORMED BY: MADELINE Cook Npccwe0095 [address] [id number] Information: 386617,Y79562 MCH (RBC) [Entitic mass] 29.9 pg Normal 26.6-33.0 [facility]; [facility] Work Phone: Comment on above: PATIENT NOT FASTINGP ERFORMED BY: MADELINE Cook Pbahat7031 [address] [id number] Information: 481350,P98801 MCHC (RBC) [Mass/Vol] 33.4 g/dL Normal 31.5-35.7 Com prehensive Internal [facility]; [facility] Work Phone: Comment on above: PATIENT NOT FASTINGP ERFORMED BY: MADELINE [facility] [id number] Information: 005360,Q40191 MCV (RBC) [Entitic vol] 90 fL Normal 79-97 [facility]; [facility] Work Phone: Comment on above: PATIENT NOT FASTINGP ERFORMED BY: MADELINE Heck[address] [id number] Information: 171106,S43366 Monocytes (Bld) [#/Vol] 0.3 {x10E3/uL} Normal 0.1-1.0 [facility]; [facility] Work Phone: Comment on above: PATIENT NOT FASTINGP ERFORMED BY: MADELINE Nolandlin6[address] [id number] Information: 198051,V31773 Monocytes (Bld) [#/Vol] 0.3 10*3/uL Normal 0.1-1.0 [facility]; [facility] Work Phone: Comment on above: PATIENT NOT FASTINGP ERFORMED BY: MADELINE Heck[address] [id number] Information: 181073,F99661 Monocytes/100 WBC (Bld) 6 % Normal 4-13 [facility]; [facility] Work Phone: Comment on above: PATIENT NOT FASTINGP ERFORMED BY: MADELINE Nolandlin6[address] [id number] Information: 777990,I69948 Neutrophils (Bld) [#/Vol] 2.3 {x10E3/uL} Normal 1.8-7.8 [facility]; [facility] Work Phone: Comment on above: PATIENT NOT FASTINGP ERFORMED BY: MADELINE Cook Fjabvj8988 [address] [id number] Information: 752405,A77338 Neutrophils (Bld) [#/Vol] 2.3 10*3/uL Normal 1.8-7.8 [facility]; [facility] Work Phone: Comment on above: PATIENT NOT FASTINGP ERFORMED BY: MADELINE [place] [id number] Information: 452963,Y07574 Neutrophils/100 WBC (Bld) 53 % Normal 40-74 [facility]; [facility] Work Phone: Comment on above: PATIENT NOT FASTINGP ERFORMED BY: MADELINE Heck63Bobbi SellersFirstHealth [facility] [id number] Information: 847857,J50880 Platelets (Bld) [#/Vol] 307 {x10E3/uL} Normal 140-415 [facility]; [facility] Work Phone: Comment on above: PATIENT NOT FASTINGP ERFORMED BY: MADELINE SellersFirstHealth [facility] [id number] Information: 503726,S13334 Platelets (Bld) [#/Vol] 307 10*3/uL Normal 140-415 [facility]; [facility] Work Phone: Comment on above: PATIENT NOT FASTINGP ERFORMED BY: MADELINE Heck6370 Nadine SellersFirstHealth [facility] [id number] Information: 048734,Z74226 RBC (Bld) [#/Vol] 4.65 {x10E6/uL} Normal 3.77-5.28 [facility]; [facility] Work Phone: Comment on above: PATIENT NOT FASTINGP ERFORMED BY: MADELINE Heck63Bobbi [facility] [facility] [id number] Information: 905636,E16931 RBC (Bld) [#/Vol] 4.65 10*6/uL Normal 3.77-5.28 [facility]; [facility] Work Phone: Comment on above: PATIENT NOT FASTINGP ERFORMED BY: MADELINE Heck[address] [id number] Information: 536032,D34994 WBC (Bld) [#/Vol] 4.2 {x10E3/uL} Normal 4.0-10.5 [facility]; [facility] Work Phone: Comment on above: PATIENT NOT FASTINGP ERFORMED BY: MADELINE Heck[address] [id number] Information: 265269,R69725 WBC (Bld) [#/Vol] 4.2 10*3/uL Normal 4.0-10.5 [facility]; [facility] Work Phone: Comment on above: PATIENT NOT FASTINGP ERFORMED BY: MADELINE Heck[address] [id number] Information: 429444,Z64191 LIPID PANEL (40005)Ordered B y: Swimming Pool Cleaner on 12-21-2011 Cholesterol [Mass/Vol] 258 mg/dL Abnormal 100-199 [facility]; [facility] Work Phone: Comment on above: PATIENT NOT FASTINGP ERFORMED BY: MADELINE Heck[address] [id number] Cholesterol in HDL [Mass/Vol] 67 mg/dL Normal [facility]; [facility] Work Phone: Comment on above: According to ATP-III Guidelines, HDL-C >59 mg/dL is considered anegative risk factor for CHD. PATIENT NOT FASTINGP ERFORMED BY: MADELINE LabCo Svveof[address] [id number] Cholesterol in LDL [Mass/Vol] 165 mg/dL Abnormal 0-99 [facility]; [facility] Work Phone: Comment on above: PATIENT NOT FASTINGP ERFORMED BY: MADELINE LabEddy NolandIlbakb6[address] [id number] Cholesterol in LDL/Cholesterol in HDL [Mass ratio] 2.5 {ratio_units} Normal 0.0-3.2 [facility]; [facility] Work Phone: Comment on above: PATIENT NOT FASTINGP ERFORMED BY: MADELINE LabEddy Gbelxs1812 [address] RoadDublin [place] [id number] Cholesterol in VLDL [Mass/Vol] 26 mg/dL Normal 5-40 [facility]; [facility] Work Phone: Comment on above: PATIENT NOT FASTINGP ERFORMED BY: MADELINE LabEddy Yuxknc5258 [address] RoadDublin [place] [id number] Triglyceride [Mass/Vol] 131 mg/dL Normal 0-149 [facility]; [facility] Work Phone: Comment on above: PATIENT NOT FASTINGP ERFORMED BY: MADELINE LabEddy NolandYfyrep0718 [address] RoadDublin [place] [id number] METABOLIC PANEL, COMPREHENSI VE (52268)Ordered By: Swimming Pool Cleaner on 12-21-2011 Albumin [Mass/Vol] 4.7 g/dL Normal 3.5-5.5 [facility]; [facility] Work Phone: Comment on above: PATIENT NOT FASTINGP ERFORMED BY: MADELINE Nolandlin6370 [address] RoadDublin [place] [id number] Albumin/Globulin [Mass ratio] 2.0 {ratio} Normal 1.1-2.5 [facility]; [facility] Work Phone: Comment on above: PATIENT NOT FASTINGP ERFORMED BY: MADELINE LabEddy Ccauog6645 [address] RoadDublin [place] [id number] ALP [Catalytic activity/Vol] 49 [iU]/L Normal 25-150 [facility]; [facility] Work Phone: Comment on above: PATIENT NOT FASTINGP ERFORMED BY: MADELINE [facility] Sqgawe3068 [address] RoadDublin [place] [id number] ALP [Catalytic activity/Vol] 49 U/L Normal 25-150 [facility]; [facility] Work Phone: Comment on above: PATIENT NOT FASTINGP ERFORMED BY: CB [facility] Ipellu2585 [address] RoadDublin [place] [id number] ALT [Catalytic activity/Vol] 16 [iU]/L Normal 0-40 [facility]; [facility] Work Phone: Comment on above: PATIENT NOT FASTINGP ERFORMED BY: MADELINE [facility] Ltnyaz4978 [address] RoadDublin [place] [id number] ALT [Catalytic activity/Vol] 16 U/L Normal 0-40 [facility]; [facility] Work Phone: Comment on above: PATIENT NOT FASTINGP ERFORMED BY: CB [facility] Gxfqct6024 [address] RoadDublin [place] [id number] AST [Catalytic activity/Vol] 26 [iU]/L Normal 0-40 [facility]; [facility] Work Phone: Comment on above: PATIENT NOT FASTINGP ERFORMED BY: CB [facility] Ysusto5627 [address] RoadDublin [place] [id number] AST [Catalytic activity/Vol] 26 U/L Normal 0-40 [facility]; [facility] Work Phone: Comment on above: PATIENT NOT FASTINGP ERFORMED BY: CB [facility] Ayhwvv5586 [address] RoadDublin [place] [id number] Bilirubin [Mass/Vol] 0.3 mg/dL Normal 0.0-1.2 Comp rehensive Internal Medicine; [facility] Work Phone: Comment on above: PATIENT NOT FASTINGP ERFORMED BY: CB [facility] Ssqtdy3667 [address]Dublin [place] [id number] Calcium [Mass/Vol] 10.2 mg/dL Normal 8.7-10.2 [facility]; [facility] Work Phone: Comment on above: PATIENT NOT FASTINGP ERFORMED BY: CB [facility] Cdjxpi5257 [address] RoadDublin [place] [id number] Chloride [Moles/Vol] 99 mmol/L Normal 97-108 Comp rehensive Internal Medicine; [facility] Work Phone: Comment on above: PATIENT NOT FASTINGP ERFORMED BY: CB [facility] Idogom8237 [address] RoadDublin [place] [id number] CO2 [Moles/Vol] 23 mmol/L Normal 20-32 [facility]; [facility] Work Phone: Comment on above: PATIENT NOT FASTINGP ERFORMED BY: CB [facility] Exttle5999 [address]Dublin [place] [id number] Creatinine [Mass/Vol] 0.86 mg/dL Normal 0.57-1.00 [facility] prehensive Internal Medicine; [facility] Work Phone: Comment on above: PATIENT NOT FASTINGP ERFORMED BY: CB [facility] Aoqfiw5651 [address] RoadDublin [place] [id number] GFR/1.73 sq M predicted among blacks CKD-EPI (S/P/Bld) [Vol rate/Area] 86 mL/min/1.73 Normal [facility]; [facility] Work Phone: Comment on above: PATIENT NOT FASTINGP ERFORMED BY: CB [facility] Syogbk2424 [address] RoadDublin [place] [id number] GFR/1.73 sq M predicted among non-blacks CKD-EPI (S/P/Bld) [Vol rate/Area] 75 mL/min/1.73 Normal [facility]; [facility] Work Phone: Comment on above: PATIENT NOT FASTINGP ERFORMED BY: CB [facility] Rwotmy5596 [address] RoadFormerly [facility]in [place] [id number] Globulin (S) [Mass/Vol] 2.4 g/dL Normal 1.5-4.5 [facility]; [facility] Work Phone: Comment on above: PATIENT NOT FASTINGP ERFORMED BY: CB [facility] Rvxhbk1301 [address] RoadDublin [place] [id number] Glucose [Mass/Vol] 88 mg/dL Normal 65-99 [facility]; [facility] Work Phone: Comment on above: PATIENT NOT FASTINGP ERFORMED BY: CB [facility] Ylmjux0541 [address]Dublin [place] [id number] Potassium [Moles/Vol] 4.4 mmol/L Normal 3.5-5.2 [facility] prehensive Internal Medicine; [facility] Work Phone: Comment on above: PATIENT NOT FASTINGP ERFORMED BY: MADELINE LabCopretty Feskvd9023 [address] RoadDublin [place] [id number] Protein [Mass/Vol] 7.1 g/dL Normal 6.0-8.5 [facility]; [facility] Work Phone: Comment on above: PATIENT NOT FASTINGP ERFORMED BY: CB [facility] Oqbyjk0699 [address] RoadDublin [place] [id number] Sodium [Moles/Vol] 138 mmol/L Normal 134-144 [facility]; [facility] Work Phone: Comment on above: PATIENT NOT FASTINGP ERFORMED BY: MADELINE LabCopretty NolandSczsbq0649 [address] RoadDublin [place] [id number] Urea nitrogen [Mass/Vol] 19 mg/dL Normal 6-24 [facility]; [facility] Work Phone: Comment on above: PATIENT NOT FASTINGP ERFORMED BY: CB [facility] Gtvvhr6964 [address] RoadDublin [place] [id number] Urea nitrogen/Creatinine [Mass ratio] 22 mg/mg Normal 9-23 [facility]; [facility] Work Phone: Comment on above: PATIENT NOT FASTINGP ERFORMED BY: MADELINE LabEddy Fjnmto7260 [address]Dublin [place] [id number] TSH (24950)Ordered By: Syste m Motor Generator Set Operator on 12-21-2011 TSH Qn 1.300 {uIU/mL} Normal 0.450-4.500 Comprehen sive Internal Medicine; [facility] Work Phone: Comment on above: PATIENT NOT FASTINGP ERFORMED BY: CB [facility] Fuqnvd9720 [address] RoadDublin [place] [id number] URINALYSIS, W/ MICRO (74148) Ordered By: Swimming Pool Cleaner on 12-21-2011 Appearance (U) Clear Normal Comprehens nataliya Internal Medicine; [facility] Work Phone: Comment on above: PATIENT NOT FASTINGP ERFORMED BY: CB [facility] Comyla3314 [address] RoadDublin [place] [id number] Information: SRC:UR B54837 Bilirubin Ql (U) Negative Normal Comprehe nsive Internal Medicine; [facility] Work Phone: Comment on above: PATIENT NOT FASTINGP ERFORMED BY: MADELINE Viviana Uscjno3250 [address]Dublin [place] [id number] Information: SRC:UR X09207 Bilirubin Ql (U) Negative Normal Comprehe nsive Internal Medicine; [facility] Work Phone: Comment on above: PATIENT NOT FASTINGP ERFORMED BY: MADELINE SylvesterEddy NolandDtzjtx3693 [address] RoadDublin [place] [id number] Information: SRC:UR N76328 Color (U) Yellow Normal [facility]; [facility] Work Phone: Comment on above: PATIENT NOT FASTINGP ERFORMED BY: MADELINE SylvesterEddy NolandCaqosq7130 [address] RoadDuin [place] [id number] Information: SRC:UR P38083 Glucose Ql (U) Negative Normal Comprehens nataliya [facility] Medicine; [facility] Work Phone: Comment on above: PATIENT NOT FASTINGP ERFORMED BY: MADELINE Heck6[address]Dublin [place] [id number] Information: SRC:UR E61866 Glucose Ql (U) Negative Normal Comprehens nataliya [facility]; [facility] Work Phone: Comment on above: PATIENT NOT FASTINGP ERFORMED BY: MADELINE SylvesterEddy NolandWyeowb5958 [address] RoadDublin [place] [id number] Information: SRC:UR H72492 Hemoglobin Ql (U) Negative Normal Compreh ensive Internal Medicine; [facility] Work Phone: Comment on above: PATIENT NOT FASTINGP ERFORMED BY: MADELINE SylvesterEddy NolandIbcbqe4447 [address] RoadDublin [place] [id number] Information: SRC:UR K54696 Hemoglobin Ql (U) Negative Normal Compreh ensive Internal Medicine; [facility] Work Phone: Comment on above: PATIENT NOT FASTINGP ERFORMED BY: MADELINE Nolandlin6370 [address]Dublin [place] [id number] Information: SRC:UR X07893 Ketones Ql (U) Negative Normal Comprehens nataliya [facility]; [facility] Work Phone: Comment on above: PATIENT NOT FASTINGP ERFORMED BY: MADELINE [facility] Niralw0967 [address] RoadDublin [place] [id number] Information: SRC:UR D39809 Ketones Ql (U) Negative Normal Comprehens nataliya [facility]; [facility] Work Phone: Comment on above: PATIENT NOT FASTINGP ERFORMED BY: CB [facility] Jpjypg3216 [address] RoadDublin [place] [id number] Information: SRC:UR O61238 Leukocyte esterase Test strip Ql (U) Negative Normal [facility]; [facility] Work Phone: Comment on above: PATIENT NOT FASTINGP ERFORMED BY: CB [facility] Kckrtj7084 [address] RoadDublin [place] [id number] Information: SRC:UR E09964 Leukocyte esterase Test strip Ql (U) Negative Normal [facility]; [facility] Work Phone: Comment on above: PATIENT NOT FASTINGP ERFORMED BY: MADELINE [facility] Osobmk5898 [address] RoadDublin [place] [id number] Information: SRC:UR H09333 Microscopic observation LM Nom (Urine sed) MICRON Normal [facility]; [facility] Work Phone: Comment on above: Microscopic follows if indicated. PATIENT NOT FASTINGP ERFORMED BY: CB [facility] Udnxbl9788 [address] RoadDublin [place] [id number] Information: SRC:UR W12542 Microscopic observation LM Nom (Urine sed) See below: Normal [facility]; [facility] Work Phone: Comment on above: PATIENT NOT FASTINGP ERFORMED BY: CB [facility] Aveikb0928 [address] RoadDublin [place] [id number] Information: SRC:UR C16313 Nitrite Ql (U) Negative Normal Comprehens nataliya [facility]; [facility] Work Phone: Comment on above: PATIENT NOT FASTINGP ERFORMED BY: MADELINE Purvis[address]Formerly [facility]in [place] [id number] Information: SRC:UR P77449 Nitrite Ql (U) Negative Normal Comprehens nataliya [facility]; [facility] Work Phone: Comment on above: PATIENT NOT FASTINGP ERFORMED BY: MADELINE Purvis[address] [facility]in [place] [id number] Information: SRC:UR Y05918 pH (U) 7.0 [pH] Normal 5.0-7.5 [facility]; [facility] Work Phone: Comment on above: PATIENT NOT FASTINGP ERFORMED BY: MADELINE Purvis70 Mcc[address] RoadAtrium Health Providence [id number] Information: SRC:UR W20769 Protein Ql (U) Negative Normal Comprehens nataliya [facility]; [facility] Work Phone: Comment on above: PATIENT NOT FASTINGP ERFORMED BY: MADELINE Heck[address] [facility] [id number] Information: SRC:UR J78171 Protein Ql (U) Negative Normal Comprehens nataliya [facility]; [facility] Work Phone: Comment on above: PATIENT NOT FASTINGP ERFORMED BY: MADELINE Jiménez Xdvztj[address] [facility] [id number] Information: SRC:UR E94170 Specific gravity (U) [Rel density] 1.008 1 Normal 1.005-1.030 [facility]; [facility] Work Phone: Comment on above: PATIENT NOT FASTINGP ERFORMED BY: MADELINE [id number] [facility] [id number] Information: SRC:UR Q40841 Urobilinogen (U) [Mass/Vol] 0.2 mg/dL Normal 0.0-1.9 [facility]; [facility] Work Phone: Comment on above: PATIENT NOT FASTINGP ERFORMED BY: MADELINE [facility] [id number] RoadDublin [place] [id number] Information: SRC:UR [id number] Urobilinogen Test strip (U) [Mass/Vol] 0.2 mg/dL Normal 0.0-1.9 [facility]; [facility] Work Phone: Comment on above: PATIENT NOT FASTINGP ERFORMED BY: CB [facility] [id number] [address] RoadDublin [place] [id number] Information: SRC:UR [id number] URINE DERICK CULTURE-MARCY COL C OUNT ([id number])Ordered By: Swimming Pool Cleaner on 12-21-2011 Bacteria identified Cx Nom (U) Final report Normal [facility]; [facility] Work Phone: Comment on above: PATIENT NOT FASTINGP ERFORMED BY: MADELINE [facility] [id number]Dublin [place] [id number] Bacteria identified Cx Nom (U) NG36 Normal [facility]; [facility] Work Phone: Comment on above: No growth in 36 - 48 hours. PATIENT NOT FASTINGP ERFORMED BY: CB [facility] [id number]Dublin [place] [id number] Vitamin D Hydroxy (04110)Ord ered By: Swimming Pool Cleaner on 12-21-2011 25-Hydroxyvitamin D2+25-Hydroxyvitamin D3 [Mass/Vol] 46.3 ng/mL Normal 30.0-100.0 [facility]; [facility] Work Phone: Comment on above: Vitamin D deficiency has been defined by the [place] [employer] and an Endocrine Society practice guideline as alevel of serum 25-OH vitamin D less than 20 ng/mL (1,2).The Endocrine Society went on to further define vitamin Dinsufficiency as a level between 21 and 29 ng/mL (2).1. IOM ([place] [employer]). 2010. Dietary reference intakes for calcium and D. [place]: The National Academies Press.2. Alireza MF, Xin NC, Oneal FONTANA, et al. Evaluation, treatment, and prevention of vitamin D deficiency: an Endocrine Society clinical practice guideline. JCEM. 2010; 96(7):1911-30. PATIENT NOT FASTINGP ERFORMED BY: [facility] [facility] [id number] Vital Signs Date Time Vital Sign Value Performing Clinician Facility 07-21-2023 13:09-0400 Body temperature 97.4 [degF] Dr. Elizabet Walden Work Phone: [facility] 07-21-2023 13:09-0400 Diastolic blood pressure 66 mm[Hg] Dr. Elizabet Walden Work Phone: [facility] 07-21-2023 13:09-0400 Heart rate 70 /min Dr. Elizabet Walden Work Phone: [facility] 07-21-2023 13:09-0400 Respiratory rate 16 /min Dr. Elizabet Walden Work Phone: [facility] 07-21-2023 13:09-0400 SaO2% (BldA) [Mass fraction] 99 % Dr. Elizabet Walden Work Phone: [facility] 07-21-2023 13:09-0400 Systolic blood pressure 112 mm[Hg] Dr. Elizabet Walden Work Phone: [facility] 07-21-2023 11:32-0400 Body height 167.[address] Elizabet Walden Work Phone: [facility] 07-21-2023 11:32-0400 Body mass index (BMI) [Ratio] 23.1 kg/m2 Dr. Elizabet Walden Work Phone: [facility] 07-21-2023 11:32-0400 Body weight [address] Elizabet Walden Work Phone: [facility] 04-07-2023 13:20-0500 Body height 167.6 cm Adelia Wolf MD Work Phone: [facility] 04-07-2023 13:20-0500 Body mass index (BMI) [Ratio] 22.6 kg/m2 Adelia Wolf MD Work Phone: [facility] 04-07-2023 13:20-0500 Body weight 63.5 kg Adelia Wolf MD Work Phone: [facility] 03-23-2023 12:27-0500 Body height 167.[address] Elizabet Walden Work Phone: [facility] 03-23-2023 12:27-0500 Body mass index (BMI) [Ratio] 22.6 kg/m2 Dr. Elizabet Walden Work Phone: [facility] 03-23-2023 12:27-0500 Body weight 63.[address] Elizabet Walden Work Phone: [facility] 01-27-2023 10:53-0500 Body height 167.64 cm [facility] 01-01-2023 10:54-0400 Body height 167.64 cm [facility] 01-01-2023 10:54-0400 Body mass index (BMI) [Ratio] 22.6 kg/m2 [facility] 01-01-2023 10:54-0400 Body temperature 96.7 [degF] [facility] 01-01-2023 10:54-0400 Body weight 63.5 kg [facility] 01-01-2023 10:54-0400 Diastolic blood pressure 65 mm[Hg] [facility] 01-01-2023 10:54-0400 Heart rate 73 /min [facility] 01-01-2023 10:54-0400 Respiratory rate 16 /min [facility] 01-01-2023 10:54-0400 SaO2% (BldA) [Mass fraction] 100 % [facility] 01-01-2023 10:54-0400 Systolic blood pressure 119 mm[Hg] [facility] 12-16-2022 11:05-0400 Body height 167.64 cm CHYNA Salazar LPN [facility]; [facility] Work Phone: 12-16-2022 11:05-0400 Body mass index (BMI) [Ratio] 22.43 kg/m2 CHYNA Salazar LPN [facility]; [facility] Work Phone: 12-16-2022 11:05-0400 Body surface area Derived from formula 1.71 m2 CHYNA Salazar LPN [facility]; [facility] Work Phone: 12-16-2022 11:05-0400 Body temperature 97.6 [degF] CHYNA Salazar LPN [facility]; [facility] Work Phone: Comment on above: Method: Temporal 12-16-2022 11:05-0400 Body weight 63.05 kg CHYNA Salazar LPN [facility]; [facility] Work Phone: 12-16-2022 11:05-0400 Diastolic blood pressure 72 mm[Hg] CHYNA Salazar LPN [facility]; [facility] Work Phone: Comment on above: Patient Position: Sitting; Cuff Location : Left Arm; Cuff Size: Standard 12-16-2022 11:05-0400 Heart rate 78 /min CHNYA Salazar LPN [facility]; [facility] Work Phone: Comment on above: Pattern: Regular 12-16-2022 11:05-0400 Respiratory rate 18 /min CHYAN Salazar LPN [facility]; [facility] Work Phone: Comment on above: Pattern: Unlabored 12-16-2022 11:05-0400 SaO2% (BldA) [Mass fraction] 97 % CHYNA Salazar LPN [facility]; [facility] Work Phone: Comment on above: Room air 12-16-2022 11:05-0400 Systolic blood pressure 114 mm[Hg] CHYNA Salazar LPN [facility]; [facility] Work Phone: Comment on above: Patient Position: Sitting; Cuff Location : Left Arm; Cuff Size: Standard 10-08-2021 15:42-0400 Body temperature 98.49 [degF] Denita Albert APRN.[employer] Work Phone: [facility] 10-08-2021 15:42-0400 Body weight 61.87 kg Denita Albert POCKET BUILDER.EVP [employer] Work Phone: [facility] 10-08-2021 15:42-0400 Diastolic blood pressure 64 mm[Hg] Denita Albert POCKET BUILDER.[employer] Work Phone: [facility] 10-08-2021 15:42-0400 Heart rate 86 /min Denita Albert POCKET BUILDER.[employer] Work Phone: [facility] 10-08-2021 15:42-0400 Respiratory rate 18 /min Denita Albert POCKET BUILDER.[employer] Work Phone: [facility] 10-08-2021 15:42-0400 SaO2% (BldA) [Mass fraction] 98 % Dneita Albert POCKET BUILDER.[employer] Work Phone: [facility] 10-08-2021 15:42-0400 Systolic blood pressure 96 mm[Hg] Denita Albert POCKET BUILDER.[employer] Work Phone: [facility] 10-01-2021 12:46-0400 Body temperature 97.81 [degF] Yuliya Athy PA-C Work Phone: [facility] 10-01-2021 12:46-0400 Body weight 61.15 kg Yuliya Athy PA-C Work Phone: [facility] 10-01-2021 12:46-0400 Diastolic blood pressure 68 mm[Hg] Yuliya Athy PA-C Work Phone: [facility] 10-01-2021 12:46-0400 Heart rate 91 /min Yuliya Athy PA-C Work Phone: [facility] 10-01-2021 12:46-0400 Respiratory rate 22 /min Yuliya Athy PA-C Work Phone: [facility] 10-01-2021 12:46-0400 SaO2% (BldA) [Mass fraction] 98 % Yuliya Athy PA-C Work Phone: [facility] 10-01-2021 12:46-0400 Systolic blood pressure 98 mm[Hg] Yuliya Athy PA-C Work Phone: [facility] 03-23-2021 09:13-0500 Body height 167.[address] [facility]; [facility] Work Phone: Comment on above: no vs taken as this is phone encounter d ue to covid 03-23-2021 09:13-0500 Body mass index (BMI) [Ratio] 21.85 kg/m2 Catina Rees [facility]; [facility] Work Phone: Comment on above: no vs taken as this is phone encounter d ue to covid 03-23-2021 09:13-0500 Body surface area Derived from formula 1.[address] [facility]; [facility] Work Phone: Comment on above: no vs taken as this is phone encounter d ue to covid 03-23-2021 09:13-0500 Body weight 61.[address] [facility]; [facility] Work Phone: Comment on above: no vs taken as this is phone encounter d ue to covid 03-23-2021 09:13-0500 SaO2% (BldA) [Mass fraction] 96 % Catina Rees [facility]; [facility] Work Phone: Comment on above: Room air no vs taken as this is phone encounter due to covid 03-20-2021 08:12-0500 Body height 167.64 cm Gloria Decker MA [facility]; [facility] Work Phone: 03-20-2021 08:12-0500 Body mass index (BMI) [Ratio] 21.85 kg/m2 Gloria Decker MA [facility]; [facility] Work Phone: 03-20-2021 08:12-0500 Body surface area Derived from formula 1.69 m2 Gloria Decker MA [facility]; [facility] Work Phone: 03-20-2021 08:12-0500 Body weight 61.41 kg Gloria Decker MA [facility]; [facility] Work Phone: 03-20-2021 08:12-0500 SaO2% (BldA) [Mass fraction] 96 % Gloria Decker MA [facility]; [facility] Work Phone: Comment on above: Room air 03-18-2021 08:31-0500 Body height 167.64 cm Eliane Herzog [facility]; [facility] Work Phone: Comment on above: virtual, pulse ox reported by pt 03-18-2021 08:31-0500 Body mass index (BMI) [Ratio] 21.85 kg/m2 Eliane Herzog [facility]; [facility] Work Phone: Comment on above: virtual, pulse ox reported by pt 03-18-2021 08:31-0500 Body surface area Derived from formula 1.69 m2 Elianejesús Herzog [employer] [facility]; [facility] Work Phone: Comment on above: virtual, pulse ox reported by pt 03-18-2021 08:31-0500 Body weight 61.41 kg Eliane Herzog [facility]; [facility] Work Phone: Comment on above: virtual, pulse ox reported by pt 03-18-2021 08:31-0500 SaO2% (BldA) [Mass fraction] 95 % Eliane Herzog [facility]; [facility] Work Phone: Comment on above: Room air virtual, pulse ox re ported by pt 03-17-2021 12:43-0500 Body temperature 99.1 [degF] [facility] Work Phone: 03-17-2021 12:43-0500 Diastolic blood pressure 67 mm[Hg] [facility] Work Phone: 03-17-2021 12:43-0500 Heart rate 75 /min [facility] Work Phone: 03-17-2021 12:43-0500 Respiratory rate 18 /min [facility] Work Phone: 03-17-2021 12:43-0500 SaO2% (BldA) [Mass fraction] 98 % [facility] Work Phone: 03-17-2021 12:43-0500 Systolic blood pressure 104 mm[Hg] [facility] Work Phone: 03-17-2021 10:57-0500 Body height 167.64 cm [facility] Work Phone: 03-17-2021 10:57-0500 Body mass index (BMI) [Ratio] 21.7 kg/m2 [facility] Work Phone: 03-17-2021 10:57-0500 Body weight 61.23 kg [facility] Work Phone: 03-16-2021 11:52-0500 Body height 167.64 cm [facility]; [facility] Work Phone: Comment on above: virtual, none reported 03-16-2021 11:52-0500 Body mass index (BMI) [Ratio] 21.85 kg/m2 [facility]; [facility] Work Phone: Comment on above: virtual, none reported 03-16-2021 11:52-0500 Body surface area Derived from formula 1.69 m2 [facility]; [facility] Work Phone: Comment on above: virtual, none reported 03-16-2021 11:52-0500 Body weight 61.41 kg [facility]; [facility] Work Phone: Comment on above: virtual, none reported 05-05-2020 10:27-0500 BMI (Body Mass Index) 21.85 kg/m2 Catina Rees [facility]; [facility] Work Phone: 05-05-2020 10:27-0500 Body Temperature 97.2 [degF] Catina Urrutiaius [facility]; [facility] Work Phone: Comment on above: Method: Infrared 05-05-2020 10:27-0500 Body weight 61.[address] [facility]; [facility] Work Phone: 05-05-2020 10:27-0500 BP Diastolic 60 mm[Hg] Catina Rees CMA [facility]; [facility] Work Phone: Comment on above: Patient Position: Sitting; Cuff Location : Left Arm; Cuff Size: Standard 05-05-2020 10:27-0500 BP Systolic 98 mm[Hg] Catina Rees [facility]; [facility] Work Phone: Comment on above: Patient Position: Sitting; Cuff Location : Left Arm; Cuff Size: Standard 05-05-2020 10:27-0500 BSA (Body Surface Area) 1.[address] [facility]; [facility] Work Phone: 05-05-2020 10:27-0500 Height 167.[address] [facility]; [facility] Work Phone: 05-05-2020 10:27-0500 Pulse (Heart Rate) 84 /min Catina Rees [facility]; [facility] Work Phone: Comment on above: Pattern: Regular 05-05-2020 10:27-0500 Pulse Oximetry 96 % Elizabet Anabelle [facility]; [facility] Work Phone: Comment on above: Room air 05-05-2020 10:27-0500 Respiratory Rate 16 /min Catina Rees [facility]; [facility] Work Phone: Comment on above: Pattern: Unlabored 05-05-2020 10:27-0500 SaO2% (BldA) [Mass fraction] 96 % Catina Rees [facility]; [facility] Work Phone: Comment on above: Room air 03-24-2015 13:35-0500 BMI (Body Mass Index) 24.27 kg/m2 Ally Rodriguez RN [facility]; [facility] Work Phone: 03-24-2015 13:35-0500 Body weight 68.21 kg Ally Rodriguez RN [facility]; [facility] Work Phone: 03-24-2015 13:35-0500 BP Diastolic 78 mm[Hg] Ally Rodriguez RN [facility]; [facility] Work Phone: Comment on above: Patient Position: Sitting; Cuff Location : Left Arm; Cuff Size: Large 03-24-2015 13:35-0500 BP Systolic 118 mm[Hg] Ally Rodriguez RN [facility]; [facility] Work Phone: Comment on above: Patient Position: Sitting; Cuff Location : Left Arm; Cuff Size: Large 03-24-2015 13:35-0500 BSA (Body Surface Area) 1.77 m2 Ally Rodriguez RN [facility]; [facility] Work Phone: 03-24-2015 13:35-0500 Height 167.64 cm Ally Rodriguez RN [facility]; [facility] Work Phone: 03-24-2015 13:35-0500 Pulse (Heart Rate) 60 /min Ally Rodriguez RN [facility]; [facility] Work Phone: Comment on above: Pattern: Regular 03-24-2015 13:35-0500 Pulse Oximetry 93 % Elizabet Walden [facility]; [facility] Work Phone: Comment on above: Room air 03-24-2015 13:35-0500 Respiratory Rate 20 /min Ally Rodriguez RN [facility]; [facility] Work Phone: Comment on above: Pattern: Unlabored 03-24-2015 13:35-0500 SaO2% (BldA) [Mass fraction] 93 % Ally Rodriguez RN [facility]; [facility] Work Phone: Comment on above: Room air 12-09-2014 09:44-0400 BMI (Body Mass Index) 25.02 kg/m2 Sofía Lo RN [facility]; [facility] Work Phone: 12-09-2014 09:44-0400 Body weight 70.31 kg Sofía Lo RN [facility]; [facility] Work Phone: 12-09-2014 09:44-0400 BP Diastolic 68 mm[Hg] Sofía Lo RN [facility]; [facility] Work Phone: Comment on above: Patient Position: Sitting; Cuff Location : Left Arm; Cuff Size: Standard 12-09-2014 09:44-0400 BP Systolic 124 mm[Hg] Sofía Lo RN [facility]; [facility] Work Phone: Comment on above: Patient Position: Sitting; Cuff Location : Left Arm; Cuff Size: Standard 12-09-2014 09:44-0400 BSA (Body Surface Area) 1.79 m2 Sofía Lo RN [facility]; [facility] Work Phone: 12-09-2014 09:44-0400 Height 167.64 cm Sofía Lo RN [facility]; [facility] Work Phone: 12-09-2014 09:44-0400 Pulse (Heart Rate) 66 /min Sofía Lo RN [facility]; [facility] Work Phone: Comment on above: Pattern: Regular 12-09-2014 09:44-0400 Respiratory Rate 16 /min Sofía Lo RN [facility]; [facility] Work Phone: Comment on above: Pattern: Unlabored 08-08-2014 10:26-0400 BMI (Body Mass Index) 23.75 kg/m2 Ally Rodriguez RN [facility]; [facility] Work Phone: 08-08-2014 10:26-0400 Body weight 66.74 kg Ally Rodriguez RN [facility]; [facility] Work Phone: 08-08-2014 10:26-0400 BP Diastolic 78 mm[Hg] Ally Rodriguez RN [facility]; [facility] Work Phone: Comment on above: Patient Position: Sitting; Cuff Location : Left Arm; Cuff Size: Standard 08-08-2014 10:26-0400 BP Systolic 120 mm[Hg] Ally Rodriguez RN [facility]; [facility] Work Phone: Comment on above: Patient Position: Sitting; Cuff Location : Left Arm; Cuff Size: Standard 08-08-2014 10:26-0400 BSA (Body Surface Area) 1.76 m2 Ally Rodriguez RN [facility]; [facility] Work Phone: 08-08-2014 10:040 Height 167.64 cm Ally Rodriguez RN [facility]; [facility] Work Phone: 08-08-2014 10:26-0400 Pulse (Heart Rate) 68 /min Ally Rodriguez RN [facility]; [facility] Work Phone: Comment on above: Pattern: Regular 08-08-2014 10:0400 Pulse Oximetry 98 % Elizabet Walden [facility]; [facility] Work Phone: Comment on above: Room air 08-08-2014 10:040 Respiratory Rate 18 /min Ally Rodriguez RN [facility]; [facility] Work Phone: Comment on above: Pattern: Unlabored 08-08-2014 10:0400 SaO2% (BldA) [Mass fraction] 98 % Ally Rodriguez RN [facility]; [facility] Work Phone: Comment on above: Room air 05-15-2014 10:10-0500 BMI (Body Mass Index) 24.53 kg/m2 Ally Rodriguez RN [facility]; [facility] Work Phone: 05-15-2014 10:10-0500 Body weight 68.95 kg Ally Rodriguez RN [facility]; [facility] Work Phone: 05-15-2014 10:10-0500 BP Diastolic 60 mm[Hg] Ally Rodriguez RN [facility]; [facility] Work Phone: Comment on above: Patient Position: Sitting; Cuff Location : Left Arm; Cuff Size: Standard 05-15-2014 10:10-0500 BP Systolic 102 mm[Hg] Ally Rodriguez RN [facility]; [facility] Work Phone: Comment on above: Patient Position: Sitting; Cuff Location : Left Arm; Cuff Size: Standard 05-15-2014 10:10-0500 BSA (Body Surface Area) 1.78 m2 Ally Rodriguez RN [facility]; [facility] Work Phone: 05-15-2014 10:10-0500 Height 167.64 cm Ally Rodriguez RN [facility]; [facility] Work Phone: 05-15-2014 10:10-0500 Pulse (Heart Rate) 84 /min Ally Rodriguez RN [facility]; [facility] Work Phone: Comment on above: Pattern: Regular 05-15-2014 10:10-0500 Pulse Oximetry 97 % Elizabet Walden [facility]; [facility] Work Phone: Comment on above: Room air 05-15-2014 10:10-0500 Respiratory Rate 18 /min Ally Rodriguez RN [facility]; [facility] Work Phone: Comment on above: Pattern: Unlabored 05-15-2014 10:10-0500 SaO2% (BldA) [Mass fraction] 97 % Ally Rodriguez RN [facility]; [facility] Work Phone: Comment on above: Room air 04-03-2014 10:12-0500 BMI (Body Mass Index) 24.29 kg/m2 Ally Rodriguez RN [facility]; [facility] Work Phone: 04-03-2014 10:12-0500 Body Temperature 98.1 [degF] Ally Rodriguez RN [facility]; [facility] Work Phone: Comment on above: Method: Oral 04-03-2014 10:12-0500 Body weight 68.27 kg Ally Rodriguez RN [facility]; [facility] Work Phone: 04-03-2014 10:12-0500 BP Diastolic 64 mm[Hg] Ally Rodriguez RN [facility]; [facility] Work Phone: Comment on above: Patient Position: Sitting; Cuff Location : Left Arm; Cuff Size: Large 04-03-2014 10:12-0500 BP Systolic 138 mm[Hg] Ally Rodriguez RN [facility]; [facility] Work Phone: Comment on above: Patient Position: Sitting; Cuff Location : Left Arm; Cuff Size: Large 04-03-2014 10:12-0500 BSA (Body Surface Area) 1.77 m2 Ally Rodriguez RN [facility]; [facility] Work Phone: 04-03-2014 10:12-0500 Height 167.64 cm Ally Rodriguez RN [facility]; [facility] Work Phone: 04-03-2014 10:12-0500 Pulse (Heart Rate) 96 /min Ally Rodriguez RN [facility]; [facility] Work Phone: Comment on above: Pattern: Regular 04-03-2014 10:12-0500 Pulse Oximetry 98 % Elizabet Walden [facility]; [facility] Work Phone: Comment on above: Room air 04-03-2014 10:12-0500 Respiratory Rate 18 /min Ally Rodriguez RN [facility]; [facility] Work Phone: Comment on above: Pattern: Unlabored 04-03-2014 10:12-0500 SaO2% (BldA) [Mass fraction] 98 % Ally Rodriguez RN [facility]; [facility] Work Phone: Comment on above: Room air 03-05-2014 10:32-0500 BMI (Body Mass Index) 24.76 kg/m2 Sofía Lo RN [facility]; [facility] Work Phone: 03-05-2014 10:32-0500 Body Temperature 99.4 [degF] Sofía Lo RN [facility]; [facility] Work Phone: Comment on above: Method: Temporal 03-05-2014 10:32-0500 Body weight 69.57 kg Sofía Lo RN [facility] Medicine; [facility] Work Phone: 03-05-2014 10:32-0500 BP Diastolic 82 mm[Hg] Sofía Lo RN [facility]; [facility] Work Phone: Comment on above: Patient Position: Sitting; Cuff Location : Left Arm; Cuff Size: Standard 03-05-2014 10:32-0500 BP Systolic 130 mm[Hg] Sofía Lo RN [facility]; [facility] Work Phone: Comment on above: Patient Position: Sitting; Cuff Location : Left Arm; Cuff Size: Standard 03-05-2014 10:32-0500 BSA (Body Surface Area) 1.79 m2 Sofía Lo RN [facility]; [facility] Work Phone: 03-05-2014 10:32-0500 Height 167.64 cm Sofía Lo RN [facility]; [facility] Work Phone: 03-05-2014 10:32-0500 Pulse (Heart Rate) 84 /min Sofía Lo RN [facility]; [facility] Work Phone: Comment on above: Pattern: Regular 03-05-2014 10:32-0500 Pulse Oximetry 98 % Elizabet Walden [facility]; [facility] Work Phone: Comment on above: Room air 03-05-2014 10:32-0500 Respiratory Rate 20 /min Sofía Lo RN [facility]; [facility] Work Phone: Comment on above: Pattern: Unlabored 03-05-2014 10:32-0500 SaO2% (BldA) [Mass fraction] 98 % Sofía Lo RN [facility]; [facility] Work Phone: Comment on above: Room air 02-26-2014 10:57-0500 BMI (Body Mass Index) 24.76 kg/m2 Ally Rodriguez RN [facility]; [facility] Work Phone: 02-26-2014 10:57-0500 Body weight 69.57 kg Ally Rodriguez RN [facility]; [facility] Work Phone: 02-26-2014 10:57-0500 BP Diastolic 78 mm[Hg] Ally Rodriguez RN [facility]; [facility] Work Phone: Comment on above: Patient Position: Sitting; Cuff Location : Left Arm; Cuff Size: Large 02-26-2014 10:57-0500 BP Systolic 110 mm[Hg] Ally Rodriguez RN [facility]; [facility] Work Phone: Comment on above: Patient Position: Sitting; Cuff Location : Left Arm; Cuff Size: Large 02-26-2014 10:57-0500 BSA (Body Surface Area) 1.79 m2 Ally Rodriguez RN [facility]; [facility] Work Phone: 02-26-2014 10:57-0500 Height 167.64 cm Ally Rodriguez RN [facility]; [facility] Work Phone: 02-26-2014 10:57-0500 Pulse (Heart Rate) 88 /min Ally Rodriguez RN [facility]; [facility] Work Phone: Comment on above: Pattern: Regular 02-26-2014 10:57-0500 Pulse Oximetry 98 % Elizabet Walden [facility]; [facility] Work Phone: Comment on above: Room air 02-26-2014 10:57-0500 Respiratory Rate 18 /min Ally Rodriguez RN [facility]; [facility] Work Phone: Comment on above: Pattern: Unlabored 02-26-2014 10:57-0500 SaO2% (BldA) [Mass fraction] 98 % Ally Rodriguez RN [facility]; [facility] Work Phone: Comment on above: Room air 10-31-2013 11:27-0400 BMI (Body Mass Index) 24.42 kg/m2 Ally Rodriguez RN [facility]; [facility] Work Phone: 10-31-2013 11:27-0400 Body Temperature 98.6 [degF] Ally Rodriguez RN [facility]; [facility] Work Phone: Comment on above: Method: Oral 10-31-2013 11:27-0400 Body weight 68.64 kg Ally Rodriguez RN [facility]; [facility] Work Phone: 10-31-2013 11:27-0400 BP Diastolic 76 mm[Hg] Ally Rodriguez RN [facility]; [facility] Work Phone: Comment on above: Patient Position: Sitting; Cuff Location : Left Arm; Cuff Size: Standard 10-31-2013 11:27-0400 BP Systolic 118 mm[Hg] Ally Rodriguez RN [facility]; [facility] Work Phone: Comment on above: Patient Position: Sitting; Cuff Location : Left Arm; Cuff Size: Standard 10-31-2013 11:27-0400 BSA (Body Surface Area) 1.78 m2 Ally Rodriguez RN [facility]; [facility] Work Phone: 10-31-2013 11:27-0400 Height 167.64 cm Ally Rodriguez RN [facility]; [facility] Work Phone: 10-31-2013 11:27-0400 Pulse (Heart Rate) 81 /min Ally Rodriguez RN [facility]; [facility] Work Phone: Comment on above: Pattern: Regular 10-31-2013 11:27-0400 Pulse Oximetry 97 % Elizabet Walden [facility]; [facility] Work Phone: Comment on above: Room air 10-31-2013 11:27-0400 Respiratory Rate 18 /min Ally Rodriguez RN [facility]; [facility] Work Phone: 10-31-2013 11:27-0400 SaO2% (BldA) [Mass fraction] 97 % Ally Rodriguez RN [facility]; [facility] Work Phone: Comment on above: Room air 12-21-2011 11:44-0400 BMI (Body Mass Index) 23.96 kg/m2 Ally Rodriguez RN [facility]; [facility] Work Phone: 12-21-2011 11:44-0400 Body Temperature 97.9 [degF] Ally Rodriguez RN [facility]; [facility] Work Phone: Comment on above: Method: Oral 12-21-2011 11:44-0400 Body weight 67.33 kg Ally Rodriguez RN [facility]; [facility] Work Phone: 12-21-2011 11:44-0400 BP Diastolic 78 mm[Hg] Ally Rodriguez RN [facility]; [facility] Work Phone: Comment on above: Patient Position: Sitting; Cuff Location : Left Arm; Cuff Size: Standard 12-21-2011 11:44-0400 BP Systolic 120 mm[Hg] Ally Rodriguez RN [facility]; [facility] Work Phone: Comment on above: Patient Position: Sitting; Cuff Location : Left Arm; Cuff Size: Standard 12-21-2011 11:44-0400 BSA (Body Surface Area) 1.76 m2 Ally Rodriguez RN [facility]; [facility] Work Phone: 12-21-2011 11:44-0400 Height 167.64 cm Ally Rodriguez RN [facility]; [facility] Work Phone: 12-21-2011 11:44-0400 Pulse (Heart Rate) 60 /min Ally Rodriguez RN [facility]; [facility] Work Phone: Comment on above: Pattern: Regular 12-21-2011 11:44-0400 Respiratory Rate 18 /min Ally Rodriguez RN [facility]; [facility] Work Phone: Comment on above: Pattern: Unlabored 08-04-2009 14:42-0400 Body weight 64.61 kg Elizabeth Seaman LPN [facility]; [facility] Work Phone: 08-04-2009 14:42-0400 BP Diastolic 74 mm[Hg] Elizabeth Seaman LPN [facility]; [facility] Work Phone: Comment on above: Patient Position: Sitting; Cuff Location : Left Arm; Cuff Size: Standard 08-04-2009 14:42-0400 BP Systolic 116 mm[Hg] Elizabeth Linkzti HAR[facility]; [facility] Work Phone: Comment on above: Patient Position: Sitting; Cuff Location : Left Arm; Cuff Size: Standard 08-04-2009 14:42-0400 Pulse (Heart Rate) 80 /min Elizabeth Seaman LPN [facility]; [facility] Work Phone: Comment on above: Pattern: Regular 08-04-2009 14:42-0400 Respiratory Rate 18 /min Elizabeth Linkzti [facility]; [facility] Work Phone: Comment on above: Pattern: Unlabored 01-15-2008 15:43-0500 BMI (Body Mass Index) 22.84 kg/m2 Ally Rodriguez RN [facility]; [facility] Work Phone: 01-15-2008 15:43-0500 Body weight 64.18 kg Ally Rodriguez RN [facility]; [facility] Work Phone: 01-15-2008 15:43-0500 BP Diastolic 60 mm[Hg] Ally Rodriguez RN [facility]; [facility] Work Phone: Comment on above: Patient Position: Sitting; Cuff Location : Left Arm; Cuff Size: Large 01-15-2008 15:43-0500 BP Systolic 110 mm[Hg] Ally Rodriguez RN [facility]; [facility] Work Phone: Comment on above: Patient Position: Sitting; Cuff Location : Left Arm; Cuff Size: Large 01-15-2008 15:43-0500 BSA (Body Surface Area) 1.73 m2 Ally Rodriguez RN [facility]; [facility] Work Phone: 01-15-2008 15:43-0500 Head Circumference 0 cm Elizabet Walden [facility]; [facility] Work Phone: 01-15-2008 15:43-0500 Head Occipital-frontal circumference 0 cm Ally Rodriguez RN [facility]; [facility] Work Phone: 01-15-2008 15:43-0500 Height 167.64 cm Ally Rodriguez RN [facility]; [facility] Work Phone: 01-15-2008 15:43-0500 Pulse (Heart Rate) 60 /min Ally Rodriguez RN [facility]; [facility] Work Phone: Comment on above: Pattern: Regular 01-15-2008 15:43-0500 Respiratory Rate 16 /min Ally Rodriguez RN [facility]; [facility] Work Phone: Comment on above: Pattern: Unlabored 08-18-2007 08:37-0400 BMI (Body Mass Index) 23.15 kg/m2 Ally Rodriguez RN [facility]; [facility] Work Phone: 08-18-2007 08:37-0400 Body weight 65.06 kg Ally Rodriguez RN [facility]; [facility] Work Phone: 08-18-2007 08:37-0400 BP Diastolic 62 mm[Hg] Ally Rodriguez RN [facility]; [facility] Work Phone: Comment on above: Patient Position: Sitting; Cuff Location : Left Arm; Cuff Size: Standard 08-18-2007 08:37-0400 BP Systolic 108 mm[Hg] Ally Rodriguez RN [facility]; [facility] Work Phone: Comment on above: Patient Position: Sitting; Cuff Location : Left Arm; Cuff Size: Standard 08-18-2007 08:37-0400 BSA (Body Surface Area) 1.74 m2 Ally Rodriguez RN [facility]; [facility] Work Phone: 08-18-2007 08:37-0400 Head Circumference 0 cm Elizabet Walden [facility]; [facility] Work Phone: 08-18-2007 08:37-0400 Head Occipital-frontal circumference 0 cm Ally Rodriguez RN [facility]; [facility] Work Phone: 08-18-2007 08:37-0400 Height 167.64 cm Ally Rodriguez RN [facility]; [facility] Work Phone: 08-18-2007 08:37-0400 Pulse (Heart Rate) 64 /min Ally Rodriguez RN [facility]; [facility] Work Phone: Comment on above: Pattern: Regular 08-18-2007 08:37-0400 Respiratory Rate 20 /min Ally Rodriguez RN [facility]; [facility] Work Phone: Comment on above: Pattern: Unlabored 07-26-2007 15:26-0400 BMI (Body Mass Index) 23.15 kg/m2 Ally Rodriguez RN [facility]; [facility] Work Phone: 07-26-2007 15:26-0400 Body weight 65.06 kg Ally Rodriguez RN [facility]; [facility] Work Phone: 07-26-2007 15:26-0400 BP Diastolic 62 mm[Hg] Ally Rodriguez RN [facility]; [facility] Work Phone: Comment on above: Patient Position: Sitting; Cuff Location : Right Arm; Cuff Size: Standard 07-26-2007 15:26-0400 BP Systolic 108 mm[Hg] Ally Rodriguez RN [facility]; [facility] Work Phone: Comment on above: Patient Position: Sitting; Cuff Location : Right Arm; Cuff Size: Standard 07-26-2007 15:26-0400 BSA (Body Surface Area) 1.74 m2 Ally Rodriguez RN [facility]; [facility] Work Phone: 07-26-2007 15:26-0400 Head Circumference 0 cm Elizabet Walden [facility]; [facility] Work Phone: 07-26-2007 15:26-0400 Head Occipital-frontal circumference 0 cm Ally Rodriguez RN [facility]; [facility] Work Phone: 07-26-2007 15:26-0400 Height 167.64 cm Ally Rodriguez RN [facility]; [facility] Work Phone: 07-26-2007 15:26-0400 Pulse (Heart Rate) 80 /min Ally Rodriguez RN [facility]; [facility] Work Phone: Comment on above: Pattern: Regular 07-26-2007 15:26-0400 Respiratory Rate 20 /min lAly Rodriguez RN [facility]; [facility] Work Phone: Comment on above: Pattern: Unlabored 01-23-2007 16:37-0500 BMI (Body Mass Index) 22.83 kg/m2 Ally Rodriguez RN [facility]; [facility] Work Phone: 01-23-2007 16:37-0500 Body weight 64.16 kg Ally Rodriguez RN [facility]; [facility] Work Phone: 01-23-2007 16:37-0500 BP Diastolic 60 mm[Hg] Ally Rodriguez RN [facility]; [facility] Work Phone: Comment on above: Patient Position: Sitting; Cuff Location : Left Arm; Cuff Size: Standard 01-23-2007 16:37-0500 BP Systolic 118 mm[Hg] Ally Rodriguez RN [facility]; [facility] Work Phone: Comment on above: Patient Position: Sitting; Cuff Location : Left Arm; Cuff Size: Standard 01-23-2007 16:37-0500 BSA (Body Surface Area) 1.73 m2 Ally Rodriguez RN [facility]; [facility] Work Phone: 01-23-2007 16:37-0500 Head Circumference 0 cm Elizabet Walden [facility] Work Phone: 01-23-2007 16:37-0500 Head Occipital-frontal circumference 0 cm Ally Rodriguez RN [facility]; [facility] Work Phone: 01-23-2007 16:37-0500 Height 167.64 cm Ally Rodriguez RN [facility]; [facility] Work Phone: 01-23-2007 16:37-0500 Pulse (Heart Rate) 64 /min Ally Rodriguez RN [facility]; [facility] Work Phone: Comment on above: Pattern: Regular 01-23-2007 16:37-0500 Respiratory Rate 16 /min Ally Rodriguez RN [facility]; [facility] Work Phone: Comment on above: Pattern: Unlabored 09-12-2006 15:36-0400 Body Temperature 97.6 [degF] CHYNA Salazar LPN [facility]; [facility] Work Phone: Comment on above: Method: Oral 09-12-2006 15:36-0400 Body weight 0 kg CHYNA Salazar LPN [facility]; [facility] Work Phone: 09-12-2006 15:36-0400 BP Diastolic 78 mm[Hg] CHYNA Salazar LPN [facility]; [facility] Work Phone: Comment on above: Patient Position: Sitting; Cuff Location : Left Arm; Cuff Size: Standard 09-12-2006 15:36-0400 BP Systolic 124 mm[Hg] CHYNA Salazar LPN [facility]; [facility] Work Phone: Comment on above: Patient Position: Sitting; Cuff Location : Left Arm; Cuff Size: Standard 09-12-2006 15:36-0400 Head Circumference 0 cm Elizabet Walden [facility]; [facility] Work Phone: 09-12-2006 15:36-0400 Head Occipital-frontal circumference 0 cm CHYNA Salazar LPN [facility]; [facility] Work Phone: 09-12-2006 15:36-0400 Height 0 cm CHYNA Salazar [employer] [facility]; [facility] Work Phone: 09-12-2006 15:36-0400 Pulse (Heart Rate) 74 /min CHYNA Salazar [employer] [facility]; [facility] Work Phone: Comment on above: Pattern: Regular 09-12-2006 15:36-0400 Respiratory Rate 20 /min CHYNA Salazar [employer] [facility]; [facility] Work Phone: Comment on above: Pattern: Unlabored 08-18-2006 14:31-0400 Body Temperature 98.8 [degF] CHYNA Salazar [facility]; [facility] Work Phone: Comment on above: Method: Oral 08-18-2006 14:31-0400 Body weight 0 kg CHYNA Salazar [facility]; [facility] Work Phone: 08-18-2006 14:31-0400 BP Diastolic 80 mm[Hg] CHYNA Salazar [employer] [facility]; [facility] Work Phone: Comment on above: Patient Position: Sitting; Cuff Location : Left Arm; Cuff Size: Standard 08-18-2006 14:31-0400 BP Systolic 120 mm[Hg] CHYNA Salazar [employer] [facility]; [facility] Work Phone: Comment on above: Patient Position: Sitting; Cuff Location : Left Arm; Cuff Size: Standard 08-18-2006 14:31-0400 Head Circumference 0 cm Elizabet Walden [facility]; [facility] Work Phone: 08-18-2006 14:31-0400 Head Occipital-frontal circumference 0 cm CHYNA Salazar [facility]; [facility] Work Phone: 08-18-2006 14:31-0400 Height 0 cm CHYNA Salazar [facility]; [facility] Work Phone: 08-18-2006 14:31-0400 Pulse (Heart Rate) 74 /min CHYNA Salazar [facility]; [facility] Work Phone: Comment on above: Pattern: Regular 08-18-2006 14:31-0400 Respiratory Rate 20 /min CHYNA Salazar LPN [facility]; [facility] Work Phone: Comment on above: Pattern: Unlabored 08-17-2006 13:26-0400 Body Temperature 98.3 [degF] Melva Mederos RN [facility]; [facility] Work Phone: Comment on above: Method: Oral 08-17-2006 13:26-0400 Body weight 63.5 kg Melva Mederos RN [facility]; [facility] Work Phone: 08-17-2006 13:26-0400 BP Diastolic 72 mm[Hg] Melva Mederos RN [facility]; [facility] Work Phone: Comment on above: Patient Position: Sitting; Cuff Location : Left Arm; Cuff Size: Standard 08-17-2006 13:26-0400 BP Systolic 106 mm[Hg] Melva Mederos RN [facility]; [facility] Work Phone: Comment on above: Patient Position: Sitting; Cuff Location : Left Arm; Cuff Size: Standard 08-17-2006 13:26-0400 Head Circumference 0 cm Elizabet Walden [facility]; [facility] Work Phone: 08-17-2006 13:26-0400 Head Occipital-frontal circumference 0 cm Melva Mederos RN [facility]; [facility] Work Phone: 08-17-2006 13:26-0400 Height 0 cm Melva Mederos RN [facility]; [facility] Work Phone: 08-17-2006 13:26-0400 Pulse (Heart Rate) 68 /min Melva Mederos RN [facility]; [facility] Work Phone: Comment on above: Pattern: Regular 08-17-2006 13:26-0400 Respiratory Rate 16 /min Melva Mederos RN [facility]; [facility] Work Phone: Comment on above: Pattern: Unlabored Encounters Encounter Date Encounter Type Care Provider Facility Start: 08-23-2024 ambulatory Elizabet Walden Facilit y:[facility] Start: 08-03-2024 End: 08-03-[address] Elizabet Walden DO Work Phone: [facility] Work Phone: Start: 08-03-2024 End: 08-03-[address] Elizabet Walden DO -Pulmonary Services/Neurology Work Phone: Start: 08-03-2024 End: 08-03-2024 ambulatory Elizabet Walden Facility:[facility] Start: 07-31-2024 End: 07-31-2024 ambulatory ADELIA WOLF [facility] Start: 07-31-2024 End: 07-31-2024 Subsequent hospital visit by physician Adelia Wolf MD Work Phone: [facility] [place] Comment on above: Encounter for screen ing mammogram for malignant neoplasm of breast Start: 07-13-2024 ambulatory Elizabet Walden Facilit y:[facility] Start: 05-14-2024 End: 05-14-[address] Elizabet Walden DO Work Phone: [facility] Work Phone: Start: 05-14-2024 End: 05-14-[address] Mitzi Ann MD -Laboratory, [place] Work Phone: Start: 05-14-2024 End: 05-14-2024 ambulatory Elizabet Walden Facility:[facility] Start: 02-14-2024 End: 02-14-[address] Mitzi Ann MD -Laboratory, [place] Work Phone: Start: 02-14-2024 End: 02-14-2024 ambulatory Mitzi Ann Facility:[facility] Start: 01-31-2024 End: 01-31-[address] Elizabet Walden DO Work Phone: [facility] Work Phone: Start: 01-31-2024 End: 01-31-[address] Elizabet Walden DO Work Phone: -Occupational Therapy Work Phone: Start: 01-28-2024 End: 01-28-2024 Letter encounter [facility] Start: 01-06-2024 ambulatory Shola Dodge Facility:[facility] Start: 01-06-2024 End: 01-06-2024 ambulatory Elizabet Walden Facility:[facility] Start: 11-24-2023 End: 11-24-2023 ambulatory Elizabet Walden Facility:[facility] Start: 10-27-2023 End: 10-27-2023 Emergency department patient visit MARINA MARR [facility] Start: 10-23-2023 End: 10-23-2023 Letter encounter [facility] Start: 09-27-2023 End: 11-01-2023 ambulatory AZAEL [facility] Start: 08-31-2023 End: 08-31-2023 ambulatory Mitzikay Ann Facility:[facility] Start: 07-21-2023 Non-patient / Non-visit Dr. Tyrone Walden Work Phone: [facility] Start: 07-21-2023 End: 07-21-2023 Admission to same day surgery center Dr. Elizabet Walden Work Phone: [facility]End[facility] Work Phone: Start: 07-21-2023 End: 07-21-[address] Elizabet Walden Work Phone: [facility] Work Phone: Start: 06-20-2023 End: 06-20-[address] Elizabet Walden Work Phone: [facility] Work Phone: Start: 06-20-2023 End: 06-20-[address] Elizabet Walden Work Phone: [facility]Occ[facility]ational [facility] Work Phone: Start: 06-07-[address] Eve Walden Work Phone: [facility] Work Phone: Start: 06-07-2023 End: 06-07-[address] Elizabet Walden Work Phone: [facility] Work Phone: Start: 06-07-2023 End: 06-07-[address] Elizabet Walden Work Phone: [facility] Work Phone: Start: 05-25-2023 End: 05-25-2023 Subsequent hospital visit by physician Adelia Wolf MD Work Phone: [facility] [place] Comment on above: Subareolar mass of r ight breast Start: 04-08-2023 Telephone encounter Adelia Wolf MD Work Phone: [facility] Comment on above: Orders Start: 04-07-2023 End: 04-07-2023 Subsequent hospital visit by physician Adelia Wolf MD Work Phone: [facility] Comment on above: Encounter for screen ing mammogram for malignant neoplasm of breast Start: 04-02-2023 End: 04-02-2023 ambulatory ELIZABET WALDEN Facility:[facility] Start: 03-24-2023 End: 04-11-2023 ambulatory [facility] Start: 03-23-2023 Non-patient / Non-visit Dr. Tyrone Walden Work Phone: [facility] Work Phone: Start: 03-01-2023 End: 03-01-2023 ambulatory [facility] Work Phone: Start: 03-01-2023 End: 03-01-2023 Patient encounter procedure [facility] Work Phone: Start: 01-28-2023 Transcribe Orders Adelia Wolf MD Work Phone: [facility] Scheduling Comment on above: Encounter for screen ing mammogram for malignant neoplasm of breast (Primary Dx) Start: 01-27-2023 End: 01-27-2023 ambulatory [facility] Work Phone: Start: 01-27-2023 End: 01-27-2023 Patient encounter procedure [facility] Work Phone: Start: 01-01-2023 End: 01-01-2023 Emergency department patient visit [facility]Emergency Department Work Phone: Start: 12-21-2022 End: 12-21-2022 Annotation/Addendum Elizabet Walden DO Work Phone: [facility] Internal Medicine Start: 12-16-2022 Review Elizabet nash DO Work Phone: [facility] Start: 12-16-2022 End: 12-16-2022 Patient encounter procedure Elizabet Walden DO Work Phone: [facility] Start: 12-14-2022 End: 12-14-2022 Patient encounter procedure [facility] Work Phone: Start: 12-08-2022 End: 12-08-2022 ambulatory ELIZABET WALDEN Facility:[facility] Start: 09-08-2022 End: 09-08-2022 ambulatory [facility] Work Phone: Start: 09-08-2022 End: 09-08-2022 Patient encounter procedure [facility] Work Phone: Start: 06-11-2022 End: 06-11-2022 ambulatory [facility] Work Phone: Start: 06-11-2022 End: 06-11-2022 Patient encounter procedure [facility] Start: 04-27-2022 Letter encounter Tahira umanzor Start: 03-23-2022 End: 03-23-2022 ambulatory [facility] Work Phone: Start: 03-23-2022 End: 03-23-2022 Patient encounter procedure [facility] Start: 01-06-2022 ambulatory Adelia Hassan [facility] Start: 01-06-2022 End: 01-06-2022 Subsequent hospital visit by physician Adelia Wolf MD Work Phone: [facility] Comment on above: Mass of multiple sit es of liver Start: 12-29-2021 Transcribe Orders Adelia Wolf MD Work Phone: [facility] Central Scheduling Comment on above: Screening mammogram for breast cancer (Primary Dx); Hepatomegaly, not elsewhere classified Start: 12-24-2021 End: 12-24-2021 ambulatory [facility] Work Phone: Start: 12-24-2021 End: 12-24-2021 Patient encounter procedure [facility] Start: 10-08-2021 End: 10-08-2021 Subsequent hospital visit by physician Karine [facility] Work Phone: Radiology Comment on above: Acute cough [R05.1] Start: 10-08-2021 End: 10-08-2021 Patient encounter procedure Denita Albert [employer] Work Phone: [facility] Comment on above: Acute cough (Primary Dx); Acute sinusitis, recurrence not specified, unspecified location Start: 10-08-2021 Telephone encounter Denita palomino [employer] Work Phone: [facility] Comment on above: Results Start: 10-02-2021 Telephone encounter Yasemin Rivero [employer] Work Phone: [facility] Comment on above: Results Start: 10-01-2021 End: 10-01-2021 Patient encounter procedure Yuliya Church PA-C Work Phone: [facility] Comment on above: Viral URI (Primary D x) Start: 09-29-2021 End: 09-29-2021 Patient encounter procedure [facility] Start: 09-08-2021 ambulatory Adelia Hassan [facility] Start: 07-26-2021 Letter encounter Tahira umanzor Start: 07-22-2021 End: 07-22-2021 Prescription Refill Elizabet Anabelle DO Work Phone: [facility] Start: 07-01-2021 End: 07-01-2021 Patient encounter procedure [facility] Start: 04-02-2021 End: 04-02-2021 Patient encounter procedure [facility] Start: 03-23-2021 End: 03-23-2021 Office outpatient visit 10 minutes Elizabet Anabelle DO Work Phone: [facility] Start: 03-20-2021 End: 03-20-2021 Office outpatient visit 10 minutes Elizabet Anabelle DO Work Phone: [facility] Start: 03-18-2021 End: 03-18-2021 Office outpatient visit 10 minutes Elizabet Anabelle DO Work Phone: [facility] Start: 03-17-2021 End: 03-17-2021 Patient encounter procedure [facility] Start: 03-16-2021 End: 03-16-2021 Office outpatient visit 10 minutes Elizabet Anabelle DO Work Phone: [facility] Start: 02-10-2021 ambulatory Adelia Hassan [facility] Start: 08-05-2020 End: 08-05-2020 Subsequent hospital visit by physician Adelia Wolf MD Work Phone: [facility] Comment on above: Breast cancer screen ing, high risk patient; Fibrocystic disease of both breasts; Other benign mammary dysplasias of right breast ; Screening mammogram for high-risk patient Start: 05-05-2020 End: 05-05-2020 Office outpatient visit 15 minutes Elizabet Anabelle [facility] Start: 02-04-2020 End: 02-04-2020 Subsequent hospital visit by physician Adelia Wolf Work Phone: [facility] Comment on above: Arrived Start: 02-01-2019 End: 02-01-2019 Subsequent hospital visit by physician Jj Mariano Work Phone: [facility] Comment on above: Arrived Start: 05-28-2016 End: 05-29-2016 ambulatory UNKNOWN PROVIDER Facility:[facility] Start: 04-22-2015 End: 04-22-2015 Phone Encounter Elizabet Kirk [employer] Start: 03-24-2015 End: 03-24-2015 Office outpatient visit 15 minutes Elizabet Walden [facility] Start: 12-09-2014 End: 12-09-2014 Office outpatient visit 25 minutes Elizabet Walden [facility] Start: 08-08-2014 End: 08-08-2014 Office outpatient visit 25 minutes Elizabet Walden [facility] Start: 05-15-2014 End: 05-15-2014 Office outpatient visit 25 minutes Elizabet Walden [facility] Start: 04-03-2014 End: 04-03-2014 Office outpatient visit 25 minutes Elizabet Walden [facility] Start: 03-05-2014 End: 03-05-2014 Office outpatient visit 25 minutes Elizabet Walden [facility] Start: 02-26-2014 End: 02-26-2014 Office outpatient visit 25 minutes Elizabet Walden [facility] Start: 10-31-2013 End: 10-31-2013 Office outpatient visit 25 minutes Elizabet Walden [facility] Start: 10-25-2013 End: 10-25-2013 Phone Encounter Elizabet Walden [facility] [employer] [facility] Start: 04-24-2013 End: 04-24-2013 Phone Encounter Elizabet Kirk [employer] Start: 04-23-2013 End: 04-23-2013 Phone Encounter Elizabet Kirk [employer] Start: 11-14-2012 End: 11-14-2012 Lab Order Elizabet Kirk [employer] Start: 09-27-2012 End: 09-27-2012 Phone Encounter Elizabet Kirk [employer] Start: 01-12-2012 End: 01-12-2012 Phone Encounter Elizabet Walden [facility] [employer] [facility] Start: 01-12-2012 End: 01-12-2012 Phone Encounter Elizabetmadie Kerron [facility] [employer] Start: 12-21-2011 End: 12-22-2011 Patient encounter procedure Elizabet Anabelle [facility] Start: 08-15-2009 End: 08-15-2009 Historical Summary Elizabet Walden [facility] [employer] Start: 08-04-2009 End: 08-04-2009 Patient encounter procedure Elizabet Anabelle [facility] Internal Medicine Start: 01-15-2008 End: 01-15-2008 Patient encounter procedure Elizabet Anabelle [facility] Start: 08-18-2007 End: 08-18-2007 Office outpatient visit 15 minutes Elizabet Walden [facility] Start: 07-26-2007 End: 07-26-2007 Patient encounter procedure Elizabet Anabelle [facility] Start: 01-23-2007 End: 01-23-2007 Office outpatient visit 25 minutes Elizabet Walden [facility] Start: 09-12-2006 End: 09-12-2006 Office outpatient visit 15 minutes Elizabet Walden [facility] Start: 08-18-2006 End: 08-18-2006 Patient encounter procedure Elizabet Anabelle [facility] Start: 08-17-2006 End: 08-17-2006 Office outpatient visit 25 minutes Elizabet Walden [facility] Start: 08-15-2006 End: 08-15-2006 Historical Summary Elizabet Walden [facility] [employer] Start: 07-26-2006 End: 07-26-2006 Refill Request Elizabet Walden [facility] [employer] Patient encounter procedure Elizabet Walden DO Work Phone: [facility]; [facility] Work Phone: Procedures Date Procedure Procedure Detail Performing Clinician Start: 07-31-2024 End: 07-31-2024 Screening digital breast tomosynthesis bi Adelia Wolf MD Work Phone: Start: 07-21-[address] Elizabet Walden Work Phone: Start: 05-25-2023 End: 05-25-2023 Mammography Adelia Wolf MD Work Phone: Start: 04-07-2023 End: 04-07-2023 Screening digital breast tomosynthesis bi Adelia Wolf MD Work Phone: Start: 01-27-2023 Dual energy X-ray absorptiometry Start: 01-01-2023 End: 01-01-2023 Emergency Department Summary Procedure Note: See Note; NOTES: [facility] Medical Records Department [address] [place] [address] Emergency Department Summary 01/01/23 MR#: [id number] Acct: [id number] Name: DAHIANA CASTELLON Rep #: [id number] : 1955 67 From: Michele Shanks MD PCP: Dr. Elizabet Walden, DO Status:DEP ER Location: ED <Statement entered by Michele Shanks MD - 01/01/23 13:39> I have personally performed a face to face assessment of the patient and have reviewed the CAMACHO Note. HPI History of Present Illness Chief Complaint: Fall Narrative Narrative: Presenting today due to a mechanical fall that occurred yesterday afternoon. She reports that she was going down the steps when she missed the second to last step and fell onto her bottom with the medial portion of her left knee hitting the ground. She did not hit her head, there was no loss of consciousness, she is not on any blood thinners. She also reports pain to her buttocks. She denies any other injury. She is able to ambulate. [facility] Medical History Anxiety Arthritis Cancer CPAP (continuous positive airway pressure) dependence Depression Former smoker Frequency of urination High cholesterol History of echocardiogram History of IBS History of irregular heartbeat History of steroid therapy History of stress test Leg cramps Other urethral stricture, female Rheumatoid arthritis Sleep apnea Stress headache Urgency of urination Wears glasses Home Medications Bio-Identical Hormones 1 dose OTHER .TWICE WEEKLY 09/19/13 [History Last Taken Unknown] bupropion HCl 150 mg 24 hr tablet, extended release 450 mg PO DAILY 09/19/13 [History Last Taken Unknown] chlordiazepoxide-clidinium 5 mg-2.5 mg capsule (Librax (with clidinium)) 1 ea PO PRN PRN IBS 09/19/13 [History Last Taken Unknown] multivitamin with folic acid 400 mcg tablet (Thera) 1 tab PO DAILY 09/19/13 [History Last Taken Unknown] pravastatin 10 mg tablet 20 mg PO DAILY 09/19/13 [History Last Taken Unknown] biotin 5 mg capsule 5 mg PO DAILY 10/31/20 [History Last Taken Unknown] calcium 500 mg tablet 500 mg PO DAILY 10/31/20 [History Last Taken Unknown] cholecalciferol (vitamin D3) 25 mcg (1,000 unit) chewable tablet (Vitamin D3) 25 mcg PO DAILY 10/31/20 [History Last Taken Unknown] folic acid 800 mcg tablet 1.6 mg PO DAILY 10/31/20 [History Last Taken Unknown] leucovorin calcium 15 mg tablet 30 mg PO QWEEK 10/31/20 [History Last Taken Unknown] methotrexate sodium 25 mg/mL injection solution 0.7 mg IM SA RA 10/31/20 [History Last Taken Unknown] trazodone 50 mg tablet 50 mg PO QHS 10/31/20 [History Last Taken Unknown] vitamin B12 1,000 mcg-folic acid 400 mcg sublingual tablet 2 tab sublingual DAILY 10/31/20 [History Last Taken Unknown] zinc 15 mg tablet 15 mg PO DAILY 10/31/20 [History Last Taken Unknown] gabapentin 600 mg tablet 600 mg PO BID 03/17/21 [History Last Taken Unknown] tramadol 50 mg tablet 50 mg PO TID PRN Pain 03/17/21 [History Last Taken Unknown] Allergy/AdvReac Type Severity Reaction Status Date / Time No Known Allergies Allergy Verified 01/01/23 10:54 Surgical History History of cardiac catheterization Hx of breast biopsy Hx of foot surgery Hx of hysterectomy Hx of tonsillectomy Social History Smoking Status: Former smoker ROS ROS ED Constitutional Constitutional ED: Denies chills or fever(s) Cardiovascular Cardiovascular: Denies chest pain Respiratory/Chest Respiratory/Chest: Denies cough or dyspnea Gastrointestinal Gastrointestinal: Denies abdominal pain, nausea or vomiting Musculoskeletal Musculoskeletal: Reports arthralgias and myalgias; Denies back pain or neck pain Integumentary Denies Abrasions Neurologic Neurologic: Denies paresthesias or weakness EXAM Physical Exam Const Vital Signs: 01/01/23 10:54 Temperature 96.7 F L Temperature Source Temporal Pulse Rate 73 Respiratory Rate 16 Blood Pressure 119/65 Blood Pressure Mean 83 Pulse Ox 100 Oxygen Delivery Method Room Air Positive well nourished, well developed and no apparent distress General Appearance ED: well developed HEENT Reports normocephalic and head/scalp atraumatic Mouth ED: Yes moist mucous membranes normal Eyes PERRL and EOMs intact bilaterally Neck full ROM and supple Chest Wall inspection of chest normal Resp normal respiratory effort and clear to auscultation bilaterally Cardio regular rate and regular rhythm GI soft to palpation, non-tender, non-distended and no masses Back/Spine normal ROM and normal to inspection Back/Spine Narrative: No thoracic, lumbar, or sacral midline tenderness. Extremity normal to inspection and full ROM Extremity Narrative: Full range of motion to the left knee, pain palpation to the medial aspect of the left knee, no laxity or pain with varus/valgus stress, negative anterior and posterior drawer test. Neuro oriented x3, CN's II-XII intact bilaterally, moves all extremities, no focal motor deficits and no sensory deficits noted Sensorium / Orientation: awake and alert Psych mental status grossly normal and thought process normal Skin no rashes or lesions noted and no wounds MDM MDM MDM Narrative Medical decision making narrative: Patient presenting today due to a mechanical fall that occurred yesterday afternoon. She did not hit her head. She reports pain to her left knee and bilateral buttocks. She does not have any bruising to her buttocks, no midline back tenderness to her lumbar or sacral spine. No pain to her hips. Left knee has full range of motion, negative anterior and posterior drawer test, no laxity or pain with varus/valgus stress. X-ray of the left knee will be obtained and patient will be given Tylenol for pain. X-ray is unremarkable. Although she is able to ambulate, she does report a lot of pain with this. She will be given crutches and an orthopedic referral. She has been given RICE instructions and is to take Tylenol at home for pain as needed. She will be discharged home in stable condition and is comfortable with plan Radiography X-Ray: Read by ED Physician and Read by Radiologist Diagnostic Testing: Clinical Impression(s) from Imaging Studies Knee X-Ray 01/01/23 11:06 IMPRESSION: Negative left knee x-rays. Electronically Signed: Ish York MD at 11:44 EDT Reading Location ID and State: [facility] / [place] , Service support , Discharge Plan Triage Chief Complaint: Fall ED Midlevel Provider: Carmen Moses ED Provider: Michele Shanks Dx/Rx/DC Orders Clinical Impression: Left knee sprain, Contusion, buttock, Fall Instructions: ED Knee Sprain Prescriptions: No Action pravastatin 10 MG tablet 20 mg PO DAILY chlordiazepoxide-clidinium [Librax (with clidinium)] 1 EACH capsule 1 ea PO PRN PRN (Reason: IBS) bupropion HCl 150 MG tablet extended release 24 hr 450 mg PO DAILY multivitamin with folic acid [Thera] 1 TABLET tablet 1 tab PO DAILY Bio-Identical Hormones 1 dose OTHER .TWICE WEEKLY Patient Comments: VAGINALLY trazodone 50 mg tablet 50 mg PO QHS Patient Comments: TAKE 1 TABLET BY MOUTH EVERYDAY AT BEDTIME biotin 5 mg Capsule 5 mg PO DAILY methotrexate sodium 25 mg/mL solution 0.7 mg IM SA zinc 15 mg Tablet 15 mg PO DAILY calcium 500 mg Tablet 500 mg PO DAILY leucovorin calcium 15 mg tablet 30 mg PO QWEEK folic acid 800 mcg Tablet 1.6 mg PO DAILY cholecalciferol (vitamin D3) [Vitamin D3] 25 mcg (1,000 unit) Tablet,Chewable 25 mcg PO DAILY vitamin C49-ofylo acid 1,000-400 mcg Tablet, Sublingual 2 tab sublingual DAILY gabapentin 600 mg tablet 600 mg PO BID tramadol 50 mg tablet 50 mg PO TID PRN (Reason: Pain) Patient Comments: TAKE 1 TAB BY MOUTH 3 TIMES DAILY NEEDED Primary Care Provider: Elizabet Walden Referrals: Elizabet Walden DO [Primary Care Provider] - 5-7 Days Meliton Lee DO [Med Staff - Active Staff] - 1 Week if not improving Activity Restrictions/Additional Instructions: Ice your knee several times a day for the next few days, take Tylenol for your pain, and follow-up with your PCP. Disposition Disposition: Home, Self Care What to do if you have Problems For any increased pain, shortness of breath, bleeding, nausea or vomiting, chest pain, or any unexpected problems, contact your Primary Care Provider. Call [facility] ([phone]) or report to the closest Emergency Room. Call 911 if necessary. 01/01/23 1339 <Electronically signed by Michele Shanks MD> Cosigner Signature (if applicable): 01/01/23 1220 <Electronically signed by Carmen JOINER> CC: Dr. Elizabet Walden DO Signed Elizabet Walden DO Work Phone: Start: 01-01-2023 End: 01-01-2023 Knee 4 or More Views Procedure Note: See Note; NOTES: [facility] Imaging Services [address] [place] [address] Knee 4 or More Views MR#: [id number] Acct: [id number] Name: DAHIANA CASTELLON Rep #: [id number] : 1955 F 67 From: Ish York MD PCP: Dr. Elizabet Walden DO Status: REG ER Study: Knee 4 or More Views Date of Exam: 01/01/23 Exam# [id number] Ordering Dr: Carmen Moses [id number] EXAM: XR LEFT KNEE COMPLETE, 4 OR MORE VIEWS CLINICAL INDICATION: Fall injury. TECHNIQUE: Four or more views of the left knee. COMPARISON: No relevant prior studies available. FINDINGS: BONES/JOINTS: Unremarkable. No acute fracture. No subluxation. Normal alignment. Preservation of the joint space. No sclerotic or destructive changes observed. SOFT TISSUES: Unremarkable. No soft tissue swelling or gas. No radiopaque foreign body. RAD/Knee 4 or More Views IMPRESSION: Negative left knee x-rays. Electronically Signed: Ish York MD at 11:44 EDT , CC: Dr. Elizabet Walden DO; MARISEL Mccabe Front End Web Developer: Signed Elizabet Walden DO Work Phone: Start: 01-01-2023 Radiologic examination of knee Start: 02-12-2022 Mammography Adelia Wolf MD Work Phone: Start: 01-06-2022 Us abdominal real time w/image limited Adelia Wolf MD Work Phone: Start: 10-08-2021 Radiologic exam chest 2 views Denita Albert APRN.CNP Work Phone: Start: 03-17-2021 End: 03-17-2021 Virtual Office Visit Comments: See Note; NOTES: [facility] Services [address] [place] [address] OFFICE VISIT Date of Service: 03/17/21 MR#: [id number] Acct: [id number] Patient: DAHIANA CASTELLON Rep #: [id number] : 1955 Provider: ALAN marquez Age/Sex: 65/F Location: [facility] Status: Signed Intake Intake Visit Reasons: COVID-19 Allergies No Known Allergies Allergy (Verified 03/17/21 10:06) PFSH Medical History (Updated 03/17/21 @ 10:05 by Samantha Nieves NP, [employer] DIRECTOR-C) Anxiety Arthritis Cancer CPAP (continuous positive airway pressure) dependence Depression Former smoker Frequency of urination High cholesterol History of echocardiogram History of IBS History of irregular heartbeat History of steroid therapy History of stress test Leg cramps Other urethral stricture, female Rheumatoid arthritis Sleep apnea Stress headache Urgency of urination Wears glasses Surgical History (Updated 10/31/20 @ 09:37 by Lynn Jim) History of cardiac catheterization Hx of breast biopsy Hx of foot surgery Hx of hysterectomy Hx of tonsillectomy Social History Smoking Status: Former smoker HPI HPI Details: Patient was informed that this visit will be billed to patient. This visit was conducted during COVID-19 pandemic. Statement read to the patient: This telehealth visit is being offered during our stay at home measures in response to the pandemic. It is subject to an office visit charge. There are also charges for the monoclonal antibody infusion which may or may not be covered by your insurance. The patient consents to continue. Symptom onset occurred: 03/12/21 Positive COVID-19 test occurred: 03/16/21 COVID vaccine administered: yes, Pfizer on oxygen or needed to titrate up? NO The FDA has authorized the emergency use of monoclonal antibody treatment (bamlanivimab/etesevimab or casirivimab/imdevimab) for mild to moderate COVID-19 in adults and pediatric patients with positive results of direct SARS-Cov-2 viral testing ages 12 and older, at least 40 kg, who are at high risk for progressing to severe COVID-19 and or hospitalization. The significant known and potential risks (allergic reactions, worsening of symptoms after treatment, or side effects from injection including brief pain, bleeding, bruising of the skin, soreness, swelling, possible infection at the infusion site) and benefits (decrease chance of progression to severe COVID-19) of a monoclonal antibody infusion, and the extent to which such potential risks and benefits are unknown. Note that worsening symptoms after treatment may occur but it is unknown whether these symptoms are related to treatment or are due to the progression of COVID-19. Worsening symptoms may include: fever, difficulty breathing, rapid or slow heart rate, tiredness, weakness or confusion. If these symptoms occur, patients are encouraged to seek immediate medical attention. These treatments are still being studied, all possible side effects may not be listed or known at this time. Patients treated with monoclonal antibody infusion should continue to self-isolate and use infection control measures (such as wear mask, isolate, social distance, avoid sharing personal items, clean and disinfect high touch surfaces, and frequent handwashing) according to the CDC guidelines. The fact sheet will be provided prior to the administration of the medication. Oral medications have received authorization from the FDA to treat [id number] COVID-19 in patients at high risk for progression to severe COVID-19. These medications may not be appropriate for all patients and available drug supply may be limited. However, these oral medications may be more effective against the omicron variant. The patient had the option to refuse or accept treatment with monoclonal antibody therapy. The patient was informed that the number of people treated with monoclonal antibody therapy at this time is small. Due to the changes in the virus that causes COVID-19, some monoclonal antibody treatments may not be effective for all forms of the virus (known as variants). This includes the omicron variant. The patient stated understanding of this information communicated and wished to proceed with monoclonal antibody infusion therapy. COVID + test date: 03/16/21 @ [facility] PRAKASH Sx Onset: 12/30/21 Sx: cough, nasal and chest congestion, fever, body aches, fatigue, headache O2: No Vaccine: Pfizer x3 Qualifier: RA with Methotrexate inj use, Sjogrens, MVP Age 65yrs ROS Const Constitutional: Positive for body ache, fatigue, fever(s), headache(s), decreased energy and malaise ENT ENT: Positive for nasal congestion and headache(s) Resp Respiratory: Positive for cough and chest congestion Neuro Neurology: Positive for headache(s) Exam Const General: cooperative and no acute distress Resp Effort Inspection: normal respiratory effort and able to speak in complete sentences Neuro General: patient alert, patient awake and patient oriented x3 Cognition: normal cognition Speech: speech normal Psych Mental Status: mental status grossly normal Mood: congruent mood Attitude: cooperative Thought Process: normal Thought Content: normal Judgment: judgment good Details: Details:: Exam was limited due to phone visit with no video. Quality Reporting Tobacco Screening ([facility] 138) Smoking Status: Former smoker Coding Level of Care Code New Pt Attention Sampson Patient Type New History Problem Focused Exam Problem Focused Medical Decision Making Straight Forward Diagnoses COVID-19 U07.1 Over 65 years old Time Spent (min) 10 Comment 69258 Assessment and Plan Assessment and Plan (1) COVID-19: Status: Acute Plan - Samantha Nieves FISHERIES DIRECTOR, FISHERIES DIRECTOR-C: The patient remains appropriate for the Monoclonal Antibody Infusion. The patient states understanding of this information communicated and wishes to proceed with monoclonal antibody infusion therapy. Patient agrees to receive either balanivimab/etesvimab or casirivimab/imdevimab upon availability. (2) Over 65 years old: Status: Acute 03/17/21 1009 <Electronically signed by Samantha Nieves NP FISHERIES DIRECTOR-C> Date Samantha Nieves NP FISHERIES DIRECTOR-C Cosigner Signature: Date (if applicable) CC: Dr. Elizabet Walden, DO Elizabet Walden DO Work Phone: Start: 11-03-2020 End: 11-03-2020 Discharge Instruction Comments: See Note; NOTES: [facility] Medical Records Department [address] [place] [address] Instructions for Home/Discharge Instructions 11/03/20 1242 MR#: [id number] Acct: [id number] Name: DAHIANA CASTELLON Rep #: [id number] : 1955 65 From: Toshia Portillo MD PCP: Dr. Elizabet Walden, DO Status:REG SD Discharge Instructions Diet Discharge Diet: No restrictions Activity Discharge Activity: Return to Normal Activity May resume sexual activity in: 1 week Dressing / Incision Call your doctor if your incision/area has: Continuous Slow Oozing, Sudden Increased Bleeding and Increased Pain/ Swelling Call your doctor if you observe: Fever of 101 or Higher, Inability to urinate, Inability to have a bowel movement and Uncontrolled pain Follow Up Care Please Follow Up With: Toshia Portillo MD When: in the office in 2 weeks, call for appt Test Results: Test results from this visit will be discussed in further detail at your follow-up appointment, if applicable. Discharge Plan Admission Attending Provider: Toshia Portillo Primary Care Provider: Elizabet Walden Discharge Orders/Prescriptions Prescriptions: New oxycodone-acetaminophen [oxycodone-acetaminophen] 1 TABLET tablet 2 tab PO Q8H PRN PRN (Reason: Pain) 7 Days Qty: 10 RF: 0 cephalexin [cephalexin] 500 MG capsule 500 mg PO Q12 3 Days Qty: 6 RF: 0 phenazopyridine [Pyridium] 200 MG tablet 200 mg PO TID PRN PRN (Reason: Bladder Spasms) 7 Days Qty: 30 RF: 0 Continued pravastatin 10 MG tablet 20 mg PO DAILY RF: 0 chlordiazepoxide-clidinium [Librax (with clidinium)] 1 EACH capsule 1 ea PO PRN PRN (Reason: IBS) RF: 0 bupropion HCl 150 MG tablet extended release 24 hr 450 mg PO DAILY RF: 0 multivitamin with folic acid [Thera] 1 TABLET tablet 1 tab PO DAILY RF: 0 Bio-Identical Hormones 1 dose OTHER .TWICE WEEKLY RF: 0 trazodone 50 mg tablet 50 mg PO QHS RF: 0 biotin 5 mg Capsule 5 mg PO DAILY RF: 0 methotrexate sodium 25 mg/mL solution 0.7 mg IM QWEEK RF: 0 zinc 15 mg Tablet 15 mg PO DAILY RF: 0 calcium 500 mg Tablet 500 mg PO DAILY RF: 0 leucovorin calcium 15 mg tablet 30 mg PO QWEEK RF: 0 folic acid 800 mcg Tablet 1.6 mg PO DAILY RF: 0 cholecalciferol (vitamin D3) [Vitamin D3] 25 mcg (1,000 unit) Tablet,Chewable 25 mcg PO DAILY RF: 0 vitamin N81-uxxlj acid 1,000-400 mcg Tablet, Sublingual 2 tab sublingual DAILY RF: 0 Referrals / Follow Up: Elizabet Walden DO [Primary Care Provider] - Disposition Disposition (needs filled in before D/C Order can be placed): Home, Self Care 11/03/20 1326<Electronically signed by Toshia Portillo MD>Toshia Portillo MD CC: Dr. Elizabet Walden DO Signed Elizabet Walden DO Work Phone: Start: 11-03-2020 End: 11-03-2020 Operative Report Comments: See Note; NOTES: [facility] Medical Records Department [address] [place] [address] Operative Report 11/03/20 1239 MR#: [id number] Acct: [id number] Name: DAHIANA CASTELLON Rep #: [id number] : 1955 65 From: Toshia Portillo MD PCP: Dr. Elizabet Walden DO Status:[facility] Location: [place] [address] Problems Associated Problem List Diagnoses (1) Other urethral stricture, female: (2) Urgency of urination: (3) Frequency of urination: Report of Operation Date of Procedure: 11/03/20 Pre-Operative Diagnosis: Urethral stricture female, urinary urgency, urinary frequency Post-Operative Diagnosis: Same Surgery/Procedure Performed:: Urethral dilation, cystoscopy Surgeon: Toshia Portillo [place] Anest[place] [facility] [place] of Procedure: The patient is a 65-year-old female with urinary urgency and frequency who underwent urodynamics in the office and on evaluation with cystoscopy, a urethral stricture was identified. Informed consent was obtained and the patient now presents for urethral dilation and cystoscopy under anesthesia. The patient was taken to the operating room and placed on the operating room table. Anesthesia monitored the head, neck, airway, IV access and vital signs throughout the case. Once anesthesia was appropriate ministered the patient was placed into dorsal lithotomy position was prepped and draped in usual sterile fashion. At this time the 12 Cymro urethral sound was inserted through the urethra. Subsequent sounds were then introduced in systematic fashion all the way to 26 C[address]. The patient's urethral mucosa was mildly cracked. At this time the cystoscope was inserted through the urethra under direct visualization into the urinary bladder. The bladder mucosa was visualized in its entirety. The ureteral orifices were located in the correct anatomic position in the area of the trigone. There were no masses, lesions, areas of erythema, ulceration or foreign body identified. At this time the patient's bladder was emptied and the case was terminated. The patient was awakened and taken to the recovery room in good condition. There were no complications during this procedure. Grafts/Implants Used: None Complications None Admit VTE Documentation VTE Present on Admission: Yes VTE Mechan Device Prophylaxis: SCD's VTE Pharm Prophylaxis ordered?: No Reason prophylaxis not ordered:: Treatment Not Indicated 11/03/20 5951 <Electronically signed by Toshia Portillo MD> Cosigner Signature (if applicable): CC: Dr. Toshia Portillo MD; Dr. Elizabet Walden DO Signed Elizabet Walden DO Work Phone: Start: 05-13-2020 End: 05-13-2020 Dexa Bone Density Study Comments: See Note; NOTES: [facility] Imaging Services [address] [place] [address] Dexa Bone Density Study MR#: [id number] Acct: [id number] Name: DAHIANA CASTELLON Rep #: [id number] : 1955 F 64 From: Taiwo luis MD PCP: Dr. Elizabet Walden DO Status: REG CLI Study: Dexa Bone Density Study Date of Exam: 05/13/20 Exam# [id number] Ordering Dr: Elizabet Walden DO STUDY: DUAL ENERGY X-RAY ABSORPTIOMETRY / DXA REASON FOR EXAM: Female, 64 years old. OSTEOPOROSIS TECHNIQUE: Bone Mineral Density (BMD) measurements of lumbar spine and bilateral hips were obtained. COMPARISON: Comparison is made with prior study dated 01/30/2014. FINDINGS: Lumbar Spine (L1-L4): g/cm2 (0.966) / T-score (-1.8) / Z-score (-0.2) Findings are suggestive of osteopenia with a moderate fracture risk. Left Femur Total: g/cm2 (0.899) / T-score (-0.9) / Z-score (0.4) Left Femoral Neck: g/cm2 (0.940) / T-score (-0.7) / Z-score (0.8) Right Femur Total: g/cm2 (0.787) / T-score (-1.8) / Z-score (-0.5) Right Femoral Neck: g/cm2 (0.794) / T-score (-1.8) / Z-score (-0.2) The T-Scores on the most recent prior examination were: Lumbar Spine (L1-L4): There has been improvement of bone density since the previous examination. Left Femur Total: which represents an improvement of 5.8%. Right Femur Total: which represents a worsening of 4.6%. BD/Dexa Bone Density Study IMPRESSION: The patient is considered osteopenic as outlined below according to World Angel Organization (WHO) criteria with a moderate fracture risk. There has been improvement of bone density since the previous examination. Reference Information: The T-score is the number of standard deviations above or below the standard which is normal for young adults at their peak bone mineral density. The World Health Organization (WHO) interprets the T-scores as follows: Above -1 Normal bone density Between -1 and -2.5 Osteopenia Equal to / or below -2.5 Osteoporosis As a practical clinical guideline, osteopenia may be graded as follows: Mild -1 through -1.5 Moderate -1.6 through -2.0 Severe -2.1 through -2.4 The Z-score is the number of standard deviations above or below age-matched controls. A Z-score of less than -1.5 would be considered abnormal. References: 1. NIH Osteoporosis and Related Bone Diseases www osteo.org 2. International Society for Clinical Densitometry www iscd.org 3. National Osteoporosis Foundation www nof.org Electronically Signed: Taiwo Guerrero MD at 10:08 EST , Service support , CC: Dr. Elizabet Walden DO Front End Web Developer: Signed Elizabet Walden Work Phone: Start: 02-01-2019 Screening digital breast tomosynthesis bi Jj Mariano Work Phone: Start: 01-01-2019 [facility] Yuliya Church PA-C Work Phone: Start: 08-09-2014 End: 08-09-2014 Bilat Diag Digital AND CAD Comments: See Note; NOTES: [facility] Imaging Services [address] [place] [address] Breast Imaging Report MR#: [id number] Acct: [id number] Name: DAHIANA CASTELLON Rep #: [id number] : 1955 F 58 From: Taiwo Guerrero MD PCP: Elizabet Walden DO Status: REG CLI Study: Bilat Diag Digital AND CAD Date of Exam: 08/09/14 Exam# [id number] Ordering Dr: Elizabet Walden DO MAMMOGRAPHY - BILATERAL DIAGNOSTIC REASON FOR EXAM: Female, 58 years old. Palpable left breast lump. PERTINENT HISTORY: Non-contributory. TECHNIQUE: Digital examination. Mediolateral oblique (MLO) and craniocaudad (CC) views of both breasts were obtained. CAD: CAD was performed on this study. COMPARISON: Comparison is made with prior study dated November 10, 2012 and April 25, 2013. FINDINGS: Breast Composition: The breasts are heterogeneously dense, which may obscure small masses. There are no dominant masses or suspicious calcifications. The previously seen small nodular density in the deep lateral aspect of the right breast is not present at this time. No other significant abnormalities are identified. There has been no significant change since the prior study. IMPRESSION: Stable bilateral diagnostic mammogram. With the patient's history of a palpable abnormality in the left breast, correlation with ultrasound is recommended. ASSESSMENT CATEGORY: BIRADS Category 0: Incomplete. Need additional imaging evaluation. A letter regarding these results will be sent to the patient by the facility within 30 days. Approximately 10% of breast cancers are not detected by mammography. A normal mammogram should not delay biopsy of a clinically suspicious abnormality. Electronically Signed: Taiwo Guerrero MD at 15:27 EDT Tel [phone], Service support [phone], CC: Elizabet Walden DO Front End Web Developer: Signed Elizabet Walden Work Phone: Start: 08-09-2014 End: 08-09-2014 Breast Limited Unilateral Comments: See Note; NOTES: [facility] Imaging Services [address] [place] [address] Ultrasound Report MR#: [id number] Acct: [id number] Name: DAHIANA CASTELLON Rep #: [id number] : 1955 F 58 From: Taiwo Guerrero MD PCP: Elizabet Walden DO Status: REG CLI Study: Breast Limited Unilateral Date of Exam: 08/09/14 Exam# [id number] Ordering Dr: Elizabet Walden DO STUDY: ULTRASOUND BREAST - LEFT REASON FOR EXAM: Female, 58 years old. Palpable lump left breast. TECHNIQUE: Axial and longitudinal images of the LEFT breast were performed with a high resolution ultrasound transducer. COMPARISON: Comparison is made with prior mammogram done earlier in the day. FINDINGS: LEFT Breast: There is a 1 cm x 1.2 cm x 0.6 cm well-defined hypoechoic nodular density at the 2:00 position the breast at 3 cm from nipple. This corresponds to a small lymph node. IMPRESSION: There is a 1 cm x 1.2 cm x 0.6 cm lymph node at the 2:00 position of the breast at 3 cm from the nipple. ASSESSMENT CATEGORY: BIRADS Category 2: Benign. A letter regarding these results will be sent to the patient by the facility within 30 days. Electronically Signed: Taiwo Guerrero MD at 15:30 EDT Tel [phone], Service support [phone], CC: Elizabet Walden DO Front End Web Developer: Signed Elizabet aWlden Work Phone: Start: 01-30-2014 End: 01-31-2014 Dexa Bone Density Study (HP) Comments: See Note; NOTES: [facility] Imaging Services [address] [place] [address] Bone Density Report MR#: [id number] Acct: [id number] Name: DAHIANA CASTELLON Rep #: [id number] : 1955 F 58 From: Taiwo Guerrero MD PCP: Elizabet Walden DO Status: [facility] Study: Dexa Bone Density Study (HP) Date of Exam: 01/30/14 Exam# [id number] Ordering Dr: Elizabet Walden DO STUDY: DUAL ENERGY X-RAY ABSORPTIOMETRY / DXA REASON FOR EXAM: Female, 58 years old. The patient is postmenopausal. TECHNIQUE: Bone Mineral Density (BMD) measurements of lumbar spine and bilateral hips were obtained. COMPARISON: Comparison is made with prior examination dated July 19, 2002. FINDINGS: Lumbar Spine (L1-L4): g/cm2 (0.937) / T-score (-2.0) / Z-score (by 0.8) Findings are suggestive of osteopenia with a moderate fracture risk. Left Femur Total: g/cm2 (0.850) / T-score (-1.3) / Z-score (-0.3) Left Femoral Neck: g/cm2 (0.838) / T-score (-1.4) / Z-score (-0.2) Right Femur Total: g/cm2 (0.825) / T-score (-1.4) / Z-score (-0.5) Right Femoral Neck: g/cm2 (0.814) / T-score (-1.6) / Z-score (-0.4) The T-Scores on the most recent prior examination were: Lumbar Spine (L1-L4): There has been improvement of bone density since the previous examination. Left Femur Total: which represents an improvement of 8.6%. IMPRESSION: The patient is considered osteopenic as outlined below according to World Angel Organization (WHO) criteria with a moderate fracture risk. There has been improvement of bone density since the previous examination. Reference Information: The T-score is the number of standard deviations above or below the standard which is normal for young adults at their peak bone mineral density. The World Health Organization (WHO) interprets the T-scores as follows: Above -1 Normal bone density Between -1 and -2.5 Osteopenia Equal to / or below -2.5 Osteoporosis As a practical clinical guideline, osteopenia may be graded as follows: Mild -1 through -1.5 Moderate -1.6 through -2.0 Severe -2.1 through -2.4 The Z-score is the number of standard deviations above or below age-matched controls. A Z-score of less than -1.5 would be considered abnormal. References: 1. NIH Osteoporosis and Related Bone Diseases http://www.osteo.org 2. International Society for Clinical Densitometry http://www.iscd.org 3. National Osteoporosis Foundation http://www.nof.org Electronically Signed: Taiwo Guerrero MD at 11:50 EST Tel [phone], Service support [phone], CC: Elizabet Walden DO Front End Web Developer: Signed Elizabet Walden Work Phone: Start: 04-25-2013 End: 04-25-2013 Breast Unilateral Comments: See Note; NOTES: [facility] Imaging Services [address] [place] [address] Ultrasound Report MR#: [id number] Acct: [id number] Name: DAHIANA CASTELLON Rep #: [id number] : 1955 F 57 From: Taiwo Guerrero MD PCP: Elizabet Walden DO Status: REG CLI Study: Breast Unilateral Date of Exam: 04/25/13 Exam# [id number] Ordering Dr: Elizabet Walden DO STUDY: ULTRASOUND BREAST(S) - RIGHT REASON FOR EXAM: Female, 57 years old. Followup of right breast nodule. TECHNIQUE: Axial and longitudinal images of the RIGHT breast were performed with a high resolution ultrasound transducer. COMPARISON: Comparison is made with prior mammogram done earlier today. Comparison is made with prior sonogram dated November 10, 2012. FINDINGS: RIGHT BREAST: There is a 6 mm x 4 mm x 3 mm cyst at the 9:00 position of the breast at 2 cm from the nipple. This has decreased in size since prior study. IMPRESSION: Small cyst at the 9:00 position of the right breast. This has decreased in size since prior study. ASSESSMENT CATEGORY: BIRADS Category 2: Benign finding(s). Electronically Signed: Taiwo Guerrero M.D. at 9:03 EST , Service support [phone], CC: Elizabet Walden DO Front End Web Developer: Signed Elizabet Walden Work Phone: Start: 04-25-2013 End: 04-25-2013 Unilat Rt Diag Digital & CAD Comments: See Note; NOTES: [facility] Imaging Services [address] [place] [address] Breast Imaging Report MR#: [id number] Acct: [id number] Name: DAHIANA CASTELLON Rep #: [id number] : 1955 F 57 From: Taiwo Guerrero MD PCP: Elizabet Walden DO Status: REG CLI Exam# [id number] Ordering Dr: Elizabet Walden DO MAMMOGRAPHY - UNILATERAL DIAGNOSTIC: RIGHT BREAST REASON FOR EXAM: Female, 57 years old. 6 month followup for right breast abnormality. PERTINENT HISTORY: TECHNIQUE: Digital examination. Mediolateral oblique (MLO) and craniocaudad (CC) views of the breast were obtained. Compression spot views were obtained as well. CAD: CAD was performed on this study. COMPARISON: Comparison is made with prior study dated November 10, 2012. FINDINGS: The breast composition is heterogeneously dense - ranging from 51% to 75% of the breast tissue. The previously seen nodular density in the deep upper slightly outer aspect of the right breast has decreased in size. No new mass lesion is seen in correlation with ultrasound is recommended. No other significant abnormalities are identified. IMPRESSION: Slight decrease in size of nodular density in the right breast as described. Correlation with ultrasound is recommended. ASSESSMENT CATEGORY: BIRADS Category 0: Incomplete. Need additional imaging evaluation. A letter regarding these results will be sent to the patient by the facility within 30 days. Approximately 10% of breast cancers are not detected by mammography. A normal mammogram should not delay biopsy of a clinically suspicious abnormality. Electronically Signed: Taiwo Guerrero M.D. at 8:43 EST , Service support [phone], CC: Elizabet Walden DO Front End Web Developer: Signed Elizabet Walden Work Phone: Plan of Treatment Date Care Activity Detail Author Start: 01-01-2029 Screening for malign ant neoplasm of colon [facility] Start: 2028 RSV vaccine (adult) (1 - 1-dose 75+ series) RSV vaccine (adult) (1 - 1-dose 75+ series) [facility] Start: 07-31-2025 Screening for malign ant neoplasm of breast [facility] Start: 11-12-2024 Influenza vaccination Influenz a Vaccine (Season Ended) [facility] Start: 05-24-2024 Screening for malign ant neoplasm of breast Mamm[facility] Start: 04-07-2024 Screening for malign ant neoplasm of breast Mamm[facility] Start: 03-14-2024 Medicare Advantage Annual Wellness Visit Medicare Advantage Annual Wellness Visit [facility] Start: 01-02-2024 Colonoscopy COLONOSCOPY [facility] Start: 01-02-2024 COLORECTAL CANCER SCREENING COLORECTAL CANCER SCREENING [facility] Start: 01-02-2024 Screening for malign ant neoplasm of colon [facility] Start: 12-13-2023 Influenza vaccination Influenza Vacc ine (#1) [facility] Start: 11-13-2023 COVID-19 Vaccine ( season) COVID-19 Vaccine ( season) [facility] Start: 11-13-2023 COVID-19 Vaccine ( season) COVID-19 Vaccine () [facility] Start: 11-13-2023 Influenza vaccination Influenza Vacc ine (#1) [facility] Start: 07-21-2023 Patient discharge [facility] Start: 05-25-2023 End: 05-25-[address] [facility] Start: 04-11-2023 COVID-19 Vaccine ( season) COVID-19 Vaccine () [facility] Start: 04-08-2023 End: 06-06-2024 MG Breast - right Diagnostic Right diagnostic mammogram Imaging Routine Subareolar mass of right breast Expected: 04/08/2023, Expires: 06/06/2024 [facility] Work Phone: Comment on above: Expected: 04/08/2023 , Expires: 06/06/2024 Start: 04-08-2023 End: 06-06-2024 US Breast - right limited Right breast US limited Imaging Routine Subareolar mass of right breast Expected: 04/08/2023, Expires: 06/06/2024 [facility] Comment on above: Expected: 04/08/2023 , Expires: 06/06/2024 Start: 03-14-2023 Advance Directive Discussion Advance Directive Discussion [facility] Start: 03-14-2023 Medicare Advantage Annual Wellness Visit Medicare Advantage Annual Wellness Visit [facility] Start: 02-12-2023 Screening for malign ant neoplasm of breast [facility] Start: 02-10-2023 Screening for malign ant neoplasm of breast Breast cancer screen [facility] Start: 01-01-2023 [facility] Start: 12-16-2022 Procedure Education Eprescribe d prescriptions (G8553) [facility] Work Phone: Start: 12-16-2022 Provider Instruction s for Treatment [facility] Work Phone: Start: 12-16-2022 Comprehensive metabo lic panel METABOLIC PANEL, COMPREHENSIVE (80540) [facility]; [facility] Work Phone: Start: 12-16-2022 Blood count complete auto&auto difrntl wbc CBC W/AUTO DIFF WBC (76124) [facility]; [facility] Work Phone: Start: 12-16-2022 Assay of thyroid stimulating hormone tsh TSH (39404) [facility]; [facility] Work Phone: Start: 12-16-2022 Lipid panel LIPID PANEL (32460) [facility]; [facility] Work Phone: Start: 11-12-2022 COVID-19 Vaccine ( season) COVID-19 Vaccine () [facility] Start: 11-12-2022 Influenza vaccination Influenza Vacc ine (#1) [facility] Start: 02-03-2022 Screening for malign ant neoplasm of breast Breast cancer screen [facility] Work Phone: Start: 12-29-2021 End: 12-29-2022 US Abdomen US abdomen Imaging Routine Hepatomegaly, not elsewhere classified Expected: 12/29/2021, Expires: 12/29/2022 [facility] Work Phone: Comment on above: Expected: 12/29/2021 , Expires: 12/29/2022 Start: 12-12-2021 Influenza vaccination Influenza Vacc ine (#1) [facility] Start: 11-12-2021 Influenza vaccination [facility] Start: 10-14-2021 COVID-19 Vaccine (2 - Pfizer series) COVID-19 Vaccine (2 - Pfizer series) [facility] Start: 10-12-2021 Influenza vaccination Flu vaccine (# 1) [facility] Start: 10-01-2021 End: 10-15-2021 SARS-CoV-2 (COVID-19) RNA [Presence] in Respiratory specimen by ANOOP with probe detection [facility] Work Phone: Comment on above: Expected: 10/01/2021 , Expires: 10/15/2021 Start: 03-23-2021 Procedure Education Eprescribe d prescriptions (G8553) [facility]; [facility] Work Phone: Start: 03-20-2021 Procedure Education Eprescribe d prescriptions (G8553) [facility]; [facility] Work Phone: Start: 03-18-2021 Provider Instruction s for Treatment Continue Current Prescription(s) [facility]; [facility] Work Phone: Start: 03-16-2021 Iaadiadoo influenza 2019 Novel Coronavirus (COVID-19), ANOOP (87311) [facility]; [facility] Work Phone: Comment on above: If rapid neg Start: 03-14-2021 ADVANCE DIRECTIVE DISCUSSION ADVANCE DIRECTIVE DISCUSSION [facility] Start: 02-01-2021 Screening for malign ant neoplasm of breast Breast cancer screen [place], [place] Start: 11-12-2020 Influenza vaccination Flu vacc ine (Season Ended) [facility] Work Phone: Start: 05-05-2020 Procedure Education Eprescribe d prescriptions (G8553) [facility]; [facility] Work Phone: Start: 05-05-2020 Provider Instruction s for Treatment Cholesterol mgmt [facility]; [facility] Work Phone: Start: 05-05-2020 Hepatitis c antibody HEPATITIS C ANTIBODY (07434) [facility]; [facility] Work Phone: Start: 05-05-2020 Lipid panel LIPID PANEL (12175) [facility] prehensive Internal Medicine; [facility] Work Phone: Start: 01-25-2020 Breast cancer screen Breast cancer s [place] Start: 11-20-2019 Annual Wellness Visi t (AWV) Annual Wellness Visit (AWV) [facility] Start: 11-13-2019 Influenza vaccination Flu vaccine (# 1) [place] Start: 11-12-2018 Influenza vaccination Flu vaccine (# 1) [place] Start: 2018 BONE DENSITY BONE DENSITY [facility] Start: 2018 DEXA (modify frequen cy per FRAX score) DEXA (modify frequency per FRAX score) [place] Start: 2018 Pneumococcal 65+ yea rs Vaccine (1 of - PPSV23) Pneumococcal 65+ years Vaccine (1 of 1 - PPSV23) [place] Start: 2018 Pneumococcal vaccination [facility] Start: 2018 Pneumococcal Vaccine : 65+ Years (1 - PCV) Pneumococcal Vaccine: 65+ Years (1 - PCV) [facility] Start: 2018 Screening for osteoporosis [facility] Start: 09-20-2015 Hepatic function panel HEPATIC FUNCTION PANEL (94318) [facility]; [facility] Work Phone: Start: 06-22-2015 Hepatic function panel HEPATIC FUNCTION PANEL (53701) [facility]; [facility] Work Phone: Start: 03-24-2015 Procedure Education Eprescribe d prescriptions (G8553) [facility]; [facility] Work Phone: Start: 03-24-2015 Provider Instruction s for Treatment [facility]; [facility] Work Phone: Start: 03-24-2015 Hepatic function panel HEPATIC FUNCTION PANEL (75331) [facility]; [facility] Work Phone: Start: 03-24-2015 Assay of thyroid stimulating hormone tsh TSH (27551) [facility]; [facility] Work Phone: Start: 03-24-2015 TSH Qn TSH (88377) Comprehens [facility]; [facility] Work Phone: Start: 03-24-2015 Urine albumin quantitative MICROALBUMIN: CREATININE RATIO (58611) AND (51382) [facility]; [facility] Work Phone: Start: 03-24-2015 Comprehensive metabo lic panel METABOLIC PANEL, COMPREHENSIVE (61361) [facility]; [facility] Work Phone: Start: 03-24-2015 Lipid panel LIPID PANEL (95558) Com pre[facility]; [facility] Work Phone: Start: 12-09-2014 Procedure Education Eprescribe d prescriptions (G8553) [facility]; [facility] Work Phone: Start: 12-09-2014 Provider Instruction s for Treatment [facility]; [facility] Work Phone: Start: 08-08-2014 Procedure Education Eprescribe d prescriptions (G8553) [facility]; [facility] Work Phone: Start: 08-08-2014 Provider Instruction s for Treatment Follow up in 4 months [facility]; [facility] Work Phone: Start: 08-08-2014 25 hydroxy includes fractions if performed CALCIFIDIOL (73662) VIT D 25 [facility]; [facility] Work Phone: Start: 05-15-2014 Provider Instruction s for Treatment [facility]; [facility] Work Phone: Start: 04-03-2014 Provider Instruction s for Treatment [facility]; [facility] Work Phone: Start: 03-05-2014 Patient Education Flu (Influenza) *: flu [facility]; [facility] Work Phone: Start: 03-05-2014 Procedure Education Eprescribe d prescriptions (G8553) [facility]; [facility] Work Phone: Start: 03-05-2014 Provider Instruction s for Treatment Follow up if no improvement or if symptoms worsen [facility]; [facility] Work Phone: Start: 03-05-2014 Cul bact xcpt urine blood/stool aerobic isol Throat Culture (28730) [facility]; [facility] Work Phone: Start: 03-05-2014 Virus centrifuge enh ncd id imfluor stain ea Influenza A&B Viral Culture (30960) [facility]; [facility] Work Phone: Start: 02-26-2014 Provider Instruction s for Treatment [facility]; [facility] Work Phone: Start: 02-26-2014 Lipid panel LIPID PANEL (42579) [facility] prehensive Internal Medicine; [facility] Work Phone: Comment on above: do in 5 months Start: 10-31-2013 Procedure Education Eprescribe d prescriptions (G8553) [facility]; [facility] Work Phone: Start: 10-31-2013 Provider Instruction s for Treatment [facility]; [facility] Work Phone: Start: 2013 Hepatitis B (HBV) Vaccine (optional start 60+ years) Hepatitis B (HBV) Vaccine (optional start 60+ years) [facility] Start: 2013 Hepatitis B Vaccines (1 of 3 - Risk 3-dose series) Hepatitis B Vaccines (1 of 3 - Risk 3-dose series) [facility] Start: 2013 RSV Immunization age d 60 or older (1 - 1-dose 60+ series) RSV Immunization aged 60 or older (1 - 1-dose 60+ series) [facility] Start: 2013 RSV Vaccine (1 - Ris k 60-74 years 1-dose series) RSV Vaccine (1 - Risk 60-74 years 1-dose series) [facility] Start: 2013 RSV vaccine (optiona l 60+ years) RSV vaccine (optional 60+ years) [facility] Start: 12-21-2011 Patient Education Flu Shots (I nfluenza Vaccine): immunizations [facility]; [facility] Work Phone: Start: 12-21-2011 Provider Instruction s for Treatment [facility]; [facility] Work Phone: Start: 08-04-2009 Assay of thyroid stimulating hormone tsh TSH (47450) [facility]; [facility] Work Phone: Start: 08-04-2009 TSH Qn TSH (63617) Comprehens [facility]; [facility] Work Phone: Start: 08-04-2009 Lipid panel LIPID PANEL (83060) Com [facility]; [facility] Work Phone: Start: 08-04-2009 Provider Instruction s for Treatment [facility]; [facility] Work Phone: Start: 2008 Screening for osteoporosis DEXA (modify frequency per FRAX score) [facility] Start: 01-15-2008 Hepatic function panel HEPATIC FUNCTION PANEL (40329) [facility]; [facility] Work Phone: Start: 01-15-2008 Provider Instruction s for Treatment [facility]; [facility] Work Phone: Start: 08-18-2007 Pneumococcal Vaccine : 50+ Years (2 of 2 - PCV) Pneumococcal Vaccine: 50+ Years (2 of 2 - PCV) [facility] Start: 08-18-2007 Pneumococcal Vaccine : 65+ (2 of 2 - PCV) Pneumococcal Vaccine: 65+ (2 of 2 - PCV) [facility] Start: 08-18-2007 Pneumococcal Vaccine : 65+ Years (2 of 2 - PCV) Pneumococcal Vaccine: 65+ Years (2 of 2 - PCV) [facility] Start: 08-18-2007 Provider Instruction s for Treatment Reviewed Diagnostic Tests: stress test normal and echo ok except mvp [facility]; [facility] Work Phone: Start: 07-26-2007 Provider Instruction s for Treatment [facility]; [facility] Work Phone: Start: 01-23-2007 Lipid panel LIPID PANEL (35857) [facility] pre[facility]ive Internal Medicine; [facility] Work Phone: Comment on above: DO IN 3 MONTHS Start: 01-23-2007 Hepatic function panel HEPATIC FUNCTION PANEL (86578) [facility]; [facility] Work Phone: Start: 01-23-2007 Provider Instruction s for Treatment [facility]; [facility] Work Phone: Start: 09-12-2006 Lipid panel LIPID PANEL (10045) [facility] pre[facility] Internal Medicine; [facility] Work Phone: Comment on above: DO IN 4 MONTHS Start: 09-12-2006 Provider Instruction s for Treatment [facility]; [facility] Work Phone: Start: 08-18-2006 Comprehensive metabo lic panel Metabolic Panel, Comprehensive (26136) [facility]; [facility] Work Phone: Start: 08-18-2006 Sedimentation rate r bc non-automated Sed Rate Erythrocyte (50470) [facility]; [facility] Work Phone: Start: 08-18-2006 Blood count complete auto&auto difrntl wbc CBC, Platelets & Auto Diff (86934) [facility]; [facility] Work Phone: Start: 08-18-2006 Rheumatoid factor quantitative RHEUMATOID FACTOR-QUANT (22909) [facility]; [facility] Work Phone: Start: 08-18-2006 C-reactive protein C-Reactive Protein (99348) [facility]; [facility] Work Phone: Start: 08-18-2006 CRP [Mass/Vol] C-Reactive Pro tein (23422) [facility]; [facility] Work Phone: Start: 08-18-2006 Antinuclear antibodi es christopher CHRISTOPHER (ANTINUCLEAR ANTIBODY) (72755) [facility]; [facility] Work Phone: Start: 08-18-2006 Nuclear Ab IF (S) [Titer] CHRISTOPHER (ANTINUCLEAR ANTIBODY) (58305) [facility]; [facility] Work Phone: Start: 08-17-2006 Comprehensive metabo lic panel METABOLIC PANEL, COMPREHENSIVE (29656) [facility]; [facility] Work Phone: Start: 08-17-2006 Blood count manual c ell count each CBC WITH MANUAL DIFF (19204) [facility]; [facility] Work Phone: Start: 08-17-2006 Lipid panel LIPID PANEL (78080) Com [facility]; [facility] Work Phone: Start: 08-17-2006 Provider Instruction s for Treatment [facility]; [facility] Work Phone: Start: 10-19-2003 Colon cancer screen colonoscopy Colon cancer screen colonoscopy [place] Start: 10-19-2003 Measurement of occul t blood in single stool specimen FIT [facility] Start: 10-19-2003 Screening for malign ant neoplasm of breast Mammography [facility] Start: 10-19-2003 Screening for malign ant neoplasm of colon [facility] Start: 10-19-2003 Shingles (RZV) Vacci ne (1 of 2) Shingles (RZV) Vaccine (1 of 2) [facility] Start: 10-19-2003 Shingles Vaccine (1 of 2) Shingles Vaccine (1 of 2) [facility] Start: 10-19-2003 Zoster Vaccines (1 o f 2) Zoster Vaccines (1 of 2) [facility] Start: 1998 Cholesterol [Mass/volume] in Serum or Plasma Cholesterol [facility] Start: 1998 COLOGUARD (FIT-DNA) COLOGUARD (FIT-D NA) [facility] Start: [address] COLONOGRAPHY [facility] Start: 1998 DIABETES SCREEN DIABETES SCREEN [facility] Start: 1998 Diabetes Screening Diabetes Screenin g [facility] Start: 1998 FECAL OCCULT BLOOD FECAL OCCULT BLOO D [facility] Start: 1998 Lipid panel [facility] Start: 1998 LIPID SCREEN LIPID SCREEN [facility] Start: 1998 Screening for malign ant neoplasm of colon [facility] Start: 1998 SIGMOIDOSCOPY SIGMOIDOSCOPY [facility] Start: 1993 Diabetes screen Diabetes screen [place], [place] Start: 1993 Mammography MAMMOGRAM [facility] Start: 1993 Screening for malign ant neoplasm of breast Mammography [facility] Start: 1974 Cervical cancer screen Cervical canc er screen [place], [place] Start: 1972 DTaP/Tdap/Td vaccine (1 - Tdap) DTaP/Tdap/Td vaccine (1 - Tdap) [facility] Start: 1972 DTaP/Tdap/Td Vaccine s (1 - Tdap) DTaP/Tdap/Td Vaccines (1 - Tdap) [facility] Start: 1972 Hepatitis A (HAV) Vaccine (optional start 19+ years) Hepatitis A (HAV) Vaccine (optional start 19+ years) [facility] Start: 1972 SHINGRIX VACCINE (1 of 2) SHINGRIX VACCINE (1 of 2) [facility] Start: 1972 Urine microalbumin profile [facility] Start: 10-19-1971 Hepatitis C screening M [facility] Start: 10-19-1971 HEPATITIS C SCREENING HEPATITIS C SC RAND [facility] Start: 10-19-1971 Tetanus + diphtheria + acellular pertussis vaccine (product) Tdap Booster [facility] Start: 1968 HIV screen HIV screen [place], [place] Start: 1965 COVID-19 Vaccine (1) COVID-19 Vaccin e (1) [facility] Work Phone: Start: 1965 Depression Monitoring Depression Mon [facility] Start: 1965 Depression Screen Depression Screen [facility] Start: 1965 Depression Screening Depression Scre ening [facility] Start: 1964 DTaP/Tdap/Td vaccine (1 - Tdap) DTaP/Tdap/Td vaccine (1 - Tdap) [place] Start: 1964 Screening for malign ant neoplasm of cervix Cervical Cancer Screening [facility] Start: 10-19-1963 Lipid panel [facility] Start: 10-19-1963 Lipid screen Lipid screen [place] Start: 10-19-1959 PNEUMOCOCCAL: 65+ (1 - PCV) PNEUMOCOCCAL: 65+ (1 - PCV) [facility] Start: 1958 COVID-19 VACCINE (#1) COVID-19 VACCI NE (#1) [facility] Start: 1958 COVID-19 Vaccine (1) COVID-19 Vaccin e (1) [facility] Start: 1954 Hepatitis A Vaccines (1 of 2 - Risk 2-dose series) Hepatitis A Vaccines (1 of 2 - Risk 2-dose series) [facility] Start: 04-20-1954 COVID-19 Vaccine (#1) COVID-19 Vacci ne (#1) [facility] Start: 1953 Hepatitis C screen Hepatitis C henrietta n [place] Start: 1953 Hepatitis C screening Hepatitis C fran aguilar [place] Start: 1953 Medicare Advantage Annual Wellness Visit (AWV) Medicare Advantage Annual Wellness Visit (AWV) [facility] Start: 1953 Screening for malign ant neoplasm of colon [facility] Start: 1953 Screening for osteoporosis Bone Density Scan [facility] Colonoscopy [facility] End: 08-05-2020 MRI BREAST BILATERAL W WO CONTRAST W/CAD MRI BREAST BILATERAL W WO CONTRAST W/CAD Imaging Routine Breast cancer screening, high risk patient Fibrocystic disease of both breasts Other benign mammary dysplasias of right breast Screening mammogram for high-risk patient 1 Occurrences starting 08/05/2020 until 08/05/2020 [facility] Work Phone: Comment on above: 1 Occurrences starti ng 08/05/2020 until 08/05/2020 MRI BREAST BILATERAL W WO CONTRAST W/CAD MRI BREAST BILATERAL W WO CONTRAST W/CAD Imaging Routine Breast cancer screening, high risk patient Fibrocystic disease of both breasts Other benign mammary dysplasias of right breast Screening mammogram for high-risk patient 08/05/2020 2:10 PM EDT [facility] Work Phone: Patient Education ED Knee Sprain [facility] Work Phone: Patient referral [facility] Work Phone: End: 02-04-2020 Screening digital breast tomosynthesis bi Kaitlin Kalpesh Digital Screen Bilateral Imaging Routine Once for 1 Occurrences starting 02/04/2020 until 02/04/2020 [employer] [facility] Comment on above: Once for 1 Occurrenc es starting 02/04/2020 until 02/04/2020 Screening digital breast tomosynthesis bi Kaitlin Kalpesh Digital Screen Bilateral Imaging Routine 02/04/2020 10:22 AM EST [employer] [facility], [place] [facility]; [facility] Work Phone: [facility]; [facility] Work Phone: [facility]; [facility] Work Phone: [facility]; [facility] Work Phone: [facility]; [facility] Work Phone: [facility] Work Phone: [facility]; [facility] Work Phone: [facility]; [facility] Work Phone: [facility] Work Phone: [facility]; [facility] Work Phone: [facility]; [facility] Work Phone: [facility]; [facility] Work Phone: [facility]; [facility] Work Phone: [facility]; [facility] Work Phone: [facility]; [facility] Work Phone: [facility]; [facility] Work Phone: [facility]; [facility] Work Phone: [facility]; [facility] Work Phone: [facility]; [facility] Work Phone: Immunizations Immunization Date Immunization Notes Care Provider [facility] 01-22-2022 influenza virus vaccine, unspecified formulation Adelia Wolf MD Work Phone: [facility] 08-17-2006 pneumococcal polysaccharide vaccine, 23 valent Elizabet Walden [facility]; [facility] Work Phone: Payers Date Payer Category Payer Self-pay [id number] 2021 Medicare O AETNA MEDICARE [id number] 2019 Medicare AETNA MEDICARE A ETNA MEDICARE-ADVANTAGE PPO [id number] 2019-Present [address] [place] [address] Medicare [id number] 2018 Medicare AETNA MEDICARE A ETNA MEDICARE PPO [id number] 2018-Present [phone] [address] [place] [address] PPO [id number] 2018 Medicare [id number] 2018 Private Health Insurance [id number] 2015 Unknown MEDICAL MUTUAL M EDICAL MUTUAL [address] xxxxxxx 2015-Present [phone] [address] [place] [address] xxxxxxx [id number] 2012 Commercial Indemnity MEDICAL MUT UAL - HMO/PPO/POS [id number] 2012 Unknown 2012 Unknown [id number] 1955 Unknown [id number] 2.16.840.1.313531.3.579.2. 732 1953 Unknown [id number] 2.16.840.1.349386.3.579.2. 668 1955 Unknown [id number] 2..840.1.788448.3.579.2. 668 1953 Unknown [id number] 2.16.840.1.721322.3.579.2. 668 1953 Unknown [id number] 2.16.840.1.236592.3.579.2. 651 1955 Unknown [id number] 2.16.840.1.155007.3.579.2. 651 1953 Unknown [id number] 2.16.840.1.107427.3.579.2. 651 Medicare [id number] Private Health Insurance Unknown [id number] 2.16.840.1.412358.3.579.2. 462 Unknown [id number] 2.16.840.1.908864.3.579.2. 462 Unknown [id number] 2.16.840.1.891706.3.579.2. 462 Unknown [id number] 2.16840.1.393269.3.579.2. 462 Unknown [id number] 2.16.840.1.446383.3.579.2. 462 Unknown [id number] 2.16.840.1.654877.3.579.2. 462 Unknown [id number] 2.16.840.1.564166.3.579.2. 462 Unknown [id number] 2.16840.1.029866.3.579.2. 462 Unknown [id number] 2.16840.1.751462.3.579.2. 462 Unknown [id number] 2.16840.1.925066.3.579.2. 462 Unknown [id number] 2.16840.1.043078.3.579.2. 462 Social History Date Type Detail Facility Start: 10-06-2017 End: 11-20-2019 Tobacco smoking status NHIS Never smoker [facility] Start: 10-06-2017 End: 11-20-2019 Tobacco use and exposure Never used [place] Start: 11-20-2019 End: 07-31-2024 Alcohol intake [facility] 1955 [facility] Start: 03-02-2022 End: 07-31-2024 Caffeine Use Caffeine Use [facility]; [facility] Work Phone: Comment on above: 2 cups coffee qd Full-time, teacher [employer] , 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 Remotely quit tobacc o use Start: 03-17-2021 End: 07-21-2023 Tobacco smoking status WAIS Unknown if ever smoked [facility] Start: 1955 Sex Assigned At Female W [facility] Start: 03-12-2016 End: 07-21-2023 Tobacco smoking status WAIS [facility]-smoker [facility] Start: 09-21-2021 End: 02-12-2022 Exposure to SARS-CoV-2 (event) Not sure [facility] History of tobacco use Current smoker [facility] Start: 03-02-2022 End: 07-31-2024 Tobacco use panel [facility] National Score (1-100), lower number is lower risk Not on file [facility] Start: 01-16-2012 End: 10-12-2021 Sex Female (finding) [facility] Goals Date Patient Goal Desired Activity /State Mental Status Date Assessment Result Facility 07-21-2023 Cognitive function Level Of Cons ciousness Follows Commands;Drowsy [facility] Work Phone: 03-17-2021 Cognitive function Awake;Alert;A ppropriate;Follow s Commands [facility] Work Phone: Clinical Notes 08-20-2015 to 05-23-2024 Note Date & Type Note Facility 05-23-2024 Discharge summary Note Date/Time May 23, 2024 1:24pm [facility] Occupational Therapy [facility] [address] [place] [address]. [address] [place] [address] / REHABILITATION SERVICES DISCHARGE SUMMARY MR#: [id number] Acct: [id number] Name: DAHIANA CASTELLON Rep #: [id number] : 1955 68 From: Monse CONTRERAS CHT Referring DrRoni: OUT OF TOWN DOCTOR Status: REG RCR Eval Date: Discharge Date: Discharge Summary D/C Summary: It has been my pleasure to treat DAHIANA CASTELLON under orders from DIANA CARTER, for the diagnosis of right 1st carpometacapral OA. for a total of 6 visit(s). Please see the following information for a summary of their discharge status. Overall Improvement % Improvement: 80 Objective Objective/Function: wrist ROM 40/30 IP flexion 30 cmc ROM 10 Goals Patient Goals: Regain Mobility, Use Hand/Wrist/Arm Normally Again and Be More Independent in ADLS Goal:Daily scar massage when approriate: Yes Goal Progress: Progressing Goal:ROM equal to unaffected hand: Yes Goal Progress: Progressing Goal:Copyholder/Pinch strength at least 75% of unaffected hand: Yes Goal Progress: Progressing Goal:No pain with affected hand use: Yes Goal Progress: Progressing Goal:Full use of affected hand in daily activities including work: Yes Goal Progress: Goal Met Goal:Decrease scar hypersensitivity: Yes Goal Progress: Goal Met Plan Plan: cont Dr. Interiano's guidelines for [facility] arthroplasty D/C Information Discharge Comments: pt was seen for 6 OT sessions. pt progressed well. pt has met goals and no further apts are scheduled. Pt d/c with HEP d/c sentence: If there are questions or concerns regarding this patient's occupational therapy, please fell free to call me at [phone]. Thank you for the referral of this patient. Sincerely, NOEL Garcia/Zainab, NADERT <Electronically signed by Monse COHEN/NADER LambT> 05/23/24 1324 CC: Dr. Elizabet Walden, DO; DIANA CARTER ~ MK Signed [facility] Work Phone: 1(116) 440-264003-12-2025 Discharge summary [facility] Occupational Therapy [address] [place] [address] / REHABILITATION SERVICES DISCHARGE SUMMARY MR#: [id number] Acct: [id number] Name: DAHIANA CASTELLON Rep #: [id number] : 1955 68 From: Monse Gibbons OTR/Zainab, RAGHU Referring DrRoni: OUT OF TOWN DOCTOR Status: REG RCR Eval Date: Discharge Date: Discharge Summary D/C Summary: It has been my pleasure to treat DAHIANA CASTELLON under orders from DIANA CARTER, for the diagnosis ofright 1st carpometacapral OA. for a total of 6 visit(s). Please see the following information for a summary of their discharge status. Overall Improvement % Improvement: 80 Objective Objective/Function: wrist ROM 40/30 IP flexion 30 cmc ROM 10 Goals Patient Goals: Regain Mobility, Use Hand/Wrist/Arm Normally Again and Be More Independent in ADLS Goal:Daily scar massage when approriate: Yes Goal Progress: Progressing Goal:ROM equal to unaffected hand: Yes Goal Progress: Progressing Goal:Copyholder/Pinch strength at least 75% of unaffected hand: Yes Goal Progress: Progressing Goal:No pain with affected hand use: Yes Goal Progress: Progressing Goal:Full use of affected hand in daily activities including work: Yes Goal Progress: Goal Met Goal:Decrease scar hypersensitivity: Yes Goal Progress: Goal Met Plan Plan: cont Dr. Interiano's guidelines for CMC arthroplasty D/C Information Discharge Comments: pt was seen for 6 OT sessions. pt progressed well. pt has met goals and no further apts are scheduled. Pt d/c with HEP d/c sentence: If there are questions or concerns regarding this patient's occupational therapy, please fell free to call me at [phone]. Thank you for the referral of this patient. Sincerely, NOEL Garcia/Zainab, NADERT 05/23/24 1324 CC: Dr. Elizabet Walden, DO; DIANA CARTER ~ MK Signed [facility]05-09-2024 Procedure [facility] 07-21-2023 Procedure [facility]05-09-2024 History and physical note Author Lexie Eli [facility] July 21, 2023 10:54am Note Date/Time July 21, 2023 10:36a m [facility] Medical Records Department [address] [place] [address] History & Physical Exam 07/21/23 1032 MR#: [id number] Acct: [id number] Name: DAHIANA CASTELLON Rep #:[id number] : 1955 67 From: Lexie Eli MD PCP: Dr. Elizabet Walden, DO Status:[facility] Location: [place] [address] HPI - General General Date of Service: 07/21/23 HPI Narrative DAHIANA CASTELLON, is a 67 F who presents for screening colonoscopy. Pt did take extra dulcolax x 2 but is still having brown liquid and states she feels constipated. Patient had a colonoscopy by Dr. Montoya about 3 years ago had a polyp at that time-recommended to f/u in 3 years-pt states she has a tortuous colon. Patient has bowel movements about every 4 days denies any blood. Patient denies any chronic abdominal pain/nausea/vomiting/reflux. Patient denies any family history of colon cancer. [facility] Medical History (Updated 07/21/23 @ 10:[address] Lexie Eli MD) Anxiety Arthritis Bipolar disorder Cancer CPAP (continuous positive airway pressure) dependence Depression Former smoker Frequency of urination Heartburn High cholesterol History of echocardiogram History of IBS History of irregular heartbeat History of steroid therapy History of stress test Leg cramps Mitral valve prolapse Other urethral stricture, female Rheumatoid arthritis Sleep apnea Stress headache Urgency of urination Wears glasses Home Medications bupropion HCl 150 mg 24 hr tablet, extended release 450 mg PO DAILY 09/19/13 [History Last Taken Unknown] multivitamin with folic acid 400 mcg tablet (Thera) 1 tab PO DAILY 09/19/13 [History Last Taken Unknown] pravastatin 10 mg tablet 20 mg PO DAILY 09/19/13 [History Last Taken Unknown] biotin 5 mg capsule 5 mg PO DAILY 10/31/20 [History Last Taken Unknown] calcium 500 mg tablet 500 mg PO DAILY 10/31/20 [History Last Taken Unknown] cholecalciferol (vitamin D3) 25 mcg (1,000 unit) chewable tablet (Vitamin D3) 25mcg PO DAILY 10/31/20 [History Last Taken Unknown] folic acid 800 mcg tablet 1.6 mg PO DAILY 10/31/20 [History Last Taken Unknown] leucovorin calcium 15 mg tablet 30 mg PO QWEEK 10/31/20 [History Last Taken Unknown] methotrexate sodium 25 mg/mL injection solution 0.7 mg IM SA RA 10/31/20 [History Last Taken Unknown] trazodone 50 mg tablet 50 mg PO QHS 10/31/20 [History Last Taken Unknown] vitamin B12 1,000 mcg-folic acid 400 mcg sublingual tablet 2 tab sublingual DAILY 10/31/20 [History Last Taken Unknown] gabapentin 600 mg tablet 600 mg PO BID 03/17/21 [History Last Taken Unknown] tramadol 50 mg tablet 50 mg PO TID PRN Pain 03/17/21 [History Last Taken Unknown] fluticasone propionate 50 mcg/actuation nasal spray,suspension (Allergy Relief (fluticasone)) 1 spray intranasal DAILY 03/23/23 [History Last Taken Unknown] golimumab 50 mg/0.5 mL subcutaneous pen injector (Simponi) 50 mg subcut Q8W 03/23/23 [History Last Taken Unknown] lurasidone 20 mg tablet (Latuda) 20 mg PO DAILY 03/23/23 [History Last Taken Unknown] hyoscyamine sulfate 0.125 mg tablet 0.125 mg PO BID-QID PRN IBS 06/24/23 [History Last Taken Unknown] Allergy/AdvReac Type Severity Reaction Status Date / Time No Known Allergies Allergy Verified 07/20/23 11:39 Surgical History (Updated 07/20/23 @ 11:49 by Cherie King) History of cardiac catheterization History of thumb surgery Hx of breast biopsy Hx of colonoscopy with polypectomy Hx of foot surgery Hx of hysterectomy Hx of tonsillectomy Social History (Updated 03/23/23 @ 12:15 by Caitlyn Piedra) household members: spouse current occupational status: employed current occupation: Teacher Smoking Status: Former smoker alcohol intake: former substance use type: does not use Past Medical/Surgical History Planned Operation Planned Operative Procedure/s: CSCOPE Previous Hospitalizations/Surgeries HX Hospitalizations: No HX of Surgeries: RA hysterectomy foot surgery Any Problems With Anesthesia: Yes (NAUSEA) You/Your Family Experience Fever (Hyperthermia) With Anes: No Cholinesterase deficiency: No Cardiovascular Hx Heart Attack: No Hx Hypertension: No Respiratory Hx Chronic Obstructive Pulmonary Disease (COPD): No Hx Asthma: No Hx Emphysema: No Hx Sleep Apnea: Yes CPAP: Yes BIPAP: No Hx Respiratory Tract Infection/Cold (presently): No Result (for STOP score): Positive Smoking Status: Former smoker Neurological Hx Seizures: No Does patient have nerve stimulator: No Genitourinary Hx Renal Disease: No Endocrine Hx Diabetes: No Miscellaneous Hx Cancer: Yes (skin cancer) Recent Exposure to Contagious Disease: No Allergies No Known Allergies Allergy (Verified 07/20/23 11:39) Discharge Is Pt Admitted From a [facility], or a Residential: No After D/C, Where Do you Plan to Go: Return Home From the [facility] History Number of Risk Factors: 1 Physical Exam Const alert, oriented x3 and no apparent distress HEENT normocephalic and head/scalp atraumatic Resp normal respiratory effort Cardio regular rate GI soft to palpation and non-tender; Negative for non-distended Palpation: Negative for guarding Extremity no clubbing, cyanosis or edema Skin no rashes or lesions noted Neuro CN's II-XII intact bilaterally Psych mental status grossly normal Assessment & Plan Assessment/Plan (1) Hx of colonic polyp: PLAN: Plan will give tap water enema in AC. Pt will need 2 day prep next time if she doesn't have BM every 2 days or less. Surgery Risks - Colonoscopy I discussed with the patient the risks of the procedure: Yes Risks Include but are not Limited To: Risks include but are not limited to: Bleeding, perforation requiring further surgery, inability to complete colonoscopy requiring barium enema. 07/21/23 1054 <Electronically signed by Lexie Eli MD> Cosigner Signature (if applicable): CC: Dr. Elizabet Walden, DO; Dr. Lexie Eli MD~ Signed [facility] Work Phone: 1(632) 656-220604-08-2024 Discharge summary Author Monse Gibbons [facility] June 20, 2023 3:37pm Note Date/Time June 20, 2023 3:37 pm [facility] Occupational Therapy [facility] [address] [place] [address] [address] [place] [address] / REHABILITATION SERVICES DISCHARGE SUMMARY MR#: [id number] Acct: [id number] Name: DAHIANA CASTELLON Rep #: [id number] : 1955 67 From: Monse COHEN/Zainab, CHT Referring : Status: REG RCR Eval Date: Discharge Date: Discharge Summary D/C Summary: It has been my pleasure to treat DAHIANA CASTELLON under orders from sue BLANK diagnosis of left unilateral primary osteoarthritis of 1st carpometacarpal joint for a total of 6 visit(s). Please see the following information for a summary of their discharge status. Overall Improvement % Improvement: 85 Objective Objective/Function: left manager export strength 47# increase from 35# left lateral pinch 6# left tripod pinch 4# Goals Patient Goals: Decrease Pain, Use Hand/Wrist/Arm Normally Again and Be More Independent in ADLS Goal:100% adherence to protocol: Yes Goal:Daily scar massage when approriate: Yes Goal:ROM equal to unaffected hand: Yes Goal:Copyholder/Pinch strength at least 75% of unaffected hand: Yes Goal:No pain with affected hand use: Yes Goal:Full use of affected hand in daily activities including work: Yes Other Goal: demo understanding of orthosis use and precautions by end of 1st session Plan Plan: DC D/C Information Discharge Comments: pt has been seen 6 OT sessions following a left CMC arthroplasty- pt has made great gains and has returned to her Bathing/dressing tasks without pain. Pt is very happy with her sx. pt has met OT goals Therapist advised her in cont. to perform her thumb stabilization ex. and to avoid thumb mp hyper ext. pt demo understanding pt agrees with D/C at this time. d/c sentence: If there are questions or concerns regarding this patient's occupational therapy, please fell free to call me at [phone]. Thank you for the referral of this patient. Sincerely, NOEL Garcia/RAGHU Lamb <Electronically signed by Monse COHEN/RAGHU Lamb> 06/20/23 1537 CC: Dr. Elizabet Walden, DO; DIANA CARTER ~ LAUREL Signed [facility] Work Phone: 1(667) 399-950301-26-2024 Telephone encounter Note* Telephone Encounter - Adelia Wolf MD - 04/08/2023 1:08 PM EST Follow-up Rt diagnostic MMG & US [id number] Miscellaneous Notes* Telephone Encounter - Adelia Wolf MD - 04/08/2023 1:08 PM EST Follow-up Rt diagnostic MMG & US ordered. documented in this encounterSKettering Health [id number] NoteHNO ID: [id number] Author: JAYLYN CAPELLAN PA Service: ? Author Type: Physician Retail Loan Officer Type: Progress Notes Filed: 04/02/2023 10:32 Note Text: This note was created using NoteWriter. Subjective Dahiana Castellon is a 67 year old female. HPI 67-year-old female presents for headache, sore throat, cough x 5 days. Patient states on Tuesday she started getting sore throat, headache and some pressure in the left ear. She started getting cough yesterday. No history of COPD or asthma. No chest pain or shortness of breath. She denies sick contacts. Has not done a home COVID test. She denies any fevers. No vomiting or diarrhea. PAST MEDICAL HISTORY Diagnosis Date Abdominal pain, generalized Abdominal pain, left lower quadrant Chronic depressive personality disorder Chronic glomerulonephritis with other specified pathological lesion in kidney in diseases classified elsewhere Depressive disorder, not elsewhere classified Diarrhea Disorder of bone and cartilage, unspecified Fibromyalgia Hypoglycemia, unspecified Internal hemorrhoids without mention of complication Irritable bowel syndrome Mitral valve disorders(424.0) Other chest pain PMH - PAST MEDICAL HISTORY OF bulging of lumbar discs Pure hypercholesterolemia Systemic lupus erythematosus (HCC) Unspecified hemorrhoids with other complication PAST SURGICAL HISTORY Procedure Laterality Date COLONOSCOPY FLX DX W/COLLJ SPEC WHEN PFRMD 03/02/05 Colonoscopy COLONOSCOPY FLX DX W/COLLJ SPEC WHEN PFRMD 08/20/2015 Colonoscopy COLONOSCOPY FLX DX W/COLLJ SPEC WHEN PFRMD 01/01/2019 Colonoscopy PAST SURGICAL HISTORY OF abdominal hysterectomy PAST SURGICAL HISTORY OF breast bx x 3 PAST SURGICAL HISTORY OF left wrist surgery PAST SURGICAL HISTORY OF Bilateral 5th MT joint surgery PAST SURGICAL HISTORY OF tonsils age 18 ALLERGIES Levbid [Hyoscyamine Sulfate] MEDICATIONS lurasidone (LATUDA) 20 mg tablet Take 20 mg by mouth. desonide (TRIDESILON) 0.05 % cream Apply to affected area twice daily. fluticasone (FLONASE) 50 mcg/actuation nasal spray Use 2 Sprays in each nostril once daily. folic acid 1 mg tablet Take 1 tablet by mouth once daily. golimumab (SIMPONI ARIA) infusion Inject intravenously. leucovorin (LEUCOVORIN) 25 mg tablet Take by mouth. traZODone (DESYREL) 50 mg tablet Take 1-2 tablets by mouth daily at bedtime. buPROPion XL (WELLBUTRIN XL) 300 mg 24 hr tablet Take 300 mg by mouth every morning. buPROPion XL (WELLBUTRIN XL) 150 mg 24 hr tablet Take 150 mg by mouth every morning. loratadine (CLARITIN) 10 mg tablet Take 1 tablet by mouth once daily. methotrexate sodium 25 mg/mL soln ascorbic acid, vitamin C, 500 mg cap Take by mouth. chlordiazePOXIDE-clidinium (LIBRAX) 5-2.5 mg per capsule TAKE 1 CAPSULE BY MOUTH TWICE A DAY NEEDED traMADol (ULTRAM) 50 mg tablet Take 50 mg by mouth every 8 hours as needed. atorvastatin (LIPITOR) 20 mg tablet Take 20 mg by mouth once daily. biotin tab Take 5,000 mcg by mouth once daily. lutein 20 mg tab Take 20 mg by mouth once daily. melatonin 10 mg tab Take 10 mg by mouth daily at bedtime. gabapentin (NEURONTIN) 100 mg capsule Take 300 mg by mouth twice daily. CYANOCOBALAMIN, VITAMIN B-12, (VITAMIN B-12 ORAL) Take by mouth once daily. MULTIVITAMIN TAB Take one(1) tablet daily. NIMESH-600 WITH VITAMIN D 600 MG-200 UNIT TAB Take one(1) tablet daily. gabapentin (NEURONTIN) 600 mg tablet Take 1 tablet by mouth twice daily. (Patient not taking: Reported on 04/02/2023) albuterol sulfate (PROAIR RESPICLICK) 90 mcg/actuation aepb Inhale 2 Puffs as instructed every 4 hours as needed. (Patient not taking: Reported on 06/16/2020) benzonatate (TESSALON PERLE) 100 mg capsule Take 2 capsules by mouth three times daily as needed. (Patient not taking: Reported on 06/16/2020) VITAMIN B COMPLEX (B COMPLEX ORAL) Take by mouth once daily. (Patient not taking: Reported on 06/16/2020) WELLBUTRIN SR 200 MG TAB 100 MG once daily (Patient not taking: No sig reported) AMBIEN 5 MG TAB Take one(1) tablet daily at bedtime as needed for sleep. (Patient not taking: No sig reported) FAMILY HISTORY Problem Relation Age of Onset None Father None Mother None Brother None Brother other (Rheuatoid arthritis) Sister undif connective tissue disease Social History Tobacco Use Smoking status: Never Smokeless tobacco: Never Substance Use Topics Alcohol use: No Drug use: No Review of Systems Constitutional: Negative for chills and fever. HENT: Positive for congestion, ear pain and sore throat. Respiratory: Positive for cough. Negative for shortness of breath. Cardiovascular: Negative for chest pain. Gastrointestinal: Negative for diarrhea and vomiting. Neurological: Positive for headaches. Objective BP 110/82 Pulse 85 Temp 36.3 ?C (97.4 ?F) (Right Tympanic) Resp 16 Wt 63.9 kg (140 lb 12.8 oz) SpO2 96% BMI 22.73 kg/m? Physical Exam Vitals and kedar (more content not included)...[facility] 12-08-2022 NoteHNO ID: [id number] Author: Yasemin Rivero APRN.[facility] Service: ? Author Type: Nurse Practitioner Type: Progress Notes Filed: 12/08/2022 4:20 PM Note Text: CC: Patient presents with: Ear Pain: Left ear pain x 2 weeks HPI: Dahiana Castellon is a 67 year old female who presents to the office with complaint of head congestion and ear symptoms for 2 weeks. Symptoms are worsening Associated symptoms includes ear pain. Denies fever, nausea, vomiting , and diarrhea. Treatments tried include nothing so far. with no relief of symptoms. Sick contacts: unknown. History of asthma, frequent episodes of bronchitis, chronic bronchitis, bronchiectasis or COPD: No Smoker: No Seasonal/environmental allergies: No The ROS is otherwise negative. The patient's pmh, medications, allergies, and past visits are reviewed. PHYSICAL EXAM: BP 102/60 Pulse 83 Temp 36.4 ?C (97.6 ?F) (Tympanic) Resp 18 Wt 64 kg (141 lb) SpO2 99% BMI 22.76 kg/m? General appearance: alert, cooperative, pleasant, in no acute distress Head: Normocephalic Eyes: EOM's intact, conjunctiva pink and moist, no icterus, sclera white, non-injected Ears: Right ear: External ear/canal- Normal, TM - clear with good landmarks. Left ear: External ear/canal- Normal, TM - erythematous Oropharynx:moist without lesions, No erythema, exudates or tonsillar hypertrophy. Heart: Negative. RRR without obvious murmur, gallop, or rubs. No ectopy. 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 in diseases classified elsewhere Depressive disorder, not elsewhere classified Diarrhea Disorder of bone and cartilage, unspecified Fibromyalgia Hypoglycemia, unspecified Internal hemorrhoids without mention of complication Irritable bowel syndrome Mitral valve disorders(424.0) Other chest pain PMH - PAST MEDICAL HISTORY OF bulging of lumbar discs Pure hypercholesterolemia Systemic lupus erythematosus (HCC) Unspecified hemorrhoids with other complication PAST SURGICAL HISTORY Procedure Laterality Date COLONOSCOPY FLX DX W/COLLJ SPEC WHEN PFRMD 03/02/05 Colonoscopy COLONOSCOPY FLX DX W/COLLJ SPEC WHEN PFRMD 08/20/2015 Colonoscopy COLONOSCOPY FLX DX W/COLLJ SPEC WHEN PFRMD 01/01/2019 Colonoscopy PAST SURGICAL HISTORY OF abdominal hysterectomy PAST SURGICAL HISTORY OF breast bx x 3 PAST SURGICAL HISTORY OF left wrist surgery PAST SURGICAL HISTORY OF Bilateral 5th MT joint surgery PAST SURGICAL HISTORY OF tonsils age 18 ALLERGIES Levbid [Hyoscyamine Sulfate] MEDICATIONS lurasidone (LATUDA) 20 mg tablet Take 20 mg by mouth. desonide (TRIDESILON) 0.05 % cream Apply to affected area twice daily. fluticasone (FLONASE) 50 mcg/actuation nasal spray Use 2 Sprays in each nostril once daily. folic acid 1 mg tablet Take 1 tablet by mouth once daily. golimumab (SIMPONI ARIA) infusion Inject intravenously. leucovorin (LEUCOVORIN) 25 mg tablet Take by mouth. traZODone (DESYREL) 50 mg tablet Take 1-2 tablets by mouth daily at bedtime. buPROPion XL (WELLBUTRIN XL) 300 mg 24 hr tablet Take 300 mg by mouth every morning. buPROPion XL (WELLBUTRIN XL) 150 mg 24 hr tablet Take 150 mg by mouth every morning. gabapentin (NEURONTIN) 600 mg tablet Take 1 tablet by mouth twice daily. loratadine (CLARITIN) 10 mg tablet Take 1 tablet by mouth once daily. methotrexate sodium 25 mg/mL soln ascorbic acid, vitamin C, 500 mg cap Take by mouth. chlordiazePOXIDE-clidinium (LIBRAX) 5-2.5 mg per capsule TAKE 1 CAPSULE BY MOUTH TWICE A DAY NEEDED traMADol (ULTRAM) 50 mg tablet Take 50 mg by mouth every 8 hours as needed. atorvastatin (LIPITOR) 20 mg tablet Take 20 mg by mouth once daily. biotin tab Take 5,000 mcg by mouth once daily. lutein 20 mg tab Take 20 mg by mouth once daily. melatonin 10 mg tab Take 10 mg by mouth daily at bedtime. gabapentin (NEURONTIN) 100 mg capsule Take 300 mg by mouth twice daily. CYANOCOBALAMIN, VITAMIN B-12, (VITAMIN B-12 ORAL) Take by mouth once daily. MULTIVITAMIN TAB Take one(1) tablet daily. NIMESH-600 WITH VITAMIN D 600 MG-200 UNIT TAB Take one(1) tablet daily. albuterol sulfate (PROAIR RESPICLICK) 90 mcg/actuation aepb Inhale 2 Puffs as instructed every 4 hours as needed. (Patient not taking: Reported on 06/16/2020 ) benzonatate (TESSALON PERLE) 100 mg capsule Take 2 capsules by mouth three times daily as needed. (Patient not taking: Reported on 06/16/2020 ) VITAMIN B COMPLEX (B COMPLEX ORAL) Take by mouth once daily. (Patient not taking: Reported on 06/16/2020 ) WELLBUTRIN SR 200 MG TAB 100 MG once daily (Patient not taking: ) AMBIEN 5 MG TAB Take one(1) tablet daily at bedtime as needed for sleep. (Patient not taking: No sig r (more content not included)...[facility]07-28-2022 Miscellaneous Notes* Telephone Encounter - Sue Awan LPN - 10/08/2021 5:07 PM EDT Phone call placed patient advised (see prior provider encounter) Patient verbalized understanding, agreed with plan of care. Sue Awan LPN * Telephone Encounter - Denita Albert APRN.CNP - 10/08/2021 4:31 PM EDT CXR negative. Attempted to reach out to patient and discuss results. No answer. Please share above with patient, Continue treatment plan at time of discharge. Follow up with PCP documented in this encounterOhio[facility] Instructions* Patient Instructions* Denita Albert APRN.CNP - 10/08/2021 3:52 PM EDT Images from the original note were not included. Adult Sinusitis Patient Education What is Sinusitis? Sinusitis [mgup-xer-rkxi-tis] is inflammation of the sinuses or swelling of the lining of the sinus cavity or nose. During an infection the sinuses become blocked with fluid causing swelling of the lining of the sinuses. Symptoms: (viral and bacterial infections) Stuffy nose Runny nose Postnasal drip Fever Toothache Headache Tiredness Cough Sore throat Face and head pressure and or pain Common causes: 98% of sinus infections are viral caused by viruses. Risk Factors of Sinusitis Include: Allergies, air pollution, indoor humidity and outdoor temperature changes, andstructural changes inthe nose may contribute to sinus pain, pressure and congestion. When to get help? Temperature greater than 100.4 F Symptoms lasting more than 10 days or worsening symptoms greater than 7-10 days. If you do not improve or worsen after a course of antibiotics, you should be re-examined. Diagnosis and Treatment: Your healthcare provider will ask a number of questions about your symptoms and how long they have occurred. If symptoms of sinusitis persist greater than 10 days, it is possible you have a bacterial sinus infection and an antibiotic is prescribed. If it is viral, antibiotics will not help. You may be instructed to take [id number] medications for symptoms. including fever reducers acetaminophen or ibuprofen, nasal saline spray, cough and cold preparations and decongestants as prescribed by the physician, nurse practitioner or physician corporate administrative assistant. Self-Care and Prevention: Rest Fluids for hydration Good hand washing Humidifier Avoid smoking and exposure to second hand smoke Avoid sick contacts documented in this encounterOhio[facility]07-28-2022 History of Present illness Narrative* Denita Albert APRN.CNP - 10/08/2021 3:47 PM EDT This note was created using NoteWriter. Subjective Dahiana Castellon is a 65 year old female. 65 year old female with PMH fibromyalgia, hypercholesteremia, IBS, RA, presents for illness. Acute onset April 01 +sore throat States symptoms have progressed +ear pressure + headache +fatigue +cough +sinus pressure Endorses symptoms continue to worsen Has utilized Robitussin DM and Claritin and Tylenol Denies tobacco usage. Has taken x 2 COVID tests and both were negative. The history is provided by the patient. No chief financial officer was used. URI She complains of cough. There is no chest tightness, difficulty breathing, frequent throat clearing, hemoptysis, hoarse voice, shortness of breath, sputum production or wheezing. This is a new problem. The current episode started 1 to 4 weeks ago. The problem occurs constantly. The problem has beengradually worsening. The cough is non-productive, harsh and dry. Associated symptoms include ear pain, malaise/fatigue, nasal congestion, postnasal drip, rhinorrhea and a sore throat. Pertinent negatives include no appetite change, chest pain, dyspnea on exertion, ear congestion, fever, headaches, heartburn, myalgias, orthopnea, PND, sneezing, sweats, trouble swallowing or weight loss. Her symptom s are aggravated by nothing. Her symptoms are alleviated by nothing. There are no known risk factors for lung disease. There is no history of asthma, bronchiectasis, bronchitis, COPD, emphysema or pneumonia. PAST MEDICAL HISTORY Diagnosis Date Abdominal pain, generalized Abdominal pain, left lower quadrant Chronic depressive personality disorder Chronic glomerulonephritis with other specified pathological lesion in kidney in diseases classified elsewhere Depressive disorder, not elsewhere classified Diarrhea Disorder of bone and cartilage, unspecified Fibromyalgia Hypoglycemia, unspecified Internal hemorrhoids without mention of complication Irritable bowel syndrome Mitral valve disorders(424.0) Other chest pain PMH - PAST MEDICAL HISTORY OF bulging of lumbar discs Pure hypercholesterolemia Systemic lupus erythematosus (HCC) Unspecified hemorrhoids with other complication PAST SURGICAL HISTORY Procedure Laterality Date COLONOSCOPY FLX DX W/COLLJ SPEC WHEN PFRMD 03/02/05 Colonoscopy COLONOSCOPY FLX DX W/COLLJ SPEC WHEN PFRMD 08/20/2015 Colonoscopy COLONOSCOPY FLX DX W/COLLJ SPEC WHEN PFRMD 01/01/2019 Colonoscopy PAST SURGICAL HISTORY OF abdominal hysterectomy PAST SURGICAL HISTORY OF breast bx x 3 PAST SURGICAL HISTORY OF left wrist surgery PAST SURGICAL HISTORY OF Bilateral 5th MT joint surgery PAST SURGICAL HISTORY OF tonsils age 18 ALLERGIES Levbid [Hyoscyamine Sulfate] MEDICATIONS desonide (TRIDESILON) 0.05 % cream Apply to affected area twice daily. fluticasone (FLONASE) 50 mcg/actuation nasal spray Use 2 Sprays in each nostril once daily. folic acid 1 mg tablet Take 1 tablet by mouth once daily. traZODone (DESYREL) 50 mg tablet Take 1-2 tablets by mouth daily at bedtime. buPROPion XL (WELLBUTRIN XL) 300 mg 24 hr tablet Take 300 mg by mouth every morning. buPROPion XL (WELLBUTRIN XL) 150 mg 24 hr tablet Take 150 mg by mouth every morning. methotrexate sodium 25 mg/mL soln ascorbic acid, vitamin C, 500 mg cap Take by mouth. chlordiazePOXIDE-clidinium (LIBRAX) 5-2.5 mg per capsule TAKE 1 CAPSULE BY MOUTH TWICE A DAY NEEDED traMADol (ULTRAM) 50 mg tablet Take 50 mg by mouth every 8 hours as needed. atorvastatin (LIPITOR) 20 mg tablet Take 20 mg by mouth once daily. biotin tab Take 5,000 mcg by mouth once daily. melatonin 10 mg tab Take 10 mg by mouth daily at bedtime. CYANOCOBALAMIN, VITAMIN B-12, (VITAMIN B-12 ORAL) Take by mouth once daily. MULTIVITAMIN TAB Take one(1) tablet daily. NIMESH-600 WITH VITAMIN D 600 MG-200 UNIT TAB Take one(1) tablet daily. doxycycline monohydrate 100 mg tablet Take 1 tablet by mouth twice daily for 5 days. golimumab (SIMPONI ARIA) infusion Inject intravenously. leucovorin (LEUCOVORIN) 25 mg tablet Take by mouth. gabapentin (NEURONTIN) 600 mg tablet Take 1 tablet by mouth twice daily. albuterol sulfate (PROAIR RESPICLICK) 90 mcg/actuation aepb Inhale 2 Puffs as instructed every 4 hours as needed. benzonatate (TESSALON PERLE) 100 mg capsule Take 2 capsules by mouth three times daily as needed. loratadine (CLARITIN) 10 mg tablet Take 1 tablet by mouth once daily. lutein 20 mg tab Take 20 mg by mouth once daily. VITAMIN B COMPLEX (B COMPLEX ORAL) Take by mouth once daily. gabapentin (NEURONTIN) 100 mg capsule Take 300 mg by mouth twice daily. WELLBUTRIN SR 200 MG TAB 100 MG once daily AMBIEN 5 MG TAB Take one(1) tablet daily at bedtime as needed for sleep. FAMILY HISTORY Problem Relation Age of Onset None Father None Mother None Brother None Brother other (Rheuatoid arthritis) Sister undif connective tissue disease Social History Tobacco Use Smoking status: Never Smoker Smokeless tobacco: Never Used Substance Use Topics Alcohol use: No Drug use: No Review of Systems Constitutional: Positive for malaise/fatigue. Negative for activity change, appetite change, diaphoresis, fatigue, fever and weight loss. HENT: Positive for congestion, ear pain, postnasal drip, rhinorrhea, sinus pressure, sinus pain andsore throat. Negative for ear discharge, hoarse voice, sneezing and trouble swallowing. Eyes: Negative for pain, discharge and itching. Respiratory: Positive for cough. Negative for apnea, hemoptysis, sputum production, choking, chest tightness, shortness of breath and wheezing. Cardiovascular: Negative for chest pain, dyspnea on exertion, palpitations, leg swelling and PND. Gastrointestinal: Negative for abdominal pain, diarrhea, heartburn, nausea and vomiting. Musculoskeletal: Negative for arthralgias, back pain and myalgias. Skin: Negative for color change, pallor, rash and wound. Allergic/Immunologic: Negative for environmental allergies, food allergies and immunocompromised state. Neurological: Negative for dizziness, facial asymmetry and headaches. Hematological: Negative for adenopathy. Does not bruise/bleed easily. Psychiatric/Behavioral: Negative for agitation and behavioral problems. Objective BP 96/64 Pulse 86 Temp 36.9 C (98.5 F) Resp 18 Wt 61.9 kg (136 lb 6.4 oz) SpO2 98% BMI 22.02 kg/m Physical Exam Vitals and nursing note reviewed. Constitutional: General: She is not in acute distress. Appearance: Normal appearance. She is normal weight. She is not ill-appearing, toxic-appearing or diaphoretic. HENT: Head: Normocephalic and atraumatic. Right Ear: Ear canal and external ear normal. Left Ear: Ear canal and external ear normal. Ears: Comments: Bilateral TMs erythematous and bulging. Nose: Nose normal. No congestion or rhinorrhea. Comments: +frontal sinus pressure +maxillary sinus pressure Mouth/Throat: Mouth: Mucous membranes are moist. Pharynx: No oropharyngeal exudate or posterior oropharyngeal erythema. Eyes: General: Right eye: No discharge. Left eye: No discharge. Extraocular Movements: Extraocular movements intact. Conjunctiva/sclera: Conjunctivae normal. Pupils: Pupils are equal, round, and reactive to light. Cardiovascular: Rate and Rhythm: Normal rate and regular rhythm. Pulses: Normal pulses. Heart sounds: Normal heart sounds. No murmur heard. No friction rub. Pulmonary: Effort: Pulmonary effort is normal. No respiratory distress. Breath sounds: Normal breath sounds. No stridor. No wheezing, rhonchi or rales. Chest: Chest wall: No tenderness. Abdominal: General: Abdomen is flat. There is no distension. Palpations: Abdomen is soft. There is no mass. Tenderness: There is no abdominal tenderness. There is no right CVA tenderness, left CVA tenderness, guarding or rebound. Hernia: No hernia is present. Musculoskeletal: General: No swelling, tenderness, deformity or signs of injury. Normal range of motion. Cervical back: Normal range of motion and neck supple. No rigidity. Right lower leg: No edema. Left lower leg: No edema. Lymphadenopathy: Cervical: No cervical adenopathy. Skin: General: Skin is warm and dry. Capillary Refill: Capillary refill takes less than 2 seconds. Coloration: Skin is not jaundiced or pale. Findings: No bruising, erythema, lesion or rash. Neurological: General: No focal deficit present. Mental Status: She is alert and oriented to person, place, and time. Cranial Nerves: No cranial nerve deficit. Sensory: No sensory deficit. Motor: No weakness. Coordination: Coordination normal. Gait: Gait normal. Psychiatric: Mood and Affect: Mood normal. Behavior: Behavior normal. Thought Content: Thought content normal. Judgment: Judgment normal. Assessment and Plan ASSESSMENT/PLAN: 1. Acute cough - ICD9: 786.2, ICD10: R05.1 (primary diagnosis) Acute onset of symptoms was around 7/19/22 Was seen here Has had x 2 COVID, which were both negative. - XR CHEST 2V FRONTAL/LAT-negative for acute process 2. Acute sinusitis, recurrence not specified, unspecified location - ICD9: 461.9, ICD10: J01.90 - Will begin treatment with as per antibiotic as written, see orders - The patient should also be given OTC cough and cold meds as needed, warm salt water gargles, throat lozenges and/or OTC throat spray as needed and nasal saline gtts and suction prn for the first 5-7 days of treatment. - Supportive care with plenty of fluids, rest, and analgesia prn. - Follow up in 3-5 days if symptoms persist or worsen. - XR CHEST 2V FRONTAL/LAT-negative Denita Albert APRN.BE [facility] Miscellaneous Notes* Telephone Encounter - Sue Awan LPN - 10/02/2021 8:04 AM EDT Phone call placed, detailed message left on patients identified voicemail. Sue Awan LPN * Telephone Encounter - Yasemin Rivero APRN.CNP - 10/02/2021 7:37 AM EDT Negative for covid please notify thank you documented in this encounter[facility] History of Present illness Narrative* Yuliya Church PA-C - 10/01/2021 2:47 PM EDT This note was created using NoteWriter. Subjective Dahiana Castellon is a 65 year old female. HPI Patient presents with sore throat and cough over the past 3 days. She had a COVID test 2 days ago which was negative. She had a PCR test at [facility]. She states she came in as her granddaughter was concerned that this might be something contagious. She has not had a fever. No vomiting or diarrhea. No chest pain or shortness of breath. She did have COVID previously and states she is vaccinated. Review of Systems Constitutional: Negative for fatigue and fever. HENT: Positive for congestion and sore throat. Negative for ear pain and rhinorrhea. Respiratory: Positive for cough. Cardiovascular: Negative. Gastrointestinal: Negative. Genitourinary: Negative. Musculoskeletal: Negative. All other systems reviewed and are negative. PAST MEDICAL HISTORY Diagnosis Date Abdominal pain, generalized Abdominal pain, left lower quadrant Chronic depressive personality disorder Chronic glomerulonephritis with other specified pathological lesion in kidney in diseases classified elsewhere Depressive disorder, not elsewhere classified Diarrhea Disorder of bone and cartilage, unspecified Fibromyalgia Hypoglycemia, unspecified Internal hemorrhoids without mention of complication Irritable bowel syndrome Mitral valve disorders(424.0) Other chest pain PMH - PAST MEDICAL HISTORY OF bulging of lumbar discs Pure hypercholesterolemia Systemic lupus erythematosus (HCC) Unspecified hemorrhoids with other complication Current Outpatient Medications Medication Sig Dispense Refill desonide (TRIDESILON) 0.05 % cream Apply to affected area twice daily. fluticasone (FLONASE) 50 mcg/actuation nasal spray Use 2 Sprays in each nostril once daily. folic acid 1 mg tablet Take 1 tablet by mouth once daily. leucovorin (LEUCOVORIN) 25 mg tablet Take by mouth. buPROPion XL (WELLBUTRIN XL) 300 mg 24 hr tablet Take 300 mg by mouth every morning. buPROPion XL (WELLBUTRIN XL) 150 mg 24 hr tablet Take 150 mg by mouth every morning. gabapentin (NEURONTIN) 600 mg tablet Take 1 tablet by mouth twice daily. loratadine (CLARITIN) 10 mg tablet Take 1 tablet by mouth once daily. 30 tablet 0 methotrexate sodium 25 mg/mL soln chlordiazePOXIDE-clidinium (LIBRAX) 5-2.5 mg per capsule TAKE 1 CAPSULE BY MOUTH TWICE A DAY NEEDED 60 capsule 1 atorvastatin (LIPITOR) 20 mg tablet Take 20 mg by mouth once daily. biotin tab Take 5,000 mcg by mouth once daily. lutein 20 mg tab Take 20 mg by mouth once daily. melatonin 10 mg tab Take 10 mg by mouth daily at bedtime. gabapentin (NEURONTIN) 100 mg capsule Take 300 mg by mouth twice daily. CYANOCOBALAMIN, VITAMIN B-12, (VITAMIN B-12 ORAL) Take by mouth once daily. NIMESH-600 WITH VITAMIN D 600 MG-200 UNIT TAB Take one(1) tablet daily. 0 golimumab (SIMPONI ARIA) infusion Inject intravenously. traZODone (DESYREL) 50 mg tablet Take 1-2 tablets by mouth daily at bedtime. albuterol sulfate (PROAIR RESPICLICK) 90 mcg/actuation aepb Inhale 2 Puffs as instructed every 4 hours as needed. (Patient not taking: Reported on 06/16/2020 ) 1 Inhaler 0 benzonatate (TESSALON PERLE) 100 mg capsule Take 2 capsules by mouth three times daily as needed. (Patient not taking: Reported on 06/16/2020 ) 42 capsule 0 ascorbic acid, vitamin C, 500 mg cap Take by mouth. traMADol (ULTRAM) 50 mg tablet Take 50 mg by mouth every 8 hours as needed. VITAMIN B COMPLEX (B COMPLEX ORAL) Take by mouth once daily. (Patient not taking: Reported on 06/16/2020 ) WELLBUTRIN SR 200 MG TAB 100 MG once daily (Patient not taking: ) 0 AMBIEN 5 MG TAB Take one(1) tablet daily at bedtime as needed for sleep. (Patient not taking: No sig reported) 0 MULTIVITAMIN TAB Take one(1) tablet daily. 0 No current facility-administered medications for this visit. PAST SURGICAL HISTORY Procedure Laterality Date COLONOSCOPY FLX DX W/COLLJ SPEC WHEN PFRMD 03/02/05 Colonoscopy COLONOSCOPY FLX DX W/COLLJ SPEC WHEN PFRMD 08/20/2015 Colonoscopy COLONOSCOPY FLX DX W/COLLJ SPEC WHEN PFRMD 01/01/2019 Colonoscopy PAST SURGICAL HISTORY OF abdominal hysterectomy PAST SURGICAL HISTORY OF breast bx x 3 PAST SURGICAL HISTORY OF left wrist surgery PAST SURGICAL HISTORY OF Bilateral 5th MT joint surgery PAST SURGICAL HISTORY OF tonsils age 18 FAMILY HISTORY Problem Relation Age of Onset None Father None Mother None Brother None Brother other (Rheuatoid arthritis) Sister undif connective tissue disease Social History Tobacco Use Smoking status: Never Smoker Smokeless tobacco: Never Used Substance Use Topics Alcohol use: No Drug use: No Objective BP 98/68 Pulse 91 Temp 36.6 C (97.8 F) Resp 22 Wt 61.1 kg (134 lb 12.8 oz) SpO2 98% BMI21.76 kg/m Physical Exam Vitals reviewed. Constitutional: Appearance: Normal appearance. HENT: Head: Normocephalic and atraumatic. Right Ear: Tympanic membrane, ear canal and external ear normal. Left Ear: Tympanic membrane, ear canal and external ear normal. Nose: Congestion present. Mouth/Throat: Mouth: Mucous membranes are moist. Pharynx: Oropharynx is clear. Cardiovascular: Rate and Rhythm: Normal rate and regular rhythm. Heart sounds: Normal heart sounds. Pulmonary: Effort: Pulmonary effort is normal. Breath sounds: Normal breath sounds. Musculoskeletal: Cervical back: Neck supple. Skin: General: Skin is warm and dry. Findings: No rash. Neurological: Mental Status: She is alert. Assessment and Plan ASSESSMENT/PLAN: 1. Viral URI - ICD9: 465.9, ICD10: J06.9 - Discussed viral etiology and rationale for treatment. - Symptomatic treatment with prn analgesia - Supportive care with fluids and rest - Follow up in 3-5 days if symptoms persist or sooner if worsening of symptoms - will repeat covid test to make sure. - 2019 CORONAVIRUS Yuliya Church PA-C documented [facility] this encounter[facility] History of Past illness Narrative* Problem Noted Date Resolved Date Change in bowel habits 08/20/2015 6 documented as of this encounter (statuses as of 10/01/2021) [facility] History of Past illness Narrative* Problem Noted Date Resolved Date Change in bowel habits 08/20/2015 6 documented as of this encounter (statuses as of 10/02/2021) [facility] History of Past illness Narrative* Problem Noted Date Resolved Date Change in bowel habits 08/20/2015 6 documented as of this encounter (statuses as of 10/08/2021) [facility] of Past illness Narrative* Problem Noted Date Resolved Date Change in bowel habits 08/20/2015 6 documented as of this encounter (statuses as of 10/08/2021) [facility] Diagnosis Breast cancer screening, high risk patient Screening mammogram for high-risk patient Fibrocystic disease of both breasts Other benign mammary dysplasias of right breast Screening mammogram for high-risk patient documented in this encounter [facility] Work Phone: Evaluation noteNo assessment information available [facility] Work Phone: Evaluation note* Diagnosis Viral URI- Primary Acute upper respiratory infections of unspecified site documented in this encounter [facility]* Diagnosis Acute cough- Primary Acute sinusitis, recurrence not specified, unspecified location documented in this encounter [facility] note* Diagnosis Mass of multiple sites of liver Unspecified disorder of liver [facility] Work [facility]: Evaluation note* Diagnosis Encounter for screening mammogram for malignant neoplasm of breast documented in this encounter [facility] note* Diagnosis Subareolar mass of right breast- Primary [facility] encounter [facility]* Diagnosis Encounter for screening mammogram for malignant neoplasm of breast- Primary Encounter for screening mammogram for malignant neoplasm of breast [facility] Diagnosis Subareolar mass of right breast documented in this encounter [facility]* Diagnosis Onset Date Resolution Status Hx of colonic polyp acute [facility] Work Phone: Evaluation note* Diagnosis Pre-operative examination- Primary Preoperative examination, unspecified Abdominal pain, generalized Irritable bowel syndrome with diarrhea Irritable bowel syndrome Inflammatory arthritis Unspecified inflammatory polyarthropathy Fibromyalgia Mylagia and myositis, unspecified Pure hypercholesterolemia Anxiety and depression Dysthymic disorder Acute cough Acute sinusitis, recurrence not specified, unspecified location documented in this encounter [facility] note* Diagnosis Screening mammogram for breast cancer- Primary Hepatomegaly, not elsewhere classified Screening mammogram for breast cancer documented in this encounter [facility] note* Diagnosis Encounter for screening mammogram for malignant neoplasm of breast [facility] Additional Instructions Ice your knee several times a day for the next few days, take Tylenol for your pain, and follow-up with your PCP.[facility] Work Phone: Instructions* Name Dates Details Patient Instructions Indication:BMI 21.0-21.9, adult Start:05-May-2020 Instruction Type:Provider Instructions for Treatment How to Access Health Informa tion Online using Patient Portal and 3rd [employer] Apps Indication:BMI 21.0-21.9, adult Start:05-May-2020 Instruction Type:Patient Education Patient Instructions Indication:Hypercholesterolemia Start:24-Mar-2015 Instruction Type:Provider Instructions for Treatment How to access health informa tion online Indication:Hypercholesterolemia Start:24-Mar-2015 Instruction Type:Patient Education How to access health informa tion online - Detail Indication:Hypercholesterolemia Start:24-Mar-2015 Instruction Type:Patient Education How to access health informa tion online Indication:Depression Start:09-Dec-2014 Instruction Type:Patient Education How to access health informa tion online - Detail Indication:Depression Start:09-Dec-2014 Instruction Type:Patient Education Patient Instructions Indication:Depression Start:09-Dec-2014 Instruction Type:Provider Instructions for Treatment How to access health informa tion online Indication:Hypercholesterolemia Start:08-Aug-2014 Instruction Type:Patient Education How to access health informa tion online - Detail Indication:Hypercholesterolemia Start:08-Aug-2014 Instruction Type:Patient Education Patient Instructions Indication:Hypercholesterolemia Start:08-Aug-2014 Instruction Type:Provider Instructions for Treatment How to access health informa tion online Indication:Exposure to influenza Start:05-Mar-2014 Instruction Type:Patient Education How to access health informa tion online - Detail Indication:Exposure to influenza Start:05-Mar-2014 Instruction Type:Patient Education Patient Instructions Indication:Exposure to influenza Start:05-Mar-2014 Instruction Type:Provider Instructions for Treatment Patient Instructions Indication:Insomnia, unspecified Start:26-Feb-2014 Instruction Type:Provider Instructions for Treatment How to access health informa tion online Indication:Hypercholesterolemia Start:31-Oct-2013 Instruction Type:Patient Education How to access health informa tion online - Detail Indication:Hypercholesterolemia Start:31-Oct-2013 Instruction Type:Patient Education Patient Instructions Indication:Hypercholesterolemia Start:31-Oct-2013 Instruction Type:Provider Instructions for Treatment Patient Instructions Indication:Osteoporosis Start:21-Dec-2011 Instruction Type:Provider Instructions for Treatment [facility] Work Phone: Instructions* Name Dates Details Patient Instructions Indication:BMI 21.0-21.9, adult Start:20-Mar-2021 Instruction Type:Provider Instructions for Treatment How to Access Health Informa tion Online using Patient Portal and 3rd [employer] Apps Indication:BMI 21.0-21.9, adult Start:20-Mar-2021 Instruction Type:Patient Education Patient Instructions Indication:BMI 21.0-21.9, adult Start:05-May-2020 Instruction Type:Provider Instructions for Treatment How to Access Health Informa tion Online using Patient Portal and 3rd [employer] Apps Indication:BMI 21.0-21.9, adult Start:05-May-2020 Instruction Type:Patient Education Patient Instructions Indication:Hypercholesterolemia Start:24-Mar-2015 Instruction Type:Provider Instructions for Treatment How to access health informa tion online Indication:Hypercholesterolemia Start:24-Mar-2015 Instruction Type:Patient Education How to access health informa tion online - Detail Indication:Hypercholesterolemia Start:24-Mar-2015 Instruction Type:Patient Education How to access health informa tion online Indication:Depression Start:09-Dec-2014 Instruction Type:Patient Education How to access health informa tion online - Detail Indication:Depression Start:09-Dec-2014 Instruction Type:Patient Education Patient Instructions Indication:Depression Start:09-Dec-2014 Instruction Type:Provider Instructions for Treatment How to access health informa tion online Indication:Hypercholesterolemia Start:08-Aug-2014 Instruction Type:Patient Education How to access health informa tion online - Detail Indication:Hypercholesterolemia Start:08-Aug-2014 Instruction Type:Patient Education Patient Instructions Indication:Hypercholesterolemia Start:08-Aug-2014 Instruction Type:Provider Instructions for Treatment How to access health informa tion online Indication:Exposure to influenza Start:05-Mar-2014 Instruction Type:Patient Education How to access health informa tion online - Detail Indication:Exposure to influenza Start:05-Mar-2014 Instruction Type:Patient Education Patient Instructions Indication:Exposure to influenza Start:05-Mar-2014 Instruction Type:Provider Instructions for Treatment Patient Instructions Indication:Insomnia, unspecified Start:26-Feb-2014 Instruction Type:Provider Instructions for Treatment How to access health informa tion online Indication:Hypercholesterolemia Start:31-Oct-2013 Instruction Type:Patient Education How to access health informa tion online - Detail Indication:Hypercholesterolemia Start:31-Oct-2013 Instruction Type:Patient Education Patient Instructions Indication:Hypercholesterolemia Start:31-Oct-2013 Instruction Type:Provider Instructions for Treatment Patient Instructions Indication:Osteoporosis Start:21-Dec-2011 Instruction Type:Provider Instructions for Treatment [facility] Work Phone: Instructions* Name Dates Details Patient Instructions Indication:BMI 21.0-21.9, adult Start:23-Mar-2021 Instruction Type:Provider Instructions for Treatment How to Access Health Informa tion Online using Patient Portal and 3rd [employer] Apps Indication:BMI 21.0-21.9, adult Start:23-Mar-2021 Instruction Type:Patient Education Patient Instructions Indication:BMI 21.0-21.9, adult Start:20-Mar-2021 Instruction Type:Provider Instructions for Treatment How to Access Health Informa tion Online using Patient Portal and 3rd [employer] Apps Indication:BMI 21.0-21.9, adult Start:20-Mar-2021 Instruction Type:Patient Education Patient Instructions Indication:BMI 21.0-21.9, adult Start:05-May-2020 Instruction Type:Provider Instructions for Treatment How to Access Health Informa tion Online using Patient Portal and [employer]rd [employer] Apps Indication:BMI 21.0-21.9, adult Start:05-May-2020 Instruction Type:Patient Education Patient Instructions Indication:Hypercholesterolemia Start:24-Mar-2015 Instruction Type:Provider Instructions for Treatment How to access health informa tion online Indication:Hypercholesterolemia Start:24-Mar-2015 Instruction Type:Patient Education How to access health informa tion online - Detail Indication:Hypercholesterolemia Start:24-Mar-2015 Instruction Type:Patient Education How to access health informa tion online Indication:Depression Start:09-Dec-2014 Instruction Type:Patient Education How to access health informa tion online - Detail Indication:Depression Start:09-Dec-2014 Instruction Type:Patient Education Patient Instructions Indication:Depression Start:09-Dec-2014 Instruction Type:Provider Instructions for Treatment How to access health informa tion online Indication:Hypercholesterolemia Start:08-Aug-2014 Instruction Type:Patient Education How to access health informa tion online - Detail Indication:Hypercholesterolemia Start:08-Aug-2014 Instruction Type:Patient Education Patient Instructions Indication:Hypercholesterolemia Start:08-Aug-2014 Instruction Type:Provider Instructions for Treatment How to access health informa tion online Indication:Exposure to influenza Start:05-Mar-2014 Instruction Type:Patient Education How to access health informa tion online - Detail Indication:Exposure to influenza Start:05-Mar-2014 Instruction Type:Patient Education Patient Instructions Indication:Exposure to influenza Start:05-Mar-2014 Instruction Type:Provider Instructions for Treatment Patient Instructions Indication:Insomnia, unspecified Start:26-Feb-2014 Instruction Type:Provider Instructions for Treatment How to access health informa tion online Indication:Hypercholesterolemia Start:31-Oct-2013 Instruction Type:Patient Education How to access health informa tion online - Detail Indication:Hypercholesterolemia Start:31-Oct-2013 Instruction Type:Patient Education Patient Instructions Indication:Hypercholesterolemia Start:31-Oct-2013 Instruction Type:Provider Instructions for Treatment Patient Instructions Indication:Osteoporosis Start:21-Dec-2011 Instruction Type:Provider Instructions for Treatment [facility]; [facility] Work Phone: Instructions* Name Dates Details Patient Instructions Indication:BMI 21.0-21.9, adult Start:23-Mar-2021 Instruction Type:Provider Instructions for Treatment How to Access Health Informa tion Online using Patient Portal and [employer]rd [employer] Apps Indication:BMI 21.0-21.9, adult Start:23-Mar-2021 Instruction Type:Patient Education Patient Instructions Indication:BMI 21.0-21.9, adult Start:20-Mar-2021 Instruction Type:Provider Instructions for Treatment How to Access Health Informa tion Online using Patient Portal and [employer]rd [employer] Apps Indication:BMI 21.0-21.9, adult Start:20-Mar-2021 Instruction Type:Patient Education Patient Instructions Indication:BMI 21.0-21.9, adult Start:05-May-2020 Instruction Type:Provider Instructions for Treatment How to Access Health Informa tion Online using Patient Portal and [employer]rd [employer] Apps Indication:BMI 21.0-21.9, adult Start:05-May-2020 Instruction Type:Patient Education Patient Instructions Indication:Hypercholesterolemia Start:24-Mar-2015 Instruction Type:Provider Instructions for Treatment How to access health informa tion online Indication:Hypercholesterolemia Start:24-Mar-2015 Instruction Type:Patient Education How to access health informa tion online - Detail Indication:Hypercholesterolemia Start:24-Mar-2015 Instruction Type:Patient Education How to access health informa tion online Indication:Depression Start:09-Dec-2014 Instruction Type:Patient Education How to access health informa tion online - Detail Indication:Depression Start:09-Dec-2014 Instruction Type:Patient Education Patient Instructions Indication:Depression Start:09-Dec-2014 Instruction Type:Provider Instructions for Treatment How to access health informa tion online Indication:Hypercholesterolemia Start:08-Aug-2014 Instruction Type:Patient Education How to access health informa tion online - Detail Indication:Hypercholesterolemia Start:08-Aug-2014 Instruction Type:Patient Education Patient Instructions Indication:Hypercholesterolemia Start:08-Aug-2014 Instruction Type:Provider Instructions for Treatment How to access health informa tion online Indication:Exposure to influenza Start:05-Mar-2014 Instruction Type:Patient Education How to access health informa tion online - Detail Indication:Exposure to influenza Start:05-Mar-2014 Instruction Type:Patient Education Patient Instructions Indication:Exposure to influenza Start:05-Mar-2014 Instruction Type:Provider Instructions for Treatment Patient Instructions Indication:Insomnia, unspecified Start:26-Feb-2014 Instruction Type:Provider Instructions for Treatment How to access health informa tion online Indication:Hypercholesterolemia Start:31-Oct-2013 Instruction Type:Patient Education How to access health informa tion online - Detail Indication:Hypercholesterolemia Start:31-Oct-2013 Instruction Type:Patient Education Patient Instructions Indication:Hypercholesterolemia Start:31-Oct-2013 Instruction Type:Provider Instructions for Treatment Patient Instructions Indication:Osteoporosis Start:21-Dec-2011 Instruction Type:Provider Instructions for Treatment [facility]; [facility] Work Phone: Instructions* Name Dates Details Patient Instructions Indication:BMI 21.0-21.9, adult Start:23-Mar-2021 Instruction Type:Provider Instructions for Treatment How to Access Health Informa tion Online using Patient Portal and [employer]rd [employer] Apps Indication:BMI 21.0-21.9, adult Start:23-Mar-2021 Instruction Type:Patient Education Patient Instructions Indication:BMI 21.0-21.9, adult Start:20-Mar-2021 Instruction Type:Provider Instructions for Treatment How to Access Health Informa tion Online using Patient Portal and [employer]rd [employer] Apps Indication:BMI 21.0-21.9, adult Start:20-Mar-2021 Instruction Type:Patient Education Patient Instructions Indication:BMI 21.0-21.9, adult Start:05-May-2020 Instruction Type:Provider Instructions for Treatment How to Access Health Informa tion Online using Patient Portal and [employer]rd [employer] Apps Indication:BMI 21.0-21.9, adult Start:05-May-2020 Instruction Type:Patient Education Patient Instructions Indication:Hypercholesterolemia Start:24-Mar-2015 Instruction Type:Provider Instructions for Treatment How to access health informa tion online Indication:Hypercholesterolemia Start:24-Mar-2015 Instruction Type:Patient Education How to access health informa tion online - Detail Indication:Hypercholesterolemia Start:24-Mar-2015 Instruction Type:Patient Education How to access health informa tion online Indication:Depression Start:09-Dec-2014 Instruction Type:Patient Education How to access health informa tion online - Detail Indication:Depression Start:09-Dec-2014 Instruction Type:Patient Education Patient Instructions Indication:Depression Start:09-Dec-2014 Instruction Type:Provider Instructions for Treatment How to access health informa tion online Indication:Hypercholesterolemia Start:08-Aug-2014 Instruction Type:Patient Education How to access health informa tion online - Detail Indication:Hypercholesterolemia Start:08-Aug-2014 Instruction Type:Patient Education Patient Instructions Indication:Hypercholesterolemia Start:08-Aug-2014 Instruction Type:Provider Instructions for Treatment How to access health informa tion online Indication:Exposure to influenza Start:05-Mar-2014 Instruction Type:Patient Education How to access health informa tion online - Detail Indication:Exposure to influenza Start:05-Mar-2014 Instruction Type:Patient Education Patient Instructions Indication:Exposure to influenza Start:05-Mar-2014 Instruction Type:Provider Instructions for Treatment Patient Instructions Indication:Insomnia, unspecified Start:26-Feb-2014 Instruction Type:Provider Instructions for Treatment How to access health informa tion online Indication:Hypercholesterolemia Start:31-Oct-2013 Instruction Type:Patient Education How to access health informa tion online - Detail Indication:Hypercholesterolemia Start:31-Oct-2013 Instruction Type:Patient Education Patient Instructions Indication:Hypercholesterolemia Start:31-Oct-2013 Instruction Type:Provider Instructions for Treatment Patient Instructions Indication:Osteoporosis Start:21-Dec-2011 Instruction Type:Provider Instructions for Treatment [facility]; [facility] Work Phone: Instructions* Name Dates Details Patient Instructions Indication:BMI 21.0-21.9, adult Start:23-Mar-2021 Instruction Type:Provider Instructions for Treatment How to Access Health Informa tion Online using Patient Portal and [employer]rd [employer] Apps Indication:BMI 21.0-21.9, adult Start:23-Mar-2021 Instruction Type:Patient Education Patient Instructions Indication:BMI 21.0-21.9, adult Start:20-Mar-2021 Instruction Type:Provider Instructions for Treatment How to Access Health Informa tion Online using Patient Portal and [employer]rd [employer] Apps Indication:BMI 21.0-21.9, adult Start:20-Mar-2021 Instruction Type:Patient Education Patient Instructions Indication:BMI 21.0-21.9, adult Start:05-May-2020 Instruction Type:Provider Instructions for Treatment How to Access Health Informa tion Online using Patient Portal and [employer]rd [employer] Apps Indication:BMI 21.0-21.9, adult Start:05-May-2020 Instruction Type:Patient Education Patient Instructions Indication:Hypercholesterolemia Start:24-Mar-2015 Instruction Type:Provider Instructions for Treatment How to access health informa tion online Indication:Hypercholesterolemia Start:24-Mar-2015 Instruction Type:Patient Education How to access health informa tion online - Detail Indication:Hypercholesterolemia Start:24-Mar-2015 Instruction Type:Patient Education How to access health informa tion online Indication:Depression Start:09-Dec-2014 Instruction Type:Patient Education How to access health informa tion online - Detail Indication:Depression Start:09-Dec-2014 Instruction Type:Patient Education Patient Instructions Indication:Depression Start:09-Dec-2014 Instruction Type:Provider Instructions for Treatment How to access health informa tion online Indication:Hypercholesterolemia Start:08-Aug-2014 Instruction Type:Patient Education How to access health informa tion online - Detail Indication:Hypercholesterolemia Start:08-Aug-2014 Instruction Type:Patient Education Patient Instructions Indication:Hypercholesterolemia Start:08-Aug-2014 Instruction Type:Provider Instructions for Treatment How to access health informa tion online Indication:Exposure to influenza Start:05-Mar-2014 Instruction Type:Patient Education How to access health informa tion online - Detail Indication:Exposure to influenza Start:05-Mar-2014 Instruction Type:Patient Education Patient Instructions Indication:Exposure to influenza Start:05-Mar-2014 Instruction Type:Provider Instructions for Treatment Patient Instructions Indication:Insomnia, unspecified Start:26-Feb-2014 Instruction Type:Provider Instructions for Treatment How to access health informa tion online Indication:Hypercholesterolemia Start:31-Oct-2013 Instruction Type:Patient Education How to access health informa tion online - Detail Indication:Hypercholesterolemia Start:31-Oct-2013 Instruction Type:Patient Education Patient Instructions Indication:Hypercholesterolemia Start:31-Oct-2013 Instruction Type:Provider Instructions for Treatment Patient Instructions Indication:Osteoporosis Start:21-Dec-2011 Instruction Type:Provider Instructions for Treatment [facility]; [facility] Work Phone: Instructions* Name Dates Details Patient Instructions Indication:BMI 21.0-21.9, adult Start:23-Mar-2021 Instruction Type:Provider Instructions for Treatment How to Access Health Informa tion Online using Patient Portal and [employer]rd [employer] Apps Indication:BMI 21.0-21.9, adult Start:23-Mar-2021 Instruction Type:Patient Education Patient Instructions Indication:BMI 21.0-21.9, adult Start:20-Mar-2021 Instruction Type:Provider Instructions for Treatment How to Access Health Informa tion Online using Patient Portal and [employer]rd [employer] Apps Indication:BMI 21.0-21.9, adult Start:20-Mar-2021 Instruction Type:Patient Education Patient Instructions Indication:BMI 21.0-21.9, adult Start:05-May-2020 Instruction Type:Provider Instructions for Treatment How to Access Health Informa tion Online using Patient Portal and [employer]rd [employer] Apps Indication:BMI 21.0-21.9, adult Start:05-May-2020 Instruction Type:Patient Education Patient Instructions Indication:Hypercholesterolemia Start:24-Mar-2015 Instruction Type:Provider Instructions for Treatment How to access health informa tion online Indication:Hypercholesterolemia Start:24-Mar-2015 Instruction Type:Patient Education How to access health informa tion online - Detail Indication:Hypercholesterolemia Start:24-Mar-2015 Instruction Type:Patient Education How to access health informa tion online Indication:Depression Start:09-Dec-2014 Instruction Type:Patient Education How to access health informa tion online - Detail Indication:Depression Start:09-Dec-2014 Instruction Type:Patient Education Patient Instructions Indication:Depression Start:09-Dec-2014 Instruction Type:Provider Instructions for Treatment How to access health informa tion online Indication:Hypercholesterolemia Start:08-Aug-2014 Instruction Type:Patient Education How to access health informa tion online - Detail Indication:Hypercholesterolemia Start:08-Aug-2014 Instruction Type:Patient Education Patient Instructions Indication:Hypercholesterolemia Start:08-Aug-2014 Instruction Type:Provider Instructions for Treatment How to access health informa tion online Indication:Exposure to influenza Start:05-Mar-2014 Instruction Type:Patient Education How to access health informa tion online - Detail Indication:Exposure to influenza Start:05-Mar-2014 Instruction Type:Patient Education Patient Instructions Indication:Exposure to influenza Start:05-Mar-2014 Instruction Type:Provider Instructions for Treatment Patient Instructions Indication:Insomnia, unspecified Start:26-Feb-2014 Instruction Type:Provider Instructions for Treatment How to access health informa tion online Indication:Hypercholesterolemia Start:31-Oct-2013 Instruction Type:Patient Education How to access health informa tion online - Detail Indication:Hypercholesterolemia Start:31-Oct-2013 Instruction Type:Patient Education Patient Instructions Indication:Hypercholesterolemia Start:31-Oct-2013 Instruction Type:Provider Instructions for Treatment Patient Instructions Indication:Osteoporosis Start:21-Dec-2011 Instruction Type:Provider Instructions for Treatment [facility]; [facility] Work Phone: Instructions* Name Dates Details Patient Instructions Indication:Depression Start:16-Dec-2022 Instruction Type:Provider Instructions for Treatment How to Access Health Informa tion Online using Patient Portal and [employer]rd [employer] Apps Indication:Depression Start:16-Dec-2022 Instruction Type:Patient Education Patient Instructions Indication:BMI 21.0-21.9, adult Start:23-Mar-2021 Instruction Type:Provider Instructions for Treatment How to Access Health Informa tion Online using Patient Portal and [employer]rd [employer] Apps Indication:BMI 21.0-21.9, adult Start:23-Mar-2021 Instruction Type:Patient Education Patient Instructions Indication:BMI 21.0-21.9, adult Start:20-Mar-2021 Instruction Type:Provider Instructions for Treatment How to Access Health Informa tion Online using Patient Portal and [employer]rd [employer] Apps Indication:BMI 21.0-21.9, adult Start:20-Mar-2021 Instruction Type:Patient Education Patient Instructions Indication:BMI 21.0-21.9, adult Start:05-May-2020 Instruction Type:Provider Instructions for Treatment How to Access Health Informa tion Online using Patient Portal and [employer]rd [employer] Apps Indication:BMI 21.0-21.9, adult Start:05-May-2020 Instruction Type:Patient Education Patient Instructions Indication:Hypercholesterolemia Start:24-Mar-2015 Instruction Type:Provider Instructions for Treatment How to access health informa tion online Indication:Hypercholesterolemia Start:24-Mar-2015 Instruction Type:Patient Education How to access health informa tion online - Detail Indication:Hypercholesterolemia Start:24-Mar-2015 Instruction Type:Patient Education How to access health informa tion online Indication:Depression Start:09-Dec-2014 Instruction Type:Patient Education How to access health informa tion online - Detail Indication:Depression Start:09-Dec-2014 Instruction Type:Patient Education Patient Instructions Indication:Depression Start:09-Dec-2014 Instruction Type:Provider Instructions for Treatment How to access health informa tion online Indication:Hypercholesterolemia Start:08-Aug-2014 Instruction Type:Patient Education How to access health informa tion online - Detail Indication:Hypercholesterolemia Start:08-Aug-2014 Instruction Type:Patient Education Patient Instructions Indication:Hypercholesterolemia Start:08-Aug-2014 Instruction Type:Provider Instructions for Treatment How to access health informa tion online Indication:Exposure to influenza Start:05-Mar-2014 Instruction Type:Patient Education How to access health informa tion online - Detail Indication:Exposure to influenza Start:05-Mar-2014 Instruction Type:Patient Education Patient Instructions Indication:Exposure to influenza Start:05-Mar-2014 Instruction Type:Provider Instructions for Treatment Patient Instructions Indication:Insomnia, unspecified Start:26-Feb-2014 Instruction Type:Provider Instructions for Treatment How to access health informa tion online Indication:Hypercholesterolemia Start:31-Oct-2013 Instruction Type:Patient Education How to access health informa tion online - Detail Indication:Hypercholesterolemia Start:31-Oct-2013 Instruction Type:Patient Education Patient Instructions Indication:Hypercholesterolemia Start:31-Oct-2013 Instruction Type:Provider Instructions for Treatment Patient Instructions Indication:Osteoporosis Start:21-Dec-2011 Instruction Type:Provider Instructions for Treatment [facility]; [facility] Work Phone: Instructions* Name Dates Details Patient Instructions Indication:Depression Start:16-Dec-2022 Instruction Type:Provider Instructions for Treatment How to Access Health Informa tion Online using Patient Portal and [employer]rd [employer] Apps Indication:Depression Start:16-Dec-2022 Instruction Type:Patient Education Patient Instructions Indication:BMI 21.0-21.9, adult Start:23-Mar-2021 Instruction Type:Provider Instructions for Treatment How to Access Health Informa tion Online using Patient Portal and [employer]rd [employer] Apps Indication:BMI 21.0-21.9, adult Start:23-Mar-2021 Instruction Type:Patient Education Patient Instructions Indication:BMI 21.0-21.9, adult Start:20-Mar-2021 Instruction Type:Provider Instructions for Treatment How to Access Health Informa tion Online using Patient Portal and [employer]rd [employer] Apps Indication:BMI 21.0-21.9, adult Start:20-Mar-2021 Instruction Type:Patient Education Patient Instructions Indication:BMI 21.0-21.9, adult Start:05-May-2020 Instruction Type:Provider Instructions for Treatment How to Access Health Informa tion Online using Patient Portal and [employer]rd [employer] Apps Indication:BMI 21.0-21.9, adult Start:05-May-2020 Instruction Type:Patient Education Patient Instructions Indication:Hypercholesterolemia Start:24-Mar-2015 Instruction Type:Provider Instructions for Treatment How to access health informa tion online Indication:Hypercholesterolemia Start:24-Mar-2015 Instruction Type:Patient Education How to access health informa tion online - Detail Indication:Hypercholesterolemia Start:24-Mar-2015 Instruction Type:Patient Education How to access health informa tion online Indication:Depression Start:09-Dec-2014 Instruction Type:Patient Education How to access health informa tion online - Detail Indication:Depression Start:09-Dec-2014 Instruction Type:Patient Education Patient Instructions Indication:Depression Start:09-Dec-2014 Instruction Type:Provider Instructions for Treatment How to access health informa tion online Indication:Hypercholesterolemia Start:08-Aug-2014 Instruction Type:Patient Education How to access health informa tion online - Detail Indication:Hypercholesterolemia Start:08-Aug-2014 Instruction Type:Patient Education Patient Instructions Indication:Hypercholesterolemia Start:08-Aug-2014 Instruction Type:Provider Instructions for Treatment How to access health informa tion online Indication:Exposure to influenza Start:05-Mar-2014 Instruction Type:Patient Education How to access health informa tion online - Detail Indication:Exposure to influenza Start:05-Mar-2014 Instruction Type:Patient Education Patient Instructions Indication:Exposure to influenza Start:05-Mar-2014 Instruction Type:Provider Instructions for Treatment Patient Instructions Indication:Insomnia, unspecified Start:26-Feb-2014 Instruction Type:Provider Instructions for Treatment How to access health informa tion online Indication:Hypercholesterolemia Start:31-Oct-2013 Instruction Type:Patient Education How to access health informa tion online - Detail Indication:Hypercholesterolemia Start:31-Oct-2013 Instruction Type:Patient Education Patient Instructions Indication:Hypercholesterolemia Start:31-Oct-2013 Instruction Type:Provider Instructions for Treatment Patient Instructions Indication:Osteoporosis Start:21-Dec-2011 Instruction Type:Provider Instructions for Treatment [facility]; [facility] Work Phone: Instructions* Name Dates Details Patient Instructions Indication:Depression Start:16-Dec-2022 Instruction Type:Provider Instructions for Treatment How to Access Health Informa tion Online using Patient Portal and [employer]rd [employer] Apps Indication:Depression Start:16-Dec-2022 Instruction Type:Patient Education Patient Instructions Indication:BMI 21.0-21.9, adult Start:23-Mar-2021 Instruction Type:Provider Instructions for Treatment How to Access Health Informa tion Online using Patient Portal and [employer]rd [employer] Apps Indication:BMI 21.0-21.9, adult Start:23-Mar-2021 Instruction Type:Patient Education Patient Instructions Indication:BMI 21.0-21.9, adult Start:20-Mar-2021 Instruction Type:Provider Instructions for Treatment How to Access Health Informa tion Online using Patient Portal and [employer]rd [employer] Apps Indication:BMI 21.0-21.9, adult Start:20-Mar-2021 Instruction Type:Patient Education Patient Instructions Indication:BMI 21.0-21.9, adult Start:05-May-2020 Instruction Type:Provider Instructions for Treatment How to Access Health Informa tion Online using Patient Portal and [employer]rd [employer] Apps Indication:BMI 21.0-21.9, adult Start:05-May-2020 Instruction Type:Patient Education Patient Instructions Indication:Hypercholesterolemia Start:24-Mar-2015 Instruction Type:Provider Instructions for Treatment How to access health informa tion online Indication:Hypercholesterolemia Start:24-Mar-2015 Instruction Type:Patient Education How to access health informa tion online - Detail Indication:Hypercholesterolemia Start:24-Mar-2015 Instruction Type:Patient Education How to access health informa tion online Indication:Depression Start:09-Dec-2014 Instruction Type:Patient Education How to access health informa tion online - Detail Indication:Depression Start:09-Dec-2014 Instruction Type:Patient Education Patient Instructions Indication:Depression Start:09-Dec-2014 Instruction Type:Provider Instructions for Treatment How to access health informa tion online Indication:Hypercholesterolemia Start:08-Aug-2014 Instruction Type:Patient Education How to access health informa tion online - Detail Indication:Hypercholesterolemia Start:08-Aug-2014 Instruction Type:Patient Education Patient Instructions Indication:Hypercholesterolemia Start:08-Aug-2014 Instruction Type:Provider Instructions for Treatment How to access health informa tion online Indication:Exposure to influenza Start:05-Mar-2014 Instruction Type:Patient Education How to access health informa tion online - Detail Indication:Exposure to influenza Start:05-Mar-2014 Instruction Type:Patient Education Patient Instructions Indication:Exposure to influenza Start:05-Mar-2014 Instruction Type:Provider Instructions for Treatment Patient Instructions Indication:Insomnia, unspecified Start:26-Feb-2014 Instruction Type:Provider Instructions for Treatment How to access health informa tion online Indication:Hypercholesterolemia Start:31-Oct-2013 Instruction Type:Patient Education How to access health informa tion online - Detail Indication:Hypercholesterolemia Start:31-Oct-2013 Instruction Type:Patient Education Patient Instructions Indication:Hypercholesterolemia Start:31-Oct-2013 Instruction Type:Provider Instructions for Treatment Patient Instructions Indication:Osteoporosis Start:21-Dec-2011 Instruction Type:Provider Instructions for Treatment [facility] Work Phone: Instructions* Name Dates Details Patient Instructions Indication:Depression Start:16-Dec-2022 Instruction Type:Provider Instructions for Treatment How to Access Health Informa tion Online using Patient Portal and 3rd [employer] Apps Indication:Depression Start:16-Dec-2022 Instruction Type:Patient Education Patient Instructions Indication:BMI 21.0-21.9, adult Start:23-Mar-2021 Instruction Type:Provider Instructions for Treatment How to Access Health Informa tion Online using Patient Portal and 3rd [employer] Apps Indication:BMI 21.0-21.9, adult Start:23-Mar-2021 Instruction Type:Patient Education Patient Instructions Indication:BMI 21.0-21.9, adult Start:20-Mar-2021 Instruction Type:Provider Instructions for Treatment How to Access Health Informa tion Online using Patient Portal and 3rd [employer] Apps Indication:BMI 21.0-21.9, adult Start:20-Mar-2021 Instruction Type:Patient Education Patient Instructions Indication:BMI 21.0-21.9, adult Start:05-May-2020 Instruction Type:Provider Instructions for Treatment How to Access Health Informa tion Online using Patient Portal and 3rd [employer] Apps Indication:BMI 21.0-21.9, adult Start:05-May-2020 Instruction Type:Patient Education Patient Instructions Indication:Hypercholesterolemia Start:24-Mar-2015 Instruction Type:Provider Instructions for Treatment How to access health informa tion online Indication:Hypercholesterolemia Start:24-Mar-2015 Instruction Type:Patient Education How to access health informa tion online - Detail Indication:Hypercholesterolemia Start:24-Mar-2015 Instruction Type:Patient Education How to access health informa tion online Indication:Depression Start:09-Dec-2014 Instruction Type:Patient Education How to access health informa tion online - Detail Indication:Depression Start:09-Dec-2014 Instruction Type:Patient Education Patient Instructions Indication:Depression Start:09-Dec-2014 Instruction Type:Provider Instructions for Treatment How to access health informa tion online Indication:Hypercholesterolemia Start:08-Aug-2014 Instruction Type:Patient Education How to access health informa tion online - Detail Indication:Hypercholesterolemia Start:08-Aug-2014 Instruction Type:Patient Education Patient Instructions Indication:Hypercholesterolemia Start:08-Aug-2014 Instruction Type:Provider Instructions for Treatment How to access health informa tion online Indication:Exposure to influenza Start:05-Mar-2014 Instruction Type:Patient Education How to access health informa tion online - Detail Indication:Exposure to influenza Start:05-Mar-2014 Instruction Type:Patient Education Patient Instructions Indication:Exposure to influenza Start:05-Mar-2014 Instruction Type:Provider Instructions for Treatment Patient Instructions Indication:Insomnia, unspecified Start:26-Feb-2014 Instruction Type:Provider Instructions for Treatment How to access health informa tion online Indication:Hypercholesterolemia Start:31-Oct-2013 Instruction Type:Patient Education How to access health informa tion online - Detail Indication:Hypercholesterolemia Start:31-Oct-2013 Instruction Type:Patient Education Patient Instructions Indication:Hypercholesterolemia Start:31-Oct-2013 Instruction Type:Provider Instructions for Treatment Patient Instructions Indication:Osteoporosis Start:21-Dec-2011 Instruction Type:Provider Instructions for Treatment [facility] Work Phone: Instructions* Name Dates Details Patient Instructions Indication:Depression Start:16-Dec-2022 Instruction Type:Provider Instructions for Treatment How to Access Health Informa tion Online using Patient Portal and 3rd [employer] Apps Indication:Depression Start:16-Dec-2022 Instruction Type:Patient Education Patient Instructions Indication:BMI 21.0-21.9, adult Start:23-Mar-2021 Instruction Type:Provider Instructions for Treatment How to Access Health Informa tion Online using Patient Portal and 3rd [employer] Apps Indication:BMI 21.0-21.9, adult Start:23-Mar-2021 Instruction Type:Patient Education Patient Instructions Indication:BMI 21.0-21.9, adult Start:20-Mar-2021 Instruction Type:Provider Instructions for Treatment How to Access Health Informa tion Online using Patient Portal and 3rd [employer] Apps Indication:BMI 21.0-21.9, adult Start:20-Mar-2021 Instruction Type:Patient Education Patient Instructions Indication:BMI 21.0-21.9, adult Start:05-May-2020 Instruction Type:Provider Instructions for Treatment How to Access Health Informa tion Online using Patient Portal and 3rd [employer] Apps Indication:BMI 21.0-21.9, adult Start:05-May-2020 Instruction Type:Patient Education Patient Instructions Indication:Hypercholesterolemia Start:24-Mar-2015 Instruction Type:Provider Instructions for Treatment How to access health informa tion online Indication:Hypercholesterolemia Start:24-Mar-2015 Instruction Type:Patient Education How to access health informa tion online - Detail Indication:Hypercholesterolemia Start:24-Mar-2015 Instruction Type:Patient Education How to access health informa tion online Indication:Depression Start:09-Dec-2014 Instruction Type:Patient Education How to access health informa tion online - Detail Indication:Depression Start:09-Dec-2014 Instruction Type:Patient Education Patient Instructions Indication:Depression Start:09-Dec-2014 Instruction Type:Provider Instructions for Treatment How to access health informa tion online Indication:Hypercholesterolemia Start:08-Aug-2014 Instruction Type:Patient Education How to access health informa tion online - Detail Indication:Hypercholesterolemia Start:08-Aug-2014 Instruction Type:Patient Education Patient Instructions Indication:Hypercholesterolemia Start:08-Aug-2014 Instruction Type:Provider Instructions for Treatment How to access health informa tion online Indication:Exposure to influenza Start:05-Mar-2014 Instruction Type:Patient Education How to access health informa tion online - Detail Indication:Exposure to influenza Start:05-Mar-2014 Instruction Type:Patient Education Patient Instructions Indication:Exposure to influenza Start:05-Mar-2014 Instruction Type:Provider Instructions for Treatment Patient Instructions Indication:Insomnia, unspecified Start:26-Feb-2014 Instruction Type:Provider Instructions for Treatment How to access health informa tion online Indication:Hypercholesterolemia Start:31-Oct-2013 Instruction Type:Patient Education How to access health informa tion online - Detail Indication:Hypercholesterolemia Start:31-Oct-2013 Instruction Type:Patient Education Patient Instructions Indication:Hypercholesterolemia Start:31-Oct-2013 Instruction Type:Provider Instructions for Treatment Patient Instructions Indication:Osteoporosis Start:21-Dec-2011 Instruction Type:Provider Instructions for Treatment [facility] Work Phone: reason for referral (narrative)No reason for referral information availableAdena [facility] System Work Phone: Summary Purpose Family History No Family History Records FoundUnknown Family Member Name Dates Details Family Members In General Comments:ETOH, DM, Drug abus e, Emotional, Heart/Lung, High cholesterol, Lupus Status:Active Unknown Family Member Name Dates Details Family Members In General Comments:ETOH, DM, Drug abus e, Emotional, Heart/Lung, High cholesterol, Lupus Status:Active Unknown Family Member Name Dates Details Family Members In General Comments:ETOH, DM, Drug abus e, Emotional, Heart/Lung, High cholesterol, Lupus Status:Active Unknown Family Member Name Dates Details Family Members In General Comments:ETOH, DM, Drug abus e, Emotional, Heart/Lung, High cholesterol, Lupus Status:Active Unknown Family Member Name Dates Details Family Members In General Comments:ETOH, DM, Drug abus e, Emotional, Heart/Lung, High cholesterol, Lupus Status:Active Unknown Family Member Name Dates Details Family Members In General Comments:ETOH, DM, Drug abus e, Emotional, Heart/Lung, High cholesterol, Lupus Status:Active Unknown Family Member Name Dates Details Family Members In General Comments:ETOH, DM, Drug abus e, Emotional, Heart/Lung, High cholesterol, Lupus Status:Active Unknown Family Member Name Dates Details Family Members In General Comments:ETOH, DM, Drug abus e, Emotional, Heart/Lung, High cholesterol, Lupus Status:Active Unknown Family Member Name Dates Details Family Members In General Comments:ETOH, DM, Drug abus e, Emotional, Heart/Lung, High cholesterol, Lupus Status:Active Unknown Family Member Name Dates Details Family Members In General Comments:ETOH, DM, Drug abus e, Emotional, Heart/Lung, High cholesterol, Lupus Status:Active Unknown Family Member Name Dates Details Family Members In General Comments:ETOH, DM, Drug abus e, Emotional, Heart/Lung, High cholesterol, Lupus Status:Active Unknown Family Member Name Dates Details Family Members In General Comments:ETOH, DM, Drug abus e, Emotional, Heart/Lung, High cholesterol, Lupus Status:Active Unknown Family Member Name Dates Details Family Members In General Comments:ETOH, DM, Drug abus e, Emotional, Heart/Lung, High cholesterol, Lupus Status:Active Unknown Family Member Name Dates Details Family Members In General Comments:ETOH, DM, Drug abus e, Emotional, Heart/Lung, High cholesterol, Lupus Status:Active Unknown Family Member Name Dates Details Family Members In General Comments:ETOH, DM, Drug abus e, Emotional, Heart/Lung, High cholesterol, Lupus Status:Active Advance Directives No Advanced Directives Records FoundDocuments on File Type Date Recorded Patient Client Services Specialist Expl anation ACP-Advance Directive ACP-Power of Project Intern Documents on File Type Date Recorded Patient Client Services Specialist Expl anation Advance Directives and Living Will Power of Project Intern Documents on File Type Date Recorded Patient Client Services Specialist Expl anation ACP-Advance Directive ACP-Power of Project Intern Advance Directive Response Recorded Date/ Time Living Will No October 31 9:37am Power of Project Intern No October 31 9:37am Documents on File Type Date Recorded Patient Client Services Specialist Expl anation Advance Directive(s) 01/01/2019 12:05 PM Advance Directive(s) 12/15/2018 10:50 AM Advance Directive(s) 08/20/2015 1:18 PM Advance Directive(s) 07/16/2015 4:29 PM Advance Directive Response Recorded Date/ Time Living Will No October 31 8:37am Power of Project Intern No October 31 8:37am Advance Directive Response Recorded Date/ Time Living Will No January 01 11:05am Power of Project Intern No January 01, 2023 11:05am Advance Directive Response Recorded Date/ Time Living Will No January 01 10:05am Power of Project Intern No January 01, 2023 10:05am Advance Directive Response Recorded Date/ Time Living Will No July 20, 2023 11 :43am Power of Project Intern No July 20, 2023 11:43am Instructions Name Dates Details Patient Instructions Indication:BMI 21.0-21.9, adult Start:05-May-2020 Instruction Type:Provider Instructions for Treatment How to Access Health Informa tion Online using Patient Portal and 3rd [employer] Apps Indication:BMI 21.0-21.9, adult Start:05-May-2020 Instruction Type:Patient Education Patient Instructions Indication:Hypercholesterolemia Start:24-Mar-2015 Instruction Type:Provider Instructions for Treatment How to access health informa tion online Indication:Hypercholesterolemia Start:24-Mar-2015 Instruction Type:Patient Education How to access health informa tion online - Detail Indication:Hypercholesterolemia Start:24-Mar-2015 Instruction Type:Patient Education How to access health informa tion online Indication:Depression Start:09-Dec-2014 Instruction Type:Patient Education How to access health informa tion online - Detail Indication:Depression Start:09-Dec-2014 Instruction Type:Patient Education Patient Instructions Indication:Depression Start:09-Dec-2014 Instruction Type:Provider Instructions for Treatment How to access health informa tion online Indication:Hypercholesterolemia Start:08-Aug-2014 Instruction Type:Patient Education How to access health informa tion online - Detail Indication:Hypercholesterolemia Start:08-Aug-2014 Instruction Type:Patient Education Patient Instructions Indication:Hypercholesterolemia Start:08-Aug-2014 Instruction Type:Provider Instructions for Treatment How to access health informa tion online Indication:Exposure to influenza Start:05-Mar-2014 Instruction Type:Patient Education How to access health informa tion online - Detail Indication:Exposure to influenza Start:05-Mar-2014 Instruction Type:Patient Education Patient Instructions Indication:Exposure to influenza Start:05-Mar-2014 Instruction Type:Provider Instructions for Treatment Patient Instructions Indication:Insomnia, unspecified Start:26-Feb-2014 Instruction Type:Provider Instructions for Treatment How to access health informa tion online Indication:Hypercholesterolemia Start:31-Oct-2013 Instruction Type:Patient Education How to access health informa tion online - Detail Indication:Hypercholesterolemia Start:31-Oct-2013 Instruction Type:Patient Education Patient Instructions Indication:Hypercholesterolemia Start:31-Oct-2013 Instruction Type:Provider Instructions for Treatment Patient Instructions Indication:Osteoporosis Start:21-Dec-2011 Instruction Type:Provider Instructions for Treatment Name Dates Details Patient Instructions Indication:BMI 21.0-21.9, adult Start:05-May-2020 Instruction Type:Provider Instructions for Treatment How to Access Health Informa tion Online using Patient Portal and 3rd [employer] Apps Indication:BMI 21.0-21.9, adult Start:05-May-2020 Instruction Type:Patient Education Patient Instructions Indication:Hypercholesterolemia Start:24-Mar-2015 Instruction Type:Provider Instructions for Treatment How to access health informa tion online Indication:Hypercholesterolemia Start:24-Mar-2015 Instruction Type:Patient Education How to access health informa tion online - Detail Indication:Hypercholesterolemia Start:24-Mar-2015 Instruction Type:Patient Education How to access health informa tion online Indication:Depression Start:09-Dec-2014 Instruction Type:Patient Education How to access health informa tion online - Detail Indication:Depression Start:09-Dec-2014 Instruction Type:Patient Education Patient Instructions Indication:Depression Start:09-Dec-2014 Instruction Type:Provider Instructions for Treatment How to access health informa tion online Indication:Hypercholesterolemia Start:08-Aug-2014 Instruction Type:Patient Education How to access health informa tion online - Detail Indication:Hypercholesterolemia Start:08-Aug-2014 Instruction Type:Patient Education Patient Instructions Indication:Hypercholesterolemia Start:08-Aug-2014 Instruction Type:Provider Instructions for Treatment How to access health informa tion online Indication:Exposure to influenza Start:05-Mar-2014 Instruction Type:Patient Education How to access health informa tion online - Detail Indication:Exposure to influenza Start:05-Mar-2014 Instruction Type:Patient Education Patient Instructions Indication:Exposure to influenza Start:05-Mar-2014 Instruction Type:Provider Instructions for Treatment Patient Instructions Indication:Insomnia, unspecified Start:26-Feb-2014 Instruction Type:Provider Instructions for Treatment How to access health informa tion online Indication:Hypercholesterolemia Start:31-Oct-2013 Instruction Type:Patient Education How to access health informa tion online - Detail Indication:Hypercholesterolemia Start:31-Oct-2013 Instruction Type:Patient Education Patient Instructions Indication:Hypercholesterolemia Start:31-Oct-2013 Instruction Type:Provider Instructions for Treatment Patient Instructions Indication:Osteoporosis Start:21-Dec-2011 Instruction Type:Provider Instructions for Treatment Reason for Referral Status Reason Specialty Diagnoses / Procedures Referre d By Contact Referred To Contact Closed Radiology Diagnoses Breast cancer screening, high risk patient Fibrocystic disease of both breasts Other benign mammary dysplasias of right breast Screening mammogram for high-risk patient Procedures MRI BREAST BILATERAL W WO CONTRAST W/CAD Adelia Wolf MD [address] [place] [address], [address] [place] [address] Specialty Diagnoses / Procedures Referred By Contac t Referred To Contact Radiology Diagnoses Mass of multiple sites of liver Procedures US ABDOMEN LIMITED Adelia Wolf MD [address] [place] [address] [address] [place] [address] Referral ID Status Reason Start Date Expiration Date Visits Re quested Visits Authorized [id number] Open 12/29/2021 12/29/2022 1 1 Chief Complaint and Reason for Visit Chief Complaint COVID POS PAIN- COPY PCP Chief Complaint PAIN- COPY PCP PAIN- COPY PCP Chief Complaint PAIN- COPY PCP Chief Complaint PAIN- COPY PCP fall Chief Complaint PAIN- COPY PCP fall Age-related osteoporosis without current pathologi Chief Complaint PAIN- COPY PCP fall Age-related osteoporosis without current pathologi PAIN- COPY PCP Chief Complaint PAIN- COPY PCP Amb Documentation PAIN- COPY PCP LT HAND THUMB KNUCKLE REPLACE/PT HAS RX Chief Complaint Amb Documentation PAIN- COPY PCP LT HAND THUMB KNUCKLE REPLACE/PT HAS RX Reason for Visit Hx of colonic polyp Chief Complaint Admit Date OA [facility]ST [facility] HAND. PT HAS RX Novem 2023 10:30am PAIN- COPY PCP February 14, 2024 3 :34pm PAIN- COPY PCP May 14, 2024 1:20 pm Chief Complaint Admit Date PAIN- COPY PCP May 14, 2024 1:20 pm [facility] [employer] [facility] August 03, 2024 8:39a m Health Concerns Infection Onset Date Last Indicated Resolved Time COVID-19 Rule-Out 10/01/2021 10/01/2021 Infection Onset Date Last Indicated Resolved Time COVID-19 Rule-Out 10/01/2021 10/01/2021 10/02/2021 3:46 AM EDT Additional Source Comments INFORMATION SOURCE (unrecogn ized section and content) DATE CREATED AUTHOR 01/01/2019 [facility] DATE CREATED AUTHOR AUTHOR'S ORGANIZ ATION 03/01/2021 [employer] DATE CREATED AUTHOR AUTHOR'S ORGANIZ ATION 01/09/2022 [employer] [facility] DATE CREATED AUTHOR AUTHOR'S ORGANIZ ATION 04/03/2023 [facility] DATE CREATED AUTHOR AUTHOR'S ORGANIZ ATION [facility] DATE CREATED AUTHOR AUTHOR'S ORGANIZ ATION 08/01/2024 [employer] [facility] DATE CREATED AUTHOR AUTHOR'S ORGANIZ ATION 08/15/2024 [facility] Goals (unrecognized section and content) Goals may be documented in a n alternate sectionGoals may be documented in an alternate sectionGoals may be documented in an alternate sectionGoals may be documented in an alternate sectionGoals may be documented in an alternate sectionGoals may be documented in an alternate sectionGoals may be documented in an alternate sectionGoals may be documented in an alternate sectionGoals may be documented in an alternate sectionGoals may be documented in an alternate sectionGoals may be documented in an alternate sectionGoals may be documented in an alternate sectionGoals may be documented in an alternate sectionGoals may be documented in an alternate section Source Comments (unrecognize d section and content) In the event this informatio n is protected by the Federal Confidentiality of Alcohol and Drug Abuse Patient Records regulations: The Federal rules restrict any use of the information to criminally investigate or prosecute any alcohol or drug abuse patient.[facility] HospitalIn the event this information is protected by the Federal Confidentiality of Alcohol and Drug Abuse Patient Records regulations: The Federal rules restrict any use of the information to criminally investigate or prosecute any alcohol or drug abuse patient.[facility] HospitalIn the event this information is protected by the Federal Confidentiality of Alcohol and Drug Abuse Patient Records regulations: The Federal rules restrict any use of the information to criminally investigate or prosecute any alcohol or drug abuse patient.[facility] HospitalIn the event this information is protected by the Federal Confidentiality of Alcohol and Drug Abuse Patient Records regulations: The Federal rules restrict any use of the information to criminally investigate or prosecute any alcohol or drug abuse patient.[facility] HospitalIn the event this information is protected by the Federal Confidentiality of Alcohol and Drug Abuse Patient Records regulations: The Federal rules restrict any use of the information to criminally investigate or prosecute any alcohol or drug abuse patient.[facility] Reason for Visit (unrecogniz ed section and content) Reason Comments Cough Pt denied SOB, chest pain, bilateral ears decreased hearing, [place] pain rated 3 Follow Up 09/30/21 P reported [facility] (negative Covid, Flu) Reason Comments Results Reason Comments Headache pain rated 5 x 4 day s Ear Problem (RT) ear pressure, x 1 day, cough Pt denied SOB, chest pain Reason Onset Date Comments Orders 04/08/2023 Care Teams (unrecognized sec tion and content) Stretch Machine Operator Relationship Specialty Start Date End Date Jj Mariano MD PCP - General Family Practice 07/15/15 Jay Estrella [address] [place] [id number] Physician Rheumatology 07/15/15 Casa Lenz MD Physician Physical Medicine and Rehab 07/15/15 Stretch Machine Operator Relationship Specialty Start Date End Date Jj Mariano MD PCP - General [facility] 07/15/[place] [address] Physician Rheumatology 07/15/15 Casa Lenz MD Physician Physical Medicine and Rehab 07/15/15 Stretch Machine Operator Relationship Specialty Start Date End Date Elizabet Walden DO [address] [place] [address] PCP - General Internal Medicine 10/08/21 [facility] [address] Physician Rheumatology 07/15/15 Casa Lenz MD Physician Physical Medicine and Rehab 07/15/15 Stretch Machine Operator Relationship Specialty Start Date End Date Elizabet Walden DO [address] [place] [address] PCP - General Internal Medicine 10/08/21 [place] [address] Physician Rheumatology 07/15/15 Casa Lenz MD Physician Physical Medicine and Rehab 07/15/15 Stretch Machine Operator Relationship Specialty Start Date End Date Elizabet Walden [address] [place] [address] PCP - General Internal Medicine 12/16/20 Team Status: Active Member Role Status Dates Dr. Jj Mariano MD Family Provider Active Dr. Elizabet Walden DO Primary Care Provider Active Team Status: Inactive Member Role Status Dates Dr. Elizabet Walden DO Primary Care Provider Active Dr. Mitzi Ann MD Attending Provider, Referring Provider Active Team Status: Inactive Member Role Status Dates Dr. Elizabet Walden DO Primary Care Provider Active Dr. Michele Shanks MD Emergency Provider Active Team Status: Inactive Member Role Status Dates Dr. Elizabet Walden DO Primary Care Provider Active Dr. Michele Shanks MD Attending Provider, Emergency Pr ovider Active Team Status: Inactive Member Role Status Dates Dr. Elizabet Walden DO Primary Care Pr ovider, Attending Provider, Referring Provider Active Stretch Machine Operator Relationship Specialty Start Date End Date Elizabet Walden DO [address] [place] [phone] PCP - General 12/16/20 Stretch Machine Operator Relationship Specialty Start Date End Date Elizabet Walden DO [address] [place] [phone] PCP - General 12/16/20 Stretch Machine Operator Relationship Specialty Start Date End Date Elizabet Walden DO [address] [place] [phone] PCP - General 12/16/20 Team Status: Active Member Role Status Dates Dr. Elizabet Walden DO Primary Care Provider Active Caitlyn Tadeo Attending Provider Active Team Status: Active Member Role Status Dates Dr. Elizabet Walden DO Primary Care Provider Active KEVIN ORTIZ Attending Provider, Referring Provider Active Team Status: Inactive Member Role Status Dates Dr. Elizabet Walden DO Primary Care Provider Active KEVIN ORTIZ Attending Provider, Referring Provider Active Team Status: Active Member Role Status Dates Dr. Elizabet Walden DO Primary Care Provider, Referr ing Provider Active Dr. Lexie Eli MD Attending Provider, Other Pro vider Active Team Status: Inactive Member Role Status Dates Dr. Elizabet Walden DO Primary Care Provider, Referr ing Provider Active Dr. Lexie Eli MD Attending Provider Active Stretch Machine Operator Relationship Specialty Start Date End Date Elizabet Walden DO [address] [place] [address] PCP - General Internal Medicine 10/08/21 Jay Estrella MD [address] [place] [id number] Physician Rheumatology 07/15/15 Casa Lenz MD [address] [place] [phone] Physician Physical Medicine and Rehab 07/15/15 Stretch Machine Operator Relationship Specialty Start Date End Date Elizabet Walden [address] [facility] [address] [place] [id number] PCP - General 12/16/20 Team Status: Inactive Member Role Status Dates Dr. Elizabet Walden DO Primary Care Provider Active Start: January 31, 2024 End: January 31, 2024 KEVIN LANG Attending Provider Active Start : January 31, 2024 End: January 31, 2024 KEVIN LANG Referring Provider Active Start : January 31, 2024 End: January 31, 2024 Team Status: Inactive Member Role Status Dates Dr. Elizabet Walden DO Primary Care Provider Active Start: February 14, 2024 End: February 14, 2024 Dr. Mitzi Ann MD Attending Provider Active Start: February 14, 2024 End: February 14, 2024 Dr. Mitzi Ann MD Referring Provider Active Start: February 14, 2024 End: February 14, 2024 Team Status: Active Member Role Status Dates Dr. Elizabet Walden DO Primary Care Provider Active Start: May 14, 2024 Dr. Mitzi Ann MD Attending Provider Active Start: May 14, 2024 Dr. Mitzi Ann MD Referring Provider Active Start: May 14, 2024 Team Status: Inactive Member Role Status Dates Dr. Elizabet Walden DO Primary Care Provider Active Start: May 14, 2024 End: May 14, 2024 Dr. Mitzi Ann MD Attending Provider Active Start: May 14, 2024 End: May 14, 2024 Dr. Mitzi Ann MD Referring Provider Active Start: May 14, 2024 End: May 14, 2024 Stretch Machine Operator Relationship Specialty Start Date End Date Elizabet Walden DO [address] [facility] [address] [place] [phone] PCP - General 12/16/20 Team Status: Active Member Role Status Dates Dr. Elizabet Walden DO Primary Care Provider Active Team Status: Inactive Member Role Status Dates Dr. Elizabet Walden DO Primary Care Provider Active Start: August 03, 2024 End: August 03, 2024 Dr. Elizabet Walden DO Attending Provider Active Start: August 03, 2024 End: August 03, 2024 Dr. Elizabet Walden DO Referring Provider Active Start: August 03, 2024 End: August 03, 2024 FOR RECORDS PERTAINING TO PATIENTS WHO ARE OR HAVE BEEN ENROLLED IN A CHEMICAL DEPENDENCY/SUBSTANCEABUSE PROGRAM, SOME INFORMATION MAY BE OMITTED. This clinical summary was aggregated from multiple sources. Caution should be exercised in using it in the provision of clinical care. This summary normalizes information from multiple sources, and as a consequence, information in this document may materially change the coding, format and clinical context of patient data. In addition, data may be omitted in some cases. CLINICAL DECISIONS SHOULD BE BASED ON THE PRIMARY CLINICAL RECORDS. [facility] [employer] provides no warranty or guarantee of the accuracy or completeness of information in this document.
== END | disposition home or self-care (01) ==
LOC: MTLAB 14:36
PROVIDERS: PCP Internal Medicine; Referring Provider Internal Medicine Rheumatology; Visit Provider Internal Medicine Rheumatology
DX: M51.372 Other intervertebral disc degeneration, lumbosacral region with discogenic back pain and lower extremity pain (principal); M06.00 Rheumatoid arthritis without rheumatoid factor, unspecified site; M35.00 Sjogren syndrome, unspecified; M79.7 Fibromyalgia; Z79.899 Other long term (current) drug therapy
CPT/HCPCS: 36415; 72120; 80053; 85025

== ENCOUNTER → 2024-10-19 | Outpatient (CLI) | payer MEDICARE, SELFPAY ==
[2024-10-19 15:46] LABS: Hematocrit 38.9 % (37-47); Hemoglobin 12.7 g/dL (12.0-15.0); Immature Granulocytes Count 0.010 X10^3/uL (0.0-0.0); Mean Corp Hgb Conc 32.6 g/dL (32-36); Mean Corpuscular Volume 97.5 fL (81-99); Mean Platelet Vol. 11.0 fl (6.2-12.0); NRBC Flagged by Analyzer 0 % (0-5); POSITIVE MORPHOLOGY YES; Platelet Count 276 K/mm3 (150-450); RBC Distribution Width CV 14.4 % (11.6-14.6); RBC Distribution Width SD 50.4 fl (35.1-43.9); Red Blood Count 3.99 M/mm3 (4.2-5.4); White Blood Count 5.3 K/mm3 (4.4-11.0)
[2024-10-19 16:12] LABS: AST(SGOT) 31 U/L (<=31); Alanine Aminotransfer ALT/SGPT 24 U/L (<=34); Albumin, Serum 4.3 g/dL (3.4-4.8); Alkaline Phosphatase 60 U/L (35-104); Anion Gap 10 (5-15); BUN 15 mg/dL (4-19); BUN/Creat Ratio 15.1 RATIO (10-20); Calcium,Total 9.8 mg/dL (7.6-11.0); Carbon Dioxide 26.2 mmol/L (21.0-32.0); Chloride 102 mmol/L (98-108); Globulin 2.4 g/dL (2.2-4.2); Glucose 74 mg/dL (70-99); Potassium 4.1 mmol/L (3.3-5.1)
[2024-10-19 17:01] LABS: Differential Indicated SCAN CRITERIA MET
[2024-10-19 17:03] LABS: Differential Comment SCANNED
== END | disposition home or self-care (01) ==
LOC: MTLAB 13:03
PROVIDERS: PCP Internal Medicine; Referring Provider Internal Medicine Rheumatology; Visit Provider Internal Medicine Rheumatology
DX: M06.00 Rheumatoid arthritis without rheumatoid factor, unspecified site (principal); M79.7 Fibromyalgia; Z79.899 Other long term (current) drug therapy
CPT/HCPCS: 36415; 80053; 85025

== ENCOUNTER → 2024-10-26 | Outpatient (CLI) | payer MEDICARE, SELFPAY ==
--- NOTE | 2024-10-26 10:08 | RAD_ITS ---
PROCEDURE: CERV SPINE OBL/FLEX/EXT COMP 10/26/2024 REASON FOR EXAM: PAIN Chronic neck pain. TECHNIQUE: CERV SPINE OBL/FLEX/EXT COMP COMPARISON: None FINDINGS: Vertebrae: Multilevel spondylosis. disc spaces: Multilevel disc space narrowing. Alignment: Normal alignment. soft tissues: No prevertebral soft tissue swelling. Other: Facet joint osteoarthritis. No significant neural foraminal stenosis seen. RAD/Cerv Spine Obl/Flex/Ext Comp IMPRESSION: MODERATE CERVICAL DEGENERATIVE CHANGES. Disclaimer: Reading Location: [id number]
== END | disposition home or self-care (01) ==
LOC: MTRAD 09:58
PROVIDERS: PCP Internal Medicine; Referring Provider Anesthesiology Pain Medicine; Visit Provider Anesthesiology Pain Medicine
DX: M54.2 Cervicalgia (principal)
CPT/HCPCS: 72052

== ENCOUNTER → 2025-02-05 | Outpatient (CLI) | payer MEDICARE, SELFPAY ==
[2025-02-05 15:30] LABS: Hematocrit 39.3 % (37-47); Hemoglobin 13.0 g/dL (12.0-15.0); Immature Granulocytes Count 0.010 X10^3/uL (0.0-0.0); Mean Corp Hgb Conc 33.1 g/dL (32-36); Mean Corpuscular Volume 96.1 fL (81-99); Mean Platelet Vol. 10.5 fl (6.2-12.0); NRBC Flagged by Analyzer 0 % (0-5); Platelet Count 298 K/mm3 (150-450); RBC Distribution Width CV 13.4 % (11.6-14.6); RBC Distribution Width SD 47.3 fl (35.1-43.9); Red Blood Count 4.09 M/mm3 (4.2-5.4); White Blood Count 6.5 K/mm3 (4.4-11.0)
[2025-02-05 15:53] LABS: AST(SGOT) 25 U/L (<=31); Alanine Aminotransfer ALT/SGPT 19 U/L (<=34); Albumin, Serum 4.3 g/dL (3.4-4.8); Alkaline Phosphatase 64 U/L (35-104); Anion Gap 9 (5-15); BUN 14 mg/dL (4-19); BUN/Creat Ratio 15.0 RATIO (10-20); Calcium,Total 9.5 mg/dL (7.6-11.0); Carbon Dioxide 27.8 mmol/L (21.0-32.0); Chloride 103 mmol/L (98-108); Globulin 2.8 g/dL (2.2-4.2); Glucose 80 mg/dL (70-99); Potassium 4.7 mmol/L (3.3-5.1)
== END | disposition home or self-care (01) ==
LOC: MTLAB 13:13
PROVIDERS: PCP Internal Medicine; Referring Provider Internal Medicine Rheumatology; Visit Provider Internal Medicine Rheumatology
DX: M06.00 Rheumatoid arthritis without rheumatoid factor, unspecified site (principal); M79.7 Fibromyalgia; Z79.899 Other long term (current) drug therapy
CPT/HCPCS: 36415; 80053; 85025